=== PATIENT | male | born 1945 | race Caucasian/White ===

== ENCOUNTER 2017-09-17 15:26 | Emergency (ER) | payer MEDICARE ==
[2017-09-17 15:38] VITALS: RESP 18; TEMP 97.4
--- NOTE | 2017-09-17 16:01 | ED ---
Chest Pain HPI - General Chief Complaint: Chest Pain Stated Complaint: Chest Pain Time Seen by Provider: 09/17/17 15:40 Source: patient, family, RN notes reviewed Mode of arrival: wheelchair Limitations: no limitations - History of Present Illness Initial Comments: Is a 72-year-old male history of a pacemaker who states she started developing left-sided chest pain last night. He states he had intermittent fleeting sharp in nature mild to moderate in severity not associated with any shortness breath fevers chills nausea vomiting sweats or other symptoms the patient does have also complains of an episode of drooling on the left side of his mouth this morning. There is no facial asymmetry reported no weakness to his arms or legs no headache blurry vision or other symptoms. He has no prior history of stroke. MD Complaint: chest pain - Related Data Home Medications Medication Instructions Recorded Confirmed Simvastatin [Zocor] 20 mg PO HS 05/26/14 09/17/17 Naproxen Sodium [Aleve] 220 mg PO Q12HR PRN 05/03/15 09/17/17 Ginkgo Biloba [place] Extract [Ginkgo] 60 mg PO DAILY 03/09/16 09/17/17 Metoprolol Tartrate [Lopressor] 25 mg PO BID 03/09/16 09/17/17 metFORMIN HCL [Glucophage] 500 mg PO BID 03/09/16 09/17/17 Acetaminophen [Tylenol Extra 500 mg PO BID PRN 09/17/17 09/17/17 Strength] Aspirin 325 mg PO DAILY 09/17/17 09/17/17 Lisinopril-Hctz 20-25 mg 2 tab PO DAILY 09/17/17 09/17/17 [Zestoretic 20-25] Propafenone [Rythmol] 225 mg PO BID 09/17/17 09/17/17 Rivaroxaban [Xarelto] 20 mg PO BID 09/17/17 09/17/17 Topiramate 50 mg PO BID 09/17/17 09/17/17 amLODIPine BESYLATE [Norvasc] 5 mg PO BID 09/17/17 09/17/17 hydrALAZINE HCL [Apresoline] 100 mg PO TID 09/17/17 09/17/17 Allergies Allergy/AdvReac Type Severity Reaction Status Date / Time No Known Allergies Allergy Verified 09/17/17 16:09 Review of Systems ROS Statement: Those systems with pertinent positive or pertinent negative responses have been documented in the HPI. ROS Other: All systems not noted in ROS Statement are negative. EKG Findings - EKG Results: EKG: interpreted by WOLFGANG (Atrial paced rhythm rate of 65 MA of 242 QRS 106 QT since QTC of 396/411 left axis deviation, incomplete left bundle-branch block) Past Medical History Past Medical History: COPD, Diabetes Mellitus, GERD/Reflux, Hyperlipidemia, Hypertension, Skin Disorder, Sleep Apnea/CPAP/BIPAP Additional Past Medical History / Comment(s): PSORIASIS, uses CPAP, blood in stool History of Any Multi-Drug Resistant Organisms: None Reported Past Surgical History: Adenoidectomy, Heart Catheterization, Orthopedic Surgery , Pacemaker, Tonsillectomy Additional Past Surgical History / Comment(s): hand surg. pacemaker Past Anesthesia/Blood Transfusion Reactions: No Reported Reaction Type of Cardiac Device: Permanent Pacemaker Device Placement Date:: April 2015 Past Psychological History: No Psychological Hx Reported Smoking Status: Former smoker Past Alcohol Use History: None Reported Past Drug Use History: None Reported - Past Family History Mother Family Medical History: Myocardial Infarction ([place]) Father Family Medical History: Cancer General Exam - General Exam Comments Initial Comments: This a well-developed well-nourished awake alert oriented 3 male Limitations: no limitations General appearance: alert, in no apparent distress Head exam: Present: atraumatic, normocephalic, normal inspection Eye exam: Present: normal appearance, PERRL, EOMI. Absent: scleral icterus, conjunctival injection, periorbital swelling ENT exam: Present: normal exam, mucous membranes moist Neck exam: Present: normal inspection. Absent: tenderness, meningismus, lymphadenopathy Respiratory exam: Present: normal lung sounds bilaterally, chest wall tenderness (Reproducible tenderness palpation on the left lateral costal sternal margin. No step-off or crepitation). Absent: respiratory distress, wheezes, rales, rhonchi, stridor Cardiovascular Exam: Present: regular rate, normal rhythm, normal heart sounds. Absent: systolic murmur, diastolic murmur, rubs, gallop, clicks GI/Abdominal exam: Present: soft, normal bowel sounds. Absent: distended, tenderness, guarding, rebound, rigid Extremities exam: Present: normal inspection, full ROM, normal capillary refill. Absent: tenderness, pedal edema, joint swelling, calf tenderness Back exam: Present: normal inspection Neurological exam: Present: alert, oriented X3, CN II-XII intact Psychiatric exam: Present: normal affect, normal mood Skin exam: Present: warm, dry, intact, normal color. Absent: rash Course Vital Signs 09/17/17 09/17/17 09/17/17 15:34 15:43 16:12 Temperature 97.4 F L Pulse Rate 63 60 Respiratory 18 Rate Blood Pressure 185/88 177/81 136/73 O2 Sat by Pulse 98 99 Oximetry 09/17/17 17:41 Temperature Pulse Rate 60 Respiratory 18 Rate Blood Pressure 169/84 O2 Sat by Pulse 99 Oximetry Chest Pain MDM - MDM Review the imaging reveals no acute findings patient is asymptomatic except for reproducible chest pain along the lateral aspect of the costochondral margin. He also feels a nodule that area he does have a tendency toward calcium deposits he states. The presentation is consistent with costochondritis she will be discharged he'll follow-up with his doctor return when necessary Disposition Clinical Impression: Costalchondritis, Chest wall syndrome Disposition: HOME SELF-CARE Condition: Good Instructions: Costochondritis (ED) Additional Instructions: Tylenol for pain Referrals: Osiel Flanagan MD [Primary Care Provider] - 1-2 days
[2017-09-17 16:10] LABS: Basophils # (A) 0.1 k/uL (0-0.2); Basophils % (A) 1 %; Eosinophils # (A) 0.4 k/uL (0-0.7); Eosinophils % (A) 5 %; HCT 42.6 % (39.0-53.0); HGB 14.2 gm/dL (13.0-17.5); Lymphocytes # (A) 1.8 k/uL (1.0-4.8); Lymphocytes % (A) 25 %; MCH 29.8 pg (25.0-35.0); MCHC 33.3 g/dL (31.0-37.0); MCV 89.6 fL (80.0-100.0); Mean Platelet Volume 8.8; Monocytes # (A) 0.4 k/uL (0-1.0); Monocytes % (A) 6 %; Neutrophils # (A) 4.3 k/uL (1.3-7.7); Neutrophils % (A) 61 %; Platelet Count 181 k/uL (150-450); RBC 4.76 m/uL (4.30-5.90); RDW 13.1 % (11.5-15.5)
[2017-09-17 16:14] LABS: ALT 43 U/L (21-72); AST 31 U/L (17-59); Alkaline Phosphatase 97 U/L (38-126); Amylase <30 U/L (30-110); Anion Gap 12 mmol/L; Blood Urea Nitrogen 23 mg/dL (9-20); Calcium 9.9 mg/dL (8.4-10.2); Carbon Dioxide 27 mmol/L (22-30); Chloride 102 mmol/L (98-107); Glucose 183 mg/dL (74-99); Lipase 101 U/L (23-300); Magnesium 1.9 mg/dL (1.6-2.3); Potassium 3.6 mmol/L (3.5-5.1); Sodium 141 mmol/L (137-145); Total Bilirubin 0.4 mg/dL (0.2-1.3); Total Protein 6.9 g/dL (6.3-8.2)
[2017-09-17 16:18] LABS: D-Dimer 0.32 mg/L FEU (<0.60); Partial Thromboplastin Time 23.1 sec (22.0-30.0); Prothrombin Time 10.1 sec (9.0-12.0)
--- NOTE | 2017-09-17 16:27 | XR ---
EXAMINATION TYPE: XR chest 2V DATE OF EXAM: 09/17/2017 COMPARISON: 05/11/2015 HISTORY: Chest pain TECHNIQUE: Frontal and lateral views of the chest are obtained. FINDINGS: There is evidence of a small infiltrate in the right midlung that is probably in the super ior segment right lower lobe. The other lung pastor are clear. Heart is normal. There is no heart lucas lure. There are chest leads. There is left x-ray pacemaker with the lead tips in the right ventricle. The bony thorax is intact. IMPRESSION: There is a new small infiltrate in the right lower lobe compared to old exam. Normal hea rt.
[2017-09-17 16:45] LABS: Creatine Kinase MB 1.4 ng/mL (0.0-2.4); Troponin I 0.019 ng/mL (0.000-0.034)
--- NOTE | 2017-09-17 17:38 | CT ---
EXAMINATION TYPE: CT brain wo con DATE OF EXAM: 09/17/2017 COMPARISON: 01/27/2009 HISTORY: Chest pain and weakness. CT DLP: 1054.2 mGycm Automated exposure control for dose reduction was used. FINDINGS: Ventricles have normal size. There is no mass effect nor midline shift. There is no sign of intracran ial hemorrhage. The calvarium is intact. IMPRESSION: NEGATIVE CT SCAN OF THE BRAIN. NO ADVERSE CHANGE COMPARED TO OLD EXAM.
[2017-09-17 17:41] VITALS: PULSE 60
[2017-09-17 17:43] VITALS: BP 169/84
== END 2017-09-17 18:26 | disposition home or self-care (01) ==
LOC: EC 15:26
DX: M94.0 Chondrocostal junction syndrome [Tietze] (principal); R29.810 Facial weakness; E78.5 Hyperlipidemia, unspecified; I10 Essential (primary) hypertension; E11.9 Type 2 diabetes mellitus without complications; G47.30 Sleep apnea, unspecified; Z87.891 Personal history of nicotine dependence; Z79.01 Long term (current) use of anticoagulants; Z79.82 Long term (current) use of aspirin; Z79.84 Long term (current) use of oral hypoglycemic drugs; Z95.0 Presence of cardiac pacemaker; Z99.89 Dependence on other enabling machines and devices; Z82.49 Family history of ischemic heart disease and other diseases of the circulatory system
CPT/HCPCS: 36415; 70450; 71046; 80053; 82150; 82550; 82553; 83690; 83735; 83880; 84484; 85025; 85379; 85610; 85730; 93005; 99285

== ENCOUNTER 2018-01-09 14:10 | Inpatient (IN) | payer MEDICARE ==
[2018-01-09] MEDS ORDERED: SODIUM CHLORIDE 0.9% 1,000 ML IV ONE (14:53)
[2018-01-09] MEDS ORDERED: MORPHINE SULFATE 4 MG/0.8 ML SYRINGE (INJ) IVP STA (14:55)
[2018-01-09] MEDS ORDERED: PIPERACILLIN-TAZOBACTAM 3.375 GM in DEXTROSE/WATER 1 50ML.BAG IVPB STA (14:55)
[2018-01-09] MEDS ORDERED: VANCOMYCIN IV PER PHARMACY 1 EACH MISC MISCELLANE PRN (14:55)
[2018-01-09] MEDS ORDERED: ACETAMINOPHEN IV (For NPO) 1,000 MG in EMPTY BAG 1 BAG IVPB STA (14:55)
[2018-01-09] MEDS ORDERED: IPRATROPIUM-ALBUTEROL 3 ML NEB INHALATION STA (14:55)
--- NOTE | 2018-01-09 14:59 | ED ---
General Adult HPI - General Chief complaint: Skin/Abscess/Foreign Body Stated complaint: testicular mass Time Seen by Provider: 01/09/18 14:21 Source: EMS, RN notes reviewed, old records reviewed Mode of arrival: EMS Limitations: no limitations - History of Present Illness Initial comments: This is a 9-year-old male the ER for evaluation of scrotal pain severe scrotal pain. Multiple medical comorbidities. Including morbid obesity. Patient transfer patient accepted in transfer for urology consultation regarding scrotal pain and abscess. Patient still having significant pain at this time. No fevers. Denies any abdominal pain her blood tox pain - Related Data Home Medications Medication Instructions Recorded Confirmed Simvastatin [Zocor] 20 mg PO HS 05/26/14 01/09/18 Naproxen Sodium [Aleve] 440 mg PO Q12HR PRN 05/03/15 01/09/18 Metoprolol Tartrate [Lopressor] 25 mg PO BID 03/09/16 01/09/18 metFORMIN HCL [Glucophage] 500 mg PO BID 03/09/16 01/09/18 Aspirin 325 mg PO DAILY 09/17/17 01/09/18 Lisinopril-Hctz 20-25 mg 2 tab PO DAILY 09/17/17 01/09/18 [Zestoretic 20-25] Topiramate 50 mg PO BID 09/17/17 01/09/18 amLODIPine BESYLATE [Norvasc] 5 mg PO BID 09/17/17 01/09/18 hydrALAZINE HCL [Apresoline] 100 mg PO TID 09/17/17 01/09/18 predniSONE 40 mg PO DAILY 01/09/18 01/09/18 Allergies Allergy/AdvReac Type Severity Reaction Status Date / Time No Known Allergies Allergy Verified 01/09/18 15:34 Review of Systems ROS Statement: Those systems with pertinent positive or pertinent negative responses have been documented in the HPI. ROS Other: All systems not noted in ROS Statement are negative. Past Medical History Past Medical History: COPD, Diabetes Mellitus, GERD/Reflux, Hyperlipidemia, Hypertension, Skin Disorder, Sleep Apnea/CPAP/BIPAP Additional Past Medical History / Comment(s): PSORIASIS, uses CPAP, blood in stool History of Any Multi-Drug Resistant Organisms: None Reported Past Surgical History: Adenoidectomy, Heart Catheterization, Orthopedic Surgery , Pacemaker, Tonsillectomy Additional Past Surgical History / Comment(s): hand surg. pacemaker Past Anesthesia/Blood Transfusion Reactions: No Reported Reaction Type of Cardiac Device: Permanent Pacemaker Device Placement Date:: April 2015 Past Psychological History: No Psychological Hx Reported Smoking Status: Former smoker Past Alcohol Use History: Rare Past Drug Use History: None Reported - Past Family History Mother Family Medical History: Myocardial Infarction ([place]) Father Family Medical History: Cancer General Exam Limitations: no limitations General appearance: alert, in no apparent distress Head exam: Present: atraumatic, normocephalic, normal inspection Eye exam: Present: normal appearance, PERRL, EOMI. Absent: scleral icterus, conjunctival injection, periorbital swelling ENT exam: Present: normal exam, mucous membranes moist Neck exam: Present: normal inspection. Absent: tenderness, meningismus, lymphadenopathy Respiratory exam: Present: normal lung sounds bilaterally. Absent: respiratory distress, wheezes, rales, rhonchi, stridor Cardiovascular Exam: Present: regular rate, normal rhythm, normal heart sounds. Absent: systolic murmur, diastolic murmur, rubs, gallop, clicks GI/Abdominal exam: Present: soft, normal bowel sounds. Absent: distended, tenderness, guarding, rebound, rigid Rectal exam: Present: deferred exam: Present: testicular tenderness, scrotal swelling, other (Severe erythema and scrotal tenderness) External exam: Present: swelling Extremities exam: Present: normal inspection, full ROM, normal capillary refill. Absent: tenderness, pedal edema, joint swelling, calf tenderness Back exam: Present: normal inspection Neurological exam: Present: alert, oriented X3, CN II-XII intact Psychiatric exam: Present: normal affect, normal mood Skin exam: Present: warm, dry, intact, normal color. Absent: rash Course Vital Signs 01/09/18 01/09/18 01/09/18 14:19 15:31 15:39 Temperature 98.2 F Pulse Rate 60 76 80 Respiratory 16 Rate Blood Pressure 180/84 O2 Sat by Pulse 97 Oximetry 01/09/18 16:23 Temperature Pulse Rate 73 Respiratory 16 Rate Blood Pressure 110/58 O2 Sat by Pulse 95 Oximetry - Reevaluation(s) Reevaluation #1: 01/09/18 14:58 Patient does have pain control currently Medical Decision Making - Medical Decision Making 72 male the ER for evaluation of scrotal abscess, patient on transfer patient. Patient be admitted for IV antibiotics and urology consultation - Lab Data Result diagrams: 01/09/18 15:17 01/09/18 15:17 - Radiology Data Radiology results: report reviewed (Ultrasound scrotal abscess, x-ray pelvis negative for free air), image reviewed Disposition Clinical Impression: Cellulitis of scrotum Disposition: ADMITTED IP TO THIS HOSP Condition: Fair
[2018-01-09 15:29] LABS: Basophils % (A) 0 %; Eosinophils # (A) 0.1 k/uL (0-0.7); Eosinophils % (A) 1 %; HCT 47.7 % (39.0-53.0); HGB 15.6 gm/dL (13.0-17.5); Lymphocytes # (A) 0.9 k/uL (1.0-4.8); Lymphocytes % (A) 6 %; MCH 29.2 pg (25.0-35.0); MCHC 32.7 g/dL (31.0-37.0); MCV 89.1 fL (80.0-100.0); Mean Platelet Volume 10.7; Monocytes # (A) 0.3 k/uL (0-1.0); Monocytes % (A) 2 %; Neutrophils % (A) 91 %; Platelet Count 185 k/uL (150-450); RBC 5.36 m/uL (4.30-5.90); WBC 14.3 k/uL (3.8-10.6)
[2018-01-09 15:38] LABS: Calcium 9.7 mg/dL (8.4-10.2); Potassium 4.1 mmol/L (3.5-5.1); Total Bilirubin 1.3 mg/dL (0.2-1.3); Total Protein 6.9 g/dL (6.3-8.2)
[2018-01-09] MEDS ORDERED: INSULIN REGULAR 100 UNIT/ML VIAL IV ONE (15:47)
[2018-01-09] MEDS ORDERED: INSULIN REGULAR 100 UNIT/ML VIAL SQ ONE (15:47)
[2018-01-09] MEDS ORDERED: VANCOMYCIN 2,500 MG in SODIUM CHLORIDE 0.9% 500 ML IVPB ONE (16:00)
--- NOTE | 2018-01-09 16:26 | XR ---
EXAMINATION TYPE: XR pelvis AP view DATE OF EXAM: 01/09/2018 CLINICAL HISTORY: Testicular mass. Pelvic pain. TECHNIQUE: A single AP view of the pelvis is obtained. COMPARISON: None. FINDINGS: There is no acute fracture/dislocation evident in the pelvis. The hip and sacroiliac join ts appear symmetric and unremarkable. Phleboliths are noted within the pelvis. There is mild femoral acetabular arthropathy. The overlying soft tissue appears unremarkable. Mild degenerative changes of the lumbosacral junction are also noted. IMPRESSION: There is no acute fracture or dislocation in the pelvis.
--- NOTE | 2018-01-09 17:01 | P.GSCN ---
History of Present Illness Consult date: 01/09/18 Reason for Consult: Scrotal cellulitis left History of present illness: The patient is a 72-year-old gentleman who is transferred from [facility] because of a scrotal swelling and erythema. I was contacted by the emergency room physician stating the patient had a several day history of an enlarging left scrotum. He said it was grapefruit size. He implied to me that he had a scrotal abscess. I old the physician to refer the patient to our emergency room and that we would make arrangements to deal with the scrotal abscess. He was seen in the emergency room by Dr. Redd Chaudhary who felt that he had a scrotal cellulitis and not an abscess. The ultrasound from [place] was interpreted as fat and not an abscess. He had a normal testicle normal epididymis. There is no urine obtained in [place]. His white count is 14,000 and his sugar is 500+. That he was admitted to the medical service to control the hyperglycemia as well as treat him with antibiotics and consult with urology. The patient stated that for the last week he has had it slowly increased swelling in the perineum up into the left scrotum. It worsened in the last 24-48 hours. Seen by his local doctor and thought he had a hernia and was placed on steroids. Not had antibiotics. He does admit to increasing urinary frequency however his sugar is out of control. Review of Systems - Constitutional Reports as per HPI - Genitourinary Genitourinary Comment(s): Urinary frequency Reports as per HPI - Integumentary Reports as per HPI Past Medical History Past Medical History: COPD, Diabetes Mellitus, GERD/Reflux, Hyperlipidemia, Hypertension, Skin Disorder, Sleep Apnea/CPAP/BIPAP Additional Past Medical History / Comment(s): PSORIASIS, uses CPAP, blood in stool History of Any Multi-Drug Resistant Organisms: None Reported Past Surgical History: Adenoidectomy, Heart Catheterization, Orthopedic Surgery , Pacemaker, Tonsillectomy Additional Past Surgical History / Comment(s): hand surg. pacemaker Past Anesthesia/Blood Transfusion Reactions: No Reported Reaction Type of Cardiac Device: Permanent Pacemaker Device Placement Date:: April 2015 Past Psychological History: No Psychological Hx Reported Smoking Status: Former smoker Past Alcohol Use History: Rare Past Drug Use History: None Reported - Past Family History Mother Family Medical History: Myocardial Infarction ([place]) Father Family Medical History: Cancer Medications and Allergies Home Medications Medication Instructions Recorded Confirmed Type Simvastatin [Zocor] 20 mg PO HS 05/26/14 01/09/18 History Naproxen Sodium [Aleve] 440 mg PO Q12HR PRN 05/03/15 01/09/18 History Metoprolol Tartrate [Lopressor] 25 mg PO BID 03/09/16 01/09/18 History metFORMIN HCL [Glucophage] 500 mg PO BID 03/09/16 01/09/18 History Aspirin 325 mg PO DAILY 09/17/17 01/09/18 History Lisinopril-Hctz 20-25 mg 2 tab PO DAILY 09/17/17 01/09/18 History [Zestoretic 20-25] Topiramate 50 mg PO BID 09/17/17 01/09/18 History amLODIPine BESYLATE [Norvasc] 5 mg PO BID 09/17/17 01/09/18 History hydrALAZINE HCL [Apresoline] 100 mg PO TID 09/17/17 01/09/18 History predniSONE 40 mg PO DAILY 01/09/18 01/09/18 History Allergies Allergy/AdvReac Type Severity Reaction Status Date / Time No Known Allergies Allergy Verified 01/09/18 15:34 Surgical - Exam Vital Signs Temp Pulse Resp BP Pulse Ox 98.2 F 60 16 180/84 97 01/09/18 14:19 01/09/18 14:19 01/09/18 14:19 01/09/18 14:19 01/09/18 14:19 - General well developed, well nourished, no distress - Eyes PERRL - ENT no hearing loss - Neck trachea midline - Respiratory normal expansion, normal respiratory effort - Abdomen Abdomen: soft, non tender - Genitourinary Penis is uncircumcised was penile swelling. The scrotum is markedly swollen left-sided greater than right. There is erythema and edema on the left side. There is no crepitus. There is no palpable abscess. The right testicle is palpably normal I cannot palpate the left testicle. The erythema extends in the left perineum. His no obvious nidus of infection. - Neurologic normal coordination, normal sensation - Musculoskeletal normal posture - Psychiatric oriented to time, oriented to person, oriented to place, speech is normal, memory intact Results - Labs 01/09/18 15:17 01/09/18 15:17 Abnormal Lab Results - Last 24 Hours (Table) 01/09/18 01/09/18 Range/Units 15:17 15:17 WBC 14.3 H (3.8-10.6) k/uL Neutrophils # 13.0 H (1.3-7.7) k/uL Lymphocytes # 0.9 L (1.0-4.8) k/uL Chloride 95 L (98-107) mmol/L BUN 35 H (9-20) mg/dL Glucose 539 H* (74-99) mg/dL Diabetes panel 01/09/18 Range/Units 15:17 Sodium 139 (137-145) mmol/L Potassium 4.1 (3.5-5.1) mmol/L Chloride 95 L (98-107) mmol/L Carbon Dioxide 26 (22-30) mmol/L BUN 35 H (9-20) mg/dL Creatinine 1.12 (0.66-1.25) mg/dL Glucose 539 H* (74-99) mg/dL Calcium 9.7 (8.4-10.2) mg/dL AST 23 (17-59) U/L ALT 23 (21-72) U/L Alkaline Phosphatase 108 (38-126) U/L Total Protein 6.9 (6.3-8.2) g/dL Albumin 4.0 (3.5-5.0) g/dL Calcium panel 01/09/18 Range/Units 15:17 Calcium 9.7 (8.4-10.2) mg/dL Albumin 4.0 (3.5-5.0) g/dL Pituitary panel 01/09/18 Range/Units 15:17 Sodium 139 (137-145) mmol/L Potassium 4.1 (3.5-5.1) mmol/L Chloride 95 L (98-107) mmol/L Carbon Dioxide 26 (22-30) mmol/L BUN 35 H (9-20) mg/dL Creatinine 1.12 (0.66-1.25) mg/dL Glucose 539 H* (74-99) mg/dL Calcium 9.7 (8.4-10.2) mg/dL Adrenal panel 01/09/18 Range/Units 15:17 Sodium 139 (137-145) mmol/L Potassium 4.1 (3.5-5.1) mmol/L Chloride 95 L (98-107) mmol/L Carbon Dioxide 26 (22-30) mmol/L BUN 35 H (9-20) mg/dL Creatinine 1.12 (0.66-1.25) mg/dL Glucose 539 H* (74-99) mg/dL Calcium 9.7 (8.4-10.2) mg/dL Total Bilirubin 1.3 (0.2-1.3) mg/dL AST 23 (17-59) U/L ALT 23 (21-72) U/L Alkaline Phosphatase 108 (38-126) U/L Total Protein 6.9 (6.3-8.2) g/dL Albumin 4.0 (3.5-5.0) g/dL - Imaging US - pelvic: report reviewed, image reviewed Assessment and Plan Assessment: Impression: Scrotal cellulitis, hyperglycemia, morbid obesity Recommendations. Urinalysis and culture should be obtained. I agree with the antibiotic choice. Ice and elevation and anti-inflammatories for the scrotal swelling are appropriate. Appears to be more scrotal cellulitis than an epididymitis as the epididymis and testes appeared normal on the ultrasound. I will follow this patient with you.
[2018-01-09 17:30] LABS: Glucose,Whole Blood 433 mg/dL (75-99)
[2018-01-09] MEDS ORDERED: NAPROXEN SODIUM 440 MG PO PRN (17:32)
[2018-01-09 20:52] LABS: Glucose,Whole Blood 470 mg/dL (75-99)
[2018-01-09] MEDS ORDERED: amLODIPine 5 MG TAB PO SCH (21:00)
[2018-01-09] MEDS ORDERED: IPRATROPIUM-ALBUTEROL 3 ML NEB INHALATION PRN (22:42)
[2018-01-09] MEDS: INSULIN REGULAR 100 UNIT in SODIUM CHLORIDE 0.9% 100 ML IV SCH (22:55)
[2018-01-09 22:58] LABS: Glucose,Whole Blood 435 mg/dL (75-99)
[2018-01-09] MEDS: TOPIRAMATE 25 MG TAB PO SCH (23:09)
[2018-01-09] MEDS: metFORMIN 500 MG TAB PO SCH (23:09)
[2018-01-09] MEDS: ATORVASTATIN 10 MG TAB PO SCH (23:09)
[2018-01-09] MEDS: IBUPROFEN 600 MG TAB PO SCH (23:12)
[2018-01-09] MEDS ORDERED: NALOXONE 0.4 MG/ML 1 ML VIAL IV PRN (23:14)
[2018-01-09] MEDS ORDERED: ONDANSETRON 4 MG/2 ML VIAL IVP PRN (23:14)
[2018-01-09] MEDS ORDERED: ALPRAZolam 0.25 MG TAB PO PRN (23:14)
[2018-01-09] MEDS ORDERED: MELATONIN 3 MG TABLET PO PRN (23:14)
[2018-01-09] MEDS ORDERED: LACTATED RINGERS 1,000 ML IV SCH (23:15)
[2018-01-09] MEDS: METOPROLOL TARTRATE 25 MG TAB PO SCH (23:16)
[2018-01-09] MEDS: hydrALAZINE HCL 50 MG TAB PO SCH (23:16)
[2018-01-09 23:51] LABS: Glucose,Whole Blood 384 mg/dL (75-99)
[2018-01-10] MEDS: PIPERACILLIN-TAZOBACTAM 3.375 GM in DEXTROSE/WATER 1 50ML.BAG IVPB SCH ×3 (00:01→15:14)
[2018-01-10] MEDS: SODIUM CHLORIDE 0.9% 1,000 ML IV SCH ×4 (00:02→19:13)
--- NOTE | 2018-01-10 00:05 | HP ---
HISTORY AND PHYSICAL DATE OF SERVICE: 01/09/2018 PRESENT COMPLAINT: Painful red scrotum. HISTORY OF PRESENTING COMPLAINT: This is a 72-year-old patient of Dr. Flanagan. Chronic stable medical conditions include congestive heart failure, GERD, hypertension, hyperlipidemia, obstructive sleep apnea, uses a CPAP machine. The patient for a week noted a slight bruise on the scrotum which has slowly gotten worse. Patient's scrotum has gotten swollen, red, tender, painful and he decided to come in. The patient does have frequency of urination which he always had. Denies any obvious fevers. Appetite is maintained. The patient earlier was seen by a seen by urologist Dr. Juárez, who recommended to continue patient on antibiotics and ice packs and elevation. REVIEW OF SYSTEMS: CONSTITUTIONAL: Tired. HEENT: None. RESPIRATORY: None. CARDIOVASCULAR: None. GASTROINTESTINAL: Heartburn. GENITOURINARY: As above. MUSCULOSKELETAL: None. DERMATOLOGICAL: As above. LYMPHATICS: None. PSYCHIATRY: None. NEUROLOGICAL: None. PAST MEDICAL HISTORY: Congestive heart failure, diabetes type 2, GERD, hypertension, hyperlipidemia, sleep apnea, psoriasis, uses CPAP. PAST SURGICAL HISTORY: Cardiac catheterization, adenoidectomy, pacemaker, tonsillectomy, right carpal tunnel release, pacemaker, colonoscopy with polypectomy, nasal surgery, hemorrhoidectomy, permanent pacemaker. SOCIAL HISTORY: Smoked less than a pack a day for 20 years stopped in 1979. . Rarely uses alcohol. FAMILY HISTORY: Myocardial infarction. HOME MEDICATIONS: 1. Prednisone 40 mg p.o. daily. 2. Glucophage 500 mg p.o. b.i.d. 3. Hydralazine 100 mg p.o. t.i.d. 4. Norvasc 5 mg p.o. b.i.d. 5. Topamax 50 mg p.o. b.i.d. 6. Zocor 20 mg q.h.s. 7. Lopressor 25 mg p.o. b.i.d. 8. Zestoretic 20/25 two tablets daily. 9. Aleve 440 mg p.o. q.12h p.r.n. 10.Aspirin 325 p.o. daily. ALLERGIES: None. EXAMINATION: Temperature 97, pulse 78, respirations 20, blood pressure 104/68, pulse ox 95% on room air. GENERAL APPEARANCE: Well-built, BMI 39.9. Lying in bed, tired appearing. EYES: Pupils equal. Conjunctivae normal. HEENT: External appearance of nose and ears normal. Oral cavity normal. NECK: Short, thick. JVD unable to assess. Mass not palpable. RESPIRATORY: Effort increased. LUNGS: Decreased breath sounds. CARDIOVASCULAR: First and second sounds normal. No edema. ABDOMEN: Distended, soft. Liver and spleen not palpable. LYMPHATIC: No lymph node palpable in neck and axillae. PSYCHIATRY: Alert and oriented x3. Mood and affect normal. NEUROLOGICAL: Pupils equal. Cranial nerves grossly intact. Power and sensation grossly intact. GENITOURINARY: The patient has an enlarged scrotum; red, tender, more so in the dependent area. Do not notice any obvious fluctuation. INVESTIGATIONS: White count 14.3, hemoglobin 15.6, increased neutrophils. Potassium 4.1, BUN 35, creatinine 1.12, glucose was 539. ASSESSMENT: 1. Acute severe scrotal cellulitis. Normally these are from gram-positive organisms. 2. Diabetes mellitus type 2, chronically on insulin, uncontrolled from hyperglycemia, rule out diabetic ketoacidosis. 3. Obesity; BMI 39.9. 4. Chronic congestive heart failure. Ejection fraction not known. 5. Gastroesophageal reflux disease. 6. Hyperlipidemia. 7. Essential hypertension. 8. Obstructive sleep apnea. Uses CPAP machine. PLAN: Patient is currently on vancomycin, Zosyn. Home medications are resumed. The patient will be put on an insulin drip. We will send off serum acetone. The patient will be given ice packs and elevation of the scrotum. Care was discussed with the patient. MMODL / IJN: [id number] /
[2018-01-10 01:09] LABS: Glucose,Whole Blood 294 mg/dL (75-99)
[2018-01-10] MEDS ORDERED: NOREPINEPHRIN 4 MG-0.9% NS PMX 4 MG/250 ML ML IV ONE (02:04)
[2018-01-10 02:35] LABS: Glucose,Whole Blood 203 mg/dL (75-99)
[2018-01-10] MEDS ORDERED: SODIUM CHLORIDE 0.9% 1,000 ML IV ONE ×2 (02:42→23:35)
[2018-01-10 02:43] LABS: Appearance,Urine Cloudy (Clear); Bilirubin,Urine Negative (Negative); Blood,Urine Negative (Negative); Color,Urine Yellow; Glucose,Urine (UA) 4+ (Negative); Ketones,Urine Trace (Negative); Leukocyte Esterase,Urine Negative (Negative); Nitrite,Urine Negative (Negative); Protein,Urine Trace (Negative); RBC,Urine <1 /hpf (0-5); Specific Gravity,Urine 1.028 (1.001-1.035); Urobilinogen,Urine <2.0 mg/dL (<2.0); WBC,Urine 2 /hpf (0-5)
[2018-01-10 04:03] LABS: Basophils % (A) 0 %; Eosinophils # (A) 0.1 k/uL (0-0.7); Eosinophils % (A) 1 %; HCT 44.2 % (39.0-53.0); HGB 14.4 gm/dL (13.0-17.5); Lymphocytes # (A) 1.1 k/uL (1.0-4.8); Lymphocytes % (A) 5 %; MCHC 32.7 g/dL (31.0-37.0); MCV 88.8 fL (80.0-100.0); Mean Platelet Volume 10.5; Monocytes # (A) 0.7 k/uL (0-1.0); Monocytes % (A) 3 %; Neutrophils # (A) 20.1 k/uL (1.3-7.7); Neutrophils % (A) 91 %; Platelet Count 200 k/uL (150-450); RBC 4.97 m/uL (4.30-5.90); WBC 22.2 k/uL (3.8-10.6)
[2018-01-10 04:11] LABS: Calcium 8.7 mg/dL (8.4-10.2); Phosphorus 2.1 mg/dL (2.5-4.5); Potassium 3.1 mmol/L (3.5-5.1)
[2018-01-10 04:22] LABS: Glucose,Whole Blood 194 mg/dL (75-99)
[2018-01-10] MEDS ORDERED: VANCOMYCIN 2,000 MG in SODIUM CHLORIDE 0.9% 500 ML IVPB SCH (05:00)
[2018-01-10] MEDS: INSULIN REGULAR 100 UNIT in SODIUM CHLORIDE 0.9% 100 ML IV SCH (06:13)
[2018-01-10 06:33] LABS: Glucose,Whole Blood 225 mg/dL (75-99)
--- NOTE | 2018-01-10 06:43 | P.PN ---
Subjective Progress Note Date: 01/10/18 The patient was brought in the hospital with a scrotal cellulitis. He had an ultrasound in [place] that did not show any obvious abscess. The patient became septic overnight and ended up in the intensive care unit. Scrotal swelling is about the same. There is no crepitus. It has not extended up into the groin. Repeat ultrasound to make sure nothing to drain. Objective - Vital Signs Vital signs: Vital Signs Temp 99.6 F 01/09/18 23:50 Pulse 65 01/10/18 02:00 Resp 19 01/10/18 02:00 BP 79/62 01/10/18 02:00 Pulse Ox 96 01/10/18 02:00 Intake & Output 01/09/18 01/09/18 01/10/18 06:59 18:59 06:59 Intake Total 2701.0 Output Total 165 Balance 2536.0 Weight 133.356 kg Intake: IV 1500 Sodium Chloride 0.9% 1, 1500 000 ml @ 125 mls/hr IV . Q8H [facility] Rx#:[id number] Intake, IV Titration 1201.0 Amount Insulin Regular 100 unit 101.0 In Sodium Chloride 0.9% 100 ml @ Titrate IV .Q0M [facility] Rx#:[id number] Sodium Chloride 0.9% 1, 600 000 ml @ 75 mls/hr IV . [id number] ONE Rx#:[id number] Vancomycin 2,500 mg In 500 Sodium Chloride 0.9% 500 ml @ 167 mls/hr IVPB ONCE ONE Rx#:[id number] Output: Urine 165 Other: Voiding Method Toilet Diaper Indwelling Catheter - Labs CBC & Chem 7: 01/10/18 03:38 01/10/18 03:38 Labs: Abnormal Lab Results - Last 24 Hours (Table) 01/09/18 01/09/18 01/09/18 Range/Units 15:17 15:17 17:29 WBC 14.3 H (3.8-10.6) k/uL Neutrophils # 13.0 H (1.3-7.7) k/uL Lymphocytes # 0.9 L (1.0-4.8) k/uL Potassium (3.5-5.1) mmol/L Chloride 95 L (98-107) mmol/L BUN 35 H (9-20) mg/dL Creatinine (0.66-1.25) mg/dL Glucose 539 H* (74-99) mg/dL POC Glucose (mg/dL) 433 H (75-99) mg/dL Plasma Lactic Acid Shemar (0.7-2.0) mmol/L Phosphorus (2.5-4.5) mg/dL Urine Protein (Negative) Urine Glucose (UA) (Negative) Urine Ketones (Negative) 01/09/18 01/09/18 01/09/18 Range/Units 20:51 22:53 23:42 WBC (3.8-10.6) k/uL Neutrophils # (1.3-7.7) k/uL Lymphocytes # (1.0-4.8) k/uL Potassium (3.5-5.1) mmol/L Chloride (98-107) mmol/L BUN (9-20) mg/dL Creatinine (0.66-1.25) mg/dL Glucose (74-99) mg/dL POC Glucose (mg/dL) 470 H 435 H (75-99) mg/dL Plasma Lactic Acid Shemar 3.4 H* (0.7-2.0) mmol/L Phosphorus (2.5-4.5) mg/dL Urine Protein (Negative) Urine Glucose (UA) (Negative) Urine Ketones (Negative) 01/09/18 01/10/18 01/10/18 Range/Units 23:50 01:05 02:25 WBC (3.8-10.6) k/uL Neutrophils # (1.3-7.7) k/uL Lymphocytes # (1.0-4.8) k/uL Potassium (3.5-5.1) mmol/L Chloride (98-107) mmol/L BUN (9-20) mg/dL Creatinine (0.66-1.25) mg/dL Glucose (74-99) mg/dL POC Glucose (mg/dL) 384 H 294 H (75-99) mg/dL Plasma Lactic Acid Shemar (0.7-2.0) mmol/L Phosphorus (2.5-4.5) mg/dL Urine Protein Trace H (Negative) Urine Glucose (UA) 4+ H (Negative) Urine Ketones Trace H (Negative) 01/10/18 01/10/18 01/10/18 Range/Units 02:34 03:38 03:38 WBC 22.2 H (3.8-10.6) k/uL Neutrophils # 20.1 H (1.3-7.7) k/uL Lymphocytes # (1.0-4.8) k/uL Potassium 3.1 L (3.5-5.1) mmol/L Chloride (98-107) mmol/L BUN 41 H (9-20) mg/dL Creatinine 2.00 H (0.66-1.25) mg/dL Glucose 194 H (74-99) mg/dL POC Glucose (mg/dL) 203 H (75-99) mg/dL Plasma Lactic Acid Shemar (0.7-2.0) mmol/L Phosphorus 2.1 L (2.5-4.5) mg/dL Urine Protein (Negative) Urine Glucose (UA) (Negative) Urine Ketones (Negative) 01/10/18 01/10/18 01/10/18 Range/Units 03:38 04:20 06:13 WBC (3.8-10.6) k/uL Neutrophils # (1.3-7.7) k/uL Lymphocytes # (1.0-4.8) k/uL Potassium (3.5-5.1) mmol/L Chloride (98-107) mmol/L BUN (9-20) mg/dL Creatinine (0.66-1.25) mg/dL Glucose (74-99) mg/dL POC Glucose (mg/dL) 194 H 225 H (75-99) mg/dL Plasma Lactic Acid Shemar 3.0 H* (0.7-2.0) mmol/L Phosphorus (2.5-4.5) mg/dL Urine Protein (Negative) Urine Glucose (UA) (Negative) Urine Ketones (Negative)
[2018-01-10] MEDS: IPRATROPIUM-ALBUTEROL 3 ML NEB INHALATION SCH ×5 (07:09→20:05)
[2018-01-10] MEDS ORDERED: Potassium Replacement Protocol 1 EACH MISC MISCELLANE PRN ×4 (07:53→19:14)
[2018-01-10] MEDS: INSULIN ASPART 100 UNIT/ML 1 ML 10 ML VIAL SQ SCH ×3 (08:17→17:31)
[2018-01-10] MEDS: POTASSIUM CHLORIDE ER 20 MEQ TAB.ER PO SCH ×3 (08:18→15:26)
[2018-01-10 08:29] LABS: Glucose,Whole Blood 194 mg/dL (75-99)
[2018-01-10] MEDS: TOPIRAMATE 25 MG TAB PO SCH ×2 (08:57→22:04)
[2018-01-10] MEDS: ASPIRIN 81 MG PO SCH (08:57)
--- NOTE | 2018-01-10 08:58 | US ---
EXAMINATION TYPE: US scrotum with doppler. Grayscale and color Doppler Duplex imaging performed of t kiera scrotum. DATE OF EXAM: 01/10/2018 COMPARISON: Outside ultrasound in PACS CLINICAL HISTORY: scrotal swelling. Scrotal swelling x couple days, exam done portable in ICU. EXAM MEASUREMENTS: TESTICLES: Right Testicle: 3.8 x 1.9 x 2.7 cm Left Testicle: 4.3 x 2.3 x 2.6 cm EPIDIDYMIS HEAD: Right Epididymis: 1.0 x 0.8 x 1.0 cm. A right testicular appendage is noted without evidence of curr ent torsion. Left Epididymis: 0.9 x 1.0 x 1.3 cm Doppler performed to assess for testicular vascularity; good bilateral color flow and waveforms are s een. There is no evidence of testicular torsion. Presence of hydroceles: Small amount of fluid surrounding bilateral testicles Right testicle appears wnl, but there is a 4.5 x 1.0 x 2.9cm hypoechoic complex area posterior to rig ht testicle that does not appear to be hypervascular. This appears to be a fluid collection as it varun ngates along the tissue planes. Left testicle appears wnl, but there is thickening around the scrotal sac that does not appear to be hypervascular. This thickening was noted on previous ultrasound. IMPRESSION: 1. Right-sided extratesticular 4.5 x 1.0 x 2.9 cm elongated fluid collection and may represent conflu ent edema or hematoma. Abscess is unlikely as there is no vascularity. 2. Diffuse scrotal thickening for which cellulitis should be considered. 3. Scant hydroceles, likely reactive.
[2018-01-10] MEDS ORDERED: ENOXAPARIN 40 MG/0.4 ML SYRINGE SQ SCH (09:00)
[2018-01-10] MEDS ORDERED: predniSONE 20 MG TAB PO SCH (09:00)
[2018-01-10] MEDS ORDERED: ASPIRIN 325 MG TAB PO SCH (09:00)
[2018-01-10] MEDS ORDERED: LISINOPRIL-HCTZ 20-25 MG 1 EACH TAB PO SCH (09:00)
[2018-01-10 09:35] LABS: Glucose,Whole Blood 207 mg/dL (75-99)
[2018-01-10] MEDS: IBUPROFEN 600 MG TAB PO SCH ×3 (09:58→21:37)
[2018-01-10] MEDS: metFORMIN 500 MG TAB PO SCH ×2 (09:59→21:35)
[2018-01-10] MEDS: hydrALAZINE HCL 50 MG TAB PO SCH (09:59)
[2018-01-10] MEDS: METOPROLOL TARTRATE 25 MG TAB PO SCH ×2 (10:36→21:35)
--- NOTE | 2018-01-10 10:45 | XR ---
EXAMINATION TYPE: XR chest 1V portable DATE OF EXAM: 01/10/2018 COMPARISON: 10/06/2017 HISTORY: Shortness of breath TECHNIQUE: Single frontal view of the chest is obtained. FINDINGS: There is no focal air space opacity, pleural effusion, or pneumothorax seen. There is even tration of right hemidiaphragm noted. Dual lead left-sided cardiac device and mild cardiomegaly remai n. within normal limits. The osseous structures are intact. Moderate glenohumeral and acromioclavic ular arthropathy are noted. IMPRESSION: No acute cardiopulmonary process.
[2018-01-10 11:06] LABS: Glucose,Whole Blood 194 mg/dL (75-99)
--- NOTE | 2018-01-10 11:26 | P.PN ---
Progress Note - Text Progress Note Date: 01/10/18 The scrotal us identifies a probable abscess in the right posterior scrotum He ate this am He will be set up for an I&D of this later today
[2018-01-10] MEDS ORDERED: FUROSEMIDE 10 MG/ML 4 ML VIAL IV STA (11:45)
--- NOTE | 2018-01-10 11:56 | P.CNPUL ---
History of Present Illness Consult date: 01/10/18 Requesting physician: John Eddy Reason for consult: other (Hypotension, sepsis, and septic shock secondary to cellulitis) Chief complaint: Scrotal swelling and pain History of present illness: This is a 72-year-old white male, recently seen by his primary care physician for few days history of swelling of the scrotal area. Patient was placed on prednisone. However his condition continued to deteriorate, and he was seen at [facility] ER on 01/09/2018, the ER physician was concerned about the possibility of scrotal abscess. Hence arrangements were made to transfer the patient to our ER at [facility], and the patient was seen by urology on consultation. Based on the findings of the urologist, it was felt that this is basically a presentation of severe cellulitis. Recommended antibiotics, and the patient was placed on vancomycin and Zosyn. Patient was admitted to a regular medical floor, however early this morning patient developed severe hypotension, and some mental status change. I was notified about the patient by the rapid response team, I recommended fluid boluses, I also recommended norepinephrine if the patient does not improve with fluid boluses. I also recommended transferred to the ICU. Fluid boluses were given, however he remained relatively hypotensive, and levo fed was started for about 2 hours at 8 mcg/m. Blood pressure improved, and the levo fed was discontinued. I saw the patient this morning, he is hemodynamically stable, in no form of distress, continues to have severe pain and erythema and the scrotal area mostly on the left side of the scrotal sac. Repeat ultrasound done earlier today did suggest a fluid collection in the right extra testicular area. Hence the patient may require incision and drainage by urology this afternoon. CBC this morning showed evidence of leukocytosis with WBC count 22.2. Hemoglobin is 14.4. Renal functioning is reflecting acute kidney injury with BUN of 41 creatinine 2.00. There is also some evidence of anion gap metabolic acidosis noted. After my evaluation, I recommended more fluid boluses to be given, however his urine output was noted to be extremely marginal , I recommended Lasix 40 mg IV push after his last fluid boluses. In the meantime the patient remains hemodynamically stable but he did require 2 hours of norepinephrine. Last night. Patient denies any shortness of breath, no cough, no wheezing, no chest pain. No nausea no vomiting no abdominal pain no melena no hematemesis no dysuria and no frequency no urgency. His main complaint of along has been related to his pain and discomfort in the left scrotal area. Review of Systems 14 point review of systems were obtained, please refer to pertinent positives in HPI otherwise remaining systems are negative Past Medical History Past Medical History: Chest Pain / Angina, Heart Failure, Diabetes Mellitus, GERD/Reflux, Hyperlipidemia, Hypertension, Skin Disorder, Sleep Apnea/CPAP/BIPAP Additional Past Medical History / Comment(s): PSORIASIS, uses CPAP, past cellulitis in [place] when in [place]. broken nose age 20(sx) History of Any Multi-Drug Resistant Organisms: None Reported Past Surgical History: Adenoidectomy, Heart Catheterization, Orthopedic Surgery , Pacemaker, Tonsillectomy Additional Past Surgical History / Comment(s): rt carpal tunnel release, pacemaker, colonoscopy/polypectomy,nasal sx, hemorrhoidectomy Past Anesthesia/Blood Transfusion Reactions: No Reported Reaction Type of Cardiac Device: Permanent Pacemaker Device Placement Date:: April 2015 Smoking Status: Former smoker - Past Family History Mother Family Medical History: Myocardial Infarction ([place]) Father Family Medical History: Cancer Medications and Allergies Home Medications Medication Instructions Recorded Confirmed Type Simvastatin [Zocor] 20 mg PO HS 05/26/14 01/09/18 History Naproxen Sodium [Aleve] 440 mg PO Q12HR PRN 05/03/15 01/09/18 History Metoprolol Tartrate [Lopressor] 25 mg PO BID 03/09/16 01/09/18 History metFORMIN HCL [Glucophage] 500 mg PO BID 03/09/16 01/09/18 History Aspirin 325 mg PO DAILY 09/17/17 01/09/18 History Lisinopril-Hctz 20-25 mg 2 tab PO DAILY 09/17/17 01/09/18 History [Zestoretic 20-25] Topiramate 50 mg PO BID 09/17/17 01/09/18 History amLODIPine BESYLATE [Norvasc] 5 mg PO BID 09/17/17 01/09/18 History hydrALAZINE HCL [Apresoline] 100 mg PO TID 09/17/17 01/09/18 History predniSONE 40 mg PO DAILY 01/09/18 01/09/18 History Allergies Allergy/AdvReac Type Severity Reaction Status Date / Time No Known Allergies Allergy Verified 01/09/18 15:34 Physical Exam Vitals: Vital Signs Temp Pulse Pulse Resp BP BP Pulse Ox 01/10/18 11:19 72 16 01/10/18 11:09 71 16 97 01/10/18 11:04 77 17 01/10/18 11:00 73 17 112/78 95 01/10/18 10:45 70 23 112/78 97 01/10/18 10:30 64 20 112/78 96 01/10/18 10:15 67 23 138/81 96 01/10/18 10:00 63 14 138/81 97 01/10/18 09:45 63 22 138/81 95 01/10/18 09:30 64 24 138/81 97 01/10/18 09:15 65 20 133/66 97 01/10/18 09:00 66 21 133/66 97 01/10/18 08:45 69 18 133/66 97 01/10/18 08:30 61 17 133/66 97 01/10/18 08:15 64 17 106/68 97 01/10/18 08:00 97.1 F L 69 77 14 106/68 96 01/10/18 07:45 64 19 106/68 96 01/10/18 07:30 61 18 106/68 95 01/10/18 07:21 60 01/10/18 07:15 60 17 103/70 98 01/10/18 07:12 62 97 01/10/18 07:00 59 L 20 103/70 97 01/10/18 06:45 60 17 103/70 96 01/10/18 06:30 60 19 103/70 97 01/10/18 06:15 59 L 17 92/57 96 01/10/18 06:12 62 17 92/57 95 01/10/18 04:30 108/65 01/10/18 04:15 108/65 01/10/18 04:00 66 77 19 108/65 96 01/10/18 03:45 66 19 109/69 97 01/10/18 03:30 60 20 115/65 97 01/10/18 03:15 67 19 102/62 98 01/10/18 03:00 66 21 113/58 96 01/10/18 02:45 85 15 94/64 95 01/10/18 02:30 65 20 86/58 96 01/10/18 02:15 65 20 92/54 96 01/10/18 02:00 65 19 79/62 96 01/10/18 01:45 60 21 62/54 95 01/10/18 01:30 71 14 72/53 92 L 01/10/18 01:15 76 15 86/59 95 01/10/18 00:33 97/56 01/10/18 00:16 75/52 01/10/18 00:10 77 25 H 82/53 96 01/09/18 23:50 99.6 F 01/09/18 23:38 94 24 91/57 93 L 01/09/18 23:25 83/50 01/09/18 23:18 91/52 01/09/18 21:00 97 F L 78 20 114/60 95 01/09/18 17:48 66 16 01/09/18 16:40 98.2 F 66 20 105/63 95 01/09/18 16:23 73 16 110/58 95 01/09/18 15:39 80 01/09/18 15:31 76 01/09/18 14:19 98.2 F 60 16 180/84 97 Intake and Output 01/09/18 01/10/18 01/10/18 22:59 06:59 14:59 Intake Total 1100 2001.0 1154.5 Output Total 165 70 Balance 1100 1836.0 1084.5 Intake: IV 1900 625.0 Piperacillin-Tazobactam 3 50.0 .375 gm In Dextrose/Water 1 50ml.bag @ 12.5 mls/hr IVPB ONCE STA Rx#: [id number] Sodium Chloride 0.9% 1, 1900 450 000 ml @ 125 mls/hr IV . Q8H [facility] Rx#:[id number] Vancomycin 2,000 mg In 125 Sodium Chloride 0.9% 500 ml @ 167 mls/hr IVPB Q16H [facility] Rx#:[id number] Intake, IV Titration 1100 101.0 29.5 Amount Insulin Regular 100 unit 101.0 29.5 In Sodium Chloride 0.9% 100 ml @ Titrate IV .Q0M [facility]IE Rx#:[id number] Sodium Chloride 0.9% 1, 600 000 ml @ 75 mls/hr IV . [id number] [facility] Rx#:[id number] Vancomycin 2,500 mg In 500 Sodium Chloride 0.9% 500 ml @ 167 mls/hr IVPB ONCE ONE Rx#:[id number] Oral 500 Output: Urine 165 70 Other: Voiding Method Toilet Indwelling Catheter Indwelling Catheter Physical Exam: Revealed a 72-year-old white male in no distress Head: Atraumatic, normocephalic. Eyes: PERRLA, EOMI. HENT:[Neck is supple.] [No neck masses.] [No thyromegaly.] [No JVD.] Moist mucous membranes, no cervical lymphadenopathy. Throat is clear. Chest: [Clear throughout, no crackles, no rhonchi, no wheezes.] Cardiac Exam: [Normal S1 and S2, no S3 gallop, no murmur.] Abdomen: [Obese, Soft, nontender, no megaly, no rebound, no guarding, normal bowel sounds.] Extremities: [No clubbing, no edema, no cyanosis.] Neurological Exam: [No focal neurologic deficit. Lymphatics: No lymphadenopathy. Musculoskeletal: No deformities, normal range of motion, no weaknesses. Psychiatric: Normal mood affect and mental status examination. Genitalia: Uncircumcised penis noted, markedly swollen left sided greater than right side scrotal area with significant erythema, edema, and tenderness area no crepitations, no palpable mass or abscess or fluctuation noted. The whole scrotal sac seems to be very swollen and edematous, and tender. Results - Laboratory Findings CBC and BMP: 01/10/18 03:38 01/10/18 09:46 Abnormal lab findings: Abnormal Labs 01/09/18 01/09/18 01/09/18 15:17 15:17 17:29 WBC 14.3 H Neutrophils # 13.0 H Lymphocytes # 0.9 L Potassium Chloride 95 L BUN 35 H Creatinine Glucose 539 H* POC Glucose (mg/dL) 433 H Plasma Lactic Acid Shemar Phosphorus Urine Protein Urine Glucose (UA) Urine Ketones 01/09/18 01/09/18 01/09/18 20:51 22:53 23:42 WBC Neutrophils # Lymphocytes # Potassium Chloride BUN Creatinine Glucose POC Glucose (mg/dL) 470 H 435 H Plasma Lactic Acid Shemar 3.4 H* Phosphorus Urine Protein Urine Glucose (UA) Urine Ketones 01/09/18 01/10/18 01/10/18 23:50 01:05 02:25 WBC Neutrophils # Lymphocytes # Potassium Chloride BUN Creatinine Glucose POC Glucose (mg/dL) 384 H 294 H Plasma Lactic Acid Shemar Phosphorus Urine Protein Trace H Urine Glucose (UA) 4+ H Urine Ketones Trace H 01/10/18 01/10/18 01/10/18 02:34 03:38 03:38 WBC 22.2 H Neutrophils # 20.1 H Lymphocytes # Potassium 3.1 L Chloride BUN 41 H Creatinine 2.00 H Glucose 194 H POC Glucose (mg/dL) 203 H Plasma Lactic Acid Shemar Phosphorus 2.1 L Urine Protein Urine Glucose (UA) Urine Ketones 01/10/18 01/10/18 01/10/18 03:38 04:20 06:13 WBC Neutrophils # Lymphocytes # Potassium Chloride BUN Creatinine Glucose POC Glucose (mg/dL) 194 H 225 H Plasma Lactic Acid Shemar 3.0 H* Phosphorus Urine Protein Urine Glucose (UA) Urine Ketones 01/10/18 01/10/18 01/10/18 08:22 09:33 09:46 WBC Neutrophils # Lymphocytes # Potassium 3.4 L Chloride BUN Creatinine Glucose POC Glucose (mg/dL) 194 H 207 H Plasma Lactic Acid Shemar Phosphorus Urine Protein Urine Glucose (UA) Urine Ketones 01/10/18 11:04 WBC Neutrophils # Lymphocytes # Potassium Chloride BUN Creatinine Glucose POC Glucose (mg/dL) 194 H Plasma Lactic Acid Shemar Phosphorus Urine Protein Urine Glucose (UA) Urine Ketones - Diagnostic Findings Chest x-ray: image reviewed (Chest x-ray showed no evidence of active disease.) Additional studies: Ultrasound of the scrotum showed right-sided extratesticular 4.512.9 and elongated fluid collection representing confluent edema. Suggestive of abscess. Assessment and Plan Assessment: Impression: 1 acute severe sepsis and septic shock with lactic acidosis secondary to scrotal cellulitis and abscess. 2 acute kidney injury secondary to sepsis and acute tubular necrosis secondary to hypotension. Which is again secondary to septic shock 3 acute lactic acidosis secondary to sepsis 4 acute hyperglycemia secondary to sepsis and prednisone. And poorly controlled diabetes. 5 acute non-anion gap metabolic acidosis secondary to sepsis. 6 multiple comorbidities including underlying diabetes, obstructive sleep apnea syndrome, possible component of underlying COPD, patient had a [id number] smoking history quit in 1982. History of pacemaker implantation. History of GERD and reflux. History of hyperlipidemia. Recommendation: Continue present supportive care measures including antibiotics , fluids, pressors if needed again, monitor renal status closely, monitor urine output closely, patient will likely benefit significantly from surgical intervention considering the ultrasound is suggestive of a fluid collection/ abscess formation. We'll continue to follow. Critical care time is 40 minutes. Time with Patient: Greater than 30
[2018-01-10] MEDS ORDERED: POTASSIUM CHLORIDE ER 20 MEQ TAB.ER PO SCH (12:00)
[2018-01-10] MEDS: DILTIAZEM 50 MG in SODIUM CHLORIDE 0.9% 40 ML IV SCH ×3 (12:29→19:42)
[2018-01-10 12:39] LABS: Glucose,Whole Blood 238 mg/dL (75-99)
[2018-01-10] MEDS ORDERED: METOPROLOL TARTRATE 25 MG TAB PO STA ×2 (13:17→13:51)
[2018-01-10 13:53] LABS: Hemoglobin A1C 11.1 % (4.0-6.0)
--- NOTE | 2018-01-10 14:02 | P.PN ---
Progress Note - Text This is an addendum to the dictated cardiology consultation. The patient has a known history of sick sinus syndrome, post permanent pacemaker implantation, history of hypertension, diabetes who presented with symptoms of scrotal swelling and had findings consistent with an abscess. On presentation he was in sinus mechanism subsequently converted to atrial fibrillation with rapid ventricle response. He had episodes of hypotension requiring a short course of pressors. He continues to be in atrial fibrillation with a rapid ventricle response. In the past he had a normal systolic function and normal nuclear scan. His physical examination shows clear lungs, he is in atrial fibrillation with rapid ventricle response. He has no peripheral edema. He has significant swelling of the scrotum with discoloration. The patient presents with sepsis and is scheduled for I&D today. From the cardiac standpoint he has a history of paroxysmal atrial fibrillation but has declined anticoagulation. We will continue IV Cardizem, increase the dose of his beta lorraine and add amiodarone to his regimen. I discussed with him the issue of anticoagulation and he'll be further evaluated and that regard after his surgery. An echocardiogram with Doppler will be obtained. Depending on his progress further recommendations will be made. Thank you for this consult we will follow with you.
--- NOTE | 2018-01-10 14:03 | P.CRDCN ---
History of Present Illness Consult date: 01/10/18 Requesting physician: John Eddy Consult reason: atrial fibrillation Chief complaint: Scrotal swelling History of present illness: 6 is a 72-year-old gentleman who follows with Dr. Moctezuma in the office. He has a known history of hypertension, diabetes, prior pacemaker implantation, paroxysmal atrial fibrillation for which she had been on xarelto in the past, patient stopped taking Xarelto on his own because of cost according to him, he was given a choice by Dr. Moctezuma to start on Coumadin but he didn't want that either. He presents to the hospital on this occasion with scrotal swelling. Apparently patient was started on prednisone as an outpatient for swelling of the scrotum, his condition continued to worsen so he presented to [facility]. Patient was transferred here to [facility] and initiated on antibiotics, felt to have scrotal cellulitis. While on the medical floor patient became quite hypotensive and developed mental status changes for this reason was transferred to the intensive care unit. He was given IV fluids and started on levofed. Apparently today patient was having some symptoms of difficulty in breathing, it was noted that he went into atrial fibrillation with a rapid ventricular response, for this reason a cardiology consultation was requested. Performed which did show atrial fibrillation with a rapid ventricular response. Ultrasound of the scrotum was performed which showed right-sided extra testicular elongated fluid collection which may represent confluent edema or hematoma, abscess is unlikely as there is no vascularity. Diffuse scrotal thickening for which cellulitis should be considered. Chest x-ray shows no acute cardiopulmonary process. Blood pressure at this time 122/70 with a heart rate in the 130s, 96% on room air. White blood cell count 14.3 yesterday, 22 today, hemoglobin 14, platelet count 200. Sodium 140, potassium 3.4, chloride 102, CO2 23. BUN 41, creatinine 2.0 today, a yesterday's a BUN 35 and creatinine 1.1. Lactic acid on admission was 3.4. Magnesium 2.0. Patient is currently on a Cardizem drip at 10 mg per hour. On Lovenox 40 mg subcu daily Past Medical History Past Medical History: Chest Pain / Angina, Heart Failure, Diabetes Mellitus, GERD/Reflux, Hyperlipidemia, Hypertension, Skin Disorder, Sleep Apnea/CPAP/BIPAP Additional Past Medical History / Comment(s): PSORIASIS, uses CPAP, past cellulitis in [place] when in [place]. broken nose age 20(sx) History of Any Multi-Drug Resistant Organisms: None Reported Past Surgical History: Adenoidectomy, Heart Catheterization, Orthopedic Surgery , Pacemaker, Tonsillectomy Additional Past Surgical History / Comment(s): rt carpal tunnel release, pacemaker, colonoscopy/polypectomy,nasal sx, hemorrhoidectomy Past Anesthesia/Blood Transfusion Reactions: No Reported Reaction Type of Cardiac Device: Permanent Pacemaker Device Placement Date:: April 2015 Smoking Status: Former smoker - Past Family History Mother Family Medical History: Myocardial Infarction ([place]) Father Family Medical History: Cancer Medications and Allergies Home Medications Medication Instructions Recorded Confirmed Type Simvastatin [Zocor] 20 mg PO HS 05/26/14 01/09/18 History Naproxen Sodium [Aleve] 440 mg PO Q12HR PRN 05/03/15 01/09/18 History Metoprolol Tartrate [Lopressor] 25 mg PO BID 03/09/16 01/09/18 History metFORMIN HCL [Glucophage] 500 mg PO BID 03/09/16 01/09/18 History Aspirin 325 mg PO DAILY 09/17/17 01/09/18 History Lisinopril-Hctz 20-25 mg 2 tab PO DAILY 09/17/17 01/09/18 History [Zestoretic 20-25] Topiramate 50 mg PO BID 09/17/17 01/09/18 History amLODIPine BESYLATE [Norvasc] 5 mg PO BID 09/17/17 01/09/18 History hydrALAZINE HCL [Apresoline] 100 mg PO TID 09/17/17 01/09/18 History predniSONE 40 mg PO DAILY 01/09/18 01/09/18 History Allergies Allergy/AdvReac Type Severity Reaction Status Date / Time No Known Allergies Allergy Verified 01/09/18 15:34 Physical Exam Vitals: Vital Signs Temp Pulse Pulse Resp BP BP Pulse Ox 01/10/18 13:00 121 H 19 122/76 96 01/10/18 12:45 133 H 16 106/82 96 01/10/18 12:30 144 H 19 96 01/10/18 12:15 73 18 181/77 95 01/10/18 12:00 97.1 F L 77 22 181/77 96 04/26/18 11:45 74 22 181/77 95 01/10/18 11:30 73 22 181/77 95 01/10/18 11:19 72 16 01/10/18 11:15 70 21 112/78 98 01/10/18 11:09 71 16 97 01/10/18 11:04 77 17 01/10/18 11:00 73 17 112/78 95 01/10/18 10:45 70 23 112/78 97 01/10/18 10:30 64 20 112/78 96 01/10/18 10:15 67 23 138/81 96 01/10/18 10:00 63 14 138/81 97 01/10/18 09:45 63 22 138/81 95 01/10/18 09:30 64 24 138/81 97 01/10/18 09:15 65 20 133/66 97 01/10/18 09:00 66 21 133/66 97 01/10/18 08:45 69 18 133/66 97 01/10/18 08:30 61 17 133/66 97 01/10/18 08:15 64 17 106/68 97 01/10/18 08:00 97.1 F L 69 77 14 106/68 96 01/10/18 07:45 64 19 106/68 96 01/10/18 07:30 61 18 106/68 95 01/10/18 07:21 60 01/10/18 07:15 60 17 103/70 98 01/10/18 07:12 62 97 01/10/18 07:00 59 L 20 103/70 97 01/10/18 06:45 60 17 103/70 96 01/10/18 06:30 60 19 103/70 97 01/10/18 06:15 59 L 17 92/57 96 01/10/18 06:12 62 17 92/57 95 01/10/18 04:30 108/65 01/10/18 04:15 108/65 01/10/18 04:00 66 77 19 108/65 96 01/10/18 03:45 66 19 109/69 97 01/10/18 03:30 60 20 115/65 97 01/10/18 03:15 67 19 102/62 98 01/10/18 03:00 66 21 113/58 96 01/10/18 02:45 85 15 94/64 95 04/26/18 02:30 65 20 86/58 96 01/10/18 02:15 65 20 92/54 96 01/10/18 02:00 65 19 79/62 96 01/10/18 01:45 60 21 62/54 95 01/10/18 01:30 71 14 72/53 92 L 01/10/18 01:15 76 15 86/59 95 01/10/18 00:33 97/56 01/10/18 00:16 75/52 01/10/18 00:10 77 25 H 82/53 96 01/09/18 23:50 99.6 F 01/09/18 23:38 94 24 91/57 93 L 01/09/18 23:25 83/50 01/09/18 23:18 91/52 01/09/18 21:00 97 F L 78 20 114/60 95 01/09/18 17:48 66 16 01/09/18 16:40 98.2 F 66 20 105/63 95 01/09/18 16:23 73 16 110/58 95 01/09/18 15:39 80 01/09/18 15:31 76 01/09/18 14:19 98.2 F 60 16 180/84 97 Intake and Output 01/09/18 01/10/18 01/10/18 22:59 06:59 14:59 Intake Total 1100 2001.0 1375.233 Output Total 165 110 Balance 1100 1836.0 1265.233 Intake: IV 1900 835.0 Diltiazem 50 mg In Sodium 10 Chloride 0.9% 40 ml @ 10 MG/HR 10 mls/hr IV .Q5H BRITTANIE Rx#:[id number] Piperacillin-Tazobactam 3 50.0 .375 gm In Dextrose/Water 1 50ml.bag @ 12.5 mls/hr IVPB ONCE STA Rx#: [id number] Sodium Chloride 0.9% 1, 1900 650 000 ml @ 125 mls/hr IV . Q8H BRITTANIE Rx#:[id number] Vancomycin 2,000 mg In 125 Sodium Chloride 0.9% 500 ml @ 167 mls/hr IVPB Q16H BRITTANIE Rx#:[id number] Intake, IV Titration 1100 101.0 40.233 Amount Insulin Regular 100 unit 101.0 40.233 In Sodium Chloride 0.9% 100 ml @ Titrate IV .Q0M [facility] Rx#:[id number] Sodium Chloride 0.9% 1, 600 000 ml @ 75 mls/hr IV . [id number] ONE Rx#:[id number] Vancomycin 2,500 mg In 500 Sodium Chloride 0.9% 500 ml @ 167 mls/hr IVPB ONCE ONE Rx#:[id number] Oral 500 Output: Urine 165 110 Other: Voiding Method Toilet Indwelling Catheter Indwelling Catheter PHYSICAL EXAMINATION: HEENT: Head is atraumatic, normocephalic. Pupils equal, round. Neck is supple. There is no elevated jugular venous pressure. HEART EXAMINATION: Heart S1 and S2 irregularly irregular CHEST EXAMINATION: Lungs are clear to auscultation anteriorly. No chest wall tenderness is noted on palpation or with deep breathing.] ABDOMEN: [ Sof, Obese, nontender Bowel sounds are heard. No organomegaly noted]. EXTREMITIES: 2+ peripheral plses with no evidence of peripheral edema and no calf tenderness noted]. NEUROLOGIC [ptient is awake alert and oriented -3.] . Results 01/10/18 03:38 01/10/18 09:46 Cardiac Enzymes 01/09/18 Range/Units 15:17 AST 23 (17-59) U/L CBC 01/09/18 01/10/18 Range/Units 15:17 03:38 WBC 14.3 H 22.2 H (3.8-10.6) k/uL RBC 5.36 4.97 (4.30-5.90) m/uL Hgb 15.6 14.4 (13.0-17.5) gm/dL Hct 47.7 44.2 (39.0-53.0) % Plt Count 185 200 (150-450) k/uL Comprehensive Metabolic Panel 01/09/18 01/10/18 01/10/18 Range/Units 15:17 03:38 09:46 Sodium 139 140 (137-145) mmol/L Potassium 4.1 3.1 L 3.4 L (3.5-5.1) mmol/L Chloride 95 L 102 (98-107) mmol/L Carbon Dioxide 26 23 (22-30) mmol/L BUN 35 H 41 H (9-20) mg/dL Creatinine 1.12 2.00 H (0.66-1.25) mg/dL Glucose 539 H* 194 H (74-99) mg/dL Calcium 9.7 8.7 (8.4-10.2) mg/dL AST 23 (17-59) U/L ALT 23 (21-72) U/L Alkaline Phosphatase 108 (38-126) U/L Total Protein 6.9 (6.3-8.2) g/dL Albumin 4.0 (3.5-5.0) g/dL Current Medications Generic Name Dose Route Start Last Admin Trade Name Freq PRN Reason Stop Dose Admin Acetaminophen 650 mg 01/09/18 23:14 Tylenol Tab PO Q6HR PRN Mild Pain or Fever > 100.5 Albuterol/Ipratropium 3 ml 01/09/18 22:42 Duoneb 0.5 Mg-3 Mg/3 Ml Soln INHALATION RT-Q4H PRN Shortness Of Breath Or Wheezing Albuterol/Ipratropium 3 ml 01/10/18 08:00 01/10/18 11:09 Duoneb 0.5 Mg-3 Mg/3 Ml Soln INHALATION 3 ml RT-QID BRITTANIE Administration Alprazolam 0.25 mg 01/09/18 23:14 Xanax PO Q6HR PRN Anxiety Aspirin 81 mg 01/10/18 09:00 01/10/18 08:57 Aspirin PO 81 mg DAILY BRITTANIE Administration Atorvastatin Calcium 10 mg 01/09/18 21:00 01/09/18 23:09 Lipitor PO 10 mg HS BRITTANIE Administration Enoxaparin Sodium 40 mg 01/10/18 09:00 01/10/18 08:57 Lovenox SQ 40 mg DAILY BRITTANIE Administration Piperacillin/Tazobactam/ 50 mls @ 12.5 mls/hr 01/10/18 00:00 01/10/18 08:29 Dextrose 3.375 gm/ IV Solution IVPB 12.5 mls/hr Q8HR BRITTANIE Administration Insulin Human Regular 100 unit 101 mls @ 0 mls/hr 01/09/18 21:45 01/10/18 12: 40 / Sodium Chloride IV 8 ml/hr .Q0M BRITT[facility] 8 mls/hr Protocol Titration Titrate Sodium Chloride 1,000 mls @ 125 mls/hr 01/09/18 23:45 01/10/18 13:28 Saline 0.9% IV Not Given .Q8H [facility] Norepinephrine Bitartrate 4 mg in 250 mls @ 0 mls/hr 01/10/18 02:45 Levophed-0.9% Nacl 4 Mg/250ml Pmx IV .Q0M [facility] Protocol Titrate Vancomycin HCl 2,000 mg/ 500 mls @ 167 mls/hr 01/11/18 05:00 Sodium Chloride IVPB Q24H [facility] Diltiazem HCl 50 mg/ Sodium 50 mls @ 10 mls/hr 01/10/18 12:30 01/10/18 12:29 Chloride IV 10 mg/hr .Q5H [facility] 10 mls/hr Protocol Administration 10 MG/HR Ibuprofen 600 mg 01/09/18 22:00 01/10/18 09:58 Motrin PO 600 mg TID [facility] Administration Insulin Aspart 17 unit 01/10/18 07:30 01/10/18 11:19 Novolog 0.13 unit/kg (17 unit) Not Given SQ AC-TID [facility] Melatonin 3 mg 01/09/18 23:14 Melatonin PO HS PRN Insomnia Metformin HCl 500 mg 01/09/18 21:00 01/10/18 09:59 Glucophage PO 500 mg BID [facility] Administration Metoprolol Tartrate 25 mg 01/09/18 21:00 01/10/18 10:36 Lopressor PO Not Given BID [facility] Miscellaneous Information 1 each 01/10/18 07:53 Potassium Per Protocol MISCELLANE DAILY PRN Per Protocol Protocol Miscellaneous Information 1 each 01/10/18 10:58 Potassium Per Protocol MISCELLANE DAILY PRN Per Protocol Protocol Morphine Sulfate 4 mg 01/09/18 14:55 Morphine Sulfate (Inj) IVP Q4HR PRN Pain Naloxone HCl 0.2 mg 01/09/18 23:14 Narcan IV Q2M PRN Opioid Reversal Ondansetron HCl 4 mg 01/09/18 23:14 Zofran IVP Q8HR PRN Nausea And Vomiting Topiramate 50 mg 01/09/18 21:00 01/10/18 08:57 Topamax PO 50 mg BID [facility] Administration Intake and Output 01/09/18 01/10/18 01/10/18 22:59 06:59 14:59 Intake Total 1100 2001.0 1375.233 Output Total 165 110 Balance 1100 1836.0 1265.233 Intake: IV 1900 835.0 Diltiazem 50 mg In Sodium 10 Chloride 0.9% 40 ml @ 10 MG/HR 10 mls/hr IV .Q5H [facility] Rx#:[id number] Piperacillin-Tazobactam 3 50.0 .375 gm In Dextrose/Water 1 50ml.bag @ 12.5 mls/hr IVPB ONCE STA Rx#: [id number] Sodium Chloride 0.9% 1, 1900 650 000 ml @ 125 mls/hr IV . Q8H [facility] Rx#:[id number] Vancomycin 2,000 mg In 125 Sodium Chloride 0.9% 500 ml @ 167 mls/hr IVPB Q16H [facility] Rx#:[id number] Intake, IV Titration 1100 101.0 40.233 Amount Insulin Regular 100 unit 101.0 40.233 In Sodium Chloride 0.9% 100 ml @ Titrate IV .Q0M [facility] Rx#:[id number] Sodium Chloride 0.9% 1, 600 000 ml @ 75 mls/hr IV . [id number] ONE Rx#:[id number] Vancomycin 2,500 mg In 500 Sodium Chloride 0.9% 500 ml @ 167 mls/hr IVPB ONCE ONE Rx#:[id number] Oral 500 Output: Urine 165 110 Other: Voiding Method Toilet Indwelling Catheter Indwelling Catheter 01/10/18 03:38 01/10/18 09:46 EKG Interpretations (text) EKG shows atrial fibrillation with a rapid ventricular response Assessment and Plan Plan: Assessment and plan #1 scrotal swelling with cellulitis, scheduled for I&D this afternoon. #2 episode of hypotension, status post fluids and levo fed, blood pressure stable. #3 atrial fibrillation with rapid ventricular response, patient has history of paroxysmal A. fib, refused anticoagulation in the past. #4 hypertension #5 prior pacemaker implantation Plan We'll increase the Cardizem drip, give the patient his oral beta lorraine and initiate amiodarone. Echo cardiac gram with Doppler study will also be obtained as well as free T4 and TSH. Patient and his is also been educated regarding the importance of being on anticoagulation for stroke prevention. The plan is to initiate post procedure. Further recommendations to follow. DNP note has been reviewed, I agree with a documented findings and plan of care. Patient was seen and examined.
[2018-01-10 14:04] LABS: Magnesium 1.9 mg/dL (1.6-2.3); Potassium 3.4 mmol/L (3.5-5.1)
[2018-01-10 14:21] LABS: T4, Free (Free Thyroxine) 1.71 ng/dL (0.78-2.19)
[2018-01-10] MEDS ORDERED: Magnesium Replacement Protocol 1 EACH MISC MISCELLANE PRN (14:47)
[2018-01-10 15:11] LABS: Glucose,Whole Blood 241 mg/dL (75-99)
[2018-01-10 16:37] LABS: Glucose,Whole Blood 196 mg/dL (75-99)
[2018-01-10] MEDS ORDERED: PROPOFOL 10 MG/ML 20 ML VIAL IV ONE (16:50)
[2018-01-10] MEDS ORDERED: PHENYLEPHRINE-0.9% NACL SYG 1 MG/10 ML SYRINGE ONE (16:50)
[2018-01-10] MEDS ORDERED: fentaNYL (PF) 50 MCG/ML 2 ML AMP ONE (16:50)
[2018-01-10] MEDS ORDERED: LIDOCAINE 1% INJ 10MG/ML (20 ML MDV) ONE (16:50)
[2018-01-10] MEDS ORDERED: MIDAZOLAM 2 MG/2 ML VIAL ONE (16:50)
[2018-01-10] MEDS ORDERED: SUCCINYLCHOLINE CHLORIDE 100 MG/5 ML SYR IV ONE (16:50)
--- NOTE | 2018-01-10 17:39 | P.OP ---
Date of Procedure: 01/10/18 Preoperative Diagnosis: Scrotal abscess and cellulitis Postoperative Diagnosis: Same, Vanesa's gangrene Procedure(s) Performed: Scrotal exploration, evacuation of scrotal abscess, debridement of necrotic tissue. Placement of packing. Anesthesia: RADHA Surgeon: Don Juárez Estimated Blood Loss (ml): 25 Pathology: other (Culture of scrotal abscess) Condition: stable Disposition: ICU Indications for Procedure: The patient is a 72-year-old gentleman transferred from [facility] yesterday scrotal cellulitis. There is no obvious abscess on the ultrasound done there. The infection was present but the patient did not appear to be septic at that point in time. Overnight he became septic. I ordered a repeat ultrasound and there is fluid in the right posterior scrotum. He comes for incision and drainage of this scrotal abscess. Description of Procedure: The patient is brought to the operating suite he is given a general anesthesia. He's placed lithotomy position. Some necrotic tissue on the posterior scrotum was noted. A make an incision over this. The tissue underneath this is somewhat necrotic. I am up into the right posterior scrotum and drain a thin foul-smelling fluid. Cultures obtained. I do the same in the right hemiscrotum and again draining a thin foul-smelling fluid. I then irrigate thoroughly with a Betadine irrigation. I debrided the necrotic skin and necrotic tissue back to more healthy-looking tissue. I packed the wound with iodoform and gauze. I then place 4 x 4 gauze over this and mesh underwear. Blood loss is minimal. 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 We will continue to monitor this patient closely. He'll be returned to the intensive care unit.
[2018-01-10] MEDS ORDERED: PROPOFOL 100 ML IV ONE (17:51)
[2018-01-10 18:04] LABS: Glucose,Whole Blood 215 mg/dL (75-99)
[2018-01-10 18:22] LABS: ABG Base Excess -5.2 mmol/L; ABG HCO3 21 mmol/L (21-25); ABG PCO2 38 mmHg (35-45); ABG PH 7.34 (7.35-7.45); ABG PO2 >400 mmHg (83-108); ABG TCO2 22 mmol/L (19-24)
--- NOTE | 2018-01-10 18:37 | XR ---
EXAMINATION TYPE: XR chest 1V portable DATE OF EXAM: 01/10/2018 COMPARISON: Today HISTORY: Tube placement TECHNIQUE: Single frontal view of the chest is obtained. FINDINGS: Endotracheal tube is approximately 3 cm from the mundo. Nasogastric tube appears in good position. There is left axillary pacemaker with the lead tips in the right ventricle. There are chest leads. There is no heart failure. Lungs are clear of consolidation. Heart size is normal. IMPRESSION: No active cardiopulmonary disease. Endotracheal tube is slightly low and could be pulled back 1 cm. Heart and lungs are unchanged compared to exam earlier today at 10:00 AM.
[2018-01-10 18:54] LABS: Glucose,Whole Blood 151 mg/dL (75-99)
[2018-01-10 19:11] LABS: Potassium 3.3 mmol/L (3.5-5.1)
[2018-01-10] MEDS: NOREPINEPHRIN 4 MG-0.9% NS PMX 4 MG/250 ML ML IV SCH (19:44)
[2018-01-10] MEDS: PROPOFOL 1,000 MG in EMPTY BAG 1 BAG IV SCH (21:21)
[2018-01-10] MEDS: POTASSIUM BICARBONATE/CIT AC 20 MEQ TABLET.EFF NG-TUBE SCH ×2 (21:34→22:05)
[2018-01-10] MEDS: AMIODARONE 200 MG TAB PO SCH (21:34)
[2018-01-10] MEDS: CHLORHEXIDINE GLUCONATE 15 ML CUP MUCOUS MEM SCH (21:35)
[2018-01-10 22:02] LABS: Glucose,Whole Blood 177 mg/dL (75-99)
[2018-01-10] MEDS: ATORVASTATIN 10 MG TAB PO SCH (22:04)
--- NOTE | 2018-01-10 22:42 | PN ---
PROGRESS NOTE DATE OF SERVICE: 01/10/2018 PRESENTING COMPLAINT: Sepsis. INTERVAL HISTORY: This patient was admitted with scrotal cellulitis and abscess. Yesterday evening the patient became more septic and went into respiratory distress. I transferred the patient to the ICU. Earlier today patient was taken to the OR and pus was drained from the scrotum. The patient came back intubated. Pressure was running low. Patient was on Levophed 5 mcg and did temporarily go into atrial fibrillation, was put on a Cardizem drip, then reverted back to sinus rhythm. Patient is on the ventilator with FiO2 of 40 and a PEEP of 5. REVIEW OF SYSTEMS: Patient is intubated. CURRENT MEDICATIONS: Reviewed. They include: 1. IV propofol. 2. Levophed. 3. IV Zosyn. 4. Vancomycin. PHYSICAL EXAMINATION: Afebrile. Pulse 62, respiration 19, blood pressure 108/47, pulse ox 97%. GENERAL APPEARANCE: Lying in bed, intubated. EYES: Pupils equal. Conjunctivae normal. HEENT: External appearance of nose and ears normal. Oral cavity with endotracheal tube in place. NECK: Short, thick. JVD unable to assess. Mass not palpable. RESPIRATORY: Effort normal. LUNGS: Decreased breath sounds. CARDIOVASCULAR: First and second sounds normal. No edema. ABDOMEN: Distended, soft. Liver and spleen not palpable. Dressing over the scrotum. NEUROLOGICAL: Pupils equal. Does respond to pain. INVESTIGATIONS: White count 22.2, hemoglobin 14.4, potassium 3.1, BUN 41, creatinine 2.0. ASSESSMENT: 1. Acute severe scrotal cellulitis and abscess, status post pus drainage today. 2. Acute severe sepsis with lactic acidosis from above. 3. Septic shock from above, requiring pressure support. 4. Diabetes mellitus, type 2, chronically on insulin, uncontrolled from hy glycemia. Patient on insulin drip. 5. Obesity; body mass index 39.9. 6. Chronic congestive heart failure, ejection fraction not known. 7. Gastroesophageal reflux disease. 8. Hyperlipidemia. 9. Essential hypertension. 10.Obstructive sleep apnea; uses CPAP machine. 11.Acute hypoxic respiratory failure secondary to sepsis, requiring ventilator support. 12.Acute renal failure from acute tubular necrosis from sepsis. 13.Hypokalemia. 14.Hypophosphatemia. PLAN: Continue with current antibiotics, pressure support, insulin drip, IV fluids. Await culture results. MMODL / IJN: [id number] /
[2018-01-11 00:08] LABS: Glucose,Whole Blood 180 mg/dL (75-99)
[2018-01-11] MEDS: PROPOFOL 1,000 MG in EMPTY BAG 1 BAG IV SCH ×6 (00:34→23:07)
[2018-01-11] MEDS: PIPERACILLIN-TAZOBACTAM 3.375 GM in DEXTROSE/WATER 1 50ML.BAG IVPB SCH ×2 (00:36→11:39)
[2018-01-11] MEDS ORDERED: FUROSEMIDE 10 MG/ML 4 ML VIAL IV STA (00:57)
[2018-01-11 02:07] LABS: Glucose,Whole Blood 177 mg/dL (75-99)
[2018-01-11] MEDS: MORPHINE SULFATE 4 MG/0.8 ML SYRINGE (INJ) IVP PRN (03:16)
[2018-01-11] MEDS: DILTIAZEM 50 MG in SODIUM CHLORIDE 0.9% 40 ML IV SCH ×4 (03:43→16:56)
[2018-01-11] MEDS: SODIUM CHLORIDE 0.9% 1,000 ML IV SCH ×2 (03:44→15:27)
[2018-01-11] MEDS: NOREPINEPHRIN 4 MG-0.9% NS PMX 4 MG/250 ML ML IV SCH ×2 (03:44→12:46)
[2018-01-11 04:17] LABS: Glucose,Whole Blood 182 mg/dL (75-99)
[2018-01-11] MEDS: INSULIN REGULAR 100 UNIT in SODIUM CHLORIDE 0.9% 100 ML IV SCH (04:17)
[2018-01-11 04:28] LABS: Basophils % (A) 0 %; Eosinophils % (A) 0 %; HCT 39.3 % (39.0-53.0); HGB 12.7 gm/dL (13.0-17.5); Lymphocytes % (A) 5 %; MCH 28.9 pg (25.0-35.0); MCHC 32.4 g/dL (31.0-37.0); MCV 89.4 fL (80.0-100.0); Mean Platelet Volume 11.8; Monocytes # (A) 0.7 k/uL (0-1.0); Monocytes % (A) 4 %; Neutrophils # (A) 17.8 k/uL (1.3-7.7); Neutrophils % (A) 90 %; Platelet Count 145 k/uL (150-450); RDW 13.3 % (11.5-15.5); WBC 19.7 k/uL (3.8-10.6)
[2018-01-11 04:46] LABS: INR 1.1 (<1.2); Partial Thromboplastin Time 24.6 sec (22.0-30.0); Prothrombin Time 10.4 sec (9.0-12.0)
[2018-01-11 04:50] LABS: Calcium 7.7 mg/dL (8.4-10.2); Magnesium 1.9 mg/dL (1.6-2.3); Potassium 3.8 mmol/L (3.5-5.1)
[2018-01-11 04:52] LABS: Large Platelets Present
[2018-01-11] MEDS ORDERED: VANCOMYCIN 2,000 MG in SODIUM CHLORIDE 0.9% 500 ML IVPB SCH (05:00)
[2018-01-11 06:07] LABS: Glucose,Whole Blood 197 mg/dL (75-99)
[2018-01-11 06:13] LABS: ABG Base Excess -6.4 mmol/L; ABG HCO3 19 mmol/L (21-25); ABG Oxygen Saturation 99.3 % (94-97); ABG PCO2 34 mmHg (35-45); ABG PH 7.36 (7.35-7.45); ABG PO2 152 mmHg (83-108); ABG TCO2 20 mmol/L (19-24)
--- NOTE | 2018-01-11 07:35 | P.PN ---
Subjective Progress Note Date: 01/11/18 The patient is 12 hours status post incision and drainage of scrotal abscess, Vanesa's gangrene. He is in the intensive care unit. He is septic and on vasopressors. He is intubated and hopefully will be extubated today. His no extension of the erythema of the scrotum. There is no crepitus. White count is down to 19,000 from 22,000. His creatinine is up to 3.9. Continue supportive care. I've discussed the severity the situation with the patient's daughters. Objective - Vital Signs Vital signs: Vital Signs Temp 99.2 F 01/11/18 04:30 Pulse 66 01/11/18 07:15 Resp 20 01/11/18 07:15 BP 170/103 01/10/18 18:15 Pulse Ox 98 01/11/18 07:15 Intake & Output 01/10/18 01/11/18 01/11/18 18:59 06:59 18:59 Intake Total 2015.933 2434.118 220 Output Total 260 340 10 Balance 6247.117 2657.118 210 Weight 134.6 kg Intake: IV 1365.0 1833.0 220 Abigail 33 3 Diltiazem 50 mg In Sodium 40 Chloride 0.9% 40 ml @ 10 MG/HR 10 mls/hr IV .Q5H [facility] Rx#:[id number] Piperacillin-Tazobactam 3 100.0 .375 gm In Dextrose/Water 1 50ml.bag @ 12.5 mls/hr IVPB ONCE [facility] Rx#: [id number] Piperacillin-Tazobactam 3 50.0 .375 gm In Dextrose/Water 1 50ml.bag @ 12.5 mls/hr IVPB Q8HR [facility] Rx#: [id number] Sodium Chloride 0.9% 1, 1100 1750 50 000 ml @ 75 mls/hr IV . [id number] [facility] Rx#:[id number] Vancomycin 2,000 mg In 125 167 Sodium Chloride 0.9% 500 ml @ 167 mls/hr IVPB Q16H [facility] Rx#:[id number] Intake, IV Titration 150.933 556.118 Amount Diltiazem 50 mg In Sodium 50 0 Chloride 0.9% 40 ml @ 10 MG/HR 10 mls/hr IV .Q5H [facility] Rx#:[id number] Insulin Regular 100 unit 100.933 10.242 In Sodium Chloride 0.9% 100 ml @ Titrate IV .Q0M [facility] Rx#:[id number] Norepinephrin 4 mg-0.9% 245.876 Ns Pmx 4 mg In 250 ml @ Titrate IV .Q0M [facility] Rx#: [id number] Propofol 1,000 mg In 300 Empty Bag 1 bag @ Titrate IV .Q0M [facility] Rx#: [id number] Oral 500 Other 45 Output: Gastric Drainage 300 Urine 250 40 10 Estimated Blood Loss 10 Other: Voiding Method Indwelling Catheter Indwelling Catheter ABP, PAP, CO, CI - Last Documented Arterial Blood Pressure 118/53 - Labs CBC & Chem 7: 01/11/18 04:20 01/11/18 04:20 Labs: Abnormal Lab Results - Last 24 Hours (Table) 01/10/18 01/10/18 01/10/18 Range/Units 03:46 08:22 09:33 WBC (3.8-10.6) k/uL Hgb (13.0-17.5) gm/dL Plt Count (150-450) k/uL Neutrophils # (1.3-7.7) k/uL ABG pH (7.35-7.45) ABG pCO2 (35-45) mmHg ABG pO2 (83-108) mmHg ABG HCO3 (21-25) mmol/L ABG O2 Saturation (94-97) % Potassium (3.5-5.1) mmol/L Carbon Dioxide (22-30) mmol/L BUN (9-20) mg/dL Creatinine (0.66-1.25) mg/dL Glucose (74-99) mg/dL POC Glucose (mg/dL) 194 H 207 H (75-99) mg/dL Hemoglobin A1c 11.1 H (4.0-6.0) % Calcium (8.4-10.2) mg/dL Phosphorus (2.5-4.5) mg/dL 01/10/18 01/10/18 01/10/18 Range/Units 09:46 11:04 12:37 WBC (3.8-10.6) k/uL Hgb (13.0-17.5) gm/dL Plt Count (150-450) k/uL Neutrophils # (1.3-7.7) k/uL ABG pH (7.35-7.45) ABG pCO2 (35-45) mmHg ABG pO2 (83-108) mmHg ABG HCO3 (21-25) mmol/L ABG O2 Saturation (94-97) % Potassium 3.4 L (3.5-5.1) mmol/L Carbon Dioxide (22-30) mmol/L BUN (9-20) mg/dL Creatinine (0.66-1.25) mg/dL Glucose (74-99) mg/dL POC Glucose (mg/dL) 194 H 238 H (75-99) mg/dL Hemoglobin A1c (4.0-6.0) % Calcium (8.4-10.2) mg/dL Phosphorus (2.5-4.5) mg/dL 01/10/18 01/10/18 01/10/18 Range/Units 13:37 15:09 16:36 WBC (3.8-10.6) k/uL Hgb (13.0-17.5) gm/dL Plt Count (150-450) k/uL Neutrophils # (1.3-7.7) k/uL ABG pH (7.35-7.45) ABG pCO2 (35-45) mmHg ABG pO2 (83-108) mmHg ABG HCO3 (21-25) mmol/L ABG O2 Saturation (94-97) % Potassium 3.4 L (3.5-5.1) mmol/L Carbon Dioxide (22-30) mmol/L BUN (9-20) mg/dL Creatinine (0.66-1.25) mg/dL Glucose (74-99) mg/dL POC Glucose (mg/dL) 241 H 196 H (75-99) mg/dL Hemoglobin A1c (4.0-6.0) % Calcium (8.4-10.2) mg/dL Phosphorus (2.5-4.5) mg/dL 01/10/18 01/10/18 01/10/18 Range/Units 18:02 18:18 18:48 WBC (3.8-10.6) k/uL Hgb (13.0-17.5) gm/dL Plt Count (150-450) k/uL Neutrophils # (1.3-7.7) k/uL ABG pH 7.34 L (7.35-7.45) ABG pCO2 (35-45) mmHg ABG pO2 >400 H (83-108) mmHg ABG HCO3 (21-25) mmol/L ABG O2 Saturation 100.0 H (94-97) % Potassium 3.3 L (3.5-5.1) mmol/L Carbon Dioxide (22-30) mmol/L BUN (9-20) mg/dL Creatinine (0.66-1.25) mg/dL Glucose (74-99) mg/dL POC Glucose (mg/dL) 215 H (75-99) mg/dL Hemoglobin A1c (4.0-6.0) % Calcium (8.4-10.2) mg/dL Phosphorus (2.5-4.5) mg/dL 01/10/18 01/10/18 01/11/18 Range/Units 18:51 21:59 00:06 WBC (3.8-10.6) k/uL Hgb (13.0-17.5) gm/dL Plt Count (150-450) k/uL Neutrophils # (1.3-7.7) k/uL ABG pH (7.35-7.45) ABG pCO2 (35-45) mmHg ABG pO2 (83-108) mmHg ABG HCO3 (21-25) mmol/L ABG O2 Saturation (94-97) % Potassium (3.5-5.1) mmol/L Carbon Dioxide (22-30) mmol/L BUN (9-20) mg/dL Creatinine (0.66-1.25) mg/dL Glucose (74-99) mg/dL POC Glucose (mg/dL) 151 H 177 H 180 H (75-99) mg/dL Hemoglobin A1c (4.0-6.0) % Calcium (8.4-10.2) mg/dL Phosphorus (2.5-4.5) mg/dL 01/11/18 01/11/18 01/11/18 Range/Units 02:05 04:15 04:20 WBC (3.8-10.6) k/uL Hgb (13.0-17.5) gm/dL Plt Count (150-450) k/uL Neutrophils # (1.3-7.7) k/uL ABG pH (7.35-7.45) ABG pCO2 (35-45) mmHg ABG pO2 (83-108) mmHg ABG HCO3 (21-25) mmol/L ABG O2 Saturation (94-97) % Potassium (3.5-5.1) mmol/L Carbon Dioxide 19 L (22-30) mmol/L BUN 51 H (9-20) mg/dL Creatinine 3.90 H (0.66-1.25) mg/dL Glucose 190 H (74-99) mg/dL POC Glucose (mg/dL) 177 H 182 H (75-99) mg/dL Hemoglobin A1c (4.0-6.0) % Calcium 7.7 L (8.4-10.2) mg/dL Phosphorus 2.0 L (2.5-4.5) mg/dL 01/11/18 01/11/18 01/11/18 Range/Units 04:20 06:05 06:08 WBC 19.7 H (3.8-10.6) k/uL Hgb 12.7 L (13.0-17.5) gm/dL Plt Count 145 L (150-450) k/uL Neutrophils # 17.8 H (1.3-7.7) k/uL ABG pH (7.35-7.45) ABG pCO2 34 L (35-45) mmHg ABG pO2 152 H (83-108) mmHg ABG HCO3 19 L (21-25) mmol/L ABG O2 Saturation 99.3 H (94-97) % Potassium (3.5-5.1) mmol/L Carbon Dioxide (22-30) mmol/L BUN (9-20) mg/dL Creatinine (0.66-1.25) mg/dL Glucose (74-99) mg/dL POC Glucose (mg/dL) 197 H (75-99) mg/dL Hemoglobin A1c (4.0-6.0) % Calcium (8.4-10.2) mg/dL Phosphorus (2.5-4.5) mg/dL Microbiology - Last 24 Hours (Table) 01/10/18 17:31 Gram Stain - Preliminary Groin Wound Culture - Preliminary 01/10/18 17:31 Gram Stain - Preliminary Groin Wound Culture - Preliminary 01/10/18 17:31 Anaerobic Culture - Preliminary Groin 01/10/18 17:31 Anaerobic Culture - Preliminary Groin 01/09/18 15:17 Blood Culture - Preliminary Blood No Growth after 24 hours 01/10/18 02:25 Urine Culture - Preliminary Urine,Catheterized
--- NOTE | 2018-01-11 07:53 | XR ---
EXAMINATION TYPE: XR chest 1V portable DATE OF EXAM: 01/11/2018 CLINICAL HISTORY: Difficulty breathing progress study. TECHNIQUE: Single AP portable semiupright view of the chest is obtained. COMPARISON: Chest x-ray from one day earlier and older studies. FINDINGS: An endotracheal tube is redemonstrated, position at inferior clavicular margin, roughly 1 cm superiorly retracted from prior. There is orogastric tube with tip extending outside the field-of- view on current study, current study does not include central diaphragm making evaluation suboptimal. There is persistent cardiomegaly with dual lead pacemaker. Multiple overlying EKG wires are seen. The re is patchy left greater than right bibasilar atelectatic change. There is no large pleural effusion or pneumothorax seen. Osseous structures are intact. IMPRESSION: Suboptimal study, cardiomegaly with patchy left greater than right bibasilar atelectatic change remains present.
[2018-01-11] MEDS: IPRATROPIUM-ALBUTEROL 3 ML NEB INHALATION SCH ×4 (07:54→19:42)
[2018-01-11] MEDS ORDERED: VANCOMYCIN IV PER PHARMACY 1 EACH MISC MISCELLANE PRN (07:55)
--- NOTE | 2018-01-11 08:21 | ECHOF ---
Referral Reason:new onset atrial fibrillation MEASUREMENTS -------- HEIGHT: 177.8 cm WEIGHT: 133.4 kg BP: RVIDd: 3.3 cm (< 3.3) IVSd: 1.5 cm (0.6 - 1.1) LVIDd: 3.9 cm (3.9 - 5.3) LVPWd: 1.7 cm (0.6 - 1.1) IVSs: 1.7 cm LVIDs: 3.5 cm LVPWs: 1.8 cm Ao Diam: 4.0 cm (2.0 - 3.7) LA Diam: 3.1 cm (2.7 - 3.8) MV EXCURSION: 18.221 mm (> 18.000) MV EF SLOPE: 145 mm/s (70 - 150) EPSS: 0.3 cm MV E Huang: 0.68 m/s MV DecT: 132 ms MV A Huang: 0.47 m/s MV E/A Ratio: 1.43 RAP: 5.00 mmHg RVSP: 15.39 mmHg FINDINGS -------- Atrial fibrillation. Paced rhythm. This was a technically adequate study. Morbid Obesity There is moderate concentric left ventricular hypertrophy. Overall left ventricular systolic functi on is normal with, an EF between 60 - 65 %. The right ventricle is mildly enlarged. The left atrial size is normal. The right atrial size is normal. The aortic valve was not well visualized. Mild mitral annular calcification present. No mitral regurgitation. Mild tricuspid regurgitation present. There is no evidence of pulmonary hypertension. The right v entricular systolic pressure, as measured by Doppler, is 15.39mmHg. The pulmonic valve was not well visualized. The aortic root size is normal. Echo free space represents a pericardial fat pad. CONCLUSIONS -------- 1. Morbid Obesity 2. There is moderate concentric left ventricular hypertrophy. 3. Overall left ventricular systolic function is normal with, an EF between 60 - 65 %. 4. The right ventricle is mildly enlarged. 5. The aortic valve was not well visualized. 6. Mild mitral annular calcification present. 7. No mitral regurgitation. 8. Mild tricuspid regurgitation present. 9. There is no evidence of pulmonary hypertension. 10. The right ventricular systolic pressure, as measured by Doppler, is 15.39mmHg. 11. The pulmonic valve was not well visualized. 12. The aortic root size is normal. 13. Echo free space represents a pericardial fat pad. ACCORDION MAKER: Jessika Allan RDCS
--- NOTE | 2018-01-11 08:27 | P.NPCON ---
History of Present Illness - Reason for Consult acute renal failure - History of Present Illness Reason for consultation: Acute kidney injury History of present illness: Patient is a 72-year-old male seen in renal consultation for acute kidney injury. Patient presented to the hospital on January 09 with scrotal swelling. He was noted to have a scrotal abscess and subsequently underwent scrotal exploration with evacuation of scrotal abscess and debridement of necrotic tissue by urology on January 10. Patient became quite hypotensive with systolic blood pressure in the 70s and has been requiring vasopressors since January 09. He is currently on 8 mics of levofed. He is oliguric at this time. His baseline creatinine is 1 and is up at 3.9 today. Additionally he is receiving metformin as part of his diabetes regimen along with ibuprofen for pain control. In terms of antibiotics he is maintained on IV vancomycin and Zosyn. His urinalysis is quite benign. He is currently intubated and sedated. Patient also wanted atrial fibrillation with RVR and was on a Cardizem drip which has now been discontinued. He is now in sinus rhythm. Patient has received 3-1/2 L bolus of normal saline and is currently maintained on normal saline at 75 mL an hour. Vital signs are stable. Hypotensive requiring vasopressors. General: The patient appeared well nourished and normally developed. Intubated. HEENT: Head exam is unremarkable. Neck is without jugular venous distension. LUNGS: Lungs are clear to auscultation and percussion. Breath sounds decreased. HEART: Rate and Rhythm are regular. First and second heart sounds normal. No murmurs, rubs or gallops. ABDOMEN: Abdominal exam reveals normal bowel sounds. Non-tender and non- distended. No evidence of peritonitis. EXTREMITITES: No clubbing, cyanosis, or edema. Past Medical History Past Medical History: Chest Pain / Angina, Heart Failure, Diabetes Mellitus, GERD/Reflux, Hyperlipidemia, Hypertension, Skin Disorder, Sleep Apnea/CPAP/BIPAP Additional Past Medical History / Comment(s): PSORIASIS, uses CPAP, past cellulitis in [place] when in [place]. broken nose age 20(sx) History of Any Multi-Drug Resistant Organisms: None Reported Past Surgical History: Adenoidectomy, Heart Catheterization, Orthopedic Surgery , Pacemaker, Tonsillectomy Additional Past Surgical History / Comment(s): rt carpal tunnel release, pacemaker, colonoscopy/polypectomy,nasal sx, hemorrhoidectomy Past Anesthesia/Blood Transfusion Reactions: No Reported Reaction Type of Cardiac Device: Permanent Pacemaker Device Placement Date:: April 2015 Smoking Status: Former smoker - Past Family History Mother Family Medical History: Myocardial Infarction (ME) Father Family Medical History: Cancer Medications and Allergies Home Medications Medication Instructions Recorded Confirmed Type Simvastatin [Zocor] 20 mg PO HS 05/26/14 01/09/18 History Naproxen Sodium [Aleve] 440 mg PO Q12HR PRN 05/03/15 01/09/18 History Metoprolol Tartrate [Lopressor] 25 mg PO BID 03/09/16 01/09/18 History metFORMIN HCL [Glucophage] 500 mg PO BID 03/09/16 01/09/18 History Aspirin 325 mg PO DAILY 09/17/17 01/09/18 History Lisinopril-Hctz 20-25 mg 2 tab PO DAILY 09/17/17 01/09/18 History [Zestoretic 20-25] Topiramate 50 mg PO BID 09/17/17 01/09/18 History amLODIPine BESYLATE [Norvasc] 5 mg PO BID 09/17/17 01/09/18 History hydrALAZINE HCL [Apresoline] 100 mg PO TID 09/17/17 01/09/18 History predniSONE 40 mg PO DAILY 01/09/18 01/09/18 History Allergies Allergy/AdvReac Type Severity Reaction Status Date / Time No Known Allergies Allergy Verified 01/09/18 15:34 Physical Exam Vitals: Vital Signs Temp Pulse Pulse Pulse Resp BP BP 01/11/18 08:11 61 01/11/18 07:55 62 01/11/18 07:15 66 20 01/11/18 07:00 63 23 01/11/18 06:45 62 22 01/11/18 06:30 70 20 01/11/18 06:15 64 21 01/11/18 06:00 64 21 01/11/18 05:45 65 20 01/11/18 05:30 67 20 01/11/18 05:15 68 20 01/11/18 05:00 70 20 01/11/18 04:45 68 21 01/11/18 04:30 99.2 F 70 20 01/11/18 04:15 64 21 01/11/18 04:00 63 20 01/11/18 03:45 60 20 01/11/18 03:30 61 22 01/11/18 03:15 63 20 01/11/18 03:00 66 21 01/11/18 02:45 60 20 01/11/18 02:30 62 20 01/11/18 02:15 60 24 01/11/18 02:00 64 20 01/11/18 01:45 68 20 01/11/18 01:30 60 20 01/11/18 01:15 60 21 01/11/18 01:00 60 20 01/11/18 00:45 60 21 01/11/18 00:30 60 20 01/11/18 00:15 98.2 F 61 20 01/11/18 00:00 120 H 21 01/10/18 23:45 62 20 01/10/18 23:30 60 22 01/10/18 23:15 64 21 01/10/18 23:00 64 21 01/10/18 22:45 63 20 01/10/18 22:30 63 21 01/10/18 22:15 63 20 01/10/18 22:00 63 20 01/10/18 21:45 60 21 01/10/18 21:30 62 20 01/10/18 21:15 62 20 01/10/18 21:00 60 20 01/10/18 20:45 63 20 01/10/18 20:30 98.4 F 62 20 01/10/18 20:15 61 20 01/10/18 20:13 62 01/10/18 20:05 60 01/10/18 20:00 60 22 01/10/18 19:45 62 22 01/10/18 19:30 110 H 20 01/10/18 19:15 112 H 19 01/10/18 19:00 107 H 21 01/10/18 18:45 107 H 23 01/10/18 18:30 110 H 22 01/10/18 18:15 118 H 21 170/103 01/10/18 18:00 108 H 24 170/103 01/10/18 17:52 94 16 140/90 01/10/18 16:30 124 H 17 95/58 01/10/18 16:15 106 H 20 93/58 01/10/18 16:00 97.1 F L 92 21 121/66 01/10/18 15:58 98 01/10/18 15:49 112 H 01/10/18 15:45 122 H 28 H 83/64 01/10/18 15:30 117 H 41 H 99/68 01/10/18 15:20 77 19 01/10/18 15:15 115 H 14 98/57 01/10/18 15:00 100 19 92/62 01/10/18 14:45 128 H 18 98/58 01/10/18 14:30 101 H 18 97/68 01/10/18 14:15 130 H 72 H 109/78 01/10/18 14:00 133 H 18 111/80 01/10/18 13:45 135 H 20 114/67 01/10/18 13:30 137 H 20 114/67 01/10/18 13:15 133 H 22 122/76 01/10/18 13:00 121 H 19 122/76 01/10/18 12:45 133 H 16 106/82 01/10/18 12:30 144 H 19 01/10/18 12:15 73 18 181/77 01/10/18 12:00 97.1 F L 77 22 181/77 01/10/18 11:45 74 22 181/77 01/10/18 11:30 73 22 181/77 01/10/18 11:25 97.1 F L 109 H 14 95/58 01/10/18 11:19 72 16 01/10/18 11:15 70 21 112/78 01/10/18 11:09 71 16 01/10/18 11:04 77 17 01/10/18 11:00 73 17 112/78 01/10/18 10:45 70 23 112/78 01/10/18 10:30 64 20 112/78 01/10/18 10:15 67 23 138/81 01/10/18 10:00 63 14 138/81 01/10/18 09:45 63 22 138/81 01/10/18 09:30 64 24 138/81 01/10/18 09:15 65 20 133/66 01/10/18 09:00 66 21 133/66 01/10/18 08:45 69 18 133/66 01/10/18 08:30 61 17 133/66 Pulse Ox 01/11/18 08:11 01/11/18 07:55 04/27/18 07:15 98 01/11/18 07:00 98 01/11/18 06:45 96 01/11/18 06:30 98 01/11/18 06:15 98 01/11/18 06:00 98 01/11/18 05:45 97 01/11/18 05:30 97 01/11/18 05:15 98 01/11/18 05:00 98 01/11/18 04:45 97 01/11/18 04:30 98 01/11/18 04:15 98 01/11/18 04:00 97 01/11/18 03:45 98 01/11/18 03:30 98 01/11/18 03:15 97 01/11/18 03:00 98 01/11/18 02:45 98 01/11/18 02:30 98 01/11/18 02:15 98 01/11/18 02:00 98 01/11/18 01:45 97 01/11/18 01:30 97 01/11/18 01:15 98 01/11/18 01:00 98 01/11/18 00:45 98 01/11/18 00:30 98 01/11/18 00:15 98 01/11/18 00:00 98 01/10/18 23:45 98 01/10/18 23:30 98 01/10/18 23:15 99 01/10/18 23:00 99 01/10/18 22:45 98 01/10/18 22:30 99 01/10/18 22:15 99 01/10/18 22:00 99 01/10/18 21:45 99 01/10/18 21:30 99 01/10/18 21:15 98 01/10/18 21:00 99 01/10/18 20:45 99 01/10/18 20:30 98 01/10/18 20:15 99 01/10/18 20:13 01/10/18 20:05 01/10/18 20:00 99 01/10/18 19:45 98 01/10/18 19:30 98 01/10/18 19:15 97 01/10/18 19:00 96 01/10/18 18:45 97 01/10/18 18:30 96 01/10/18 18:15 99 01/10/18 18:00 99 01/10/18 17:52 99 01/10/18 16:30 97 01/10/18 16:15 96 01/10/18 16:00 96 01/10/18 15:58 01/10/18 15:49 01/10/18 15:45 95 01/10/18 15:30 95 01/10/18 15:20 01/10/18 15:15 97 01/10/18 15:00 95 01/10/18 14:45 95 01/10/18 14:30 95 01/10/18 14:15 95 01/10/18 14:00 96 01/10/18 13:45 96 01/10/18 13:30 96 01/10/18 13:15 96 01/10/18 13:00 96 01/10/18 12:45 96 01/10/18 12:30 96 01/10/18 12:15 95 01/10/18 12:00 96 01/10/18 11:45 95 01/10/18 11:30 95 01/10/18 11:25 01/10/18 11:19 01/10/18 11:15 98 01/10/18 11:09 97 01/10/18 11:04 01/10/18 11:00 95 01/10/18 10:45 97 01/10/18 10:30 96 01/10/18 10:15 96 01/10/18 10:00 97 01/10/18 09:45 95 01/10/18 09:30 97 01/10/18 09:15 97 01/10/18 09:00 97 01/10/18 08:45 97 01/10/18 08:30 97 Intake and Output 01/10/18 01/11/18 01/11/18 22:59 06:59 14:59 Intake Total 223.775 9610.051 220 Output Total 155 325 10 Balance 860.163 4073.051 210 Intake: IV 679.0 1599.0 220 Abigail 9 24 3 Diltiazem 50 mg In Sodium 20 Chloride 0.9% 40 ml @ 10 MG/HR 10 mls/hr IV .Q5H [facility] Rx#:[id number] Piperacillin-Tazobactam 3 50.0 .375 gm In Dextrose/Water 1 50ml.bag @ 12.5 mls/hr IVPB ONCE [facility] Rx#: [id number] Piperacillin-Tazobactam 3 50.0 .375 gm In Dextrose/Water 1 50ml.bag @ 12.5 mls/hr IVPB Q8HR [facility] Rx#: [id number] Sodium Chloride 0.9% 1, 600 1525 50 000 ml @ 75 mls/hr IV . [id number] [facility] Rx#:[id number] Vancomycin 2,000 mg In 167 Sodium Chloride 0.9% 500 ml @ 167 mls/hr IVPB Q16H [facility] Rx#:[id number] Intake, IV Titration 110.767 556.051 Amount Diltiazem 50 mg In Sodium 50 Chloride 0.9% 40 ml @ 10 MG/HR 10 mls/hr IV .Q5H [facility] Rx#:[id number] Insulin Regular 100 unit 60.767 10.175 In Sodium Chloride 0.9% 100 ml @ Titrate IV .Q0M [facility] Rx#:[id number] Norepinephrin 4 mg-0.9% 245.876 Ns Pmx 4 mg In 250 ml @ Titrate IV .Q0M [facility] Rx#: [id number] Propofol 1,000 mg In 300 Empty Bag 1 bag @ Titrate IV .Q0M [facility] Rx#: [id number] Other 45 Output: Gastric Drainage 300 Urine 145 25 10 Estimated Blood Loss 10 Other: Voiding Method Indwelling Catheter Indwelling Catheter Weight 134.6 kg ABP, PAP, CO, CI - Last 8 Hours Arterial Blood Pressure 118/53 Arterial Blood Pressure 98/50 Arterial Blood Pressure 129/59 Arterial Blood Pressure 117/53 Arterial Blood Pressure 113/51 Arterial Blood Pressure 102/50 Arterial Blood Pressure 113/54 Arterial Blood Pressure 109/56 Arterial Blood Pressure 114/54 Arterial Blood Pressure 118/55 Arterial Blood Pressure 114/64 Arterial Blood Pressure 108/50 Arterial Blood Pressure 114/54 Arterial Blood Pressure 120/55 Arterial Blood Pressure 128/62 Arterial Blood Pressure 137/58 Arterial Blood Pressure 124/55 Arterial Blood Pressure 128/60 Arterial Blood Pressure 122/59 Arterial Blood Pressure 109/60 Arterial Blood Pressure 108/54 Arterial Blood Pressure 98/49 Arterial Blood Pressure 115/56 Arterial Blood Pressure 104/48 Arterial Blood Pressure 98/46 Arterial Blood Pressure 107/49 Arterial Blood Pressure 102/48 Results - Lab Results Most recent lab results ABG pH 7.36 (7.35-7.45) 01/11/18 06:08 ABG pCO2 34 mmHg (35-45) L 01/11/18 06:08 ABG pO2 152 mmHg (83-108) H 01/11/18 06:08 ABG HCO3 19 mmol/L (21-25) L 01/11/18 06:08 ABG O2 Saturation 99.3 % (94-97) H 01/11/18 06:08 Calcium 7.7 mg/dL (8.4-10.2) L 01/11/18 04:20 Phosphorus 2.0 mg/dL (2.5-4.5) L 01/11/18 04:20 Magnesium 1.9 mg/dL (1.6-2.3) 01/11/18 04:20 01/11/18 04:20 01/11/18 04:20 Assessment and Plan Plan: Assessment: #1. Oliguric acute kidney injury secondary to ischemic ATN secondary to septic shock and hemodynamic instability. Baseline creatinine is 1 and elevated at 3.9 today. Urinalysis is quite benign. #2. Septic shock secondary to scrotal abscess maintained on levofed. #3. Atrial fibrillation with RVR status post Cardizem drip. Now rate controlled. #4. Scrotal abscess status post debridement of necrotic tissue on January 10. #5. Metabolic acidosis secondary to acute kidney injury. #6. Hypophosphatemia secondary to poor nutritional status. #7. Hypokalemia secondary to poor oral intake. Magnesium replete. Improved posterior placement. #8. Diabetes mellitus. Plan: Maintain normal saline at 75 mL an hour. I will challenge him with Lasix 80 mg IV once today. Discontinue ibuprofen. Discontinue metformin. Check vancomycin level now - dose to be adjusted per pharmacy. Avoid if possible. No need to replace potassium at this time since he is oliguric. Repeat BMP at 5 PM today. I did discuss with the family the potential need for renal replacement therapy in the next 24-48 hours if no improvement in his renal function and urine output. They are in agreement to proceed if indicated. Thank you for the consultation. I will continue to follow the patient did during his hospital stay.
[2018-01-11] MEDS ORDERED: FUROSEMIDE 10 MG/ML 10 ML VIAL IV STA (08:32)
[2018-01-11] MEDS: INSULIN ASPART 100 UNIT/ML 1 ML 10 ML VIAL SQ SCH ×2 (08:37→12:05)
[2018-01-11 08:47] LABS: Glucose,Whole Blood 161 mg/dL (75-99)
[2018-01-11] MEDS: AMIODARONE 200 MG TAB PO SCH ×2 (08:49→20:16)
[2018-01-11] MEDS: CHLORHEXIDINE GLUCONATE 15 ML CUP MUCOUS MEM SCH ×2 (08:49→20:16)
[2018-01-11] MEDS: TOPIRAMATE 25 MG TAB PO SCH ×2 (08:50→20:16)
[2018-01-11] MEDS ORDERED: ENOXAPARIN 30 MG/0.3 ML SYRINGE SQ SCH (09:00)
[2018-01-11] MEDS: POTAS-SOD-PHOS 278-164-250 MG 1 EACH PACKET PO SCH ×2 (09:14→20:16)
[2018-01-11] MEDS: ASPIRIN 81 MG PO SCH (09:33)
--- NOTE | 2018-01-11 10:23 | PN ---
PROGRESS NOTE Mr. Dykes is a 72-year-old male with history of paroxysmal atrial fibrillation. History of permanent pacemaker implantation, who presented yesterday with a sepsis and scrotal abscess. He underwent I and D and drainage. He is intubated and sedated. He is in sinus mechanism at this time. He has evidence of ATN. His blood pressure is stabilizing. He is on norepinephrine. His urine output has been low, but is trying to improve. He had no further episodes of atrial fibrillation at this time. He continues to be at this time on the norepinephrine. He is on amiodarone 400 mg twice a day, aspirin 81 mg daily, metoprolol tartrate 25 mg twice a day. PHYSICAL EXAMINATION: Blood pressure 120/50 with a heart rate in the 60s. LUNGS: Clear anteriorly. HEART: Regular rate and rhythm, S1, S2. No S3 with systolic murmur at the base. No diastolic murmur. ABDOMEN: Soft, obese, no organomegaly. EXTREMITIES: No significant edema. Dressing noted on the scrotum. LAB DATA: Revealed a hemoglobin of 12.7, white blood cell of 19.7. BUN 51, creatinine of 3.9, potassium 3.8. IMPRESSION: 1. 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 2. Acute tubular necrosis. 3. Paroxysmal atrial fibrillation with permanent pacemaker implantation. RECOMMENDATION: From the cardiac standpoint, his left ventricular systolic function is preserved. Will continue on the present therapy. Will follow his blood pressure and depending on that, adjustment of his beta lorraine will be made. Will continue the same dose of amiodarone for 1 week, then I will cut it down. The patient will need to be anticoagulated but await the decision by Dr. Juárez. MMCONNORL / DANIEL: [id number] /
[2018-01-11 10:38] LABS: Glucose,Whole Blood 131 mg/dL (75-99)
[2018-01-11] MEDS ORDERED: HEPARIN SODIUM,PORCINE 5,000 UNIT/ML 1 ML VIAL IV PRN (11:30)
[2018-01-11] MEDS ORDERED: HEPARIN SODIUM,PORCINE 5,000 UNIT/ML 1 ML VIAL IV ONE (11:30)
[2018-01-11] MEDS: METOPROLOL TARTRATE 25 MG TAB PO SCH ×3 (11:43→23:07)
[2018-01-11] MEDS: HEPARIN SOD,PORK IN 0.45% NACL 25,000 UNIT in 0.45% NACL 1 500ML.BAG IV SCH (11:57)
[2018-01-11 12:10] LABS: Glucose,Whole Blood 165 mg/dL (75-99)
--- NOTE | 2018-01-11 13:45 | P.PN ---
Subjective Progress Note Date: 01/11/18 Principal diagnosis: Acute scrotal abscess, sepsis, and septic shock This is a 72-year-old white male, recently seen by his primary care physician for few days history of swelling of the scrotal area. Patient was placed on prednisone. However his condition continued to deteriorate, and he was seen at [facility] ER on 01/09/2018, the ER physician was concerned about the possibility of scrotal abscess. Hence arrangements were made to transfer the patient to our ER at [facility], and the patient was seen by urology on consultation. Based on the findings of the urologist, it was felt that this is basically a presentation of severe cellulitis. Recommended antibiotics, and the patient was placed on vancomycin and Zosyn. Patient was admitted to a regular medical floor, however early this morning patient developed severe hypotension, and some mental status change. I was notified about the patient by the rapid response team, I recommended fluid boluses, I also recommended norepinephrine if the patient does not improve with fluid boluses. I also recommended transferred to the ICU. Fluid boluses were given, however he remained relatively hypotensive, and levo fed was started for about 2 hours at 8 mcg/m. Blood pressure improved, and the levo fed was discontinued. I saw the patient this morning, he is hemodynamically stable, in no form of distress, continues to have severe pain and erythema and the scrotal area mostly on the left side of the scrotal sac. Repeat ultrasound done earlier today did suggest a fluid collection in the right extra testicular area. Hence the patient may require incision and drainage by urology this afternoon. CBC this morning showed evidence of leukocytosis with WBC count 22.2. Hemoglobin is 14.4. Renal functioning is reflecting acute kidney injury with BUN of 41 creatinine 2.00. There is also some evidence of anion gap metabolic acidosis noted. After my evaluation, I recommended more fluid boluses to be given, however his urine output was noted to be extremely marginal , I recommended Lasix 40 mg IV push after his last fluid boluses. In the meantime the patient remains hemodynamically stable but he did require 2 hours of norepinephrine. Last night. Patient denies any shortness of breath, no cough, no wheezing, no chest pain. No nausea no vomiting no abdominal pain no melena no hematemesis no dysuria and no frequency no urgency. His main complaint of along has been related to his pain and discomfort in the left scrotal area. Patient was reevaluated today on 01/11/2018, he underwent scrotal exploration yesterday, and evacuation of scrotal abscess, debridement of necrotic tissue and placement of packing. Patient came back intubated on mechanical ventilation , and postoperatively he required fluids he also required back on norepinephrine presently at 8 g. Remains on antibiotics including vancomycin and Zosyn, however his kidney functioning also deteriorated in the last 24 hours. Urine output was marginal in spite of fluids and Lasix challenges. Hence nephrology was consulted, and it was felt that the patient had acute oliguric kidney injury secondary to ischemic ATN and septic shock. His baseline creatinine was 1 and today it is up to 3.90. Patient is also noted to be acidotic with an anion gap of 14 which is minimal. ABG this morning showed a pO2 of 152 pCO2 of 34 pH of 7.36 and this is a 40% FiO2 hence will cut down the FiO2 to 35%. Chest x-ray showed cardiomegaly and some bibasilar atelectasis. No clear-cut evidence of pneumonia or congestive heart failure. Objective - Vital Signs Vital signs: Vital Signs Temp 98.1 F 01/11/18 12:00 Pulse 59 L 01/11/18 13:00 Resp 22 01/11/18 13:00 BP 170/103 01/10/18 18:15 Pulse Ox 98 01/11/18 13:00 Intake & Output 01/10/18 01/11/18 01/11/18 18:59 06:59 18:59 Intake Total 2015.933 2434.118 1916.289 Output Total 260 340 475 Balance 0700.594 4484.118 1441.289 Weight 134.6 kg 134.6 kg Intake: IV 1365.0 1833.0 1107.0 Abigail 33 15 Diltiazem 50 mg In Sodium 40 Chloride 0.9% 40 ml @ 10 MG/HR 10 mls/hr IV .Q5H [facility] Rx#:[id number] Piperacillin-Tazobactam 3 100.0 .375 gm In Dextrose/Water 1 50ml.bag @ 12.5 mls/hr IVPB ONCE [facility] Rx#: [id number] Piperacillin-Tazobactam 3 50.0 25.0 .375 gm In Dextrose/Water 1 50ml.bag @ 12.5 mls/hr IVPB Q8HR [facility] Rx#: [id number] Sodium Chloride 0.9% 1, 1100 1750 400 000 ml @ 75 mls/hr IV . [id number] [facility] Rx#:[id number] Vancomycin 2,000 mg In 125 167 Sodium Chloride 0.9% 500 ml @ 167 mls/hr IVPB Q16H [facility] Rx#:[id number] Vancomycin 2,000 mg In 500 Sodium Chloride 0.9% 500 ml @ 167 mls/hr IVPB Q24H [facility] Rx#:[id number] Intake, IV Titration 150.933 556.118 309.289 Amount Diltiazem 50 mg In Sodium 50 0 Chloride 0.9% 40 ml @ 10 MG/HR 10 mls/hr IV .Q5H [facility] Rx#:[id number] Insulin Regular 100 unit 100.933 10.242 23.167 In Sodium Chloride 0.9% 100 ml @ Titrate IV .Q0M [facility] Rx#:[id number] Norepinephrin 4 mg-0.9% 245.876 209.562 Ns Pmx 4 mg In 250 ml @ Titrate IV .Q0M [facility] Rx#: [id number] Propofol 1,000 mg In 300 76.56 Empty Bag 1 bag @ Titrate IV .Q0M [facility] Rx#: [id number] Oral 500 500 Other 45 Output: Gastric Drainage 300 300 Urine 250 40 175 Estimated Blood Loss 10 Other: Voiding Method Indwelling Catheter Indwelling Catheter Indwelling Catheter ABP, PAP, CO, CI - Last Documented Arterial Blood Pressure 119/52 - Exam Physical Exam: Revealed a 72-year-old white male in no distress, presently on mechanical ventilation, sedated, on propofol drip. Head: Atraumatic, normocephalic. Eyes: PERRLA, EOMI. no icterus HENT:[Neck is supple.] [No neck masses.] [No thyromegaly.] [No JVD.] Moist mucous membranes, no cervical lymphadenopathy. Nasogastric tube and endotracheal tube are intact. Chest: [Clear throughout, no crackles, no rhonchi, no wheezes.] Cardiac Exam: [Normal S1 and S2, no S3 gallop, no murmur.] Abdomen: [Obese, Soft, nontender, no megaly, no rebound, no guarding, normal bowel sounds.] Extremities: [No clubbing, no edema, no cyanosis.] Neurological Exam: Cannot be assessed, patient is sedated, on propofol drip.. Lymphatics: No lymphadenopathy. Musculoskeletal: Cannot be assessed. Psychiatric: Cannot be assessed. Genitalia: Testicular packing was noted, no further examination was done. - Labs CBC & Chem 7: 01/11/18 04:20 01/11/18 04:20 Labs: Abnormal Lab Results - Last 24 Hours (Table) 01/10/18 01/10/18 01/10/18 Range/Units 03:46 13:37 15:09 WBC (3.8-10.6) k/uL Hgb (13.0-17.5) gm/dL Plt Count (150-450) k/uL Neutrophils # (1.3-7.7) k/uL ABG pH (7.35-7.45) ABG pCO2 (35-45) mmHg ABG pO2 (83-108) mmHg ABG HCO3 (21-25) mmol/L ABG O2 Saturation (94-97) % Potassium 3.4 L (3.5-5.1) mmol/L Carbon Dioxide (22-30) mmol/L BUN (9-20) mg/dL Creatinine (0.66-1.25) mg/dL Glucose (74-99) mg/dL POC Glucose (mg/dL) 241 H (75-99) mg/dL Hemoglobin A1c 11.1 H (4.0-6.0) % Calcium (8.4-10.2) mg/dL Phosphorus (2.5-4.5) mg/dL 01/10/18 01/10/18 01/10/18 Range/Units 16:36 18:02 18:18 WBC (3.8-10.6) k/uL Hgb (13.0-17.5) gm/dL Plt Count (150-450) k/uL Neutrophils # (1.3-7.7) k/uL ABG pH 7.34 L (7.35-7.45) ABG pCO2 (35-45) mmHg ABG pO2 >400 H (83-108) mmHg ABG HCO3 (21-25) mmol/L ABG O2 Saturation 100.0 H (94-97) % Potassium (3.5-5.1) mmol/L Carbon Dioxide (22-30) mmol/L BUN (9-20) mg/dL Creatinine (0.66-1.25) mg/dL Glucose (74-99) mg/dL POC Glucose (mg/dL) 196 H 215 H (75-99) mg/dL Hemoglobin A1c (4.0-6.0) % Calcium (8.4-10.2) mg/dL Phosphorus (2.5-4.5) mg/dL 01/10/18 01/10/18 01/10/18 Range/Units 18:48 18:51 21:59 WBC (3.8-10.6) k/uL Hgb (13.0-17.5) gm/dL Plt Count (150-450) k/uL Neutrophils # (1.3-7.7) k/uL ABG pH (7.35-7.45) ABG pCO2 (35-45) mmHg ABG pO2 (83-108) mmHg ABG HCO3 (21-25) mmol/L ABG O2 Saturation (94-97) % Potassium 3.3 L (3.5-5.1) mmol/L Carbon Dioxide (22-30) mmol/L BUN (9-20) mg/dL Creatinine (0.66-1.25) mg/dL Glucose (74-99) mg/dL POC Glucose (mg/dL) 151 H 177 H (75-99) mg/dL Hemoglobin A1c (4.0-6.0) % Calcium (8.4-10.2) mg/dL Phosphorus (2.5-4.5) mg/dL 01/11/18 01/11/18 01/11/18 Range/Units 00:06 02:05 04:15 WBC (3.8-10.6) k/uL Hgb (13.0-17.5) gm/dL Plt Count (150-450) k/uL Neutrophils # (1.3-7.7) k/uL ABG pH (7.35-7.45) ABG pCO2 (35-45) mmHg ABG pO2 (83-108) mmHg ABG HCO3 (21-25) mmol/L ABG O2 Saturation (94-97) % Potassium (3.5-5.1) mmol/L Carbon Dioxide (22-30) mmol/L BUN (9-20) mg/dL Creatinine (0.66-1.25) mg/dL Glucose (74-99) mg/dL POC Glucose (mg/dL) 180 H 177 H 182 H (75-99) mg/dL Hemoglobin A1c (4.0-6.0) % Calcium (8.4-10.2) mg/dL Phosphorus (2.5-4.5) mg/dL 01/11/18 01/11/18 01/11/18 Range/Units 04:20 04:20 06:05 WBC 19.7 H (3.8-10.6) k/uL Hgb 12.7 L (13.0-17.5) gm/dL Plt Count 145 L (150-450) k/uL Neutrophils # 17.8 H (1.3-7.7) k/uL ABG pH (7.35-7.45) ABG pCO2 (35-45) mmHg ABG pO2 (83-108) mmHg ABG HCO3 (21-25) mmol/L ABG O2 Saturation (94-97) % Potassium (3.5-5.1) mmol/L Carbon Dioxide 19 L (22-30) mmol/L BUN 51 H (9-20) mg/dL Creatinine 3.90 H (0.66-1.25) mg/dL Glucose 190 H (74-99) mg/dL POC Glucose (mg/dL) 197 H (75-99) mg/dL Hemoglobin A1c (4.0-6.0) % Calcium 7.7 L (8.4-10.2) mg/dL Phosphorus 2.0 L (2.5-4.5) mg/dL 01/11/18 01/11/18 01/11/18 Range/Units 06:08 08:46 10:35 WBC (3.8-10.6) k/uL Hgb (13.0-17.5) gm/dL Plt Count (150-450) k/uL Neutrophils # (1.3-7.7) k/uL ABG pH (7.35-7.45) ABG pCO2 34 L (35-45) mmHg ABG pO2 152 H (83-108) mmHg ABG HCO3 19 L (21-25) mmol/L ABG O2 Saturation 99.3 H (94-97) % Potassium (3.5-5.1) mmol/L Carbon Dioxide (22-30) mmol/L BUN (9-20) mg/dL Creatinine (0.66-1.25) mg/dL Glucose (74-99) mg/dL POC Glucose (mg/dL) 161 H 131 H (75-99) mg/dL Hemoglobin A1c (4.0-6.0) % Calcium (8.4-10.2) mg/dL Phosphorus (2.5-4.5) mg/dL 01/11/18 Range/Units 12:09 WBC (3.8-10.6) k/uL Hgb (13.0-17.5) gm/dL Plt Count (150-450) k/uL Neutrophils # (1.3-7.7) k/uL ABG pH (7.35-7.45) ABG pCO2 (35-45) mmHg ABG pO2 (83-108) mmHg ABG HCO3 (21-25) mmol/L ABG O2 Saturation (94-97) % Potassium (3.5-5.1) mmol/L Carbon Dioxide (22-30) mmol/L BUN (9-20) mg/dL Creatinine (0.66-1.25) mg/dL Glucose (74-99) mg/dL POC Glucose (mg/dL) 165 H (75-99) mg/dL Hemoglobin A1c (4.0-6.0) % Calcium (8.4-10.2) mg/dL Phosphorus (2.5-4.5) mg/dL Microbiology - Last 24 Hours (Table) 01/10/18 02:25 Urine Culture - Final Urine,Catheterized 01/10/18 17:31 Gram Stain - Preliminary Groin Wound Culture - Preliminary 01/10/18 17:31 Gram Stain - Preliminary Groin Wound Culture - Preliminary 01/10/18 17:31 Anaerobic Culture - Preliminary Groin 01/10/18 17:31 Anaerobic Culture - Preliminary Groin 01/09/18 15:17 Blood Culture - Preliminary Blood No Growth after 24 hours Assessment and Plan Assessment: Impression: 1 acute severe sepsis and septic shock with lactic acidosis secondary to scrotal cellulitis and abscess. Status post incision and drainage, postoperative day #1 2 acute kidney injury secondary to sepsis and acute tubular necrosis secondary to hypotension. Which is again secondary to septic shock 3 acute lactic acidosis secondary to sepsis 4 acute hyperglycemia secondary to sepsis and prednisone. And poorly controlled diabetes. 5 acute non-anion gap metabolic acidosis secondary to sepsis. 6 acute hypoxic respiratory failure secondary to sepsis and septic shock. 6 multiple comorbidities including underlying diabetes, obstructive sleep apnea syndrome, possible component of underlying COPD, patient had a [id number] smoking history quit in 1982. History of pacemaker implantation. History of GERD and reflux. History of hyperlipidemia. Recommendation: Continue present supportive care measures including antibiotics , fluids, pressors nutritional support/enteral feeding GI and DVT prophylaxis, close observation of his renal status, patient is being followed by nephrology. Avoid nephrotoxic drugs. Discussed his condition with family at bedside. Patient is clearly not ready for any weaning trials at this point. Hoping to hemodynamically optimized the patient, and hopefully notice significant renal improvement over the next 24 hours then we can start at least daily weaning trials. We'll continue to follow. Critical care time is 45 minutes. Time with Patient: Greater than 30
[2018-01-11 14:18] LABS: Glucose,Whole Blood 152 mg/dL (75-99)
[2018-01-11 16:05] LABS: Glucose,Whole Blood 157 mg/dL (75-99)
[2018-01-11 17:24] LABS: Basophils % (A) 0 %; Eosinophils # (A) 0.1 k/uL (0-0.7); Eosinophils % (A) 1 %; HCT 35.8 % (39.0-53.0); Lymphocytes # (A) 1.1 k/uL (1.0-4.8); Lymphocytes % (A) 10 %; MCH 30.1 pg (25.0-35.0); MCHC 33.4 g/dL (31.0-37.0); MCV 90.2 fL (80.0-100.0); Mean Platelet Volume 11.2; Monocytes # (A) 0.4 k/uL (0-1.0); Monocytes % (A) 4 %; Neutrophils # (A) 9.5 k/uL (1.3-7.7); Neutrophils % (A) 84 %; Platelet Count 121 k/uL (150-450); RBC 3.97 m/uL (4.30-5.90); RDW 13.2 % (11.5-15.5); WBC 11.3 k/uL (3.8-10.6)
[2018-01-11 17:52] LABS: Calcium 7.5 mg/dL (8.4-10.2); Magnesium 2.1 mg/dL (1.6-2.3); Potassium 3.8 mmol/L (3.5-5.1)
--- NOTE | 2018-01-11 19:17 | PN ---
PROGRESS NOTE DATE OF SERVICE: January 11, 2018. PRESENT COMPLAINT: Sepsis. INTERVAL HISTORY: The patient was admitted with scrotal abscess with cellulitis, status post being going into respiratory distress and had to be intubated status post I and D of the scrotal abscess drainage. The patient was temporary in atrial fibrillation. Remains on the ventilator with FiO2 40 and a PEEP of 5. The patient's son and daughter at the bedside. REVIEW OF SYSTEMS: Patient intubated. CURRENT MEDICATIONS: Include IV propofol, IV Zosyn. PHYSICAL EXAMINATION: Afebrile. Pulse 60, respiration 19, blood pressure 110/54, pulse ox 98%. GENERAL APPEARANCE: Lying in bed, intubated. Eyes pupils equal, conjunctivae normal. HEENT: External appearance of nose and ears normal. Oral cavity: Endotracheal tube in place. Neck short thick, JVD unable to assess. Mass not palpable. Respiratory effort lungs decreased breath sounds. Cardiovascular 1st and 2nd sounds normal. No edema. Abdomen distended, soft, liver and spleen not palpable. Dressing over the scrotum. Neurological: Pupils are equal. Does respond to pain. INVESTIGATIONS: White count 19.7, hemoglobin 12.7, potassium 3.8, BUN 51, creatinine 3.90. ASSESSMENT: 1. Acute severe scrotal cellulitis and abscess status post I and D. 2. Acute severe sepsis with lactic acidosis from above. 3. Septic shock from above, requiring pressor support with Levophed. 4. Diabetes mellitus type 2, chronically on insulin, uncontrolled with hyperglycemia on insulin drip. 5. Obesity; BMI 39.9. 6. Chronic congestive heart failure ejection fraction not known. 7. Gastroesophageal reflux disease. 8. Hyperlipidemia. 9. Essential hypertension history. 10.Obstructive sleep apnea uses CPAP machine. 11.Acute hypoxic respiratory failure secondary to sepsis requiring ventilator support. 12.Acute renal failure from acute tubular necrosis from sepsis, worsening. 13.Hypophosphatemia. PLAN: Continue current medication and treatment plan including IV fluids, pressor support, antibiotics in form of IV Zosyn. The patient wound cultures are pending. The patient is being followed by Urology, Dr. Juárez; Dr. Dukes from Critical Care, Dr. Kevin for the paroxysmal atrial fibrillation and Nephrology. The patient also getting tube feeding at 20 mL an hour, slow to respond. MMODL / IJN: [id number] /
[2018-01-11 20:14] LABS: Glucose,Whole Blood 152 mg/dL (75-99)
[2018-01-11] MEDS: ATORVASTATIN 10 MG TAB PO SCH (20:16)
[2018-01-11 22:04] LABS: Glucose,Whole Blood 150 mg/dL (75-99)
[2018-01-12 00:11] LABS: Glucose,Whole Blood 154 mg/dL (75-99)
[2018-01-12] MEDS: DILTIAZEM 50 MG in SODIUM CHLORIDE 0.9% 40 ML IV SCH ×3 (00:43→15:57)
[2018-01-12 01:59] LABS: Glucose,Whole Blood 162 mg/dL (75-99)
[2018-01-12] MEDS: PROPOFOL 1,000 MG in EMPTY BAG 1 BAG IV SCH ×4 (02:09→09:50)
[2018-01-12] MEDS: PIPERACILLIN-TAZOBACTAM 3.375 GM in DEXTROSE/WATER 1 50ML.BAG IVPB SCH ×2 (02:09→13:43)
[2018-01-12] MEDS: INSULIN REGULAR 100 UNIT in SODIUM CHLORIDE 0.9% 100 ML IV SCH (04:00)
[2018-01-12 04:11] LABS: Glucose,Whole Blood 179 mg/dL (75-99)
[2018-01-12 04:51] LABS: Basophils % (A) 0 %; Eosinophils # (A) 0.1 k/uL (0-0.7); Eosinophils % (A) 1 %; HCT 33.8 % (39.0-53.0); HGB 11.1 gm/dL (13.0-17.5); Lymphocytes % (A) 12 %; MCH 29.9 pg (25.0-35.0); MCV 90.6 fL (80.0-100.0); Mean Platelet Volume 11.1; Monocytes # (A) 0.4 k/uL (0-1.0); Monocytes % (A) 5 %; Neutrophils # (A) 6.5 k/uL (1.3-7.7); Neutrophils % (A) 80 %; Platelet Count 104 k/uL (150-450); RBC 3.73 m/uL (4.30-5.90); RDW 13.2 % (11.5-15.5); WBC 8.1 k/uL (3.8-10.6)
[2018-01-12 05:18] LABS: Calcium 7.4 mg/dL (8.4-10.2); Phosphorus 2.9 mg/dL (2.5-4.5); Potassium 3.5 mmol/L (3.5-5.1)
[2018-01-12 05:47] LABS: Vancomycin,Random 32.2 ug/mL
[2018-01-12] MEDS ORDERED: POTASSIUM CHLORIDE ER 20 MEQ TAB.ER PO SCH (06:00)
[2018-01-12] MEDS ORDERED: POTASSIUM BICARBONATE/CIT AC 20 MEQ TABLET.EFF PO ONE (06:00)
[2018-01-12 06:04] LABS: Glucose,Whole Blood 162 mg/dL (75-99)
[2018-01-12] MEDS: SODIUM CHLORIDE 0.9% 1,000 ML IV SCH ×2 (06:26→18:44)
[2018-01-12 06:45] LABS: Partial Thromboplastin Time 33.6 sec (22.0-30.0); Prothrombin Time 9.7 sec (9.0-12.0)
--- NOTE | 2018-01-12 06:57 | XR ---
EXAMINATION TYPE: XR chest 1V portable DATE OF EXAM: 01/12/2018 HISTORY: Tube placement. REFERENCE: Previous study dated 01/11/2018. FINDINGS: There is a bipolar pacing device on the left. The patient is ET tube and NG tube remain in place, unchanged in appearance. There is improved aeration at the left lung base. The right lung appears clear. There is minimal blun ting of both CP angles. IMPRESSION: 1. IMPROVED AERATION, LEFT LUNG BASE. 2. I CANNOT EXCLUDE SMALL, BILATERAL EFFUSIONS.
[2018-01-12] MEDS: HEPARIN SOD,PORK IN 0.45% NACL 25,000 UNIT in 0.45% NACL 1 500ML.BAG IV SCH ×2 (07:04→18:45)
[2018-01-12] MEDS: IPRATROPIUM-ALBUTEROL 3 ML NEB INHALATION SCH ×4 (07:06→20:00)
--- NOTE | 2018-01-12 08:07 | P.CONS ---
History of Present Illness - Reason for Consult Consult date: 01/11/18 - Chief Complaint Scrotal pain - History of Present Illness 72-year-old male who has obesity and diabetes that is controlled with oral medication presents to the hospital with acute illness with fever pain and swelling to the scrotum. Upon admission the patient had interventions that included ultrasound and blood work patient evidence of sepsis and was brought in the hospital. He did have increasing illness and was seen by urology. 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 Fortunately it had not spread significantly beyond the scrotal tissue at the time of the surgical debridement. The patient this time remains in intensive care unit intubated sedated and mechanically ventilated requiring vasopressor therapy for his sepsis with shock. However there seems to be some improvement. The patient 's condition is discussed with his and sister. The patient's relates that he had been evaluated in the last few months for his diabetes it was on oral medications and thought he was doing relatively well. We discussed hemoglobin A1c is greater than 11 which would indicate that he likely has had uncontrolled blood sugar for quite some time. This is the etiology of his current infection and will need better glucose control to allow improvement of his infection. Review of Systems ROS unobtainable: due to endotracheal tube Past Medical History Past Medical History: Chest Pain / Angina, Heart Failure, Diabetes Mellitus, GERD/Reflux, Hyperlipidemia, Hypertension, Skin Disorder, Sleep Apnea/CPAP/BIPAP Additional Past Medical History / Comment(s): PSORIASIS, uses CPAP, past cellulitis in [place] when in [place]. broken nose age 20(sx) History of Any Multi-Drug Resistant Organisms: None Reported Past Surgical History: Adenoidectomy, Heart Catheterization, Orthopedic Surgery , Pacemaker, Tonsillectomy Additional Past Surgical History / Comment(s): rt carpal tunnel release, pacemaker, colonoscopy/polypectomy,nasal sx, hemorrhoidectomy Past Anesthesia/Blood Transfusion Reactions: No Reported Reaction Type of Cardiac Device: Permanent Pacemaker Device Placement Date:: April 2015 Additional Psychological History / Comment(s): Patient relates that he is retired, no , no travel, no animals Smoking Status: Former smoker - Past Family History Mother Family Medical History: Myocardial Infarction (SD) Father Family Medical History: Cancer Medications and Allergies Home Medications and Allergies Comment(s): Current Medications Acetaminophen (Tylenol Tab) 650 mg PO Q6HR PRN PRN Reason: Mild Pain or Fever > 100.5 Albuterol/Ipratropium (Duoneb 0.5 Mg-3 Mg/3 Ml Soln) 3 ml INHALATION RT-Q4H PRN PRN Reason: Shortness Of Breath Or Wheezing Albuterol/Ipratropium (Duoneb 0.5 Mg-3 Mg/3 Ml Soln) 3 ml INHALATION RT-QID [facility] Last Admin: 01/12/18 07:06 Dose: 3 ml Alprazolam (Xanax) 0.25 mg PO Q6HR PRN PRN Reason: Anxiety Amiodarone HCl (Cordarone) 400 mg PO BID [facility] Last Admin: 01/11/18 20:16 Dose: 400 mg Aspirin (Aspirin) 81 mg PO DAILY [facility] Last Admin: 01/11/18 09:33 Dose: 81 mg Atorvastatin Calcium (Lipitor) 10 mg PO HS [facility] Last Admin: 01/11/18 20:16 Dose: 10 mg Chlorhexidine Gluconate (Peridex) 15 ml MUCOUS MEM BID [facility] Last Admin: 01/11/18 20:16 Dose: 15 ml Heparin Sodium (Porcine) (Heparin) 0 unit IV PER PROTOCOL PRN; Protocol PRN Reason: Low PTT Insulin Human Regular 100 unit (/ Sodium Chloride) 101 mls @ 0 mls/hr IV .Q0M [facility]; Titrate PRN Reason: Protocol Last Admin: 01/12/18 04:00 Dose: 3.5 ml/hr, 3.5 mls/hr Sodium Chloride (Saline 0.9%) 1,000 mls @ 75 mls/hr IV .[id number] [facility] Last Admin: 01/12/18 06:26 Dose: Not Given Norepinephrine Bitartrate (Levophed-0.9% Nacl 4 Mg/250ml Pmx) 4 mg in 250 mls @ 0 mls/hr IV .Q0M [facility]; Titrate PRN Reason: Protocol Last Titration: 01/12/18 00:30 Dose: 0 mcg/min, 0 mls/hr Diltiazem HCl 50 mg/ Sodium (Chloride) 50 mls @ 10 mls/hr IV .Q5H [facility]; 10 MG/HR PRN Reason: Protocol Last Admin: 01/12/18 04:41 Dose: Not Given Propofol 1,000 mg/ IV Solution 100 mls @ 0 mls/hr IV .Q0M [facility]; Titrate PRN Reason: Protocol Last Admin: 01/12/18 07:04 Dose: 49.4 mcg/kg/min, 39.9 mls/hr Piperacillin/Tazobactam/ (Dextrose 3.375 gm/ IV Solution) 50 mls @ 12.5 mls/hr IVPB Q12H [facility] Last Admin: 01/12/18 02:09 Dose: 12.5 mls/hr Heparin Sodium/Sodium Chloride (25,000 unit/ Sodium Chloride) 500 mls @ 19.92 mls/hr IV .Q24H [facility]; 7.4 UNITS/KG/HR PRN Reason: Protocol Last Admin: 01/12/18 07:04 Dose: 16.4 units/kg/hr, 44.14 mls/hr Melatonin (Melatonin) 3 mg PO HS PRN PRN Reason: Insomnia Metoprolol Tartrate (Lopressor) 25 mg PO BID [facility] Last Admin: 01/11/18 23:07 Dose: Not Given Miscellaneous Information (Magnesium Per Protocol) 1 each MISCELLANE DAILY PRN ; Protocol PRN Reason: Per Protocol Miscellaneous Information (Potassium Per Protocol) 1 each MISCELLANE DAILY PRN ; Protocol PRN Reason: Per Protocol Miscellaneous Information (Pharmacy To Dose Iv Vancomycin) 1 each MISCELLANE DIRECTED PRN PRN Reason: Per Protocol Morphine Sulfate (Morphine Sulfate (Inj)) 4 mg IVP Q4HR PRN PRN Reason: Pain Last Admin: 01/11/18 03:16 Dose: 4 mg Naloxone HCl (Narcan) 0.2 mg IV Q2M PRN PRN Reason: Opioid Reversal Ondansetron HCl (Zofran) 4 mg IVP Q8HR PRN PRN Reason: Nausea And Vomiting Potassium Phos/Sodium Phos (Neutra-Phos Packet) 1 each PO BID [facility] Stop: 01/12/18 23:59 Last Admin: 01/11/18 20:16 Dose: 1 each Topiramate (Topamax) 50 mg PO BID [facility] Last Admin: 01/11/18 20:16 Dose: 50 mg Home Medications Medication Instructions Recorded Confirmed Type Simvastatin [Zocor] 20 mg PO HS 05/26/14 01/09/18 History Naproxen Sodium [Aleve] 440 mg PO Q12HR PRN 05/03/15 01/09/18 History Metoprolol Tartrate [Lopressor] 25 mg PO BID 03/09/16 01/09/18 History metFORMIN HCL [Glucophage] 500 mg PO BID 03/09/16 01/09/18 History Aspirin 325 mg PO DAILY 09/17/17 01/09/18 History Lisinopril-Hctz 20-25 mg 2 tab PO DAILY 09/17/17 01/09/18 History [Zestoretic 20-25] Topiramate 50 mg PO BID 09/17/17 01/09/18 History amLODIPine BESYLATE [Norvasc] 5 mg PO BID 09/17/17 01/09/18 History hydrALAZINE HCL [Apresoline] 100 mg PO TID 09/17/17 01/09/18 History predniSONE 40 mg PO DAILY 01/09/18 01/09/18 History Allergies Allergy/AdvReac Type Severity Reaction Status Date / Time No Known Allergies Allergy Verified 01/09/18 15:34 Physical Exam Vitals: Vital Signs Temp Pulse Resp Pulse Ox 01/12/18 07:09 67 01/12/18 06:00 59 L 22 98 01/12/18 05:30 60 20 98 01/12/18 05:00 61 20 98 01/12/18 04:30 61 20 99 01/12/18 04:00 99.1 F 60 20 98 01/12/18 03:30 59 L 20 98 01/12/18 03:00 60 20 98 01/12/18 02:30 60 20 98 01/12/18 02:00 60 20 98 01/12/18 01:30 59 L 22 99 01/12/18 01:00 68 20 98 01/12/18 00:30 60 20 98 01/12/18 00:00 64 20 94 L 01/11/18 23:30 62 20 98 01/11/18 23:00 59 L 20 98 01/11/18 22:30 59 L 20 98 01/11/18 22:00 61 22 98 01/11/18 21:30 60 23 98 01/11/18 21:00 60 20 98 01/11/18 20:30 61 20 98 01/11/18 20:00 98.3 F 60 20 97 01/11/18 19:53 64 01/11/18 19:43 63 01/11/18 19:30 59 L 20 98 01/11/18 19:00 60 19 98 01/11/18 18:45 61 19 98 01/11/18 18:30 61 19 98 01/11/18 18:15 61 23 98 01/11/18 18:00 60 20 98 01/11/18 17:45 61 20 98 01/11/18 17:30 60 20 98 01/11/18 17:15 60 17 98 01/11/18 17:00 60 20 98 01/11/18 16:45 60 18 98 01/11/18 16:30 60 18 98 01/11/18 16:15 61 19 98 01/11/18 16:00 97.9 F 60 19 98 01/11/18 15:59 61 01/11/18 15:50 60 01/11/18 15:45 60 20 98 01/11/18 15:30 60 20 98 01/11/18 15:15 60 20 98 01/11/18 15:00 60 20 98 01/11/18 14:45 60 20 98 01/11/18 14:30 62 20 98 01/11/18 14:15 59 L 20 98 01/11/18 14:00 60 20 97 01/11/18 13:45 70 18 98 01/11/18 13:30 59 L 24 98 01/11/18 13:15 60 19 98 01/11/18 13:00 59 L 22 98 01/11/18 12:45 59 L 22 98 01/11/18 12:30 60 22 98 01/11/18 12:15 60 20 98 01/11/18 12:13 62 01/11/18 12:00 98.1 F 60 20 98 01/11/18 11:59 63 01/11/18 11:45 60 23 98 01/11/18 11:36 20 01/11/18 11:30 60 22 98 01/11/18 11:15 59 L 20 98 01/11/18 11:00 60 20 98 01/11/18 10:45 60 19 98 01/11/18 10:30 63 13 97 01/11/18 10:15 62 19 98 01/11/18 10:00 60 19 98 01/11/18 09:45 63 40 H 97 01/11/18 09:30 59 L 20 98 01/11/18 09:15 62 19 97 01/11/18 09:00 62 20 97 01/11/18 08:45 63 19 98 01/11/18 08:30 60 20 98 01/11/18 08:15 74 21 98 01/11/18 08:11 61 01/11/18 08:00 97.1 F L 63 13 98 01/11/18 07:55 62 Intake and Output 01/11/18 01/12/18 01/12/18 22:59 06:59 14:59 Intake Total 5105.864 1290.594 187.924 Output Total 185 125 Balance 985.217 4977.594 187.924 Intake: IV 624.5 624 [place] 12 24 Piperacillin-Tazobactam 3 12.5 .375 gm In Dextrose/Water 1 50ml.bag @ 12.5 mls/hr IVPB Q8HR [facility] Rx#: [id number] Sodium Chloride 0.9% 1, 600 600 000 ml @ 75 mls/hr IV . [id number] [facility] Rx#:[id number] Intake, IV Titration 124.380 703.594 187.924 Amount Heparin Sod,Pork in 0.45% 112.88 199.196 187.924 NaCl 25,000 unit In 0.45 % NaCl 1 500ml.bag @ 7.4 UNITS/KG/HR 19.92 mls/hr IV .Q24H [facility] Rx#: [id number] Insulin Regular 100 unit 36.208 In Sodium Chloride 0.9% 100 ml @ Titrate IV .Q0M [facility] Rx#:[id number] Norepinephrin 4 mg-0.9% 11.500 94.375 Ns Pmx 4 mg In 250 ml @ Titrate IV .Q0M [facility] Rx#: [id number] Propofol 1,000 mg In 373.815 Empty Bag 1 bag @ Titrate IV .Q0M [facility] Rx#: [id number] Oral 120 Tube Feeding 134 340 Other 30 60 Output: Urine 185 125 Other: Voiding Method Indwelling Catheter Indwelling Catheter Weight 138.3 kg ABP, PAP, CO, CI - Last 8 Hours Arterial Blood Pressure 110/50 Arterial Blood Pressure 112/49 Arterial Blood Pressure 114/50 Arterial Blood Pressure 123/53 Arterial Blood Pressure 123/53 Arterial Blood Pressure 121/53 Arterial Blood Pressure 118/52 Arterial Blood Pressure 119/51 Arterial Blood Pressure 128/53 Arterial Blood Pressure 137/57 Arterial Blood Pressure 121/51 Arterial Blood Pressure 117/51 Arterial Blood Pressure 130/58 72-year-old male who has obesity is supine, intubated sedated and mechanically ventilated on vasopressor therapy, he appears well-perfused skin is warm HEENT: Anicteric conjunctiva are pink and moist nasal mucosa grossly intact without significant lesions around the endotracheal tube, there is no thrush. Neck: The neck is without significant lymphadenopathy or thyromegaly. Lungs: Symmetrical air entry is noted a few expiratory wheezes are scattered no yanni bronchial sounds Heart: Irregular with audible S1 and S2 soft S4 no murmur click or rub Abdomen: Obese, Positive bowel sounds soft and nontender without palpable masses or organomegaly. There was no guarding or rebound. Extremities: The upper extremities have excellent pulses they are symmetric, no significant petechiae or telangiectasia. No splinter hemorrhages were noted. Lower extremities evidence of some chronic edema no open ulcerations Genitalia: With nurse present the scrotum was evaluated shows evidence the recent surgical intervention. The surgeon is asked to the patient not to be removed moved till tomorrow. There is still significant swelling erythema and warmth to the scrotum. There is no expressible purulence. Neuro: Patient is sedated and intubated Results CBC & Chem 7: 01/12/18 04:30 01/12/18 04:30 Labs: Abnormal Lab Results - Last 24 Hours (Table) 01/11/18 01/11/18 01/11/18 Range/Units 08:46 10:35 12:09 WBC (3.8-10.6) k/uL RBC (4.30-5.90) m/uL Hgb (13.0-17.5) gm/dL Hct (39.0-53.0) % Plt Count (150-450) k/uL Neutrophils # (1.3-7.7) k/uL APTT (22.0-30.0) sec Chloride (98-107) mmol/L Carbon Dioxide (22-30) mmol/L BUN (9-20) mg/dL Creatinine (0.66-1.25) mg/dL Glucose (74-99) mg/dL POC Glucose (mg/dL) 161 H 131 H 165 H (75-99) mg/dL Calcium (8.4-10.2) mg/dL 01/11/18 01/11/18 01/11/18 Range/Units 14:17 16:03 17:15 WBC (3.8-10.6) k/uL RBC (4.30-5.90) m/uL Hgb (13.0-17.5) gm/dL Hct (39.0-53.0) % Plt Count (150-450) k/uL Neutrophils # (1.3-7.7) k/uL APTT (22.0-30.0) sec Chloride 108 H (98-107) mmol/L Carbon Dioxide 17 L (22-30) mmol/L BUN 57 H (9-20) mg/dL Creatinine 4.90 H (0.66-1.25) mg/dL Glucose 160 H (74-99) mg/dL POC Glucose (mg/dL) 152 H 157 H (75-99) mg/dL Calcium 7.5 L (8.4-10.2) mg/dL 01/11/18 01/11/18 01/11/18 Range/Units 17:15 20:11 22:02 WBC 11.3 H (3.8-10.6) k/uL RBC 3.97 L (4.30-5.90) m/uL Hgb 12.0 L (13.0-17.5) gm/dL Hct 35.8 L (39.0-53.0) % Plt Count 121 L (150-450) k/uL Neutrophils # 9.5 H (1.3-7.7) k/uL APTT (22.0-30.0) sec Chloride (98-107) mmol/L Carbon Dioxide (22-30) mmol/L BUN (9-20) mg/dL Creatinine (0.66-1.25) mg/dL Glucose (74-99) mg/dL POC Glucose (mg/dL) 152 H 150 H (75-99) mg/dL Calcium (8.4-10.2) mg/dL 01/12/18 01/12/18 01/12/18 Range/Units 00:09 01:58 04:09 WBC (3.8-10.6) k/uL RBC (4.30-5.90) m/uL Hgb (13.0-17.5) gm/dL Hct (39.0-53.0) % Plt Count (150-450) k/uL Neutrophils # (1.3-7.7) k/uL APTT (22.0-30.0) sec Chloride (98-107) mmol/L Carbon Dioxide (22-30) mmol/L BUN (9-20) mg/dL Creatinine (0.66-1.25) mg/dL Glucose (74-99) mg/dL POC Glucose (mg/dL) 154 H 162 H 179 H (75-99) mg/dL Calcium (8.4-10.2) mg/dL 01/12/18 01/12/18 01/12/18 Range/Units 04:30 04:30 06:02 WBC (3.8-10.6) k/uL RBC 3.73 L (4.30-5.90) m/uL Hgb 11.1 L (13.0-17.5) gm/dL Hct 33.8 L (39.0-53.0) % Plt Count 104 L (150-450) k/uL Neutrophils # (1.3-7.7) k/uL APTT (22.0-30.0) sec Chloride 108 H (98-107) mmol/L Carbon Dioxide 18 L (22-30) mmol/L BUN 61 H (9-20) mg/dL Creatinine 5.50 H* (0.66-1.25) mg/dL Glucose 159 H (74-99) mg/dL POC Glucose (mg/dL) 162 H (75-99) mg/dL Calcium 7.4 L (8.4-10.2) mg/dL 01/12/18 Range/Units 06:25 WBC (3.8-10.6) k/uL RBC (4.30-5.90) m/uL Hgb (13.0-17.5) gm/dL Hct (39.0-53.0) % Plt Count (150-450) k/uL Neutrophils # (1.3-7.7) k/uL APTT 33.6 H (22.0-30.0) sec Chloride (98-107) mmol/L Carbon Dioxide (22-30) mmol/L BUN (9-20) mg/dL Creatinine (0.66-1.25) mg/dL Glucose (74-99) mg/dL POC Glucose (mg/dL) (75-99) mg/dL Calcium (8.4-10.2) mg/dL Microbiology - Last 24 Hours (Table) 01/10/18 17:31 Gram Stain - Preliminary Groin Wound Culture - Preliminary Gram Neg Bacilli 01/09/18 15:17 Blood Culture - Preliminary Blood No Growth after 48 hours 01/10/18 02:25 Urine Culture - Final Urine,Catheterized Laboratory Results WBC 8.1 k/uL (3.8-10.6) 01/12/18 04:30 RBC 3.73 m/uL (4.30-5.90) L 01/12/18 04:30 Hgb 11.1 gm/dL (13.0-17.5) L 01/12/18 04:30 Hct 33.8 % (39.0-53.0) L 01/12/18 04:30 MCV 90.6 fL (80.0-100.0) 01/12/18 04:30 MCH 29.9 pg (25.0-35.0) 01/12/18 04:30 MCHC 33.0 g/dL (31.0-37.0) 01/12/18 04:30 RDW 13.2 % (11.5-15.5) 01/12/18 04:30 Plt Count 104 k/uL (150-450) L 01/12/18 04:30 Neutrophils % 80 % 01/12/18 04:30 Lymphocytes % 12 % 01/12/18 04:30 Monocytes % 5 % 01/12/18 04:30 Eosinophils % 1 % 01/12/18 04:30 Basophils % 0 % 01/12/18 04:30 Neutrophils # 6.5 k/uL (1.3-7.7) 01/12/18 04:30 Lymphocytes # 1.0 k/uL (1.0-4.8) 01/12/18 04:30 Monocytes # 0.4 k/uL (0-1.0) 01/12/18 04:30 Eosinophils # 0.1 k/uL (0-0.7) 01/12/18 04:30 Basophils # 0.0 k/uL (0-0.2) 01/12/18 04:30 Manual Slide Review Performed 01/11/18 04:20 Large Platelets Present 01/11/18 04:20 PT 9.7 sec (9.0-12.0) 01/12/18 06:25 INR 1.0 (<1.2) 01/12/18 06:25 APTT 33.6 sec (22.0-30.0) H 01/12/18 06:25 Sample Site hortencia 01/11/18 06:08 ABG pH 7.36 (7.35-7.45) 01/11/18 06:08 ABG pCO2 34 mmHg (35-45) L 01/11/18 06:08 ABG pO2 152 mmHg (83-108) H 01/11/18 06:08 ABG HCO3 19 mmol/L (21-25) L 01/11/18 06:08 ABG Total CO2 20 mmol/L (19-24) 01/11/18 06:08 ABG O2 Saturation 99.3 % (94-97) H 01/11/18 06:08 ABG Base Excess -6.4 mmol/L 01/11/18 06:08 Kike Test Yes 01/11/18 06:08 FiO2 40 % 01/11/18 06:08 Sodium 139 mmol/L (137-145) 01/12/18 04:30 Potassium 3.5 mmol/L (3.5-5.1) 01/12/18 04:30 Chloride 108 mmol/L (98-107) H 01/12/18 04:30 Carbon Dioxide 18 mmol/L (22-30) L 01/12/18 04:30 Anion Gap 13 mmol/L 01/12/18 04:30 BUN 61 mg/dL (9-20) H 01/12/18 04:30 Creatinine 5.50 mg/dL (0.66-1.25) H* 01/12/18 04:30 Est GFR (CKD-EPI)AfAm 11 (>60 ml/min/1.73 sqM) 01/12/18 04:30 Est GFR (CKD-EPI)NonAf 10 (>60 ml/min/1.73 sqM) 01/12/18 04:30 Glucose 159 mg/dL (74-99) H 01/12/18 04:30 POC Glucose (mg/dL) 162 mg/dL (75-99) H 01/12/18 06:02 POC Glu Chief Mate ID Jeannine Robison 01/12/18 06:[address] Glu mg/dL 272 01/10/18 03:46 Hemoglobin A1c 11.1 % (4.0-6.0) H 01/10/18 03:46 Lactic Ac Sepsis Rflx Y 01/10/18 00:16 Plasma Lactic Acid Shemar 1.7 mmol/L (0.7-2.0) 01/10/18 09:46 Calcium 7.4 mg/dL (8.4-10.2) L 01/12/18 04:30 Phosphorus 2.9 mg/dL (2.5-4.5) 01/12/18 04:30 Magnesium 2.0 mg/dL (1.6-2.3) 01/12/18 04:30 Total Bilirubin 1.3 mg/dL (0.2-1.3) 01/09/18 15:17 AST 23 U/L (17-59) 01/09/18 15:17 ALT 23 U/L (21-72) 01/09/18 15:17 Alkaline Phosphatase 108 U/L (38-126) 01/09/18 15:17 Total Protein 6.9 g/dL (6.3-8.2) 01/09/18 15:17 Albumin 4.0 g/dL (3.5-5.0) 01/09/18 15:17 TSH 1.240 mIU/L (0.465-4.680) 01/10/18 13:37 Free T4 1.71 ng/dL (0.78-2.19) 01/10/18 13:37 Urine Color Yellow 01/10/18 02:25 Urine Appearance Cloudy (Clear) 01/10/18 02:25 Urine pH 5.0 (5.0-8.0) 01/10/18 02:25 Ur Specific Archie 1.028 (1.001-1.035) 01/10/18 02:25 Urine Protein Trace (Negative) H 01/10/18 02:25 Urine Glucose (UA) 4+ (Negative) H 01/10/18 02:25 Urine Ketones Trace (Negative) H 01/10/18 02:25 Urine Blood Negative (Negative) 01/10/18 02:25 Urine Nitrite Negative (Negative) 01/10/18 02:25 Urine Bilirubin Negative (Negative) 01/10/18 02:25 Urine Urobilinogen <2.0 mg/dL (<2.0) 01/10/18 02:25 Ur Leukocyte Esterase Negative (Negative) 01/10/18 02:25 Urine RBC <1 /hpf (0-5) 01/10/18 02:25 Urine WBC 2 /hpf (0-5) 01/10/18 02:25 Random Vancomycin 32.2 ug/mL 01/12/18 04:30 Acetone, Qual Negative (Negative) 01/09/18 23:42 Microbiology 01/10/18 17:31 Groin Gram Stain - Preliminary 01/10/18 17:31 Groin Wound Culture - Preliminary Gram Neg Bacilli 01/09/18 15:17 Blood Blood Culture - Preliminary No Growth after 48 hours 01/10/18 02:25 Urine,Catheterized Urine Culture - Final Assessment and Plan (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 He was taken to the operating room and Vanesa's gangrene was noted that he had debridement of his scrotum. The necrotic material was debrided away and fortunately it is somewhat limited in its extent. There is some however residual erythema and induration of the scrotum and depending on how he responds determine if further intervention is needed, however at this time appears to be stable to improved. The patient is on broad-spectrum antibiotic therapy. Current data is being monitored and likely will discontinue vancomycin therapy especially since he is having increased creatinine. Will utilize silver dressings once the packing is removed by the surgeon. Elevation of the scrotum will be helpful for its edema. As patient progresses and is discharged have instructed his that his glucose control be very important for wound healing and for preventing further events like this in the future. His blood sugar was over 500 admission and his A1c was very elevated. The patient's relates that he was given recently some corticosteroid therapy, which may have contributed to this entire process. Patient remains critically ill but is showing some improvement. Current Visit: Yes Status: Acute Code(s): N49.3 - VANESA GANGRENE SNOMED Code(s): 726725034 (2) Sepsis due to Gram-negative organism with septic shock Current Visit: Yes Status: Acute Code(s): A41.50 - GRAM-NEGATIVE SEPSIS, UNSPECIFIED; R65.21 - SEVERE SEPSIS WITH SEPTIC SHOCK SNOMED Code(s): 268168438 (3) Diabetes mellitus type 2, uncontrolled, with complications Current Visit: Yes Status: Acute Code(s): E11.8 - TYPE 2 DIABETES MELLITUS WITH UNSPECIFIED COMPLICATIONS; E11.65 - TYPE 2 DIABETES MELLITUS WITH HYPERGLYCEMIA SNOMED Code(s): 043040857 (4) Leukocytosis Current Visit: Yes Status: Acute Code(s): D72.829 - ELEVATED WHITE BLOOD CELL COUNT, UNSPECIFIED SNOMED Code(s): 941788944 (5) Acute renal failure Current Visit: Yes Status: Acute Code(s): N17.9 - ACUTE KIDNEY FAILURE, UNSPECIFIED SNOMED Code(s): 96668546
[2018-01-12 08:11] LABS: ABG Base Excess -8.5 mmol/L; ABG HCO3 17 mmol/L (21-25); ABG Oxygen Saturation 98.8 % (94-97); ABG PCO2 32 mmHg (35-45); ABG PH 7.34 (7.35-7.45); ABG PO2 158 mmHg (83-108); ABG TCO2 18 mmol/L (19-24)
[2018-01-12 08:14] LABS: Glucose,Whole Blood 163 mg/dL (75-99)
[2018-01-12] MEDS: MORPHINE SULFATE 4 MG/0.8 ML SYRINGE (INJ) IVP PRN ×4 (08:55→21:00)
--- NOTE | 2018-01-12 09:02 | P.PN ---
Subjective Progress Note Date: 01/12/18 Principal diagnosis: This is a 72-year-old male followed up because of ATN from shock(scrotal abscess status post drainage. He remains on the vent. He is arousable and opens eyes. His and output is oliguric. Urine output for the last 24 hours each and 15 mL with an intake of 4935. His vital signs are stable, arterial blood pressures are in the 110s to 120 range he is on 40% FiO2. His monitor shows paced rhythm He is on vancomycin and Zosyn and the Vanco level is high at 32. She is known with diabetes hypertension sleep apnea psoriasis has had heart catheterization in the past and a pacemaker. Objective - Vital Signs Vital signs: Vital Signs Temp 99.1 F 01/12/18 04:00 Pulse 67 01/12/18 07:09 Resp 22 01/12/18 06:00 BP 170/103 01/10/18 18:15 Pulse Ox 98 01/12/18 06:00 Intake & Output 01/11/18 01/12/18 01/12/18 18:59 06:59 18:59 Intake Total 2714.448 2220.594 235.139 Output Total 610 205 Balance 2104.448 2015.594 235.139 Weight 134.6 kg 138.3 kg Intake: IV 1510.0 933 [place] 18 33 Piperacillin-Tazobactam 3 50.0 .375 gm In Dextrose/Water 1 50ml.bag @ 12.5 mls/hr IVPB Q8HR [facility] Rx#: [id number] Sodium Chloride 0.9% 1, 775 900 000 ml @ 75 mls/hr IV . [id number] [facility] Rx#:[id number] Vancomycin 2,000 mg In 167 Sodium Chloride 0.9% 500 ml @ 167 mls/hr IVPB Q16H [facility] Rx#:[id number] Vancomycin 2,000 mg In 500 Sodium Chloride 0.9% 500 ml @ 167 mls/hr IVPB Q24H [facility] Rx#:[id number] Intake, IV Titration 564.448 703.594 235.139 Amount Heparin Sod,Pork in 0.45% 112.88 199.196 187.924 NaCl 25,000 unit In 0.45 % NaCl 1 500ml.bag @ 7.4 UNITS/KG/HR 19.92 mls/hr IV .Q24H [facility] Rx#: [id number] Insulin Regular 100 unit 30.634 36.208 In Sodium Chloride 0.9% 100 ml @ Titrate IV .Q0M [facility] Rx#:[id number] Norepinephrin 4 mg-0.9% 244.374 94.375 Ns Pmx 4 mg In 250 ml @ Titrate IV .Q0M [facility] Rx#: [id number] Propofol 1,000 mg In 176.56 373.815 47.215 Empty Bag 1 bag @ Titrate IV .Q0M [facility] Rx#: [id number] Oral 600 60 Tube Feeding 40 434 Other 90 Output: Gastric Drainage 300 Urine 310 205 Other: Voiding Method Indwelling Catheter Indwelling Catheter ABP, PAP, CO, CI - Last Documented Arterial Blood Pressure 110/50 On examination he is on the vent at 40% FiO2. His not on any inotropes. HEENT exam no JVP neck is supple no facial asymmetry Lungs are clear to auscultation fair air entry bilaterally Heart sounds are unremarkable no murmur rub gallop on the monitor is showing paced rhythm Abdomen is somewhat obese protuberant and nontender. Extremity exam reveals trace edema Scrotal area has a bandage and some swelling of the scrotum. Neurologically he is obtunded but opens eyes and seems to be trying to respond. - Labs CBC & Chem 7: 01/12/18 04:30 01/12/18 04:30 Labs: Abnormal Lab Results - Last 24 Hours (Table) 01/11/18 01/11/18 01/11/18 Range/Units 10:35 12:09 14:17 WBC (3.8-10.6) k/uL RBC (4.30-5.90) m/uL Hgb (13.0-17.5) gm/dL Hct (39.0-53.0) % Plt Count (150-450) k/uL Neutrophils # (1.3-7.7) k/uL APTT (22.0-30.0) sec ABG pH (7.35-7.45) ABG pCO2 (35-45) mmHg ABG pO2 (83-108) mmHg ABG HCO3 (21-25) mmol/L ABG Total CO2 (19-24) mmol/L ABG O2 Saturation (94-97) % Chloride (98-107) mmol/L Carbon Dioxide (22-30) mmol/L BUN (9-20) mg/dL Creatinine (0.66-1.25) mg/dL Glucose (74-99) mg/dL POC Glucose (mg/dL) 131 H 165 H 152 H (75-99) mg/dL Calcium (8.4-10.2) mg/dL 01/11/18 01/11/18 01/11/18 Range/Units 16:03 17:15 17:15 WBC 11.3 H (3.8-10.6) k/uL RBC 3.97 L (4.30-5.90) m/uL Hgb 12.0 L (13.0-17.5) gm/dL Hct 35.8 L (39.0-53.0) % Plt Count 121 L (150-450) k/uL Neutrophils # 9.5 H (1.3-7.7) k/uL APTT (22.0-30.0) sec ABG pH (7.35-7.45) ABG pCO2 (35-45) mmHg ABG pO2 (83-108) mmHg ABG HCO3 (21-25) mmol/L ABG Total CO2 (19-24) mmol/L ABG O2 Saturation (94-97) % Chloride 108 H (98-107) mmol/L Carbon Dioxide 17 L (22-30) mmol/L BUN 57 H (9-20) mg/dL Creatinine 4.90 H (0.66-1.25) mg/dL Glucose 160 H (74-99) mg/dL POC Glucose (mg/dL) 157 H (75-99) mg/dL Calcium 7.5 L (8.4-10.2) mg/dL 01/11/18 01/11/18 01/12/18 Range/Units 20:11 22:02 00:09 WBC (3.8-10.6) k/uL RBC (4.30-5.90) m/uL Hgb (13.0-17.5) gm/dL Hct (39.0-53.0) % Plt Count (150-450) k/uL Neutrophils # (1.3-7.7) k/uL APTT (22.0-30.0) sec ABG pH (7.35-7.45) ABG pCO2 (35-45) mmHg ABG pO2 (83-108) mmHg ABG HCO3 (21-25) mmol/L ABG Total CO2 (19-24) mmol/L ABG O2 Saturation (94-97) % Chloride (98-107) mmol/L Carbon Dioxide (22-30) mmol/L BUN (9-20) mg/dL Creatinine (0.66-1.25) mg/dL Glucose (74-99) mg/dL POC Glucose (mg/dL) 152 H 150 H 154 H (75-99) mg/dL Calcium (8.4-10.2) mg/dL 01/12/18 01/12/18 01/12/18 Range/Units 01:58 04:09 04:30 WBC (3.8-10.6) k/uL RBC (4.30-5.90) m/uL Hgb (13.0-17.5) gm/dL Hct (39.0-53.0) % Plt Count (150-450) k/uL Neutrophils # (1.3-7.7) k/uL APTT (22.0-30.0) sec ABG pH (7.35-7.45) ABG pCO2 (35-45) mmHg ABG pO2 (83-108) mmHg ABG HCO3 (21-25) mmol/L ABG Total CO2 (19-24) mmol/L ABG O2 Saturation (94-97) % Chloride 108 H (98-107) mmol/L Carbon Dioxide 18 L (22-30) mmol/L BUN 61 H (9-20) mg/dL Creatinine 5.50 H* (0.66-1.25) mg/dL Glucose 159 H (74-99) mg/dL POC Glucose (mg/dL) 162 H 179 H (75-99) mg/dL Calcium 7.4 L (8.4-10.2) mg/dL 01/12/18 01/12/18 01/12/18 Range/Units 04:30 06:02 06:25 WBC (3.8-10.6) k/uL RBC 3.73 L (4.30-5.90) m/uL Hgb 11.1 L (13.0-17.5) gm/dL Hct 33.8 L (39.0-53.0) % Plt Count 104 L (150-450) k/uL Neutrophils # (1.3-7.7) k/uL APTT 33.6 H (22.0-30.0) sec ABG pH (7.35-7.45) ABG pCO2 (35-45) mmHg ABG pO2 (83-108) mmHg ABG HCO3 (21-25) mmol/L ABG Total CO2 (19-24) mmol/L ABG O2 Saturation (94-97) % Chloride (98-107) mmol/L Carbon Dioxide (22-30) mmol/L BUN (9-20) mg/dL Creatinine (0.66-1.25) mg/dL Glucose (74-99) mg/dL POC Glucose (mg/dL) 162 H (75-99) mg/dL Calcium (8.4-10.2) mg/dL 01/12/18 01/12/18 Range/Units 08:08 08:09 WBC (3.8-10.6) k/uL RBC (4.30-5.90) m/uL Hgb (13.0-17.5) gm/dL Hct (39.0-53.0) % Plt Count (150-450) k/uL Neutrophils # (1.3-7.7) k/uL APTT (22.0-30.0) sec ABG pH 7.34 L (7.35-7.45) ABG pCO2 32 L (35-45) mmHg ABG pO2 158 H (83-108) mmHg ABG HCO3 17 L (21-25) mmol/L ABG Total CO2 18 L (19-24) mmol/L ABG O2 Saturation 98.8 H (94-97) % Chloride (98-107) mmol/L Carbon Dioxide (22-30) mmol/L BUN (9-20) mg/dL Creatinine (0.66-1.25) mg/dL Glucose (74-99) mg/dL POC Glucose (mg/dL) 163 H (75-99) mg/dL Calcium (8.4-10.2) mg/dL Microbiology - Last 24 Hours (Table) 01/10/18 17:31 Gram Stain - Preliminary Groin Wound Culture - Preliminary Gram Neg Bacilli 01/09/18 15:17 Blood Culture - Preliminary Blood No Growth after 48 hours 04/26/18 02:25 Urine Culture - Final Urine,Catheterized Assessment and Plan Assessment: Impression 1. Severe ATN from hypotensive shock and sepsis. Creatinine is worsening he is oliguric. May need dialysis. 2. Scrotal cellulitis status post debridement. Gram negatives bacilli growing in the own culture 3. Mild degree of non-gap acidosis with bicarb of 18 and anion gap of 13 secondary to acute kidney injury. 4. High vancomycin level of 32.. 5. History of cardiac catheterization, pacemaker paced rhythm. 6. Ventilator dependent respiratory failure at 40% FiO2 Recommendation. 1. Proceed with dialysis. 2. We will consult surgeons for a Esa catheter in his groin as I expect him to improve and hopefully the dialysis will be required only fora few days. 3. Maintain current medication but consider discontinuing vancomycin. He has gram-negative bacilli growing in his own culture. Zosyn should adequately cover it.. 4. Maintain IV normal saline at 75 an hour for right now given his blood pressure is somewhat on the lower normal in the 110 range
--- NOTE | 2018-01-12 09:44 | P.PCN ---
Date of Procedure: 01/12/18 Preoperative Diagnosis: Vanesa's gangrene scrotal abscess Postoperative Diagnosis: Same Procedure(s) Performed: Dressing change Description of Procedure: At the bedside the patient has been giving pain medicine. The previous packing , iodoform dressing has been removed tip. Looks good without necrosis. I introduced a cell up into both hemiscrotum right and left.
--- NOTE | 2018-01-12 09:45 | P.PN ---
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 I changed his packing today. He is still on the respirator, he has renal insufficiency and is going to be dialyzed. His unsupportive antibiotics of. Does not appear to be any progression of his Vanesa's at this point in time. I'll continue to observe the patient from a urologic standpoint. Objective - Vital Signs Vital signs: Vital Signs Temp 99.1 F 01/12/18 04:00 Pulse 67 01/12/18 07:09 Resp 22 01/12/18 06:00 BP 170/103 01/10/18 18:15 Pulse Ox 98 01/12/18 06:00 Intake & Output 01/11/18 01/12/18 01/12/18 18:59 06:59 18:59 Intake Total 2714.448 2220.594 235.139 Output Total 610 205 Balance 2104.448 2015.594 235.139 Weight 134.6 kg 138.3 kg Intake: IV 1510.0 933 [place] 18 33 Piperacillin-Tazobactam 3 50.0 .375 gm In Dextrose/Water 1 50ml.bag @ 12.5 mls/hr IVPB Q8HR [facility] Rx#: [id number] Sodium Chloride 0.9% 1, 775 900 000 ml @ 75 mls/hr IV . [id number] [facility] Rx#:[id number] Vancomycin 2,000 mg In 167 Sodium Chloride 0.9% 500 ml @ 167 mls/hr IVPB Q16H [facility] Rx#:[id number] Vancomycin 2,000 mg In 500 Sodium Chloride 0.9% 500 ml @ 167 mls/hr IVPB Q24H [facility] Rx#:[id number] Intake, IV Titration 564.448 703.594 235.139 Amount Heparin Sod,Pork in 0.45% 112.88 199.196 187.924 NaCl 25,000 unit In 0.45 % NaCl 1 500ml.bag @ 7.4 UNITS/KG/HR 19.92 mls/hr IV .Q24H [facility] Rx#: [id number] Insulin Regular 100 unit 30.634 36.208 In Sodium Chloride 0.9% 100 ml @ Titrate IV .Q0M [facility] Rx#:[id number] Norepinephrin 4 mg-0.9% 244.374 94.375 Ns Pmx 4 mg In 250 ml @ Titrate IV .Q0M [facility] Rx#: [id number] Propofol 1,000 mg In 176.56 373.815 47.215 Empty Bag 1 bag @ Titrate IV .Q0M [facility] Rx#: [id number] Oral 600 60 Tube Feeding 40 434 Other 90 Output: Gastric Drainage 300 Urine 310 205 Other: Voiding Method Indwelling Catheter Indwelling Catheter ABP, PAP, CO, CI - Last Documented Arterial Blood Pressure 110/50 - Labs CBC & Chem 7: 01/12/18 04:30 01/12/18 04:30 Labs: Abnormal Lab Results - Last 24 Hours (Table) 01/11/18 01/11/18 01/11/18 Range/Units 10:35 12:09 14:17 WBC (3.8-10.6) k/uL RBC (4.30-5.90) m/uL Hgb (13.0-17.5) gm/dL Hct (39.0-53.0) % Plt Count (150-450) k/uL Neutrophils # (1.3-7.7) k/uL APTT (22.0-30.0) sec ABG pH (7.35-7.45) ABG pCO2 (35-45) mmHg ABG pO2 (83-108) mmHg ABG HCO3 (21-25) mmol/L ABG Total CO2 (19-24) mmol/L ABG O2 Saturation (94-97) % Chloride (98-107) mmol/L Carbon Dioxide (22-30) mmol/L BUN (9-20) mg/dL Creatinine (0.66-1.25) mg/dL Glucose (74-99) mg/dL POC Glucose (mg/dL) 131 H 165 H 152 H (75-99) mg/dL Calcium (8.4-10.2) mg/dL 01/11/18 01/11/18 01/11/18 Range/Units 16:03 17:15 17:15 WBC 11.3 H (3.8-10.6) k/uL RBC 3.97 L (4.30-5.90) m/uL Hgb 12.0 L (13.0-17.5) gm/dL Hct 35.8 L (39.0-53.0) % Plt Count 121 L (150-450) k/uL Neutrophils # 9.5 H (1.3-7.7) k/uL APTT (22.0-30.0) sec ABG pH (7.35-7.45) ABG pCO2 (35-45) mmHg ABG pO2 (83-108) mmHg ABG HCO3 (21-25) mmol/L ABG Total CO2 (19-24) mmol/L ABG O2 Saturation (94-97) % Chloride 108 H (98-107) mmol/L Carbon Dioxide 17 L (22-30) mmol/L BUN 57 H (9-20) mg/dL Creatinine 4.90 H (0.66-1.25) mg/dL Glucose 160 H (74-99) mg/dL POC Glucose (mg/dL) 157 H (75-99) mg/dL Calcium 7.5 L (8.4-10.2) mg/dL 01/11/18 01/11/18 01/12/18 Range/Units 20:11 22:02 00:09 WBC (3.8-10.6) k/uL RBC (4.30-5.90) m/uL Hgb (13.0-17.5) gm/dL Hct (39.0-53.0) % Plt Count (150-450) k/uL Neutrophils # (1.3-7.7) k/uL APTT (22.0-30.0) sec ABG pH (7.35-7.45) ABG pCO2 (35-45) mmHg ABG pO2 (83-108) mmHg ABG HCO3 (21-25) mmol/L ABG Total CO2 (19-24) mmol/L ABG O2 Saturation (94-97) % Chloride (98-107) mmol/L Carbon Dioxide (22-30) mmol/L BUN (9-20) mg/dL Creatinine (0.66-1.25) mg/dL Glucose (74-99) mg/dL POC Glucose (mg/dL) 152 H 150 H 154 H (75-99) mg/dL Calcium (8.4-10.2) mg/dL 01/12/18 01/12/18 01/12/18 Range/Units 01:58 04:09 04:30 WBC (3.8-10.6) k/uL RBC (4.30-5.90) m/uL Hgb (13.0-17.5) gm/dL Hct (39.0-53.0) % Plt Count (150-450) k/uL Neutrophils # (1.3-7.7) k/uL APTT (22.0-30.0) sec ABG pH (7.35-7.45) ABG pCO2 (35-45) mmHg ABG pO2 (83-108) mmHg ABG HCO3 (21-25) mmol/L ABG Total CO2 (19-24) mmol/L ABG O2 Saturation (94-97) % Chloride 108 H (98-107) mmol/L Carbon Dioxide 18 L (22-30) mmol/L BUN 61 H (9-20) mg/dL Creatinine 5.50 H* (0.66-1.25) mg/dL Glucose 159 H (74-99) mg/dL POC Glucose (mg/dL) 162 H 179 H (75-99) mg/dL Calcium 7.4 L (8.4-10.2) mg/dL 01/12/18 01/12/18 01/12/18 Range/Units 04:30 06:02 06:25 WBC (3.8-10.6) k/uL RBC 3.73 L (4.30-5.90) m/uL Hgb 11.1 L (13.0-17.5) gm/dL Hct 33.8 L (39.0-53.0) % Plt Count 104 L (150-450) k/uL Neutrophils # (1.3-7.7) k/uL APTT 33.6 H (22.0-30.0) sec ABG pH (7.35-7.45) ABG pCO2 (35-45) mmHg ABG pO2 (83-108) mmHg ABG HCO3 (21-25) mmol/L ABG Total CO2 (19-24) mmol/L ABG O2 Saturation (94-97) % Chloride (98-107) mmol/L Carbon Dioxide (22-30) mmol/L BUN (9-20) mg/dL Creatinine (0.66-1.25) mg/dL Glucose (74-99) mg/dL POC Glucose (mg/dL) 162 H (75-99) mg/dL Calcium (8.4-10.2) mg/dL 01/12/18 01/12/18 Range/Units 08:08 08:09 WBC (3.8-10.6) k/uL RBC (4.30-5.90) m/uL Hgb (13.0-17.5) gm/dL Hct (39.0-53.0) % Plt Count (150-450) k/uL Neutrophils # (1.3-7.7) k/uL APTT (22.0-30.0) sec ABG pH 7.34 L (7.35-7.45) ABG pCO2 32 L (35-45) mmHg ABG pO2 158 H (83-108) mmHg ABG HCO3 17 L (21-25) mmol/L ABG Total CO2 18 L (19-24) mmol/L ABG O2 Saturation 98.8 H (94-97) % Chloride (98-107) mmol/L Carbon Dioxide (22-30) mmol/L BUN (9-20) mg/dL Creatinine (0.66-1.25) mg/dL Glucose (74-99) mg/dL POC Glucose (mg/dL) 163 H (75-99) mg/dL Calcium (8.4-10.2) mg/dL Microbiology - Last 24 Hours (Table) 01/10/18 17:31 Gram Stain - Preliminary Groin Wound Culture - Preliminary Gram Neg Bacilli 01/09/18 15:17 Blood Culture - Preliminary Blood No Growth after 48 hours 01/10/18 02:25 Urine Culture - Final Urine,Catheterized
[2018-01-12] MEDS: POTAS-SOD-PHOS 278-164-250 MG 1 EACH PACKET PO SCH ×2 (10:06→20:55)
[2018-01-12] MEDS: AMIODARONE 200 MG TAB PO SCH ×2 (10:06→20:54)
[2018-01-12] MEDS: ASPIRIN 81 MG PO SCH (10:06)
[2018-01-12] MEDS: TOPIRAMATE 25 MG TAB PO SCH ×2 (10:06→20:55)
[2018-01-12] MEDS: CHLORHEXIDINE GLUCONATE 15 ML CUP MUCOUS MEM SCH (10:06)
[2018-01-12 10:40] LABS: Glucose,Whole Blood 156 mg/dL (75-99)
--- NOTE | 2018-01-12 11:16 | P.PN ---
Subjective Progress Note Date: 01/12/18 Principal diagnosis: Scrotal Cellulitis, respiratory failure Progress note dated 01/12/2018 72-year-old gentleman admitted with a diagnosis of acute severe sepsis and septic shock with lactic acidosis secondary to scrotal cellulitis and abscess. He is postop day #2 status post incision and drainage. He also developed acute kidney injury secondary to sepsis and acute necrosis acute lactic acidosis hyperglycemia non-anion gap metabolic metabolic acidosis acute hypoxemic respiratory failure with intubation and mechanical ventilation and multiple comorbidities including diabetes sleep apnea syndrome COPD pacemaker implantation gastroesophageal reflux disease and hyperlipidemia. The patient will have a dialysis catheter placed by vascular surgery today. After that's done, we may attempt to wean the patient. The patient's currently on ventilator on the volume assist control mode with a rate of 20 tidal volume is 500 FiO2 is 40% to be dropped to 25% and there is 5 of PEEP. Arterial blood gases show a PaO2 of 158 a PaCO2 of 32 and a pH 7.34. This is consistent with hyperoxemia and a mild metabolic acidosis. The patient's propofol is currently off but it was running at 50 mics per kilogram per minute he has a saline IV at 75 mL an hour insulin at 2 units an hour and heparin via weightbase protocol. The patient was intubated on January 10. Chest x-ray looks okay. Objective - Vital Signs Vital signs: Vital Signs Temp 99.1 F 01/12/18 04:00 Pulse 67 01/12/18 07:09 Resp 22 01/12/18 06:00 BP 170/103 01/10/18 18:15 Pulse Ox 98 01/12/18 06:00 Intake & Output 01/11/18 01/12/18 01/12/18 18:59 06:59 18:59 Intake Total 2714.448 2220.594 324.989 Output Total 610 205 Balance 2104.448 2015.594 324.989 Weight 134.6 kg 138.3 kg Intake: IV 1510.0 933 [place] 18 33 Piperacillin-Tazobactam 3 50.0 .375 gm In Dextrose/Water 1 50ml.bag @ 12.5 mls/hr IVPB Q8HR [facility] Rx#: [id number] Sodium Chloride 0.9% 1, 775 900 000 ml @ 75 mls/hr IV . [id number] [facility] Rx#:[id number] Vancomycin 2,000 mg In 167 Sodium Chloride 0.9% 500 ml @ 167 mls/hr IVPB Q16H [facility] Rx#:[id number] Vancomycin 2,000 mg In 500 Sodium Chloride 0.9% 500 ml @ 167 mls/hr IVPB Q24H [facility] Rx#:[id number] Intake, IV Titration 564.448 703.594 324.989 Amount Heparin Sod,Pork in 0.45% 112.88 199.196 187.924 NaCl 25,000 unit In 0.45 % NaCl 1 500ml.bag @ 7.4 UNITS/KG/HR 19.92 mls/hr IV .Q24H [facility] Rx#: [id number] Insulin Regular 100 unit 30.634 36.208 23.392 In Sodium Chloride 0.9% 100 ml @ Titrate IV .Q0M [facility] Rx#:[id number] Norepinephrin 4 mg-0.9% 244.374 94.375 Ns Pmx 4 mg In 250 ml @ Titrate IV .Q0M [facility] Rx#: [id number] Propofol 1,000 mg In 176.56 373.815 113.673 Empty Bag 1 bag @ Titrate IV .Q0M [facility] Rx#: [id number] Oral 600 60 Tube Feeding 40 434 Other 90 Output: Gastric Drainage 300 Urine 310 205 Other: Voiding Method Indwelling Catheter Indwelling Catheter ABP, PAP, CO, CI - Last Documented Arterial Blood Pressure 110/50 - Exam No acute distress, endotracheal tube and NG tube in place, patient's sedated. HEENT examination is grossly unremarkable. Orally placed endotracheal tube and NG tube noted. Neck supple. Full range of motion. No adenopathy thyromegaly or neck vein distention. Cardiovascular examination reveals regular rhythm rate. S1-S2 normal. No S3 or S4. No discernible murmur noted. Lungs reveal clear breath sounds. No wheezes rhonchi or crackles. Breath sounds are equal bilaterally. Abdomen soft bowel sounds are heard. No masses or tenderness. Extremities are intact. No cyanosis clubbing or edema. Skin is without rash or lesion. Scrotal edema and cellulitis is noted. Neurologic examination cannot be adequately performed. - Labs CBC & Chem 7: 01/12/18 04:30 01/12/18 04:30 Labs: Abnormal Lab Results - Last 24 Hours (Table) 0401/11/18 01/11/18 Range/Units 12:09 14:17 16:03 WBC (3.8-10.6) k/uL RBC (4.30-5.90) m/uL Hgb (13.0-17.5) gm/dL Hct (39.0-53.0) % Plt Count (150-450) k/uL Neutrophils # (1.3-7.7) k/uL APTT (22.0-30.0) sec ABG pH (7.35-7.45) ABG pCO2 (35-45) mmHg ABG pO2 (83-108) mmHg ABG HCO3 (21-25) mmol/L ABG Total CO2 (19-24) mmol/L ABG O2 Saturation (94-97) % Chloride (98-107) mmol/L Carbon Dioxide (22-30) mmol/L BUN (9-20) mg/dL Creatinine (0.66-1.25) mg/dL Glucose (74-99) mg/dL POC Glucose (mg/dL) 165 H 152 H 157 H (75-99) mg/dL Calcium (8.4-10.2) mg/dL 01/11/18 01/11/18 01/11/18 Range/Units 17:15 17:15 20:11 WBC 11.3 H (3.8-10.6) k/uL RBC 3.97 L (4.30-5.90) m/uL Hgb 12.0 L (13.0-17.5) gm/dL Hct 35.8 L (39.0-53.0) % Plt Count 121 L (150-450) k/uL Neutrophils # 9.5 H (1.3-7.7) k/uL APTT (22.0-30.0) sec ABG pH (7.35-7.45) ABG pCO2 (35-45) mmHg ABG pO2 (83-108) mmHg ABG HCO3 (21-25) mmol/L ABG Total CO2 (19-24) mmol/L ABG O2 Saturation (94-97) % Chloride 108 H (98-107) mmol/L Carbon Dioxide 17 L (22-30) mmol/L BUN 57 H (9-20) mg/dL Creatinine 4.90 H (0.66-1.25) mg/dL Glucose 160 H (74-99) mg/dL POC Glucose (mg/dL) 152 H (75-99) mg/dL Calcium 7.5 L (8.4-10.2) mg/dL 01/11/18 01/12/18 01/12/18 Range/Units 22:02 00:09 01:58 WBC (3.8-10.6) k/uL RBC (4.30-5.90) m/uL Hgb (13.0-17.5) gm/dL Hct (39.0-53.0) % Plt Count (150-450) k/uL Neutrophils # (1.3-7.7) k/uL APTT (22.0-30.0) sec ABG pH (7.35-7.45) ABG pCO2 (35-45) mmHg ABG pO2 (83-108) mmHg ABG HCO3 (21-25) mmol/L ABG Total CO2 (19-24) mmol/L ABG O2 Saturation (94-97) % Chloride (98-107) mmol/L Carbon Dioxide (22-30) mmol/L BUN (9-20) mg/dL Creatinine (0.66-1.25) mg/dL Glucose (74-99) mg/dL POC Glucose (mg/dL) 150 H 154 H 162 H (75-99) mg/dL Calcium (8.4-10.2) mg/dL 01/12/18 01/12/18 01/12/18 Range/Units 04:09 04:30 04:30 WBC (3.8-10.6) k/uL RBC 3.73 L (4.30-5.90) m/uL Hgb 11.1 L (13.0-17.5) gm/dL Hct 33.8 L (39.0-53.0) % Plt Count 104 L (150-450) k/uL Neutrophils # (1.3-7.7) k/uL APTT (22.0-30.0) sec ABG pH (7.35-7.45) ABG pCO2 (35-45) mmHg ABG pO2 (83-108) mmHg ABG HCO3 (21-25) mmol/L ABG Total CO2 (19-24) mmol/L ABG O2 Saturation (94-97) % Chloride 108 H (98-107) mmol/L Carbon Dioxide 18 L (22-30) mmol/L BUN 61 H (9-20) mg/dL Creatinine 5.50 H* (0.66-1.25) mg/dL Glucose 159 H (74-99) mg/dL POC Glucose (mg/dL) 179 H (75-99) mg/dL Calcium 7.4 L (8.4-10.2) mg/dL 01/12/18 01/12/18 01/12/18 Range/Units 06:02 06:25 08:08 WBC (3.8-10.6) k/uL RBC (4.30-5.90) m/uL Hgb (13.0-17.5) gm/dL Hct (39.0-53.0) % Plt Count (150-450) k/uL Neutrophils # (1.3-7.7) k/uL APTT 33.6 H (22.0-30.0) sec ABG pH 7.34 L (7.35-7.45) ABG pCO2 32 L (35-45) mmHg ABG pO2 158 H (83-108) mmHg ABG HCO3 17 L (21-25) mmol/L ABG Total CO2 18 L (19-24) mmol/L ABG O2 Saturation 98.8 H (94-97) % Chloride (98-107) mmol/L Carbon Dioxide (22-30) mmol/L BUN (9-20) mg/dL Creatinine (0.66-1.25) mg/dL Glucose (74-99) mg/dL POC Glucose (mg/dL) 162 H (75-99) mg/dL Calcium (8.4-10.2) mg/dL 01/12/18 01/12/18 Range/Units 08:09 10:37 WBC (3.8-10.6) k/uL RBC (4.30-5.90) m/uL Hgb (13.0-17.5) gm/dL Hct (39.0-53.0) % Plt Count (150-450) k/uL Neutrophils # (1.3-7.7) k/uL APTT (22.0-30.0) sec ABG pH (7.35-7.45) ABG pCO2 (35-45) mmHg ABG pO2 (83-108) mmHg ABG HCO3 (21-25) mmol/L ABG Total CO2 (19-24) mmol/L ABG O2 Saturation (94-97) % Chloride (98-107) mmol/L Carbon Dioxide (22-30) mmol/L BUN (9-20) mg/dL Creatinine (0.66-1.25) mg/dL Glucose (74-99) mg/dL POC Glucose (mg/dL) 163 H 156 H (75-99) mg/dL Calcium (8.4-10.2) mg/dL Microbiology - Last 24 Hours (Table) 01/10/18 17:31 Gram Stain - Preliminary Groin Wound Culture - Preliminary Gram Neg Bacilli 01/09/18 15:17 Blood Culture - Preliminary Blood No Growth after 48 hours 01/10/18 02:25 Urine Culture - Final Urine,Catheterized Assessment and Plan Assessment: Assessment Acute severe sepsis and septic shock with lactic acidosis, secondary to scrotal cellulitis and abscess, status post incision and drainage, postop day #2 Acute kidney injury with acute tubular necrosis Acute lactic acidosis Non-anion gap metabolic acidosis Acute hyperglycemia Acute hypoxemic respiratory failure Diabetes mellitus Sleep apnea syndrome Possible COPD Status post pacemaker implantation History of GERD Hyperlipidemia Plan: Plan dated 01/12/2018 The patient will continue with supportive care including antibiotics fluids pressors nutritional support, etc. A hemodialysis catheter was placed by vascular surgery today. Labs x-rays a medications are all reviewed. We will make sure the patient's on updrafts every 4 [id number]. FiO2 was dropped from 40-25%. Propofol is off. We'll give the patient a possible spontaneous breathing trial. Additional recommendations and suggestions are forthcoming. Prognosis is guarded. Critical care time 37 minutes Time with Patient: Greater than 30
--- NOTE | 2018-01-12 12:39 | CONS ---
DATE OF CONSULTATION: 01/12/2018 This is a 72 -year-old gentleman seen in the intensive Care Unit for placement of urgent dialysis catheter. This patient has been intubated. The patient had developed acute chronic failure. The patient has a high BUN and creatinine. I was consulted for placement of the dialysis catheter. The patient has been admitted with history of septic shock secondary to scrotal abscess and the patient also has a history of atrial fibrillation on Cardizem drip and heparin. The patient also has a history of diabetes mellitus. EXAMINATION: Patient was seen in the intensive care unit. The patient has been intubated. Vascular examination: Brachial radial and femoral pulses are present. The patient has marked swelling of the scrotum. The abdomen is protuberant. No peritoneal signs noted. Chest has crackles bilateral. PLAN: Placement of the dialysis catheter. Thank you for this consultation. HALIMA / DANIEL: [id number] / [id number]
[2018-01-12 12:43] LABS: Glucose,Whole Blood 134 mg/dL (75-99)
--- NOTE | 2018-01-12 12:44 | P.PN ---
Subjective 72-year-old admitted secondary to septic shock shock improved patient is presently on Zosyn for gram-negative scrotal abscess and 40 is gangrene patient is status post incision and drainage and patient is intubated mechanically ventilated due to hypoxic respiratory failure from sepsis. We did is being managed by salesforce specialist. Patient is on IV heparin because of his history of atrial fibrillation and patient is being bridged with IV heparin because of his high risk for cerebrovascular accident from A. fib. Patient was evaluated by infectious disease, salesforce specialist, urology. Objective - Vital Signs Vital signs: Vital Signs Temp 99.1 F 01/12/18 04:00 Pulse 66 01/12/18 12:14 Resp 22 01/12/18 06:00 BP 170/103 01/10/18 18:15 Pulse Ox 98 01/12/18 06:00 Intake & Output 01/11/18 01/12/18 01/12/18 18:59 06:59 18:59 Intake Total 2714.448 2220.594 343.609 Output Total 610 205 Balance 2104.448 2015.594 343.609 Weight 134.6 kg 138.3 kg Intake: IV 1510.0 933 [place] 18 33 Piperacillin-Tazobactam 3 50.0 .375 gm In Dextrose/Water 1 50ml.bag @ 12.5 mls/hr IVPB Q8HR [facility] Rx#: [id number] Sodium Chloride 0.9% 1, 775 900 000 ml @ 75 mls/hr IV . [id number] [facility] Rx#:[id number] Vancomycin 2,000 mg In 167 Sodium Chloride 0.9% 500 ml @ 167 mls/hr IVPB Q16H [facility] Rx#:[id number] Vancomycin 2,000 mg In 500 Sodium Chloride 0.9% 500 ml @ 167 mls/hr IVPB Q24H [facility] Rx#:[id number] Intake, IV Titration 564.448 703.594 343.609 Amount Heparin Sod,Pork in 0.45% 112.88 199.196 187.924 NaCl 25,000 unit In 0.45 % NaCl 1 500ml.bag @ 7.4 UNITS/KG/HR 19.92 mls/hr IV .Q24H [facility]IE Rx#: [id number] Insulin Regular 100 unit 30.634 36.208 23.392 In Sodium Chloride 0.9% 100 ml @ Titrate IV .Q0M [facility] Rx#:[id number] Norepinephrin 4 mg-0.9% 244.374 94.375 Ns Pmx 4 mg In 250 ml @ Titrate IV .Q0M [facility] Rx#: [id number] Propofol 1,000 mg In 176.56 373.815 132.293 Empty Bag 1 bag @ Titrate IV .Q0M [facility] Rx#: [id number] Oral 600 60 Tube Feeding 40 434 Other 90 Output: Gastric Drainage 300 Urine 310 205 Other: Voiding Method Indwelling Catheter Indwelling Catheter ABP, PAP, CO, CI - Last Documented Arterial Blood Pressure 110/50 - Exam PHYSICAL EXAMINATION: GENERAL: Intubated and sedated morbidly obese NG tube in place HEENT: Pupils are round and equally reacting to light. EOMI. No scleral icterus. No conjunctival pallor. Normocephalic, atraumatic. No pharyngeal erythema. No thyromegaly. CARDIOVASCULAR: S1 and S2 present. No murmurs, rubs, or gallops. PULMONARY: Chest is clear to auscultation, no wheezing or crackles. ABDOMEN: Soft, nontender, nondistended, normoactive bowel sounds. No palpable organomegaly. MUSCULOSKELETAL: No joint swelling or deformity. EXTREMITIES: No cyanosis, clubbing, or pedal edema. Scrotal edema with cellulitis and the postsurgically packed NEUROLOGICAL: Intubated and sedated SKIN: No rashes. - Labs CBC & Chem 7: 01/12/18 04:30 01/12/18 04:30 Labs: Abnormal Lab Results - Last 24 Hours (Table) 01/11/18 01/11/18 01/11/18 Range/Units 14:17 16:03 17:15 WBC (3.8-10.6) k/uL RBC (4.30-5.90) m/uL Hgb (13.0-17.5) gm/dL Hct (39.0-53.0) % Plt Count (150-450) k/uL Neutrophils # (1.3-7.7) k/uL APTT (22.0-30.0) sec ABG pH (7.35-7.45) ABG pCO2 (35-45) mmHg ABG pO2 (83-108) mmHg ABG HCO3 (21-25) mmol/L ABG Total CO2 (19-24) mmol/L ABG O2 Saturation (94-97) % Chloride 108 H (98-107) mmol/L Carbon Dioxide 17 L (22-30) mmol/L BUN 57 H (9-20) mg/dL Creatinine 4.90 H (0.66-1.25) mg/dL Glucose 160 H (74-99) mg/dL POC Glucose (mg/dL) 152 H 157 H (75-99) mg/dL Calcium 7.5 L (8.4-10.2) mg/dL 01/11/18 01/11/18 01/11/18 Range/Units 17:15 20:11 22:02 WBC 11.3 H (3.8-10.6) k/uL RBC 3.97 L (4.30-5.90) m/uL Hgb 12.0 L (13.0-17.5) gm/dL Hct 35.8 L (39.0-53.0) % Plt Count 121 L (150-450) k/uL Neutrophils # 9.5 H (1.3-7.7) k/uL APTT (22.0-30.0) sec ABG pH (7.35-7.45) ABG pCO2 (35-45) mmHg ABG pO2 (83-108) mmHg ABG HCO3 (21-25) mmol/L ABG Total CO2 (19-24) mmol/L ABG O2 Saturation (94-97) % Chloride (98-107) mmol/L Carbon Dioxide (22-30) mmol/L BUN (9-20) mg/dL Creatinine (0.66-1.25) mg/dL Glucose (74-99) mg/dL POC Glucose (mg/dL) 152 H 150 H (75-99) mg/dL Calcium (8.4-10.2) mg/dL 01/12/18 01/12/18 01/12/18 Range/Units 00:09 01:58 04:09 WBC (3.8-10.6) k/uL RBC (4.30-5.90) m/uL Hgb (13.0-17.5) gm/dL Hct (39.0-53.0) % Plt Count (150-450) k/uL Neutrophils # (1.3-7.7) k/uL APTT (22.0-30.0) sec ABG pH (7.35-7.45) ABG pCO2 (35-45) mmHg ABG pO2 (83-108) mmHg ABG HCO3 (21-25) mmol/L ABG Total CO2 (19-24) mmol/L ABG O2 Saturation (94-97) % Chloride (98-107) mmol/L Carbon Dioxide (22-30) mmol/L BUN (9-20) mg/dL Creatinine (0.66-1.25) mg/dL Glucose (74-99) mg/dL POC Glucose (mg/dL) 154 H 162 H 179 H (75-99) mg/dL Calcium (8.4-10.2) mg/dL 01/12/18 01/12/18 01/12/18 Range/Units 04:30 04:30 06:02 WBC (3.8-10.6) k/uL RBC 3.73 L (4.30-5.90) m/uL Hgb 11.1 L (13.0-17.5) gm/dL Hct 33.8 L (39.0-53.0) % Plt Count 104 L (150-450) k/uL Neutrophils # (1.3-7.7) k/uL APTT (22.0-30.0) sec ABG pH (7.35-7.45) ABG pCO2 (35-45) mmHg ABG pO2 (83-108) mmHg ABG HCO3 (21-25) mmol/L ABG Total CO2 (19-24) mmol/L ABG O2 Saturation (94-97) % Chloride 108 H (98-107) mmol/L Carbon Dioxide 18 L (22-30) mmol/L BUN 61 H (9-20) mg/dL Creatinine 5.50 H* (0.66-1.25) mg/dL Glucose 159 H (74-99) mg/dL POC Glucose (mg/dL) 162 H (75-99) mg/dL Calcium 7.4 L (8.4-10.2) mg/dL 01/12/18 01/12/18 01/12/18 Range/Units 06:25 08:08 08:09 WBC (3.8-10.6) k/uL RBC (4.30-5.90) m/uL Hgb (13.0-17.5) gm/dL Hct (39.0-53.0) % Plt Count (150-450) k/uL Neutrophils # (1.3-7.7) k/uL APTT 33.6 H (22.0-30.0) sec ABG pH 7.34 L (7.35-7.45) ABG pCO2 32 L (35-45) mmHg ABG pO2 158 H (83-108) mmHg ABG HCO3 17 L (21-25) mmol/L ABG Total CO2 18 L (19-24) mmol/L ABG O2 Saturation 98.8 H (94-97) % Chloride (98-107) mmol/L Carbon Dioxide (22-30) mmol/L BUN (9-20) mg/dL Creatinine (0.66-1.25) mg/dL Glucose (74-99) mg/dL POC Glucose (mg/dL) 163 H (75-99) mg/dL Calcium (8.4-10.2) mg/dL 01/12/18 Range/Units 10:37 WBC (3.8-10.6) k/uL RBC (4.30-5.90) m/uL Hgb (13.0-17.5) gm/dL Hct (39.0-53.0) % Plt Count (150-450) k/uL Neutrophils # (1.3-7.7) k/uL APTT (22.0-30.0) sec ABG pH (7.35-7.45) ABG pCO2 (35-45) mmHg ABG pO2 (83-108) mmHg ABG HCO3 (21-25) mmol/L ABG Total CO2 (19-24) mmol/L ABG O2 Saturation (94-97) % Chloride (98-107) mmol/L Carbon Dioxide (22-30) mmol/L BUN (9-20) mg/dL Creatinine (0.66-1.25) mg/dL Glucose (74-99) mg/dL POC Glucose (mg/dL) 156 H (75-99) mg/dL Calcium (8.4-10.2) mg/dL Microbiology - Last 24 Hours (Table) 01/10/18 17:31 Gram Stain - Preliminary Groin Wound Culture - Preliminary Gram Neg Bacilli 01/09/18 15:17 Blood Culture - Preliminary Blood No Growth after 48 hours 01/10/18 02:25 Urine Culture - Final Urine,Catheterized Assessment and Plan Plan: severe sepsis and septic shock with lactic acidosis, secondary to scrotal cellulitis and abscess, status post incision and drainage, patient shock improved not on any pressor support, on maintenance IV fluids at 50 mL per hour and Zosyn. Acute kidney injury with acute tubular necrosis, nephrology evaluated the patient they're considering temporary hemodialysis Non-anion gap metabolic acidosis due to lactic acidosis which improved atrial fibrillation history: Patient is on IV diltiazem and heparin IV Acute hypoxemic respiratory failure secondary to sepsis, patient is presently intubated and went is being managed by salesforce specialist Diabetes mellitus: Continue with present regimen of IV insulin hyperglycemic. Secondary to sepsis Sleep apnea Possible COPD Status post pacemaker implantation History of GERD Hyperlipidemia
--- NOTE | 2018-01-12 12:45 | PCN ---
PROCEDURE NOTE PREOP DIAGNOSIS: Acute on chronic renal failure with sepsis. PROCEDURE PROCEDURE: Ultrasound-guided dialysis triple-lumen dialysis catheter placed right femoral approach. DESCRIPTION OF PROCEDURE: Patient is seen in the intensive care unit. Right groin was prepped and draped applied in the usual sterile manner. 1% lidocaine was infiltrated and micropuncture introduced right common femoral vein and micropuncture guide was passed. Then 4 [place]ic dilator advanced on the top of the guidewire. After that, we passed the regular guidewire and dilator was advanced and triple-lumen dialysis catheter advanced on top of the guidewire, flushed with heparin saline and hep-locked and secured with 3-0 nylon. Patient tolerated the procedure well. MMODL / IJN: [id number] /
[2018-01-12] MEDS: METOPROLOL TARTRATE 25 MG TAB PO SCH ×2 (13:42→20:55)
[2018-01-12 13:52] LABS: Glucose,Whole Blood 142 mg/dL (75-99)
[2018-01-12 15:56] LABS: Glucose,Whole Blood 142 mg/dL (75-99)
[2018-01-12] MEDS ORDERED: POTASSIUM BICARBONATE/CIT AC 20 MEQ TABLET.EFF NG-TUBE ONE (16:00)
[2018-01-12 16:05] LABS: ABG Base Excess -8.9 mmol/L; ABG HCO3 17 mmol/L (21-25); ABG Oxygen Saturation 97.6 % (94-97); ABG PCO2 34 mmHg (35-45); ABG PH 7.31 (7.35-7.45); ABG PO2 96 mmHg (83-108); ABG TCO2 18 mmol/L (19-24)
[2018-01-12 18:07] LABS: Glucose,Whole Blood 117 mg/dL (75-99)
[2018-01-12 20:11] LABS: Glucose,Whole Blood 117 mg/dL (75-99)
[2018-01-12 22:05] LABS: Glucose,Whole Blood 138 mg/dL (75-99)
[2018-01-12 23:46] LABS: Glucose,Whole Blood 120 mg/dL (75-99)
[2018-01-13] MEDS: PIPERACILLIN-TAZOBACTAM 3.375 GM in DEXTROSE/WATER 1 50ML.BAG IVPB SCH ×3 (00:31→23:51)
[2018-01-13] MEDS: MORPHINE SULFATE 4 MG/0.8 ML SYRINGE (INJ) IVP PRN ×4 (01:43→21:45)
[2018-01-13 02:08] LABS: Glucose,Whole Blood 130 mg/dL (75-99)
[2018-01-13 04:09] LABS: Glucose,Whole Blood 128 mg/dL (75-99)
[2018-01-13 04:48] LABS: Prothrombin Time 10.2 sec (9.0-12.0)
[2018-01-13 05:06] LABS: Basophils % (A) 0 %; Eosinophils # (A) 0.1 k/uL (0-0.7); Eosinophils % (A) 1 %; HCT 33.3 % (39.0-53.0); Lymphocytes # (A) 0.8 k/uL (1.0-4.8); Lymphocytes % (A) 14 %; MCH 29.7 pg (25.0-35.0); MCHC 32.9 g/dL (31.0-37.0); MCV 90.2 fL (80.0-100.0); Monocytes # (A) 0.4 k/uL (0-1.0); Monocytes % (A) 6 %; Neutrophils # (A) 4.6 k/uL (1.3-7.7); Neutrophils % (A) 76 %; Platelet Count 104 k/uL (150-450); RDW 13.1 % (11.5-15.5); WBC 6.1 k/uL (3.8-10.6)
[2018-01-13] MEDS: HEPARIN SOD,PORK IN 0.45% NACL 25,000 UNIT in 0.45% NACL 1 500ML.BAG IV SCH (05:09)
[2018-01-13 05:16] LABS: Calcium 7.3 mg/dL (8.4-10.2); Phosphorus 4.6 mg/dL (2.5-4.5)
[2018-01-13 06:13] LABS: Glucose,Whole Blood 130 mg/dL (75-99)
--- NOTE | 2018-01-13 06:50 | XR ---
EXAMINATION TYPE: XR chest 1V portable DATE OF EXAM: 01/13/2018 HISTORY: Tube placement. REFERENCE: Previous study dated 01/12/2018. FINDINGS: There is a bipolar pacemaker in place on the left. The patient's ET tube and NG tube been r emoved. The lungs appear clear. Pleural space are clear. Heart size is within normal limits. IMPRESSION: NO ACTIVE INTRATHORACIC DISEASE.
[2018-01-13] MEDS: IPRATROPIUM-ALBUTEROL 3 ML NEB INHALATION SCH ×3 (07:15→19:25)
[2018-01-13 07:40] LABS: Glucose,Whole Blood 139 mg/dL (75-99)
[2018-01-13] MEDS: INSULIN ASPART 100 UNIT/ML 1 ML 10 ML VIAL SQ SCH ×4 (08:33→20:29)
[2018-01-13] MEDS: ASPIRIN 81 MG PO SCH (08:34)
[2018-01-13] MEDS: METOPROLOL TARTRATE 25 MG TAB PO SCH ×2 (08:34→20:20)
[2018-01-13] MEDS: TOPIRAMATE 25 MG TAB PO SCH ×2 (08:35→20:20)
[2018-01-13] MEDS: SODIUM CHLORIDE 0.9% 1,000 ML IV SCH (08:35)
[2018-01-13] MEDS: AMIODARONE 200 MG TAB PO SCH ×2 (08:35→20:20)
--- NOTE | 2018-01-13 08:58 | P.PN ---
Subjective Progress Note Date: 01/13/18 Principal diagnosis: This is a 72-year-old male followed up because of ATN from shock(scrotal abscess status post drainage. He has been extubated and is on nasal cannula this morning 01/13/2018. Hemodynamically stable. Urine output remains oliguric. He was dialyzed for the first time yesterday. Tolerated very well. He is on pain medications for his scrotal pain. Other than this he is denying any significant complaints. His vital signs are stable, . His monitor shows paced rhythm He is on vancomycin and Zosyn and the Vanco level is high at 32. She is known with diabetes hypertension sleep apnea psoriasis has had heart catheterization in the past and a pacemaker. Objective - Vital Signs Vital signs: Vital Signs Temp 97.7 F 01/13/18 08:00 Pulse 60 01/13/18 08:00 Resp 18 01/13/18 08:00 BP 170/103 01/10/18 18:15 Pulse Ox 96 01/13/18 08:00 Intake & Output 01/12/18 01/13/18 01/13/18 18:59 06:59 18:59 Intake Total 2144.351 1542.050 318 Output Total 380 285 25 Balance 4828.106 3474.050 293 Weight 142.1 kg Intake: IV 786 1014 78 [place] 36 39 3 Sodium Chloride 0.9% 1, 750 975 75 000 ml @ 75 mls/hr IV . [id number] [facility] Rx#:[id number] Intake, IV Titration 906.351 506.050 Amount Heparin Sod,Pork in 0.45% 687.924 500.000 NaCl 25,000 unit In 0.45 % NaCl 1 500ml.bag @ 7.4 UNITS/KG/HR 19.92 mls/hr IV .Q24H [facility] Rx#: [id number] Insulin Regular 100 unit 36.134 6.050 In Sodium Chloride 0.9% 100 ml @ Titrate IV .Q0M [facility] Rx#:[id number] Piperacillin-Tazobactam 3 50 .375 gm In Dextrose/Water 1 50ml.bag @ 12.5 mls/hr IVPB Q12H [facility] Rx#: [id number] Propofol 1,000 mg In 132.293 Empty Bag 1 bag @ Titrate IV .Q0M [facility] Rx#: [id number] Oral 240 Tube Feeding 272 22 Other 180 Output: Urine 380 285 25 Other: Voiding Method Indwelling Catheter Indwelling Catheter ABP, PAP, CO, CI - Last Documented Arterial Blood Pressure 153/62 On examination is awake alert oriented on nasal cannula oxygen A chin exam no JVP neck is supple no facial asymmetry pupils are equal. Lungs are clear to auscultation good air entry bilaterally Heart sounds are unremarkable no murmur rub galloprhythm Abdomen is soft slightly obese protuberant and nontender Extremity exam was trace edema The scrotal area is still red and edema this. He has a femoral Esa on the right groin. Neurologically awake alert oriented follows commands and answers questions. - Labs CBC & Chem 7: 01/13/18 04:30 01/13/18 04:30 Labs: Abnormal Lab Results - Last 24 Hours (Table) 01/12/18 01/12/18 01/12/18 Range/Units 10:37 12:42 13:03 RBC (4.30-5.90) m/uL Hgb (13.0-17.5) gm/dL Hct (39.0-53.0) % Plt Count (150-450) k/uL Lymphocytes # (1.0-4.8) k/uL APTT 37.2 H (22.0-30.0) sec ABG pH (7.35-7.45) ABG pCO2 (35-45) mmHg ABG HCO3 (21-25) mmol/L ABG Total CO2 (19-24) mmol/L ABG O2 Saturation (94-97) % Carbon Dioxide (22-30) mmol/L BUN (9-20) mg/dL Creatinine (0.66-1.25) mg/dL Glucose (74-99) mg/dL POC Glucose (mg/dL) 156 H 134 H (75-99) mg/dL Calcium (8.4-10.2) mg/dL Phosphorus (2.5-4.5) mg/dL 01/12/18 01/12/18 01/12/18 Range/Units 13:50 15:54 16:02 RBC (4.30-5.90) m/uL Hgb (13.0-17.5) gm/dL Hct (39.0-53.0) % Plt Count (150-450) k/uL Lymphocytes # (1.0-4.8) k/uL APTT (22.0-30.0) sec ABG pH 7.31 L (7.35-7.45) ABG pCO2 34 L (35-45) mmHg ABG HCO3 17 L (21-25) mmol/L ABG Total CO2 18 L (19-24) mmol/L ABG O2 Saturation 97.6 H (94-97) % Carbon Dioxide (22-30) mmol/L BUN (9-20) mg/dL Creatinine (0.66-1.25) mg/dL Glucose (74-99) mg/dL POC Glucose (mg/dL) 142 H 142 H (75-99) mg/dL Calcium (8.4-10.2) mg/dL Phosphorus (2.5-4.5) mg/dL 01/12/18 01/12/18 01/12/18 Range/Units 18:05 20:10 21:20 RBC (4.30-5.90) m/uL Hgb (13.0-17.5) gm/dL Hct (39.0-53.0) % Plt Count (150-450) k/uL Lymphocytes # (1.0-4.8) k/uL APTT 87.6 H (22.0-30.0) sec ABG pH (7.35-7.45) ABG pCO2 (35-45) mmHg ABG HCO3 (21-25) mmol/L ABG Total CO2 (19-24) mmol/L ABG O2 Saturation (94-97) % Carbon Dioxide (22-30) mmol/L BUN (9-20) mg/dL Creatinine (0.66-1.25) mg/dL Glucose (74-99) mg/dL POC Glucose (mg/dL) 117 H 117 H (75-99) mg/dL Calcium (8.4-10.2) mg/dL Phosphorus (2.5-4.5) mg/dL 01/12/18 01/12/18 01/13/18 Range/Units 22:02 23:45 02:06 RBC (4.30-5.90) m/uL Hgb (13.0-17.5) gm/dL Hct (39.0-53.0) % Plt Count (150-450) k/uL Lymphocytes # (1.0-4.8) k/uL APTT (22.0-30.0) sec ABG pH (7.35-7.45) ABG pCO2 (35-45) mmHg ABG HCO3 (21-25) mmol/L ABG Total CO2 (19-24) mmol/L ABG O2 Saturation (94-97) % Carbon Dioxide (22-30) mmol/L BUN (9-20) mg/dL Creatinine (0.66-1.25) mg/dL Glucose (74-99) mg/dL POC Glucose (mg/dL) 138 H 120 H 130 H (75-99) mg/dL Calcium (8.4-10.2) mg/dL Phosphorus (2.5-4.5) mg/dL 01/13/18 01/13/18 01/13/18 Range/Units 04:07 04:30 04:30 RBC 3.70 L (4.30-5.90) m/uL Hgb 11.0 L (13.0-17.5) gm/dL Hct 33.3 L (39.0-53.0) % Plt Count 104 L (150-450) k/uL Lymphocytes # 0.8 L (1.0-4.8) k/uL APTT (22.0-30.0) sec ABG pH (7.35-7.45) ABG pCO2 (35-45) mmHg ABG HCO3 (21-25) mmol/L ABG Total CO2 (19-24) mmol/L ABG O2 Saturation (94-97) % Carbon Dioxide 19 L (22-30) mmol/L BUN 51 H (9-20) mg/dL Creatinine 5.40 H* (0.66-1.25) mg/dL Glucose 135 H (74-99) mg/dL POC Glucose (mg/dL) 128 H (75-99) mg/dL Calcium 7.3 L (8.4-10.2) mg/dL Phosphorus 4.6 H (2.5-4.5) mg/dL 01/13/18 01/13/18 01/13/18 Range/Units 04:30 06:11 07:39 RBC (4.30-5.90) m/uL Hgb (13.0-17.5) gm/dL Hct (39.0-53.0) % Plt Count (150-450) k/uL Lymphocytes # (1.0-4.8) k/uL APTT 54.0 H (22.0-30.0) sec ABG pH (7.35-7.45) ABG pCO2 (35-45) mmHg ABG HCO3 (21-25) mmol/L ABG Total CO2 (19-24) mmol/L ABG O2 Saturation (94-97) % Carbon Dioxide (22-30) mmol/L BUN (9-20) mg/dL Creatinine (0.66-1.25) mg/dL Glucose (74-99) mg/dL POC Glucose (mg/dL) 130 H 139 H (75-99) mg/dL Calcium (8.4-10.2) mg/dL Phosphorus (2.5-4.5) mg/dL Microbiology - Last 24 Hours (Table) 01/10/18 17:31 Anaerobic Culture - Preliminary Groin 01/10/18 17:31 Gram Stain - Final Groin Wound Culture - Final Escherichia coli Beta Hemolytic Streptococcus F 01/10/18 17:31 Gram Stain - Final Groin Wound Culture - Final Beta Hemolytic Streptococcus F 01/09/18 15:17 Blood Culture - Preliminary Blood No Growth after 72 hours Assessment and Plan Assessment: Impression 1. Severe ATN from hypotensive shock and sepsis. Creatinine is worsening he is oliguric. Started on dialysis yesterday for 2017. Remains oliguric. His electrolytes are unremarkable. 2. Scrotal cellulitis status post debridement. Beta hemolytic strep and E. coli growing in the wound culture. On Zosyn 3. Mild degree of non-gap acidosis with bicarb of 19 and a gap of 14 4. High vancomycin level of 32.. 5. History of cardiac catheterization, pacemaker paced rhythm. Recommendation. 1. Next dialysis will be tomorrow Proceed with dialysis. 2. Needs protein supplements 3. Monitor labs 4. Maintain IV normal saline at 75 an hour for right until his intake is adequate. 5. Start sodium bicarb 650 twice a day
--- NOTE | 2018-01-13 09:03 | P.PN ---
Subjective Progress Note Date: 01/13/18 The patient is in the hospital for sepsis secondary to scrotal cellulitis, Vanesa's gangrene of the scrotum. It has been drained. It was packed yesterday and repacked today. There is no significant necrosis noted. His culture is growing beta hemolytic strep and E. coli. His white count is down to 5000. He is off the ventilator. He was dialyzed yesterday. Continue with dressing changes. Objective - Vital Signs Vital signs: Vital Signs Temp 97.7 F 01/13/18 08:00 Pulse 60 01/13/18 08:00 Resp 18 01/13/18 08:00 BP 170/103 01/10/18 18:15 Pulse Ox 96 01/13/18 08:00 Intake & Output 01/12/18 01/13/18 01/13/18 18:59 06:59 18:59 Intake Total 2144.351 1542.050 318 Output Total 380 285 25 Balance 5560.451 7231.050 293 Weight 142.1 kg Intake: IV 786 1014 78 Abigail 36 39 3 Sodium Chloride 0.9% 1, 750 975 75 000 ml @ 75 mls/hr IV . [id number] [facility] Rx#:[id number] Intake, IV Titration 906.351 506.050 Amount Heparin Sod,Pork in 0.45% 687.924 500.000 NaCl 25,000 unit In 0.45 % NaCl 1 500ml.bag @ 7.4 UNITS/KG/HR 19.92 mls/hr IV .Q24H [facility] Rx#: [id number] Insulin Regular 100 unit 36.134 6.050 In Sodium Chloride 0.9% 100 ml @ Titrate IV .Q0M [facility] Rx#:[id number] Piperacillin-Tazobactam 3 50 .375 gm In Dextrose/Water 1 50ml.bag @ 12.5 mls/hr IVPB Q12H [facility] Rx#: [id number] Propofol 1,000 mg In 132.293 Empty Bag 1 bag @ Titrate IV .Q0M [facility] Rx#: [id number] Oral 240 Tube Feeding 272 22 Other 180 Output: Urine 380 285 25 Other: Voiding Method Indwelling Catheter Indwelling Catheter ABP, PAP, CO, CI - Last Documented Arterial Blood Pressure 153/62 - Labs CBC & Chem 7: 01/13/18 04:30 01/13/18 04:30 Labs: Abnormal Lab Results - Last 24 Hours (Table) 01/12/18 01/12/18 01/12/18 Range/Units 10:37 12:42 13:03 RBC (4.30-5.90) m/uL Hgb (13.0-17.5) gm/dL Hct (39.0-53.0) % Plt Count (150-450) k/uL Lymphocytes # (1.0-4.8) k/uL APTT 37.2 H (22.0-30.0) sec ABG pH (7.35-7.45) ABG pCO2 (35-45) mmHg ABG HCO3 (21-25) mmol/L ABG Total CO2 (19-24) mmol/L ABG O2 Saturation (94-97) % Carbon Dioxide (22-30) mmol/L BUN (9-20) mg/dL Creatinine (0.66-1.25) mg/dL Glucose (74-99) mg/dL POC Glucose (mg/dL) 156 H 134 H (75-99) mg/dL Calcium (8.4-10.2) mg/dL Phosphorus (2.5-4.5) mg/dL 01/12/18 01/12/18 01/12/18 Range/Units 13:50 15:54 16:02 RBC (4.30-5.90) m/uL Hgb (13.0-17.5) gm/dL Hct (39.0-53.0) % Plt Count (150-450) k/uL Lymphocytes # (1.0-4.8) k/uL APTT (22.0-30.0) sec ABG pH 7.31 L (7.35-7.45) ABG pCO2 34 L (35-45) mmHg ABG HCO3 17 L (21-25) mmol/L ABG Total CO2 18 L (19-24) mmol/L ABG O2 Saturation 97.6 H (94-97) % Carbon Dioxide (22-30) mmol/L BUN (9-20) mg/dL Creatinine (0.66-1.25) mg/dL Glucose (74-99) mg/dL POC Glucose (mg/dL) 142 H 142 H (75-99) mg/dL Calcium (8.4-10.2) mg/dL Phosphorus (2.5-4.5) mg/dL 01/12/18 01/12/18 01/12/18 Range/Units 18:05 20:10 21:20 RBC (4.30-5.90) m/uL Hgb (13.0-17.5) gm/dL Hct (39.0-53.0) % Plt Count (150-450) k/uL Lymphocytes # (1.0-4.8) k/uL APTT 87.6 H (22.0-30.0) sec ABG pH (7.35-7.45) ABG pCO2 (35-45) mmHg ABG HCO3 (21-25) mmol/L ABG Total CO2 (19-24) mmol/L ABG O2 Saturation (94-97) % Carbon Dioxide (22-30) mmol/L BUN (9-20) mg/dL Creatinine (0.66-1.25) mg/dL Glucose (74-99) mg/dL POC Glucose (mg/dL) 117 H 117 H (75-99) mg/dL Calcium (8.4-10.2) mg/dL Phosphorus (2.5-4.5) mg/dL 01/12/18 01/12/18 01/13/18 Range/Units 22:02 23:45 02:06 RBC (4.30-5.90) m/uL Hgb (13.0-17.5) gm/dL Hct (39.0-53.0) % Plt Count (150-450) k/uL Lymphocytes # (1.0-4.8) k/uL APTT (22.0-30.0) sec ABG pH (7.35-7.45) ABG pCO2 (35-45) mmHg ABG HCO3 (21-25) mmol/L ABG Total CO2 (19-24) mmol/L ABG O2 Saturation (94-97) % Carbon Dioxide (22-30) mmol/L BUN (9-20) mg/dL Creatinine (0.66-1.25) mg/dL Glucose (74-99) mg/dL POC Glucose (mg/dL) 138 H 120 H 130 H (75-99) mg/dL Calcium (8.4-10.2) mg/dL Phosphorus (2.5-4.5) mg/dL 01/13/18 01/13/18 01/13/18 Range/Units 04:07 04:30 04:30 RBC 3.70 L (4.30-5.90) m/uL Hgb 11.0 L (13.0-17.5) gm/dL Hct 33.3 L (39.0-53.0) % Plt Count 104 L (150-450) k/uL Lymphocytes # 0.8 L (1.0-4.8) k/uL APTT (22.0-30.0) sec ABG pH (7.35-7.45) ABG pCO2 (35-45) mmHg ABG HCO3 (21-25) mmol/L ABG Total CO2 (19-24) mmol/L ABG O2 Saturation (94-97) % Carbon Dioxide 19 L (22-30) mmol/L BUN 51 H (9-20) mg/dL Creatinine 5.40 H* (0.66-1.25) mg/dL Glucose 135 H (74-99) mg/dL POC Glucose (mg/dL) 128 H (75-99) mg/dL Calcium 7.3 L (8.4-10.2) mg/dL Phosphorus 4.6 H (2.5-4.5) mg/dL 01/13/18 01/13/18 01/13/18 Range/Units 04:30 06:11 07:39 RBC (4.30-5.90) m/uL Hgb (13.0-17.5) gm/dL Hct (39.0-53.0) % Plt Count (150-450) k/uL Lymphocytes # (1.0-4.8) k/uL APTT 54.0 H (22.0-30.0) sec ABG pH (7.35-7.45) ABG pCO2 (35-45) mmHg ABG HCO3 (21-25) mmol/L ABG Total CO2 (19-24) mmol/L ABG O2 Saturation (94-97) % Carbon Dioxide (22-30) mmol/L BUN (9-20) mg/dL Creatinine (0.66-1.25) mg/dL Glucose (74-99) mg/dL POC Glucose (mg/dL) 130 H 139 H (75-99) mg/dL Calcium (8.4-10.2) mg/dL Phosphorus (2.5-4.5) mg/dL Microbiology - Last 24 Hours (Table) 01/10/18 17:31 Anaerobic Culture - Preliminary Groin 01/10/18 17:31 Gram Stain - Final Groin Wound Culture - Final Escherichia coli Beta Hemolytic Streptococcus F 01/10/18 17:31 Gram Stain - Final Groin Wound Culture - Final Beta Hemolytic Streptococcus F 01/09/18 15:17 Blood Culture - Preliminary Blood No Growth after 72 hours
--- NOTE | 2018-01-13 09:38 | P.PN ---
Subjective Progress Note Date: 01/13/18 Principal diagnosis: Scrotal Cellulitis, respiratory failure Progress note dated 01/12/2018 72-year-old gentleman admitted with a diagnosis of acute severe sepsis and septic shock with lactic acidosis secondary to scrotal cellulitis and abscess. He is postop day #2 status post incision and drainage. He also developed acute kidney injury secondary to sepsis and acute necrosis acute lactic acidosis hyperglycemia non-anion gap metabolic metabolic acidosis acute hypoxemic respiratory failure with intubation and mechanical ventilation and multiple comorbidities including diabetes sleep apnea syndrome COPD pacemaker implantation gastroesophageal reflux disease and hyperlipidemia. The patient will have a dialysis catheter placed by vascular surgery today. After that's done, we may attempt to wean the patient. The patient's currently on ventilator on the volume assist control mode with a rate of 20 tidal volume is 500 FiO2 is 40% to be dropped to 25% and there is 5 of PEEP. Arterial blood gases show a PaO2 of 158 a PaCO2 of 32 and a pH 7.34. This is consistent with hyperoxemia and a mild metabolic acidosis. The patient's propofol is currently off but it was running at 50 mics per kilogram per minute he has a saline IV at 75 mL an hour insulin at 2 units an hour and heparin via weightbase protocol. The patient was intubated on January 10. Chest x-ray looks okay. Progress note dated 01/13/2018 72-year-old male admitted with a diagnosis of acute severe sepsis and septic shock with lactic acidosis secondary to scrotal cellulitis and abscess. The patient is postop day #3, status post incision and drainage. He was extubated from mechanical ventilation yesterday on January 12. He's developed acute kidney injury secondary to sepsis with acute tubular necrosis, lactic acidosis, hyperglycemia, 99 get metabolic acidosis, hypoxemic respiratory failure, resolved, and multiple comorbidities including diabetes sleep apnea COPD pacemaker implantation GERD and hyperlipidemia. The patient is doing much better as mentioned above. Feels much better. Currently the patient is receiving O2 at 3 L by nasal cannula, heparin via weightbase protocol, I saline IV at 75 mL an hour. A dialysis catheter was placed yesterday and he did have hemodialysis yesterday and a half liter was removed. Objective - Vital Signs Vital signs: Vital Signs Temp 97.7 F 01/13/18 08:00 Pulse 60 01/13/18 08:00 Resp 18 04/29/18 08:00 BP 170/103 01/10/18 18:15 Pulse Ox 96 01/13/18 08:00 Intake & Output 01/12/18 01/13/18 01/13/18 18:59 06:59 18:59 Intake Total 2144.351 1542.050 318 Output Total 380 285 25 Balance 5890.924 1339.050 293 Weight 142.1 kg Intake: IV 786 1014 78 [place] 36 39 3 Sodium Chloride 0.9% 1, 750 975 75 000 ml @ 75 mls/hr IV . [id number] [facility] Rx#:[id number] Intake, IV Titration 906.351 506.050 Amount Heparin Sod,Pork in 0.45% 687.924 500.000 NaCl 25,000 unit In 0.45 % NaCl 1 500ml.bag @ 7.4 UNITS/KG/HR 19.92 mls/hr IV .Q24H [facility] Rx#: [id number] Insulin Regular 100 unit 36.134 6.050 In Sodium Chloride 0.9% 100 ml @ Titrate IV .Q0M [facility] Rx#:[id number] Piperacillin-Tazobactam 3 50 .375 gm In Dextrose/Water 1 50ml.bag @ 12.5 mls/hr IVPB Q12H [facility] Rx#: [id number] Propofol 1,000 mg In 132.293 Empty Bag 1 bag @ Titrate IV .Q0M [facility] Rx#: [id number] Oral 240 Tube Feeding 272 22 Other 180 Output: Urine 380 285 25 Other: Voiding Method Indwelling Catheter Indwelling Catheter ABP, PAP, CO, CI - Last Documented Arterial Blood Pressure 153/62 - Exam No acute distress, nasal O2 in place.. HEENT examination is grossly unremarkable. Neck supple. Full range of motion. No adenopathy thyromegaly or neck vein distention. Cardiovascular examination reveals regular rhythm rate. S1-S2 normal. No S3 or S4. No discernible murmur noted. Lungs reveal clear breath sounds. No wheezes rhonchi or crackles. Breath sounds are equal bilaterally. Abdomen soft bowel sounds are heard. No masses or tenderness. Extremities are intact. No cyanosis clubbing or edema. Skin is without rash or lesion. Scrotal edema and cellulitis is noted. Neurologic examination is normal - Labs CBC & Chem 7: 01/13/18 04:30 01/13/18 04:30 Labs: Abnormal Lab Results - Last 24 Hours (Table) 01/12/18 01/12/18 01/12/18 Range/Units 10:37 12:42 13:03 RBC (4.30-5.90) m/uL Hgb (13.0-17.5) gm/dL Hct (39.0-53.0) % Plt Count (150-450) k/uL Lymphocytes # (1.0-4.8) k/uL APTT 37.2 H (22.0-30.0) sec ABG pH (7.35-7.45) ABG pCO2 (35-45) mmHg ABG HCO3 (21-25) mmol/L ABG Total CO2 (19-24) mmol/L ABG O2 Saturation (94-97) % Carbon Dioxide (22-30) mmol/L BUN (9-20) mg/dL Creatinine (0.66-1.25) mg/dL Glucose (74-99) mg/dL POC Glucose (mg/dL) 156 H 134 H (75-99) mg/dL Calcium (8.4-10.2) mg/dL Phosphorus (2.5-4.5) mg/dL 01/12/18 01/12/18 01/12/18 Range/Units 13:50 15:54 16:02 RBC (4.30-5.90) m/uL Hgb (13.0-17.5) gm/dL Hct (39.0-53.0) % Plt Count (150-450) k/uL Lymphocytes # (1.0-4.8) k/uL APTT (22.0-30.0) sec ABG pH 7.31 L (7.35-7.45) ABG pCO2 34 L (35-45) mmHg ABG HCO3 17 L (21-25) mmol/L ABG Total CO2 18 L (19-24) mmol/L ABG O2 Saturation 97.6 H (94-97) % Carbon Dioxide (22-30) mmol/L BUN (9-20) mg/dL Creatinine (0.66-1.25) mg/dL Glucose (74-99) mg/dL POC Glucose (mg/dL) 142 H 142 H (75-99) mg/dL Calcium (8.4-10.2) mg/dL Phosphorus (2.5-4.5) mg/dL 01/12/18 01/12/18 01/12/18 Range/Units 18:05 20:10 21:20 RBC (4.30-5.90) m/uL Hgb (13.0-17.5) gm/dL Hct (39.0-53.0) % Plt Count (150-450) k/uL Lymphocytes # (1.0-4.8) k/uL APTT 87.6 H (22.0-30.0) sec ABG pH (7.35-7.45) ABG pCO2 (35-45) mmHg ABG HCO3 (21-25) mmol/L ABG Total CO2 (19-24) mmol/L ABG O2 Saturation (94-97) % Carbon Dioxide (22-30) mmol/L BUN (9-20) mg/dL Creatinine (0.66-1.25) mg/dL Glucose (74-99) mg/dL POC Glucose (mg/dL) 117 H 117 H (75-99) mg/dL Calcium (8.4-10.2) mg/dL Phosphorus (2.5-4.5) mg/dL 01/12/18 01/12/18 01/13/18 Range/Units 22:02 23:45 02:06 RBC (4.30-5.90) m/uL Hgb (13.0-17.5) gm/dL Hct (39.0-53.0) % Plt Count (150-450) k/uL Lymphocytes # (1.0-4.8) k/uL APTT (22.0-30.0) sec ABG pH (7.35-7.45) ABG pCO2 (35-45) mmHg ABG HCO3 (21-25) mmol/L ABG Total CO2 (19-24) mmol/L ABG O2 Saturation (94-97) % Carbon Dioxide (22-30) mmol/L BUN (9-20) mg/dL Creatinine (0.66-1.25) mg/dL Glucose (74-99) mg/dL POC Glucose (mg/dL) 138 H 120 H 130 H (75-99) mg/dL Calcium (8.4-10.2) mg/dL Phosphorus (2.5-4.5) mg/dL 01/13/18 01/13/18 01/13/18 Range/Units 04:07 04:30 04:30 RBC 3.70 L (4.30-5.90) m/uL Hgb 11.0 L (13.0-17.5) gm/dL Hct 33.3 L (39.0-53.0) % Plt Count 104 L (150-450) k/uL Lymphocytes # 0.8 L (1.0-4.8) k/uL APTT (22.0-30.0) sec ABG pH (7.35-7.45) ABG pCO2 (35-45) mmHg ABG HCO3 (21-25) mmol/L ABG Total CO2 (19-24) mmol/L ABG O2 Saturation (94-97) % Carbon Dioxide 19 L (22-30) mmol/L BUN 51 H (9-20) mg/dL Creatinine 5.40 H* (0.66-1.25) mg/dL Glucose 135 H (74-99) mg/dL POC Glucose (mg/dL) 128 H (75-99) mg/dL Calcium 7.3 L (8.4-10.2) mg/dL Phosphorus 4.6 H (2.5-4.5) mg/dL 01/13/18 01/13/18 01/13/18 Range/Units 04:30 06:11 07:39 RBC (4.30-5.90) m/uL Hgb (13.0-17.5) gm/dL Hct (39.0-53.0) % Plt Count (150-450) k/uL Lymphocytes # (1.0-4.8) k/uL APTT 54.0 H (22.0-30.0) sec ABG pH (7.35-7.45) ABG pCO2 (35-45) mmHg ABG HCO3 (21-25) mmol/L ABG Total CO2 (19-24) mmol/L ABG O2 Saturation (94-97) % Carbon Dioxide (22-30) mmol/L BUN (9-20) mg/dL Creatinine (0.66-1.25) mg/dL Glucose (74-99) mg/dL POC Glucose (mg/dL) 130 H 139 H (75-99) mg/dL Calcium (8.4-10.2) mg/dL Phosphorus (2.5-4.5) mg/dL Microbiology - Last 24 Hours (Table) 01/10/18 17:31 Anaerobic Culture - Preliminary Groin 01/10/18 17:31 Gram Stain - Final Groin Wound Culture - Final Escherichia coli Beta Hemolytic Streptococcus F 01/10/18 17:31 Gram Stain - Final Groin Wound Culture - Final Beta Hemolytic Streptococcus F 01/09/18 15:17 Blood Culture - Preliminary Blood No Growth after 72 hours Assessment and Plan Assessment: Assessment Acute severe sepsis and septic shock with lactic acidosis, secondary to scrotal cellulitis and abscess, status post incision and drainage, postop day #3 Status post intubation and mechanical ventilation, with extubation on 01/12/2018 Acute kidney injury with acute tubular necrosis Acute lactic acidosis Non-anion gap metabolic acidosis Acute hyperglycemia Acute hypoxemic respiratory failure Diabetes mellitus Sleep apnea syndrome Possible COPD Status post pacemaker implantation History of GERD Hyperlipidemia Plan: Plan dated 01/12/2018 The patient will continue with supportive care including antibiotics fluids pressors nutritional support, etc. A hemodialysis catheter was placed by vascular surgery today. Labs x-rays a medications are all reviewed. We will make sure the patient's on updrafts every 4 [id number]. FiO2 was dropped from 40-25%. Propofol is off. We'll give the patient a possible spontaneous breathing trial. Additional recommendations and suggestions are forthcoming. Prognosis is guarded. Critical care time 37 minutes Plan dated 01/13/2018 The patient is doing well. The patient was extubated yesterday. Remains on nasal O2. Also on IV heparin and some IV fluids. The patient's labs x-rays a medications are all reviewed. We'll continue to follow. Seen by urology today. Critical care time is 31 minutes Time with Patient: Greater than 30
[2018-01-13] MEDS: SODIUM BICARBONATE TAB 650 MG TAB PO SCH ×2 (10:00→20:20)
[2018-01-13] MEDS ORDERED: HYDROcodone/APAP 7.5-325MG 1 EACH TAB PO PRN (10:38)
[2018-01-13] MEDS: HYDROcodone/APAP 7.5-325MG 1 EACH TAB PO PRN ×2 (10:45→17:12)
--- NOTE | 2018-01-13 11:38 | P.PN ---
Subjective 72-year-old admitted secondary to septic shock shock improved patient is presently on Zosyn for gram-negative scrotal abscess and 40 is gangrene patient is status post incision and drainage and patient is intubated mechanically ventilated due to hypoxic respiratory failure from sepsis. We did is being managed by sample coordinator. Patient is on IV heparin because of his history of atrial fibrillation and patient is being bridged with IV heparin because of his high risk for cerebrovascular accident from A. fib. Patient was evaluated by infectious disease, sample coordinator, urology. 01/13/2018 Patient was extubated yesterday clinically doing well, patient remains on IV heparin will switch will be switched to oral anticoagulation for his chronic atrial fibrillation. Patient is comparing of some discomfort in the scrotal area. Next Insert review of systems a progress note Objective - Vital Signs Vital signs: Vital Signs Temp 97.7 F 01/13/18 08:00 Pulse 60 01/13/18 11:00 Resp 17 01/13/18 11:00 BP 170/103 01/10/18 18:15 Pulse Ox 98 01/13/18 11:00 Intake & Output 01/12/18 01/13/18 01/13/18 18:59 06:59 18:59 Intake Total 2144.351 1542.050 552 Output Total 380 285 90 Balance 9211.255 6917.050 462 Weight 142.1 kg Intake: IV 786 1014 312 [place] 36 39 12 Sodium Chloride 0.9% 1, 750 975 300 000 ml @ 75 mls/hr IV . [id number] [facility] Rx#:[id number] Intake, IV Titration 906.351 506.050 Amount Heparin Sod,Pork in 0.45% 687.924 500.000 NaCl 25,000 unit In 0.45 % NaCl 1 500ml.bag @ 7.4 UNITS/KG/HR 19.92 mls/hr IV .Q24H [facility] Rx#: [id number] Insulin Regular 100 unit 36.134 6.050 In Sodium Chloride 0.9% 100 ml @ Titrate IV .Q0M [facility] Rx#:[id number] Piperacillin-Tazobactam 3 50 .375 gm In Dextrose/Water 1 50ml.bag @ 12.5 mls/hr IVPB Q12H [facility] Rx#: [id number] Propofol 1,000 mg In 132.293 Empty Bag 1 bag @ Titrate IV .Q0M [facility] Rx#: [id number] Oral 240 Tube Feeding 272 22 Other 180 Output: Urine 380 285 90 Other: Voiding Method Indwelling Catheter Indwelling Catheter Indwelling Catheter ABP, PAP, CO, CI - Last Documented Arterial Blood Pressure 146/58 - Exam PHYSICAL EXAMINATION: GENERAL: Drowsy oriented 3 morbidly obese HEENT: Pupils are round and equally reacting to light. EOMI. No scleral icterus. No conjunctival pallor. Normocephalic, atraumatic. No pharyngeal erythema. No thyromegaly. CARDIOVASCULAR: S1 and S2 present. No murmurs, rubs, or gallops. PULMONARY: Chest is clear to auscultation, no wheezing or crackles. ABDOMEN: Soft, nontender, nondistended, normoactive bowel sounds. No palpable organomegaly. MUSCULOSKELETAL: No joint swelling or deformity. EXTREMITIES: No cyanosis, clubbing, or pedal edema. Scrotal edema with cellulitis and the postsurgically packed NEUROLOGICAL: No new focal deficits were appreciated SKIN: No rashes. - Labs CBC & Chem 7: 01/13/18 04:30 01/13/18 04:30 Labs: Abnormal Lab Results - Last 24 Hours (Table) 01/12/18 01/12/18 01/12/18 Range/Units 12:42 13:03 13:50 RBC (4.30-5.90) m/uL Hgb (13.0-17.5) gm/dL Hct (39.0-53.0) % Plt Count (150-450) k/uL Lymphocytes # (1.0-4.8) k/uL APTT 37.2 H (22.0-30.0) sec ABG pH (7.35-7.45) ABG pCO2 (35-45) mmHg ABG HCO3 (21-25) mmol/L ABG Total CO2 (19-24) mmol/L ABG O2 Saturation (94-97) % Carbon Dioxide (22-30) mmol/L BUN (9-20) mg/dL Creatinine (0.66-1.25) mg/dL Glucose (74-99) mg/dL POC Glucose (mg/dL) 134 H 142 H (75-99) mg/dL Calcium (8.4-10.2) mg/dL Phosphorus (2.5-4.5) mg/dL 04/28/18 04/28/18 04/28/18 Range/Units 15:54 16:02 18:05 RBC (4.30-5.90) m/uL Hgb (13.0-17.5) gm/dL Hct (39.0-53.0) % Plt Count (150-450) k/uL Lymphocytes # (1.0-4.8) k/uL APTT (22.0-30.0) sec ABG pH 7.31 L (7.35-7.45) ABG pCO2 34 L (35-45) mmHg ABG HCO3 17 L (21-25) mmol/L ABG Total CO2 18 L (19-24) mmol/L ABG O2 Saturation 97.6 H (94-97) % Carbon Dioxide (22-30) mmol/L BUN (9-20) mg/dL Creatinine (0.66-1.25) mg/dL Glucose (74-99) mg/dL POC Glucose (mg/dL) 142 H 117 H (75-99) mg/dL Calcium (8.4-10.2) mg/dL Phosphorus (2.5-4.5) mg/dL 01/12/18 01/12/18 01/12/18 Range/Units 20:10 21:20 22:02 RBC (4.30-5.90) m/uL Hgb (13.0-17.5) gm/dL Hct (39.0-53.0) % Plt Count (150-450) k/uL Lymphocytes # (1.0-4.8) k/uL APTT 87.6 H (22.0-30.0) sec ABG pH (7.35-7.45) ABG pCO2 (35-45) mmHg ABG HCO3 (21-25) mmol/L ABG Total CO2 (19-24) mmol/L ABG O2 Saturation (94-97) % Carbon Dioxide (22-30) mmol/L BUN (9-20) mg/dL Creatinine (0.66-1.25) mg/dL Glucose (74-99) mg/dL POC Glucose (mg/dL) 117 H 138 H (75-99) mg/dL Calcium (8.4-10.2) mg/dL Phosphorus (2.5-4.5) mg/dL 04/28/18 04/29/18 04/29/18 Range/Units 23:45 02:06 04:07 RBC (4.30-5.90) m/uL Hgb (13.0-17.5) gm/dL Hct (39.0-53.0) % Plt Count (150-450) k/uL Lymphocytes # (1.0-4.8) k/uL APTT (22.0-30.0) sec ABG pH (7.35-7.45) ABG pCO2 (35-45) mmHg ABG HCO3 (21-25) mmol/L ABG Total CO2 (19-24) mmol/L ABG O2 Saturation (94-97) % Carbon Dioxide (22-30) mmol/L BUN (9-20) mg/dL Creatinine (0.66-1.25) mg/dL Glucose (74-99) mg/dL POC Glucose (mg/dL) 120 H 130 H 128 H (75-99) mg/dL Calcium (8.4-10.2) mg/dL Phosphorus (2.5-4.5) mg/dL 01/13/18 01/13/18 01/13/18 Range/Units 04:30 04:30 04:30 RBC 3.70 L (4.30-5.90) m/uL Hgb 11.0 L (13.0-17.5) gm/dL Hct 33.3 L (39.0-53.0) % Plt Count 104 L (150-450) k/uL Lymphocytes # 0.8 L (1.0-4.8) k/uL APTT 54.0 H (22.0-30.0) sec ABG pH (7.35-7.45) ABG pCO2 (35-45) mmHg ABG HCO3 (21-25) mmol/L ABG Total CO2 (19-24) mmol/L ABG O2 Saturation (94-97) % Carbon Dioxide 19 L (22-30) mmol/L BUN 51 H (9-20) mg/dL Creatinine 5.40 H* (0.66-1.25) mg/dL Glucose 135 H (74-99) mg/dL POC Glucose (mg/dL) (75-99) mg/dL Calcium 7.3 L (8.4-10.2) mg/dL Phosphorus 4.6 H (2.5-4.5) mg/dL 01/13/18 01/13/18 Range/Units 06:11 07:39 RBC (4.30-5.90) m/uL Hgb (13.0-17.5) gm/dL Hct (39.0-53.0) % Plt Count (150-450) k/uL Lymphocytes # (1.0-4.8) k/uL APTT (22.0-30.0) sec ABG pH (7.35-7.45) ABG pCO2 (35-45) mmHg ABG HCO3 (21-25) mmol/L ABG Total CO2 (19-24) mmol/L ABG O2 Saturation (94-97) % Carbon Dioxide (22-30) mmol/L BUN (9-20) mg/dL Creatinine (0.66-1.25) mg/dL Glucose (74-99) mg/dL POC Glucose (mg/dL) 130 H 139 H (75-99) mg/dL Calcium (8.4-10.2) mg/dL Phosphorus (2.5-4.5) mg/dL Microbiology - Last 24 Hours (Table) 01/10/18 17:31 Anaerobic Culture - Preliminary Groin 01/10/18 17:31 Gram Stain - Final Groin Wound Culture - Final Escherichia coli Beta Hemolytic Streptococcus F 01/10/18 17:31 Gram Stain - Final Groin Wound Culture - Final Beta Hemolytic Streptococcus F 01/09/18 15:17 Blood Culture - Preliminary Blood No Growth after 72 hours Assessment and Plan Plan: severe sepsis and septic shock with lactic acidosis, secondary to scrotal cellulitis and abscess, status post incision and drainage, patient shock improved not on any pressor support, on maintenance IV fluids at 50 mL per hour and Zosyn. Patient was extubated yesterday Acute kidney injury with acute tubular necrosis, nephrology evaluated the patient they're considering temporary hemodialysis Non-anion gap metabolic acidosis due to lactic acidosis which improved atrial fibrillation history: Patient is on IV diltiazem and heparin IV, if agreeable by urology patient will be switched to oral anticoagulation Acute hypoxemic respiratory failure secondary to sepsis, which resolved Diabetes mellitus: Continue with present regimen. Sleep apnea Possible COPD Status post pacemaker implantation History of GERD Hyperlipidemia
[2018-01-13 11:48] LABS: Glucose,Whole Blood 183 mg/dL (75-99)
[2018-01-13] MEDS ORDERED: HEPARIN SODIUM,PORCINE/D5W PMX 25,000 UNIT in DEXTROSE/WATER 1 500ML.BAG IV SCH (14:15)
[2018-01-13] MEDS ORDERED: HEPARIN SODIUM,PORCINE 5,000 UNIT/ML 1 ML VIAL IV PRN (16:45)
[2018-01-13 16:54] LABS: Glucose,Whole Blood 163 mg/dL (75-99)
[2018-01-13] MEDS: WARFARIN 5 MG TAB PO SCH (17:12)
[2018-01-13] MEDS: HEPARIN SODIUM,PORCINE/D5W PMX 25,000 UNIT in DEXTROSE/WATER 1 500ML.BAG IV SCH (17:31)
[2018-01-13 20:28] LABS: Glucose,Whole Blood 210 mg/dL (75-99)
--- NOTE | 2018-01-14 00:19 | PN ---
PROGRESS NOTE This patient is treated for sepsis and scrotal abscess. Patient remains cardiac-al stable. He is afebrile. The patient currently is in sinus rhythm. Patient does have a evidence of intermittent atrial fibrillation. Blood pressure is 170/75 mmHg. First and second heart sounds are normal. Lung exam revealed a few scattered wheezes. Patient is currently being dialyzed. In view of the severely impaired renal function, the patient is not a candidate for any oral anticoagulation therapy and we will recommend to start the patient on Coumadin. MMODL / IJN: [id number] /
[2018-01-14] MEDS: SODIUM CHLORIDE 0.9% 1,000 ML IV SCH ×2 (01:33→07:51)
[2018-01-14] MEDS: HYDROcodone/APAP 7.5-325MG 1 EACH TAB PO PRN ×3 (01:33→16:18)
[2018-01-14 01:41] LABS: Glucose,Whole Blood 170 mg/dL (75-99)
[2018-01-14] MEDS: INSULIN ASPART 100 UNIT/ML 1 ML 10 ML VIAL SQ SCH ×5 (02:54→22:16)
[2018-01-14] MEDS: HEPARIN SODIUM,PORCINE/D5W PMX 25,000 UNIT in DEXTROSE/WATER 1 500ML.BAG IV SCH ×3 (03:22→18:59)
[2018-01-14 04:40] LABS: Basophils % (A) 1 %; Eosinophils # (A) 0.1 k/uL (0-0.7); Eosinophils % (A) 2 %; HCT 31.5 % (39.0-53.0); HGB 10.2 gm/dL (13.0-17.5); Lymphocytes # (A) 0.8 k/uL (1.0-4.8); Lymphocytes % (A) 14 %; MCH 29.4 pg (25.0-35.0); MCHC 32.3 g/dL (31.0-37.0); MCV 90.9 fL (80.0-100.0); Mean Platelet Volume 10.3; Monocytes # (A) 0.3 k/uL (0-1.0); Monocytes % (A) 6 %; Neutrophils # (A) 4.1 k/uL (1.3-7.7); Neutrophils % (A) 75 %; Platelet Count 111 k/uL (150-450); RBC 3.46 m/uL (4.30-5.90); WBC 5.5 k/uL (3.8-10.6)
[2018-01-14 04:52] LABS: Partial Thromboplastin Time 45.9 sec (22.0-30.0); Prothrombin Time 10.2 sec (9.0-12.0)
[2018-01-14 05:04] LABS: Magnesium 2.1 mg/dL (1.6-2.3); Phosphorus 6.8 mg/dL (2.5-4.5)
[2018-01-14 07:07] LABS: Glucose,Whole Blood 198 mg/dL (75-99)
--- NOTE | 2018-01-14 07:14 | XR ---
EXAMINATION TYPE: XR chest 1V portable DATE OF EXAM: 01/14/2018 COMPARISON: 01/13/2018 HISTORY: Shortness of breath TECHNIQUE: Single frontal view of the chest is obtained. FINDINGS: Dual lead left-sided cardiac device is unchanged in position. There is cardiomegaly and pr ominence of the superior mediastinum likely due to rotation and engorged vasculature. The lungs are a gain clear. No sizable pleural effusions or pneumothoraces. Moderate right glenohumeral arthropathy a nd multilevel degenerative changes of the thoracic spine are noted. IMPRESSION: No acute cardiopulmonary process process.
--- NOTE | 2018-01-14 07:23 | P.PN ---
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 He continues to improve. He is extubated and off blood pressure assist. The scrotum does not show any necrosis. It is swollen as expected. It is being packed twice daily with the silver nitrate packing. We will continue supportive care Objective - Vital Signs Vital signs: Vital Signs Temp 98.9 F 01/14/18 04:00 Pulse 70 01/14/18 07:00 Resp 15 01/14/18 07:00 BP 171/75 01/13/18 22:00 Pulse Ox 97 01/14/18 07:00 Intake & Output 01/13/18 01/14/18 01/14/18 18:59 06:59 18:59 Intake Total 1388 1578.851 78 Output Total 260 345 25 Balance 1128 1233.851 53 Weight 143 kg Intake: IV 858 936 78 [place] 33 36 3 Sodium Chloride 0.9% 1, 825 900 75 000 ml @ 75 mls/hr IV . [id number] [facility] Rx#:[id number] Intake, IV Titration 50 642.851 Amount Heparin Sodium,Porcine/ 642.851 D5w Pmx 25,000 unit In Dextrose/Water 1 500ml. bag @ 17.4 UNITS/KG/HR 49 .45 mls/hr IV .[id number] [facility] Rx#:[id number] Piperacillin-Tazobactam 3 50 .375 gm In Dextrose/Water 1 50ml.bag @ 12.5 mls/hr IVPB Q12H [facility] Rx#: [id number] Oral 480 Output: Urine 260 345 25 Other: Voiding Method Indwelling Catheter Indwelling Catheter ABP, PAP, CO, CI - Last Documented Arterial Blood Pressure 160/67 - Labs CBC & Chem 7: 01/14/18 04:30 01/13/18 04:30 Labs: Abnormal Lab Results - Last 24 Hours (Table) 01/13/18 01/13/18 01/13/18 Range/Units 07:39 11:46 16:53 RBC (4.30-5.90) m/uL Hgb (13.0-17.5) gm/dL Hct (39.0-53.0) % Plt Count (150-450) k/uL Lymphocytes # (1.0-4.8) k/uL APTT (22.0-30.0) sec POC Glucose (mg/dL) 139 H 183 H 163 H (75-99) mg/dL Phosphorus (2.5-4.5) mg/dL 01/13/18 01/14/18 01/14/18 Range/Units 20:26 01:39 04:30 RBC (4.30-5.90) m/uL Hgb (13.0-17.5) gm/dL Hct (39.0-53.0) % Plt Count (150-450) k/uL Lymphocytes # (1.0-4.8) k/uL APTT (22.0-30.0) sec POC Glucose (mg/dL) 210 H 170 H (75-99) mg/dL Phosphorus 6.8 H (2.5-4.5) mg/dL 01/14/18 01/14/18 01/14/18 Range/Units 04:30 04:30 07:06 RBC 3.46 L (4.30-5.90) m/uL Hgb 10.2 L (13.0-17.5) gm/dL Hct 31.5 L (39.0-53.0) % Plt Count 111 L (150-450) k/uL Lymphocytes # 0.8 L (1.0-4.8) k/uL APTT 45.9 H (22.0-30.0) sec POC Glucose (mg/dL) 198 H (75-99) mg/dL Phosphorus (2.5-4.5) mg/dL Microbiology - Last 24 Hours (Table) 01/10/18 17:31 Anaerobic Culture - Final Groin Anaerobic Gm Negative Bacilli 01/09/18 15:17 Blood Culture - Preliminary Blood No Growth after 96 hours
[2018-01-14 07:27] LABS: Calcium 7.3 mg/dL (8.4-10.2)
[2018-01-14] MEDS: IPRATROPIUM-ALBUTEROL 3 ML NEB INHALATION SCH ×3 (08:08→20:08)
[2018-01-14] MEDS: AMIODARONE 200 MG TAB PO SCH ×2 (09:06→22:16)
[2018-01-14] MEDS: ASPIRIN 81 MG PO SCH (09:06)
[2018-01-14] MEDS: SODIUM BICARBONATE TAB 650 MG TAB PO SCH ×2 (09:06→22:17)
[2018-01-14] MEDS: METOPROLOL TARTRATE 25 MG TAB PO SCH ×2 (09:06→22:16)
[2018-01-14] MEDS: TOPIRAMATE 25 MG TAB PO SCH ×2 (09:06→22:17)
--- NOTE | 2018-01-14 09:23 | P.PN ---
Subjective Progress Note Date: 01/14/18 Principal diagnosis: Scrotal cellulitis, respiratory failure Progress note dated 01/12/2018 72-year-old gentleman admitted with a diagnosis of acute severe sepsis and septic shock with lactic acidosis secondary to scrotal cellulitis and abscess. He is postop day #2 status post incision and drainage. He also developed acute kidney injury secondary to sepsis and acute necrosis acute lactic acidosis hyperglycemia non-anion gap metabolic metabolic acidosis acute hypoxemic respiratory failure with intubation and mechanical ventilation and multiple comorbidities including diabetes sleep apnea syndrome COPD pacemaker implantation gastroesophageal reflux disease and hyperlipidemia. The patient will have a dialysis catheter placed by vascular surgery today. After that's done, we may attempt to wean the patient. The patient's currently on ventilator on the volume assist control mode with a rate of 20 tidal volume is 500 FiO2 is 40% to be dropped to 25% and there is 5 of PEEP. Arterial blood gases show a PaO2 of 158 a PaCO2 of 32 and a pH 7.34. This is consistent with hyperoxemia and a mild metabolic acidosis. The patient's propofol is currently off but it was running at 50 mics per kilogram per minute he has a saline IV at 75 mL an hour insulin at 2 units an hour and heparin via weightbase protocol. The patient was intubated on January 10. Chest x-ray looks okay. Progress note dated 01/13/2018 72-year-old male admitted with a diagnosis of acute severe sepsis and septic shock with lactic acidosis secondary to scrotal cellulitis and abscess. The patient is postop day #3, status post incision and drainage. He was extubated from mechanical ventilation yesterday on January 12. He's developed acute kidney injury secondary to sepsis with acute tubular necrosis, lactic acidosis, hyperglycemia, 99 get metabolic acidosis, hypoxemic respiratory failure, resolved, and multiple comorbidities including diabetes sleep apnea COPD pacemaker implantation GERD and hyperlipidemia. The patient is doing much better as mentioned above. Feels much better. Currently the patient is receiving O2 at 3 L by nasal cannula, heparin via weightbase protocol, I saline IV at 75 mL an hour. A dialysis catheter was placed yesterday and he did have hemodialysis yesterday and a half liter was removed. On 01/14/2018 patient seen in follow-up in intensive care unit. He is awake, alert, denies any acute distress, other than scrotal tenderness when being repositioned. Vital signs are stable, patient is afebrile, hemodynamically stable, currently on 2 L per nasal cannula with O2 sat at 97%. His incentive spirometry effort today is up to 3000 ML. Lung sounds are clear to auscultation , patient denies any dyspnea, no chest pain. His IV is 0.9 at 75, and heparin drip infusing at 19 units per kilo per hour. Today's labs were reviewed, WBC is 5.5, hemoglobin is 10.2, carbon dioxide is 18, BUN is 62, and creatinine is 6.82, and the patient is planned to have hemodialysis today. Microbiology results were reviewed, and the scrotal wound cultures are positive for E. coli, beta hemolytic strep, and anaerobic gram-negative bacilli. E. coli is susceptible to Zosyn which the patient is currently on. Objective - Vital Signs Vital signs: Vital Signs Temp 98.9 F 01/14/18 04:00 Pulse 60 01/14/18 08:21 Resp 15 01/14/18 07:00 BP 171/75 01/13/18 22:00 Pulse Ox 97 01/14/18 07:00 Intake & Output 01/13/18 01/14/18 01/14/18 18:59 06:59 18:59 Intake Total 1388 1578.851 396 Output Total 260 345 95 Balance 1128 1233.851 301 Weight 143 kg Intake: IV 858 936 156 [place] 33 36 6 Sodium Chloride 0.9% 1, 825 900 150 000 ml @ 75 mls/hr IV . [id number] [facility] Rx#:[id number] Intake, IV Titration 50 642.851 Amount Heparin Sodium,Porcine/ 642.851 D5w Pmx 25,000 unit In Dextrose/Water 1 500ml. bag @ 17.4 UNITS/KG/HR 49 .45 mls/hr IV .Q10H7M [facility] Rx#:[id number] Piperacillin-Tazobactam 3 50 .375 gm In Dextrose/Water 1 50ml.bag @ 12.5 mls/hr IVPB Q12H [facility] Rx#: [id number] Oral 480 240 Output: Urine 260 345 95 Other: Voiding Method Indwelling Catheter Indwelling Catheter ABP, PAP, CO, CI - Last Documented Arterial Blood Pressure 160/67 - Exam No acute distress, nasal O2 in place.. HEENT examination is grossly unremarkable. Neck supple. Full range of motion. No adenopathy thyromegaly or neck vein distention. Cardiovascular examination reveals regular rhythm rate. S1-S2 normal. No S3 or S4. No discernible murmur noted. Lungs reveal clear breath sounds. No wheezes rhonchi or crackles. Breath sounds are equal bilaterally. Abdomen soft bowel sounds are heard. No masses or tenderness. Extremities are intact. No cyanosis clubbing or edema. Skin is without rash or lesion. Scrotal edema and cellulitis is noted. Neurologic examination is normal - Labs CBC & Chem 7: 01/14/18 04:30 01/14/18 04:30 Labs: Abnormal Lab Results - Last 24 Hours (Table) 01/13/18 01/13/18 01/13/18 Range/Units 11:46 16:53 20:26 RBC (4.30-5.90) m/uL Hgb (13.0-17.5) gm/dL Hct (39.0-53.0) % Plt Count (150-450) k/uL Lymphocytes # (1.0-4.8) k/uL APTT (22.0-30.0) sec Carbon Dioxide (22-30) mmol/L BUN (9-20) mg/dL Creatinine (0.66-1.25) mg/dL Glucose (74-99) mg/dL POC Glucose (mg/dL) 183 H 163 H 210 H (75-99) mg/dL Calcium (8.4-10.2) mg/dL Phosphorus (2.5-4.5) mg/dL 01/14/18 01/14/18 01/14/18 Range/Units 01:39 04:30 04:30 RBC 3.46 L (4.30-5.90) m/uL Hgb 10.2 L (13.0-17.5) gm/dL Hct 31.5 L (39.0-53.0) % Plt Count 111 L (150-450) k/uL Lymphocytes # 0.8 L (1.0-4.8) k/uL APTT (22.0-30.0) sec Carbon Dioxide (22-30) mmol/L BUN (9-20) mg/dL Creatinine (0.66-1.25) mg/dL Glucose (74-99) mg/dL POC Glucose (mg/dL) 170 H (75-99) mg/dL Calcium (8.4-10.2) mg/dL Phosphorus 6.8 H (2.5-4.5) mg/dL 01/14/18 01/14/18 01/14/18 Range/Units 04:30 04:30 07:06 RBC (4.30-5.90) m/uL Hgb (13.0-17.5) gm/dL Hct (39.0-53.0) % Plt Count (150-450) k/uL Lymphocytes # (1.0-4.8) k/uL APTT 45.9 H (22.0-30.0) sec Carbon Dioxide 18 L (22-30) mmol/L BUN 62 H (9-20) mg/dL Creatinine 6.85 H* (0.66-1.25) mg/dL Glucose 186 H (74-99) mg/dL POC Glucose (mg/dL) 198 H (75-99) mg/dL Calcium 7.3 L (8.4-10.2) mg/dL Phosphorus (2.5-4.5) mg/dL Microbiology - Last 24 Hours (Table) 01/10/18 17:31 Anaerobic Culture - Final Groin Anaerobic Gm Negative Bacilli 01/09/18 15:17 Blood Culture - Preliminary Blood No Growth after 96 hours Assessment and Plan Plan: Assessment: Acute severe sepsis and septic shock with lactic acidosis, secondary to scrotal cellulitis and abscess, status post incision and drainage, postop day #4 Status post intubation and mechanical ventilation, with extubation on 01/12/2018 Acute kidney injury with acute tubular necrosis Acute lactic acidosis Non-anion gap metabolic acidosis Acute hyperglycemia Acute hypoxemic respiratory failure Diabetes mellitus Sleep apnea syndrome Possible COPD Status post pacemaker implantation History of GERD Hyperlipidemia Plan: Continue encouraging deep breathing and coughing, PT was consulted for assistance with mobilizing the patient. This will present a challenge as patient is having significant tenderness when being repositioned in the scrotal area. Otherwise patient is improving, no acute distress, vital signs are stable , afebrile. Continue current antibiotic coverage. Patient is stable to transfer out of intensive care unit today. Anticipate patient having hemodialysis today. Continue to follow I performed a history & physical examination of the patient and discussed their management with my nurse practitioner, Kari Ron. I reviewed the nurse practitioner's note and agree with the documented findings and plan of care. Lung sounds are clear . The findings and the impression was discussed with the patient. I attest to the documentation by the nurse practitioner. Time with Patient: Greater than 30
--- NOTE | 2018-01-14 10:27 | P.PN ---
Subjective Patient is seen in follow-up for acute kidney injury. Patient presented with scrotal cellulitis and underwent debridement of gangrene by urology on January 10. Patient developed worsening renal failure and was started on hemodialysis on January 12. He tolerated the treatment well. Creatinine today is up to 6.85. His urine output is improving. He is currently maintained on normal saline at 75 mL an hour. Patient was extubated over the weekend. He is off all vasopressors. He is currently resting in bed. Family present at bedside. Vital signs are stable. General: The patient appeared well nourished and normally developed. HEENT: Head exam is unremarkable. Neck is without jugular venous distension. LUNGS: Lungs are clear to auscultation and percussion. Breath sounds decreased. HEART: Rate and Rhythm are regular. First and second heart sounds normal. No murmurs, rubs or gallops. ABDOMEN: Abdominal exam reveals normal bowel sounds. Non-tender and non- distended. No evidence of peritonitis. EXTREMITITES: No clubbing, cyanosis, or edema. Objective - Vital Signs Vital signs: Vital Signs Temp 98.2 F 01/14/18 09:00 Pulse 63 01/14/18 10:00 Resp 17 01/14/18 10:00 BP 171/75 01/13/18 22:00 Pulse Ox 95 01/14/18 10:00 Intake & Output 01/13/18 01/14/18 01/14/18 18:59 06:59 18:59 Intake Total 1388 1578.851 552 Output Total 260 345 205 Balance 1128 1233.851 347 Weight 143 kg 143 kg Intake: IV 858 936 312 [place] 33 36 12 Sodium Chloride 0.9% 1, 825 900 300 000 ml @ 75 mls/hr IV . [id number] [facility] Rx#:[id number] Intake, IV Titration 50 642.851 Amount Heparin Sodium,Porcine/ 642.851 D5w Pmx 25,000 unit In Dextrose/Water 1 500ml. bag @ 17.4 UNITS/KG/HR 49 .45 mls/hr IV .Q10H7M [facility] Rx#:[id number] Piperacillin-Tazobactam 3 50 .375 gm In Dextrose/Water 1 50ml.bag @ 12.5 mls/hr IVPB Q12H [facility] Rx#: [id number] Oral 480 240 Output: Urine 260 345 205 Other: Voiding Method Indwelling Catheter Indwelling Catheter Indwelling Catheter ABP, PAP, CO, CI - Last Documented Arterial Blood Pressure 153/64 - Labs CBC & Chem 7: 01/14/18 04:30 01/14/18 04:30 Labs: Abnormal Lab Results - Last 24 Hours (Table) 01/13/18 01/13/18 01/13/18 Range/Units 11:46 16:53 20:26 RBC (4.30-5.90) m/uL Hgb (13.0-17.5) gm/dL Hct (39.0-53.0) % Plt Count (150-450) k/uL Lymphocytes # (1.0-4.8) k/uL APTT (22.0-30.0) sec Carbon Dioxide (22-30) mmol/L BUN (9-20) mg/dL Creatinine (0.66-1.25) mg/dL Glucose (74-99) mg/dL POC Glucose (mg/dL) 183 H 163 H 210 H (75-99) mg/dL Calcium (8.4-10.2) mg/dL Phosphorus (2.5-4.5) mg/dL 01/14/18 01/14/18 01/14/18 Range/Units 01:39 04:30 04:30 RBC 3.46 L (4.30-5.90) m/uL Hgb 10.2 L (13.0-17.5) gm/dL Hct 31.5 L (39.0-53.0) % Plt Count 111 L (150-450) k/uL Lymphocytes # 0.8 L (1.0-4.8) k/uL APTT (22.0-30.0) sec Carbon Dioxide (22-30) mmol/L BUN (9-20) mg/dL Creatinine (0.66-1.25) mg/dL Glucose (74-99) mg/dL POC Glucose (mg/dL) 170 H (75-99) mg/dL Calcium (8.4-10.2) mg/dL Phosphorus 6.8 H (2.5-4.5) mg/dL 01/14/18 01/14/18 01/14/18 Range/Units 04:30 04:30 07:06 RBC (4.30-5.90) m/uL Hgb (13.0-17.5) gm/dL Hct (39.0-53.0) % Plt Count (150-450) k/uL Lymphocytes # (1.0-4.8) k/uL APTT 45.9 H (22.0-30.0) sec Carbon Dioxide 18 L (22-30) mmol/L BUN 62 H (9-20) mg/dL Creatinine 6.85 H* (0.66-1.25) mg/dL Glucose 186 H (74-99) mg/dL POC Glucose (mg/dL) 198 H (75-99) mg/dL Calcium 7.3 L (8.4-10.2) mg/dL Phosphorus (2.5-4.5) mg/dL Microbiology - Last 24 Hours (Table) 01/10/18 17:31 Anaerobic Culture - Final Groin Anaerobic Gm Negative Bacilli 01/09/18 15:17 Blood Culture - Preliminary Blood No Growth after 96 hours Assessment and Plan Plan: Assessment: #1. Oliguric - now nonoliguric - acute kidney injury secondary to ischemic ATN secondary to septic shock and hemodynamic instability. Baseline creatinine is 1 and elevated at 6.85 today. Urinalysis is quite benign. Patient underwent first treatment of hemodialysis on January 12. #2. Septic shock secondary to scrotal abscess, off vasopressors at this time. #3. Atrial fibrillation with RVR status post Cardizem drip. Now rate controlled. #4. Scrotal abscess status post debridement of necrotic tissue on January 10. #5. Metabolic acidosis secondary to acute kidney injury and IV fluids. #6. Hypophosphatemia secondary to poor nutritional status. Improved post replacement. Now hyperphosphatemia. #7. Hypokalemia secondary to poor oral intake. Magnesium replete. Improved posterior placement. #8. Diabetes mellitus. Plan: Second treatment of hemodialysis today. Maintain normal saline at 75 mL an hour. Discontinued ibuprofen. Discontinued metformin. Continue to monitor renal function and urine output. Expect renal recovery over the next few days.
[2018-01-14] MEDS ORDERED: HEPARIN SODIUM,PORCINE 5,000 UNIT/ML 1 ML VIAL ONE (10:40)
--- NOTE | 2018-01-14 11:02 | PN ---
PROGRESS NOTE This patient's medical chart, lab tests were reviewed. We are seeing the patient for history of paroxysmal atrial fibrillation. The patient is currently being atrial paced. Patient vital signs are stable. He is taking oral medications. Blood pressure is 153/64 mmHg. First and second heart sounds are normal. Lungs are clinically clear to auscultation and percussion. We will recommend to continue the patient on Coumadin according to PT and INR. We will now follow the patient p.r.n. MMBAM / CRISTOFERN: [id number] /
[2018-01-14 11:58] LABS: Glucose,Whole Blood 186 mg/dL (75-99)
[2018-01-14] MEDS: PIPERACILLIN-TAZOBACTAM 3.375 GM in DEXTROSE/WATER 1 50ML.BAG IVPB SCH (12:15)
--- NOTE | 2018-01-14 14:07 | P.PN ---
Subjective 72-year-old admitted secondary to septic shock shock improved patient is presently on Zosyn for gram-negative scrotal abscess and 40 is gangrene patient is status post incision and drainage and patient is intubated mechanically ventilated due to hypoxic respiratory failure from sepsis. We did is being managed by credit collections rep. Patient is on IV heparin because of his history of atrial fibrillation and patient is being bridged with IV heparin because of his high risk for cerebrovascular accident from A. fib. Patient was evaluated by infectious disease, credit collections rep, urology. 01/13/2018 Patient was extubated yesterday clinically doing well, patient remains on IV heparin will switch will be switched to oral anticoagulation for his chronic atrial fibrillation. Patient is comparing of some discomfort in the scrotal area. 01/14/2018 Patient is clinically doing well is complaining of massive condition fullness was ordered and patient will be transferred out of ICU. Patient's own cultures are now showing E. coli as well as and aerobic gram-negative bacilli along with beta hemolytic streptococci patient is on appropriate antibiotic Zosyn to cover all this bacteria area patient was started back on anticoagulations with Coumadin Constitutional: Denied any fatigue denied any fever. Cardio vascular: denied any chest pain, palpitations Gastrointestinal denied any nausea vomiting Pulmonary: Denied any shortness of breath cough Neurologic denied any new focal deficits Objective - Vital Signs Vital signs: Vital Signs Temp 98.1 F 01/14/18 12:00 Pulse 63 01/14/18 13:55 Resp 12 01/14/18 12:00 BP 171/75 01/13/18 22:00 Pulse Ox 94 L 01/14/18 12:00 Intake & Output 01/13/18 01/14/18 01/14/18 18:59 06:59 18:59 Intake Total 1388 1578.851 758 Output Total 260 345 275 Balance 1128 1233.851 483 Weight 143 kg 143 kg Intake: IV 858 936 468 [place] 33 36 18 Sodium Chloride 0.9% 1, 825 900 450 000 ml @ 75 mls/hr IV . [id number] [facility] Rx#:[id number] Intake, IV Titration 50 642.851 50 Amount Heparin Sodium,Porcine/ 642.851 D5w Pmx 25,000 unit In Dextrose/Water 1 500ml. bag @ 17.4 UNITS/KG/HR 49 .45 mls/hr IV .Q10H7M [facility] Rx#:[id number] Piperacillin-Tazobactam 3 50 50 .375 gm In Dextrose/Water 1 50ml.bag @ 12.5 mls/hr IVPB Q12H [facility] Rx#: [id number] Oral 480 240 Output: Urine 260 345 275 Other: Voiding Method Indwelling Catheter Indwelling Catheter Indwelling Catheter ABP, PAP, CO, CI - Last Documented Arterial Blood Pressure 168/64 - Exam PHYSICAL EXAMINATION: GENERAL: Drowsy oriented 3 morbidly obese HEENT: Pupils are round and equally reacting to light. EOMI. No scleral icterus. No conjunctival pallor. Normocephalic, atraumatic. No pharyngeal erythema. No thyromegaly. CARDIOVASCULAR: S1 and S2 present. No murmurs, rubs, or gallops. PULMONARY: Chest is clear to auscultation, no wheezing or crackles. ABDOMEN: Soft, nontender, nondistended, normoactive bowel sounds. No palpable organomegaly. MUSCULOSKELETAL: No joint swelling or deformity. EXTREMITIES: No cyanosis, clubbing, or pedal edema. Scrotal edema with cellulitis and the postsurgically packed NEUROLOGICAL: No new focal deficits were appreciated SKIN: No rashes. - Labs CBC & Chem 7: 01/14/18 04:30 01/14/18 04:30 Labs: Abnormal Lab Results - Last 24 Hours (Table) 01/13/18 01/13/18 01/14/18 Range/Units 16:53 20:26 01:39 RBC (4.30-5.90) m/uL Hgb (13.0-17.5) gm/dL Hct (39.0-53.0) % Plt Count (150-450) k/uL Lymphocytes # (1.0-4.8) k/uL APTT (22.0-30.0) sec Carbon Dioxide (22-30) mmol/L BUN (9-20) mg/dL Creatinine (0.66-1.25) mg/dL Glucose (74-99) mg/dL POC Glucose (mg/dL) 163 H 210 H 170 H (75-99) mg/dL Calcium (8.4-10.2) mg/dL Phosphorus (2.5-4.5) mg/dL 01/14/18 01/14/18 01/14/18 Range/Units 04:30 04: 04:30 RBC 3.46 L (4.30-5.90) m/uL Hgb 10.2 L (13.0-17.5) gm/dL Hct 31.5 L (39.0-53.0) % Plt Count 111 L (150-450) k/uL Lymphocytes # 0.8 L (1.0-4.8) k/uL APTT 45.9 H (22.0-30.0) sec Carbon Dioxide (22-30) mmol/L BUN (9-20) mg/dL Creatinine (0.66-1.25) mg/dL Glucose (74-99) mg/dL POC Glucose (mg/dL) (75-99) mg/dL Calcium (8.4-10.2) mg/dL Phosphorus 6.8 H (2.5-4.5) mg/dL 01/14/18 01/14/18 01/14/18 Range/Units 04:30 07:06 11:57 RBC (4.30-5.90) m/uL Hgb (13.0-17.5) gm/dL Hct (39.0-53.0) % Plt Count (150-450) k/uL Lymphocytes # (1.0-4.8) k/uL APTT (22.0-30.0) sec Carbon Dioxide 18 L (22-30) mmol/L BUN 62 H (9-20) mg/dL Creatinine 6.85 H* (0.66-1.25) mg/dL Glucose 186 H (74-99) mg/dL POC Glucose (mg/dL) 198 H 186 H (75-99) mg/dL Calcium 7.3 L (8.4-10.2) mg/dL Phosphorus (2.5-4.5) mg/dL 01/14/18 Range/Units 12:45 RBC (4.30-5.90) m/uL Hgb (13.0-17.5) gm/dL Hct (39.0-53.0) % Plt Count (150-450) k/uL Lymphocytes # (1.0-4.8) k/uL APTT 48.3 H (22.0-30.0) sec Carbon Dioxide (22-30) mmol/L BUN (9-20) mg/dL Creatinine (0.66-1.25) mg/dL Glucose (74-99) mg/dL POC Glucose (mg/dL) (75-99) mg/dL Calcium (8.4-10.2) mg/dL Phosphorus (2.5-4.5) mg/dL Microbiology - Last 24 Hours (Table) 01/10/18 17:31 Anaerobic Culture - Final Groin Anaerobic Gm Negative Bacilli 01/09/18 15:17 Blood Culture - Preliminary Blood No Growth after 96 hours Assessment and Plan Plan: severe sepsis and septic shock with lactic acidosis, secondary to scrotal cellulitis and abscess and jitendra's gangrene, status post incision and drainage, patient shock improved n patient is on Zosyn for streptococci, E. coli and anaerobic gram-negative bacilli Acute kidney injury with acute tubular necrosis, patient's creatinine is 6.5 today and patient will undergo hemodialysis hopefully temporary Non-anion gap metabolic acidosis due to lactic acidosis which improved atrial fibrillation history: Presently rate controlled was resumed on oral anticoagulation along with IV heparin will be transferred out of ICU Acute hypoxemic respiratory failure secondary to sepsis, which resolved Diabetes mellitus: Continue with present regimen. Sleep apnea Possible COPD Status post pacemaker implantation History of GERD Hyperlipidemia
[2018-01-14] MEDS ORDERED: MORPHINE SULFATE 4 MG/ML SYRINGE IVP PRN (15:24)
[2018-01-14 17:02] LABS: Glucose,Whole Blood 173 mg/dL (75-99)
[2018-01-14] MEDS: FLUTICASONE 50MCG/SPRAY NASAL 16GM EA NOSTRIL PRN (17:23)
[2018-01-14] MEDS: WARFARIN 5 MG TAB PO SCH (19:00)
[2018-01-14 21:22] LABS: Glucose,Whole Blood 190 mg/dL (75-99)
--- NOTE | 2018-01-14 22:36 | P.PN ---
Subjective Progress Note Date: 01/14/18 Principal diagnosis: 72-year-old male who has obesity and diabetes that is controlled with oral medication presents to the hospital with acute illness with fever pain and swelling to the scrotum. Upon admission the patient had interventions that included ultrasound and blood work patient evidence of sepsis and was brought in the hospital. He did have increasing illness and was seen by urology. 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 Fortunately it had not spread significantly beyond the scrotal tissue at the time of the surgical debridement. The patient this time remains in intensive care unit intubated sedated and mechanically ventilated requiring vasopressor therapy for his sepsis with shock. However there seems to be some improvement. The patient 's condition is discussed with his and sister. The patient's relates that he had been evaluated in the last few months for his diabetes it was on oral medications and thought he was doing relatively well. We discussed hemoglobin A1c is greater than 11 which would indicate that he likely has had uncontrolled blood sugar for quite some time. This is the etiology of his current infection and will need better glucose control to allow improvement of his infection. 01/14/2018 patient is improved but remains on hemodialysis for the acute renal failure with hope of renal recovery. the scrotal infection is improving Objective - Vital Signs Vital signs: Vital Signs Temp 98.5 F 01/14/18 20:43 Pulse 62 01/14/18 20:43 Resp 16 01/14/18 20:43 BP 158/73 01/14/18 20:43 Pulse Ox 95 01/14/18 20:43 Intake & Output 01/14/18 01/14/18 01/15/18 06:59 18:59 06:59 Intake Total 6613.088 2882.424 232.028 Output Total 888 184 1082 Balance 2290.938 0792.424 -792.972 Weight 143 kg 143 kg Intake: IV 936 933 75 Abigail 36 33 Sodium Chloride 0.9% 1, 900 900 75 000 ml @ 75 mls/hr IV . [id number] [facility] Rx#:[id number] Intake, IV Titration 642.851 652.424 157.028 Amount Heparin Sodium,Porcine/ 642.851 602.424 157.028 D5w Pmx 25,000 unit In Dextrose/Water 1 500ml. bag @ 17.4 UNITS/KG/HR 49 .45 mls/hr IV .Q10H7M [facility] Rx#:[id number] Piperacillin-Tazobactam 3 50 .375 gm In Dextrose/Water 1 50ml.bag @ 12.5 mls/hr IVPB Q12H [facility] Rx#: [id number] Oral 480 Output: Urine 345 605 25 Other 1000 Other: Voiding Method Indwelling Catheter Indwelling Catheter ABP, PAP, CO, CI - Last Documented Arterial Blood Pressure 145/46 - Exam 72-year-old male who has obesity is supine, improving extubated but receiving dialysis HEENT: Anicteric conjunctiva are pink and moist nasal mucosa grossly intact without significant lesions around the endotracheal tube, there is no thrush. Neck: The neck is without significant lymphadenopathy or thyromegaly. Lungs: Symmetrical air entry is noted a few expiratory wheezes are scattered no yanni bronchial sounds Heart: Irregular with audible S1 and S2 soft S4 no murmur click or rub Abdomen: Obese, Positive bowel sounds soft and nontender without palpable masses or organomegaly. There was no guarding or rebound. Extremities: The upper extremities have excellent pulses they are symmetric, no significant petechiae or telangiectasia. No splinter hemorrhages were noted. Lower extremities evidence of some chronic edema no open ulcerations Genitalia: With nurse present the scrotum was evaluated shows evidence the recent surgical intervention. The surgeon is asked to the patient not to be removed moved till tomorrow. There is still significant swelling erythema and warmth to the scrotum. There is no expressible purulence. Neuro:awake alert and interactive - Labs CBC & Chem 7: 01/14/18 04:30 01/14/18 04:30 Labs: Abnormal Lab Results - Last 24 Hours (Table) 01/14/18 01/14/18 01/14/18 Range/Units 01:39 04:30 04:30 RBC 3.46 L (4.30-5.90) m/uL Hgb 10.2 L (13.0-17.5) gm/dL Hct 31.5 L (39.0-53.0) % Plt Count 111 L (150-450) k/uL Lymphocytes # 0.8 L (1.0-4.8) k/uL APTT (22.0-30.0) sec Carbon Dioxide (22-30) mmol/L BUN (9-20) mg/dL Creatinine (0.66-1.25) mg/dL Glucose (74-99) mg/dL POC Glucose (mg/dL) 170 H (75-99) mg/dL Calcium (8.4-10.2) mg/dL Phosphorus 6.8 H (2.5-4.5) mg/dL 01/14/18 01/14/18 01/14/18 Range/Units 04:30 04:30 07:06 RBC (4.30-5.90) m/uL Hgb (13.0-17.5) gm/dL Hct (39.0-53.0) % Plt Count (150-450) k/uL Lymphocytes # (1.0-4.8) k/uL APTT 45.9 H (22.0-30.0) sec Carbon Dioxide 18 L (22-30) mmol/L BUN 62 H (9-20) mg/dL Creatinine 6.85 H* (0.66-1.25) mg/dL Glucose 186 H (74-99) mg/dL POC Glucose (mg/dL) 198 H (75-99) mg/dL Calcium 7.3 L (8.4-10.2) mg/dL Phosphorus (2.5-4.5) mg/dL 01/14/18 01/14/18 01/14/18 Range/Units 11:57 12:45 17:00 RBC (4.30-5.90) m/uL Hgb (13.0-17.5) gm/dL Hct (39.0-53.0) % Plt Count (150-450) k/uL Lymphocytes # (1.0-4.8) k/uL APTT 48.3 H (22.0-30.0) sec Carbon Dioxide (22-30) mmol/L BUN (9-20) mg/dL Creatinine (0.66-1.25) mg/dL Glucose (74-99) mg/dL POC Glucose (mg/dL) 186 H 173 H (75-99) mg/dL Calcium (8.4-10.2) mg/dL Phosphorus (2.5-4.5) mg/dL 01/14/18 01/14/18 Range/Units 20:09 21:10 RBC (4.30-5.90) m/uL Hgb (13.0-17.5) gm/dL Hct (39.0-53.0) % Plt Count (150-450) k/uL Lymphocytes # (1.0-4.8) k/uL APTT 101.5 H* (22.0-30.0) sec Carbon Dioxide (22-30) mmol/L BUN (9-20) mg/dL Creatinine (0.66-1.25) mg/dL Glucose (74-99) mg/dL POC Glucose (mg/dL) 190 H (75-99) mg/dL Calcium (8.4-10.2) mg/dL Phosphorus (2.5-4.5) mg/dL Microbiology - Last 24 Hours (Table) 01/10/18 17:31 Anaerobic Culture - Final Groin Anaerobic Gm Negative Bacilli 01/09/18 15:17 Blood Culture - Preliminary Blood No Growth after 120 hours 01/10/18 17:31 Anaerobic Culture - Final Groin Anaerobic Gm Negative Bacilli Laboratory Results WBC 5.5 k/uL (3.8-10.6) 01/14/18 04:30 RBC 3.46 m/uL (4.30-5.90) L 01/14/18 04:30 Hgb 10.2 gm/dL (13.0-17.5) L 01/14/18 04:30 Hct 31.5 % (39.0-53.0) L 01/14/18 04:30 MCV 90.9 fL (80.0-100.0) 01/14/18 04:30 MCH 29.4 pg (25.0-35.0) 01/14/18 04:30 MCHC 32.3 g/dL (31.0-37.0) 01/14/18 04:30 RDW 13.0 % (11.5-15.5) 01/14/18 04:30 Plt Count 111 k/uL (150-450) L 01/14/18 04:30 Neutrophils % 75 % 01/14/18 04:30 Lymphocytes % 14 % 01/14/18 04:30 Monocytes % 6 % 01/14/18 04:30 Eosinophils % 2 % 01/14/18 04:30 Basophils % 1 % 01/14/18 04:30 Neutrophils # 4.1 k/uL (1.3-7.7) 01/14/18 04:30 Lymphocytes # 0.8 k/uL (1.0-4.8) L 01/14/18 04:30 Monocytes # 0.3 k/uL (0-1.0) 01/14/18 04:30 Eosinophils # 0.1 k/uL (0-0.7) 01/14/18 04:30 Basophils # 0.0 k/uL (0-0.2) 01/14/18 04:30 Manual Slide Review Performed 01/11/18 04:20 Large Platelets Present 01/11/18 04:20 PT 10.2 sec (9.0-12.0) 01/14/18 04:30 INR 1.0 (<1.2) 01/14/18 04:30 APTT 101.5 sec (22.0-30.0) H* 01/14/18 20:09 Sample Site [facility]O 01/12/18 16:02 ABG pH 7.31 (7.35-7.45) L 01/12/18 16:02 ABG pCO2 34 mmHg (35-45) L 01/12/18 16:02 ABG pO2 96 mmHg (83-108) 01/12/18 16:02 ABG HCO3 17 mmol/L (21-25) L 01/12/18 16:02 ABG Total CO2 18 mmol/L (19-24) L 01/12/18 16:02 ABG O2 Saturation 97.6 % (94-97) H 01/12/18 16:02 ABG Base Excess -8.9 mmol/L 01/12/18 16:02 Kike Test Yes 01/12/18 16:02 FiO2 25 % 01/12/18 16:02 Sodium 137 mmol/L (137-145) 01/14/18 04:30 Potassium 4.0 mmol/L (3.5-5.1) 01/14/18 04:30 Chloride 105 mmol/L (98-107) 01/14/18 04:30 Carbon Dioxide 18 mmol/L (22-30) L 01/14/18 04:30 Anion Gap 14 mmol/L 01/14/18 04:30 BUN 62 mg/dL (9-20) H 01/14/18 04:30 Creatinine 6.85 mg/dL (0.66-1.25) H* 01/14/18 04:30 Est GFR (CKD-EPI)AfAm 9 (>60 ml/min/1.73 sqM) 01/14/18 04:30 Est GFR (CKD-EPI)NonAf 7 (>60 ml/min/1.73 sqM) 01/14/18 04:30 Glucose 186 mg/dL (74-99) H 01/14/18 04:30 POC Glucose (mg/dL) 190 mg/dL (75-99) H 01/14/18 21:10 POC Glu Head Grower ID Idalmis Akbar 01/14/18 21:[address] Glu mg/dL 272 01/10/18 03:46 Hemoglobin A1c 11.1 % (4.0-6.0) H 01/10/18 03:46 Lactic Ac Sepsis Rflx Y 01/10/18 00:16 Plasma Lactic Acid Shemar 1.7 mmol/L (0.7-2.0) 01/10/18 09:46 Calcium 7.3 mg/dL (8.4-10.2) L 01/14/18 04:30 Phosphorus 6.8 mg/dL (2.5-4.5) H 01/14/18 04:30 Magnesium 2.1 mg/dL (1.6-2.3) 01/14/18 04:30 Total Bilirubin 1.3 mg/dL (0.2-1.3) 01/09/18 15:17 AST 23 U/L (17-59) 01/09/18 15:17 ALT 23 U/L (21-72) 01/09/18 15:17 Alkaline Phosphatase 108 U/L (38-126) 01/09/18 15:17 Total Protein 6.9 g/dL (6.3-8.2) 01/09/18 15:17 Albumin 4.0 g/dL (3.5-5.0) 01/09/18 15:17 TSH 1.240 mIU/L (0.465-4.680) 01/10/18 13:37 Free T4 1.71 ng/dL (0.78-2.19) 01/10/18 13:37 Urine Color Yellow 01/10/18 02:25 Urine Appearance Cloudy (Clear) 01/10/18 02:25 Urine pH 5.0 (5.0-8.0) 01/10/18 02:25 Ur Specific [place] 1.028 (1.001-1.035) 01/10/18 02:25 Urine Protein Trace (Negative) H 01/10/18 02:25 Urine Glucose (UA) 4+ (Negative) H 01/10/18 02:25 Urine Ketones Trace (Negative) H 01/10/18 02:25 Urine Blood Negative (Negative) 01/10/18 02:25 Urine Nitrite Negative (Negative) 01/10/18 02:25 Urine Bilirubin Negative (Negative) 01/10/18 02:25 Urine Urobilinogen <2.0 mg/dL (<2.0) 01/10/18 02:25 Ur Leukocyte Esterase Negative (Negative) 01/10/18 02:25 Urine RBC <1 /hpf (0-5) 01/10/18 02:25 Urine WBC 2 /hpf (0-5) 01/10/18 02:25 Random Vancomycin 32.2 ug/mL 01/12/18 04:30 Acetone, Qual Negative (Negative) 01/09/18 23:42 Microbiology 01/10/18 17:31 Groin Anaerobic Culture - Final Anaerobic Gm Negative Bacilli 01/09/18 15:17 Blood Blood Culture - Preliminary No Growth after 120 hours 01/10/18 17:31 Groin Anaerobic Culture - Final Anaerobic Gm Negative Bacilli 01/10/18 17:31 Groin Gram Stain - Final 01/10/18 17:31 Groin Wound Culture - Final Escherichia coli Beta Hemolytic Streptococcus F 01/10/18 17:31 Groin Gram Stain - Final 01/10/18 17:31 Groin Wound Culture - Final Beta Hemolytic Streptococcus F 01/10/18 02:25 Urine,Catheterized Urine Culture - Final Assessment and Plan (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 He was taken to the operating room and Vanesa's gangrene was noted that he had debridement of his scrotum. The necrotic material was debrided away and fortunately it is somewhat limited in its extent. There is some however residual erythema and induration of the scrotum and depending on how he responds determine if further intervention is needed, however at this time appears to be stable to improved. The patient is on broad-spectrum antibiotic therapy. Current data is being monitored and likely will discontinue vancomycin therapy especially since he is having increased creatinine. Will utilize silver dressings once the packing is removed by the surgeon. Elevation of the scrotum will be helpful for its edema. As patient progresses and is discharged have instructed his that his glucose control be very important for wound healing and for preventing further events like this in the future. His blood sugar was over 500 admission and his A1c was very elevated. The patient's relates that he was given recently some corticosteroid therapy, which may have contributed to this entire process. Patient remains critically ill but is showing some improvement. 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 Current Visit: Yes Status: Acute Code(s): N49.3 - VANESA GANGRENE SNOMED Code(s): 343251448 (2) Sepsis due to Gram-negative organism with septic shock Current Visit: Yes Status: Acute Code(s): A41.50 - GRAM-NEGATIVE SEPSIS, UNSPECIFIED; R65.21 - SEVERE SEPSIS WITH SEPTIC SHOCK SNOMED Code(s): 386967525 (3) Diabetes mellitus type 2, uncontrolled, with complications Current Visit: Yes Status: Acute Code(s): E11.8 - TYPE 2 DIABETES MELLITUS WITH UNSPECIFIED COMPLICATIONS; E11.65 - TYPE 2 DIABETES MELLITUS WITH HYPERGLYCEMIA SNOMED Code(s): 254243748 (4) Leukocytosis Current Visit: Yes Status: Acute Code(s): D72.829 - ELEVATED WHITE BLOOD CELL COUNT, UNSPECIFIED SNOMED Code(s): 318108341 (5) Acute renal failure Current Visit: Yes Status: Acute Code(s): N17.9 - ACUTE KIDNEY FAILURE, UNSPECIFIED SNOMED Code(s): 25137337
[2018-01-15 02:11] LABS: Glucose,Whole Blood 197 mg/dL (75-99)
[2018-01-15] MEDS: SODIUM CHLORIDE 0.9% 1,000 ML IV SCH ×2 (02:41→15:14)
[2018-01-15] MEDS: INSULIN ASPART 100 UNIT/ML 1 ML 10 ML VIAL SQ SCH ×5 (02:55→21:19)
[2018-01-15] MEDS: PIPERACILLIN-TAZOBACTAM 3.375 GM in DEXTROSE/WATER 1 50ML.BAG IVPB SCH ×2 (02:55→12:05)
[2018-01-15 03:48] LABS: Basophils % (A) 0 %; Eosinophils # (A) 0.1 k/uL (0-0.7); Eosinophils % (A) 2 %; HCT 30.5 % (39.0-53.0); Lymphocytes # (A) 0.7 k/uL (1.0-4.8); Lymphocytes % (A) 15 %; MCH 28.8 pg (25.0-35.0); MCHC 32.8 g/dL (31.0-37.0); MCV 87.9 fL (80.0-100.0); Mean Platelet Volume 10.4; Monocytes # (A) 0.4 k/uL (0-1.0); Monocytes % (A) 8 %; Neutrophils # (A) 3.2 k/uL (1.3-7.7); Neutrophils % (A) 72 %; Platelet Count 102 k/uL (150-450); RBC 3.47 m/uL (4.30-5.90); RDW 12.9 % (11.5-15.5); WBC 4.5 k/uL (3.8-10.6)
[2018-01-15 03:55] LABS: INR 1.2 (<1.2); Partial Thromboplastin Time 64.6 sec (22.0-30.0); Prothrombin Time 11.8 sec (9.0-12.0)
[2018-01-15 04:30] LABS: Calcium 7.5 mg/dL (8.4-10.2); Phosphorus 7.2 mg/dL (2.5-4.5)
[2018-01-15 07:16] LABS: Glucose,Whole Blood 200 mg/dL (75-99)
[2018-01-15] MEDS: ASPIRIN 81 MG PO SCH (07:46)
[2018-01-15] MEDS: TOPIRAMATE 25 MG TAB PO SCH ×2 (07:47→21:20)
[2018-01-15] MEDS: AMIODARONE 200 MG TAB PO SCH ×2 (07:47→21:19)
[2018-01-15] MEDS: SODIUM BICARBONATE TAB 650 MG TAB PO SCH ×2 (07:47→21:20)
[2018-01-15] MEDS: METOPROLOL TARTRATE 25 MG TAB PO SCH ×2 (07:47→21:20)
[2018-01-15] MEDS: IPRATROPIUM-ALBUTEROL 3 ML NEB INHALATION SCH ×3 (08:51→20:29)
--- NOTE | 2018-01-15 09:16 | P.PN ---
Subjective Progress Note Date: 01/15/18 Principal diagnosis: Scrotal cellulitis, respiratory failure Progress note dated 01/12/2018 72-year-old gentleman admitted with a diagnosis of acute severe sepsis and septic shock with lactic acidosis secondary to scrotal cellulitis and abscess. He is postop day #2 status post incision and drainage. He also developed acute kidney injury secondary to sepsis and acute necrosis acute lactic acidosis hyperglycemia non-anion gap metabolic metabolic acidosis acute hypoxemic respiratory failure with intubation and mechanical ventilation and multiple comorbidities including diabetes sleep apnea syndrome COPD pacemaker implantation gastroesophageal reflux disease and hyperlipidemia. The patient will have a dialysis catheter placed by vascular surgery today. After that's done, we may attempt to wean the patient. The patient's currently on ventilator on the volume assist control mode with a rate of 20 tidal volume is 500 FiO2 is 40% to be dropped to 25% and there is 5 of PEEP. Arterial blood gases show a PaO2 of 158 a PaCO2 of 32 and a pH 7.34. This is consistent with hyperoxemia and a mild metabolic acidosis. The patient's propofol is currently off but it was running at 50 mics per kilogram per minute he has a saline IV at 75 mL an hour insulin at 2 units an hour and heparin via weightbase protocol. The patient was intubated on January 10. Chest x-ray looks okay. Progress note dated 01/13/2018 72-year-old male admitted with a diagnosis of acute severe sepsis and septic shock with lactic acidosis secondary to scrotal cellulitis and abscess. The patient is postop day #3, status post incision and drainage. He was extubated from mechanical ventilation yesterday on January 12. He's developed acute kidney injury secondary to sepsis with acute tubular necrosis, lactic acidosis, hyperglycemia, 99 get metabolic acidosis, hypoxemic respiratory failure, resolved, and multiple comorbidities including diabetes sleep apnea COPD pacemaker implantation GERD and hyperlipidemia. The patient is doing much better as mentioned above. Feels much better. Currently the patient is receiving O2 at 3 L by nasal cannula, heparin via weightbase protocol, I saline IV at 75 mL an hour. A dialysis catheter was placed yesterday and he did have hemodialysis yesterday and a half liter was removed. On 01/14/2018 patient seen in follow-up in intensive care unit. He is awake, alert, denies any acute distress, other than scrotal tenderness when being repositioned. Vital signs are stable, patient is afebrile, hemodynamically stable, currently on 2 L per nasal cannula with O2 sat at 97%. His incentive spirometry effort today is up to 3000 ML. Lung sounds are clear to auscultation , patient denies any dyspnea, no chest pain. His IV is 0.9 at 75, and heparin drip infusing at 19 units per kilo per hour. Today's labs were reviewed, WBC is 5.5, hemoglobin is 10.2, carbon dioxide is 18, BUN is 62, and creatinine is 6.82, and the patient is planned to have hemodialysis today. Microbiology results were reviewed, and the scrotal wound cultures are positive for E. coli, beta hemolytic strep, and anaerobic gram-negative bacilli. E. coli is susceptible to Zosyn which the patient is currently on. On 01/15/2018 patient seen in follow-up on medical surgical floor. He is resting in bed, in no acute distress, yesterday he had his hemodialysis, tolerated it well. Today he denies any respiratory distress, denies any worsening dyspnea, chest pain. He did wear his CPAP unit from home at night, currently on room air. Tolerating oral diet, patient is afebrile. Lung sounds are clear to auscultation. No new positive cultures, other than the previously noted scrotal wound cultures positive for E. coli, beta hemolytic streptococcus , and anaerobic gram-negative bacilli. Patient continues on Zosyn. Remains stable from pulmonary standpoint Objective - Vital Signs Vital signs: Vital Signs Temp 98.7 F 01/15/18 06:00 Pulse 64 01/15/18 09:03 Resp 16 01/15/18 06:00 BP 171/79 01/15/18 06:00 Pulse Ox 95 01/15/18 06:00 Intake & Output 01/14/18 01/15/18 01/15/18 18:59 06:59 18:59 Intake Total 2065.424 694.261 Output Total 605 2050 Balance 1460.424 -1355.739 Weight 143 kg 149 kg Intake: IV 933 75 Abigail 33 Sodium Chloride 0.9% 1, 900 75 000 ml @ 75 mls/hr IV . [id number] [facility] Rx#:[id number] Intake, IV Titration 652.424 469.261 Amount Heparin Sodium,Porcine/ 602.424 469.261 D5w Pmx 25,000 unit In Dextrose/Water 1 500ml. bag @ 17.4 UNITS/KG/HR 49 .45 mls/hr IV .Q10H7M [facility] Rx#:[id number] Piperacillin-Tazobactam 3 50 .375 gm In Dextrose/Water 1 50ml.bag @ 12.5 mls/hr IVPB Q12H [facility] Rx#: [id number] Oral 480 150 Output: Urine 605 1050 Other 1000 Other: Voiding Method Indwelling Catheter Indwelling Catheter # Voids 1 ABP, PAP, CO, CI - Last Documented Arterial Blood Pressure 145/46 - Exam No acute distress, nasal O2 in place.. HEENT examination is grossly unremarkable. Neck supple. Full range of motion. No adenopathy thyromegaly or neck vein distention. Cardiovascular examination reveals regular rhythm rate. S1-S2 normal. No S3 or S4. No discernible murmur noted. Lungs reveal clear breath sounds. No wheezes rhonchi or crackles. Breath sounds are equal bilaterally. Abdomen soft bowel sounds are heard. No masses or tenderness. Extremities are intact. No cyanosis clubbing or edema. Skin is without rash or lesion. Scrotal edema and cellulitis is noted. Neurologic examination is normal - Labs CBC & Chem 7: 01/15/18 03:33 01/15/18 03:33 Labs: Abnormal Lab Results - Last 24 Hours (Table) 01/14/18 01/14/18 01/14/18 Range/Units 11:57 12:45 17:00 RBC (4.30-5.90) m/uL Hgb (13.0-17.5) gm/dL Hct (39.0-53.0) % Plt Count (150-450) k/uL Lymphocytes # (1.0-4.8) k/uL INR (<1.2) APTT 48.3 H (22.0-30.0) sec Carbon Dioxide (22-30) mmol/L BUN (9-20) mg/dL Creatinine (0.66-1.25) mg/dL Glucose (74-99) mg/dL POC Glucose (mg/dL) 186 H 173 H (75-99) mg/dL Calcium (8.4-10.2) mg/dL Phosphorus (2.5-4.5) mg/dL 01/14/18 01/14/18 01/15/18 Range/Units 20:09 21:10 02:06 RBC (4.30-5.90) m/uL Hgb (13.0-17.5) gm/dL Hct (39.0-53.0) % Plt Count (150-450) k/uL Lymphocytes # (1.0-4.8) k/uL INR (<1.2) APTT 101.5 H* (22.0-30.0) sec Carbon Dioxide (22-30) mmol/L BUN (9-20) mg/dL Creatinine (0.66-1.25) mg/dL Glucose (74-99) mg/dL POC Glucose (mg/dL) 190 H 197 H (75-99) mg/dL Calcium (8.4-10.2) mg/dL Phosphorus (2.5-4.5) mg/dL 01/15/18 01/15/18 01/15/18 Range/Units 03:33 03:33 03:33 RBC 3.47 L (4.30-5.90) m/uL Hgb 10.0 L (13.0-17.5) gm/dL Hct 30.5 L (39.0-53.0) % Plt Count 102 L (150-450) k/uL Lymphocytes # 0.7 L (1.0-4.8) k/uL INR 1.2 H (<1.2) APTT 64.6 H (22.0-30.0) sec Carbon Dioxide 19 L (22-30) mmol/L BUN 52 H (9-20) mg/dL Creatinine 6.20 H* (0.66-1.25) mg/dL Glucose 195 H (74-99) mg/dL POC Glucose (mg/dL) (75-99) mg/dL Calcium 7.5 L (8.4-10.2) mg/dL Phosphorus 7.2 H (2.5-4.5) mg/dL 01/15/18 Range/Units 07:11 RBC (4.30-5.90) m/uL Hgb (13.0-17.5) gm/dL Hct (39.0-53.0) % Plt Count (150-450) k/uL Lymphocytes # (1.0-4.8) k/uL INR (<1.2) APTT (22.0-30.0) sec Carbon Dioxide (22-30) mmol/L BUN (9-20) mg/dL Creatinine (0.66-1.25) mg/dL Glucose (74-99) mg/dL POC Glucose (mg/dL) 200 H (75-99) mg/dL Calcium (8.4-10.2) mg/dL Phosphorus (2.5-4.5) mg/dL Microbiology - Last 24 Hours (Table) 01/10/18 17:31 Anaerobic Culture - Final Groin Anaerobic Gm Negative Bacilli 01/09/18 15:17 Blood Culture - Preliminary Blood No Growth after 120 hours Assessment and Plan Plan: Assessment: Acute severe sepsis and septic shock with lactic acidosis, secondary to scrotal cellulitis and abscess, status post incision and drainage, postop day #5 Status post intubation and mechanical ventilation, with extubation on 01/12/2018 Acute kidney injury with acute tubular necrosis Acute lactic acidosis Non-anion gap metabolic acidosis Acute hyperglycemia Acute hypoxemic respiratory failure Diabetes mellitus Sleep apnea syndrome Possible COPD Status post pacemaker implantation History of GERD Hyperlipidemia Plan: Patient was seen on medical surgical floor, stable from pulmonary standpoint, continue encouraging deep breathing and coughing, incentive spirometry use. No acute issues at this time, patient has his CPAP machine at bedside and wears at the bedtime. Afebrile, lung sounds are clear. We will see the patient on as- needed basis. Thank you for this consultation. I performed a history & physical examination of the patient and discussed their management with my nurse practitioner, Kari Ron. I reviewed the nurse practitioner's note and agree with the documented findings and plan of care. Lung sounds are clear . The findings and the impression was discussed with the patient. I attest to the documentation by the nurse practitioner. Time with Patient: Less than 30
[2018-01-15] MEDS: HEPARIN SODIUM,PORCINE/D5W PMX 25,000 UNIT in DEXTROSE/WATER 1 500ML.BAG IV SCH (09:39)
[2018-01-15] MEDS ORDERED: MORPHINE ORAL SOLN 10 MG/5 ML CUP PO PRN (10:19)
--- NOTE | 2018-01-15 11:19 | CDI ---
Last Revision, August 2017 Documentation Clarification Form Date: 01/15/18 From: Arina Dean RN Admit Date: 01/09/2018 2:53:00 PM Patient Name: Marciano Dykes Visit Number: [id number] ATTENTION: The Clinical Documentation Specialists (CDI) and [facility] Coding Staff appreciate your assistance in clarifying documentation. Please respond to the clarification below the line at the bottom and electronically sign. The CDI & [facility] Coding staff will review the response and follow-up if needed. Please note: Queries are made part of the Legal Health Record. If you have any questions, please contact the author of this message via ITS. Dr. Phil Kevin, Heart Failure is documented in the chart 01/09 and 01/10. History/Risk Factors:. chf, gerd, htn, hyperlipidemia, sleep apnea, cpap machine, dm2, psoriasis, pacemaker, hemmorhoids Presented with: scrotal mass Clinical Indicators: Echocardiogram Results: EF 60-65% Treatment: IV Lasix 80mg x1, 40mg x2 In your professional opinion, can you please clarify the acuity and type of CHF if known? Systolic Heart Failure: Acute Chronic Acute on Chronic Diastolic Heart Failure: Acute Chronic Acute on Chronic Systolic & Diastolic Heart Failure: Acute Chronic Acute on Chronic Heart Failure Unable to Determine Other, please specify Please continue to document in your progress notes, under the line below and discharge summary in order to capture severity of illness and risk of mortality. Include clinical findings that support your diagnosis. MTDD
[2018-01-15] MEDS: HYDROcodone/APAP 7.5-325MG 1 EACH TAB PO PRN ×2 (11:26→18:15)
[2018-01-15 12:07] LABS: Glucose,Whole Blood 232 mg/dL (75-99)
[2018-01-15] MEDS: ERTAPENEM 1 GM in SODIUM CHLORIDE 0.9% 50 ML IVPB SCH (15:09)
--- NOTE | 2018-01-15 15:54 | P.PN ---
Subjective 72-year-old admitted secondary to septic shock shock improved patient is presently on Zosyn for gram-negative scrotal abscess and 40 is gangrene patient is status post incision and drainage and patient is intubated mechanically ventilated due to hypoxic respiratory failure from sepsis. We did is being managed by rda. Patient is on IV heparin because of his history of atrial fibrillation and patient is being bridged with IV heparin because of his high risk for cerebrovascular accident from A. fib. Patient was evaluated by infectious disease, rda, urology. 01/13/2018 Patient was extubated yesterday clinically doing well, patient remains on IV heparin will switch will be switched to oral anticoagulation for his chronic atrial fibrillation. Patient is comparing of some discomfort in the scrotal area. 01/14/2018 Patient is clinically doing well is complaining of massive condition fullness was ordered and patient will be transferred out of ICU. Patient's own cultures are now showing E. coli as well as and aerobic gram-negative bacilli along with beta hemolytic streptococci patient is on appropriate antibiotic Zosyn to cover all this bacteria area patient was started back on anticoagulations with Coumadin 12/16/2017 Patient's scrotum is more swollen than yesterday. Patient is having bleeding from that area, IV heparin will be discontinued, patient is being continued on Coumadin. Patient had hemodialysis yesterday Constitutional: Denied any fatigue denied any fever. Cardio vascular: denied any chest pain, palpitations Gastrointestinal denied any nausea vomiting Pulmonary: Denied any shortness of breath cough Neurologic denied any new focal deficits Objective - Vital Signs Vital signs: Vital Signs Temp 98.7 F 01/15/18 06:00 Pulse 64 01/15/18 12:50 Resp 16 01/15/18 08:00 BP 171/79 01/15/18 06:00 Pulse Ox 95 01/15/18 06:00 Intake & Output 01/14/18 01/15/18 01/15/18 18:59 06:59 18:59 Intake Total 2065.424 694.261 240 Output Total 605 2050 550 Balance 1460.424 -1355.739 -310 Weight 143 kg 149 kg Intake: IV 933 75 Abigail 33 Sodium Chloride 0.9% 1, 900 75 000 ml @ 75 mls/hr IV . [id number] [facility] Rx#:[id number] Intake, IV Titration 652.424 469.261 Amount Heparin Sodium,Porcine/ 602.424 469.261 D5w Pmx 25,000 unit In Dextrose/Water 1 500ml. bag @ 17.4 UNITS/KG/HR 49 .45 mls/hr IV .Q10H7M [facility] Rx#:[id number] Piperacillin-Tazobactam 3 50 .375 gm In Dextrose/Water 1 50ml.bag @ 12.5 mls/hr IVPB Q12H [facility] Rx#: [id number] Oral 480 150 240 Output: Urine 605 1050 550 Other 1000 Other: Voiding Method Indwelling Catheter Indwelling Catheter Indwelling Catheter # Voids 1 # Bowel Movements 0 ABP, PAP, CO, CI - Last Documented Arterial Blood Pressure 145/46 - Exam PHYSICAL EXAMINATION: GENERAL: Drowsy oriented 3 morbidly obese HEENT: Pupils are round and equally reacting to light. EOMI. No scleral icterus. No conjunctival pallor. Normocephalic, atraumatic. No pharyngeal erythema. No thyromegaly. CARDIOVASCULAR: S1 and S2 present. No murmurs, rubs, or gallops. PULMONARY: Chest is clear to auscultation, no wheezing or crackles. ABDOMEN: Soft, nontender, nondistended, normoactive bowel sounds. No palpable organomegaly. MUSCULOSKELETAL: No joint swelling or deformity. EXTREMITIES: No cyanosis, clubbing, or pedal edema. Scrotal edema with cellulitis and the postsurgically packed NEUROLOGICAL: No new focal deficits were appreciated SKIN: No rashes. - Labs CBC & Chem 7: 01/15/18 03:33 01/15/18 03:33 Labs: Abnormal Lab Results - Last 24 Hours (Table) 01/14/18 01/14/18 01/14/18 Range/Units 17:00 20:09 21:10 RBC (4.30-5.90) m/uL Hgb (13.0-17.5) gm/dL Hct (39.0-53.0) % Plt Count (150-450) k/uL Lymphocytes # (1.0-4.8) k/uL INR (<1.2) APTT 101.5 H* (22.0-30.0) sec Carbon Dioxide (22-30) mmol/L BUN (9-20) mg/dL Creatinine (0.66-1.25) mg/dL Glucose (74-99) mg/dL POC Glucose (mg/dL) 173 H 190 H (75-99) mg/dL Calcium (8.4-10.2) mg/dL Phosphorus (2.5-4.5) mg/dL 01/15/18 01/15/18 01/15/18 Range/Units 02:06 03:33 03:33 RBC 3.47 L (4.30-5.90) m/uL Hgb 10.0 L (13.0-17.5) gm/dL Hct 30.5 L (39.0-53.0) % Plt Count 102 L (150-450) k/uL Lymphocytes # 0.7 L (1.0-4.8) k/uL INR (<1.2) APTT (22.0-30.0) sec Carbon Dioxide 19 L (22-30) mmol/L BUN 52 H (9-20) mg/dL Creatinine 6.20 H* (0.66-1.25) mg/dL Glucose 195 H (74-99) mg/dL POC Glucose (mg/dL) 197 H (75-99) mg/dL Calcium 7.5 L (8.4-10.2) mg/dL Phosphorus 7.2 H (2.5-4.5) mg/dL 01/15/18 01/15/18 01/15/18 Range/Units 03:33 07:11 12:01 RBC (4.30-5.90) m/uL Hgb (13.0-17.5) gm/dL Hct (39.0-53.0) % Plt Count (150-450) k/uL Lymphocytes # (1.0-4.8) k/uL INR 1.2 H (<1.2) APTT 64.6 H (22.0-30.0) sec Carbon Dioxide (22-30) mmol/L BUN (9-20) mg/dL Creatinine (0.66-1.25) mg/dL Glucose (74-99) mg/dL POC Glucose (mg/dL) 200 H 232 H (75-99) mg/dL Calcium (8.4-10.2) mg/dL Phosphorus (2.5-4.5) mg/dL Microbiology - Last 24 Hours (Table) 01/10/18 17:31 Anaerobic Culture - Final Groin Anaerobic Gm Negative Bacilli 01/09/18 15:17 Blood Culture - Preliminary Blood No Growth after 120 hours Assessment and Plan Plan: severe sepsis and septic shock with lactic acidosis, secondary to scrotal cellulitis and abscess and jitendra's gangrene, status post incision and drainage, patient shock improved n patient is on Zosyn for streptococci, E. coli and anaerobic gram-negative bacilli Acute kidney injury with acute tubular necrosis, patient's creatinine is 6.5 today and patient son hemodialysis hopefully temporary Non-anion gap metabolic acidosis due to lactic acidosis which improved atrial fibrillation history: Presently rate controlled was resumed on oral anticoagulation, IV heparin was discussed new because of bleeding from the surgical site area Acute hypoxemic respiratory failure secondary to sepsis, which resolved Diabetes mellitus: Continue with present regimen. Sleep apnea Possible COPD Status post pacemaker implantation History of GERD Hyperlipidemia
[2018-01-15 16:58] LABS: INR 1.6 (<1.2); Prothrombin Time 14.5 sec (9.0-12.0)
[2018-01-15 17:28] LABS: Glucose,Whole Blood 168 mg/dL (75-99)
[2018-01-15] MEDS: WARFARIN 5 MG TAB PO SCH (17:37)
--- NOTE | 2018-01-15 19:56 | PN ---
PROGRESS NOTE Patient is seen for followup for acute kidney injury secondary to ATN. He has had 2 treatments of hemodialysis. Patient's serum creatinine remains elevated. It is at 6.2 mg/dL today. The patient also continues to have good urine output. I will schedule him for hemodialysis again tomorrow unless his serum creatinine is significantly improved. EXAMINATION: Blood pressure is 153/56, heart rate of 64 per minute. Patient is afebrile. HEART: S1, S2. LUNGS: Bilateral breath sounds are heard. Abdomen is soft, nontender, obese. Lower extremities show trace edema bilaterally. PEGA DEVELOPER is grossly intact. LABS: Show sodium 137, potassium 4.0, chloride 103, BUN 52, serum creatinine 6.2. Hemoglobin 10.0 g/dL, phosphorus is 7.2, calcium 7.5. ASSESSMENT: 1. Acute kidney injury, acute tubular necrosis, currently nonoliguric with possible recovery of kidney function. However, serum creatinine remains elevated. Patient has had 2 treatments of hemodialysis. I will schedule him for hemodialysis again tomorrow morning unless his serum creatinine is significantly lower. 2. Mild volume overload. Decrease IV fluids to 50 mL an hour. 3. Scrotal abscess, status post debridement of necrotic tissue. 4. Atrial fibrillation with a rapid ventricular response, status post Cardizem drip. 5. Status post septic shock, off of vasopressors. 6. Hypokalemia, improved post replacement. 7. Hyperphosphatemia. Will add phosphate binders. PLAN: Start phosphate binders and repeat hemodialysis in a.m. Decrease IV fluids. Continue antibiotics. MMODL / IJN: [id number] /
[2018-01-15 20:48] LABS: Glucose,Whole Blood 162 mg/dL (75-99)
--- NOTE | 2018-01-15 23:18 | P.PN ---
Subjective Progress Note Date: 01/15/18 Principal diagnosis: 72-year-old male who has obesity and diabetes that is controlled with oral medication presents to the hospital with acute illness with fever pain and swelling to the scrotum. Upon admission the patient had interventions that included ultrasound and blood work patient evidence of sepsis and was brought in the hospital. He did have increasing illness and was seen by urology. 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 Fortunately it had not spread significantly beyond the scrotal tissue at the time of the surgical debridement. The patient this time remains in intensive care unit intubated sedated and mechanically ventilated requiring vasopressor therapy for his sepsis with shock. However there seems to be some improvement. The patient 's condition is discussed with his and sister. The patient's relates that he had been evaluated in the last few months for his diabetes it was on oral medications and thought he was doing relatively well. We discussed hemoglobin A1c is greater than 11 which would indicate that he likely has had uncontrolled blood sugar for quite some time. This is the etiology of his current infection and will need better glucose control to allow improvement of his infection. 01/14/2018 patient is improved but remains on hemodialysis for the acute renal failure with hope of renal recovery. the scrotal infection is improving, 01/15/2018 further improvement occuring,feels better,but have noted falling platelet count. Objective - Vital Signs Vital signs: Vital Signs Temp 97.7 F 01/15/18 22:56 Pulse 61 01/15/18 22:56 Resp 16 01/15/18 22:56 BP 128/77 01/15/18 22:56 Pulse Ox 97 01/15/18 22:56 Intake & Output 01/15/18 01/15/18 01/16/18 06:59 18:59 06:59 Intake Total 694.261 240 Output Total 4922 550 425 Balance -9255.739 -310 -425 Weight 149 kg Intake: IV 75 Sodium Chloride 0.9% 1, 75 000 ml @ 40 mls/hr IV . Q24H [facility] Rx#:[id number] Intake, IV Titration 469.261 Amount Heparin Sodium,Porcine/ 469.261 D5w Pmx 25,000 unit In Dextrose/Water 1 500ml. bag @ 17.4 UNITS/KG/HR 49 .45 mls/hr IV .Q10H7M [facility] Rx#:[id number] Oral 150 240 Output: Urine 1050 550 425 Other 1000 Other: Voiding Method Indwelling Catheter Indwelling Catheter # Voids 1 1 # Bowel Movements 0 ABP, PAP, CO, CI - Last Documented Arterial Blood Pressure 145/46 - Exam 72-year-old male who has obesity is supine, improving extubated but receiving dialysis HEENT: Anicteric conjunctiva are pink and moist nasal mucosa grossly intact without significant lesions around the endotracheal tube, there is no thrush. Neck: The neck is without significant lymphadenopathy or thyromegaly. Lungs: Symmetrical air entry is noted a few expiratory wheezes are scattered no yanni bronchial sounds Heart: Irregular with audible S1 and S2 soft S4 no murmur click or rub Abdomen: Obese, Positive bowel sounds soft and nontender without palpable masses or organomegaly. There was no guarding or rebound. Extremities: The upper extremities have excellent pulses they are symmetric, no significant petechiae or telangiectasia. No splinter hemorrhages were noted. Lower extremities evidence of some chronic edema no open ulcerations Genitalia: With nurse present the scrotum was evaluated shows evidence the recent surgical intervention. The surgeon is asked to the patient not to be removed moved till tomorrow. There is still significant swelling erythema and warmth to the scrotum. There is no expressible purulence. Neuro:awake alert and interactive - Labs CBC & Chem 7: 01/15/18 03:33 01/15/18 03:33 Labs: Abnormal Lab Results - Last 24 Hours (Table) 01/15/18 01/15/18 01/15/18 Range/Units 02:06 03:33 03:33 RBC 3.47 L (4.30-5.90) m/uL Hgb 10.0 L (13.0-17.5) gm/dL Hct 30.5 L (39.0-53.0) % Plt Count 102 L (150-450) k/uL Lymphocytes # 0.7 L (1.0-4.8) k/uL PT (9.0-12.0) sec INR (<1.2) APTT (22.0-30.0) sec Carbon Dioxide 19 L (22-30) mmol/L BUN 52 H (9-20) mg/dL Creatinine 6.20 H* (0.66-1.25) mg/dL Glucose 195 H (74-99) mg/dL POC Glucose (mg/dL) 197 H (75-99) mg/dL Calcium 7.5 L (8.4-10.2) mg/dL Phosphorus 7.2 H (2.5-4.5) mg/dL 01/15/18 01/15/18 01/15/18 Range/Units 03:33 07:11 12:01 RBC (4.30-5.90) m/uL Hgb (13.0-17.5) gm/dL Hct (39.0-53.0) % Plt Count (150-450) k/uL Lymphocytes # (1.0-4.8) k/uL PT (9.0-12.0) sec INR 1.2 H (<1.2) APTT 64.6 H (22.0-30.0) sec Carbon Dioxide (22-30) mmol/L BUN (9-20) mg/dL Creatinine (0.66-1.25) mg/dL Glucose (74-99) mg/dL POC Glucose (mg/dL) 200 H 232 H (75-99) mg/dL Calcium (8.4-10.2) mg/dL Phosphorus (2.5-4.5) mg/dL 01/15/18 01/15/18 01/15/18 Range/Units 15:56 17:24 20:46 RBC (4.30-5.90) m/uL Hgb (13.0-17.5) gm/dL Hct (39.0-53.0) % Plt Count (150-450) k/uL Lymphocytes # (1.0-4.8) k/uL PT 14.5 H (9.0-12.0) sec INR 1.6 H (<1.2) APTT (22.0-30.0) sec Carbon Dioxide (22-30) mmol/L BUN (9-20) mg/dL Creatinine (0.66-1.25) mg/dL Glucose (74-99) mg/dL POC Glucose (mg/dL) 168 H 162 H (75-99) mg/dL Calcium (8.4-10.2) mg/dL Phosphorus (2.5-4.5) mg/dL Microbiology - Last 24 Hours (Table) 01/09/18 15:17 Blood Culture - Final Blood No Growth after 144 hours 01/10/18 17:31 Anaerobic Culture - Final Groin Anaerobic Gm Negative Bacilli Laboratory Results WBC 4.5 k/uL (3.8-10.6) 01/15/18 03:33 RBC 3.47 m/uL (4.30-5.90) L 01/15/18 03:33 Hgb 10.0 gm/dL (13.0-17.5) L 01/15/18 03:33 Hct 30.5 % (39.0-53.0) L 01/15/18 03:33 MCV 87.9 fL (80.0-100.0) 01/15/18 03:33 MCH 28.8 pg (25.0-35.0) 01/15/18 03:33 MCHC 32.8 g/dL (31.0-37.0) 01/15/18 03:33 RDW 12.9 % (11.5-15.5) 01/15/18 03:33 Plt Count 102 k/uL (150-450) L 01/15/18 03:33 Neutrophils % 72 % 01/15/18 03:33 Lymphocytes % 15 % 01/15/18 03:33 Monocytes % 8 % 01/15/18 03:33 Eosinophils % 2 % 01/15/18 03:33 Basophils % 0 % 01/15/18 03:33 Neutrophils # 3.2 k/uL (1.3-7.7) 01/15/18 03:33 Lymphocytes # 0.7 k/uL (1.0-4.8) L 01/15/18 03:33 Monocytes # 0.4 k/uL (0-1.0) 01/15/18 03:33 Eosinophils # 0.1 k/uL (0-0.7) 01/15/18 03:33 Basophils # 0.0 k/uL (0-0.2) 01/15/18 03:33 Manual Slide Review Performed 01/11/18 04:20 Large Platelets Present 01/11/18 04:20 PT 14.5 sec (9.0-12.0) H 01/15/18 15:56 INR 1.6 (<1.2) H 01/15/18 15:56 APTT 64.6 sec (22.0-30.0) H 01/15/18 03:33 Sample Site [place] 01/12/18 16:02 ABG pH 7.31 (7.35-7.45) L 01/12/18 16:02 ABG pCO2 34 mmHg (35-45) L 01/12/18 16:02 ABG pO2 96 mmHg (83-108) 01/12/18 16:02 ABG HCO3 17 mmol/L (21-25) L 01/12/18 16:02 ABG Total CO2 18 mmol/L (19-24) L 01/12/18 16:02 ABG O2 Saturation 97.6 % (94-97) H 01/12/18 16:02 ABG Base Excess -8.9 mmol/L 01/12/18 16:02 Kike Test Yes 01/12/18 16:02 FiO2 25 % 01/12/18 16:02 Sodium 137 mmol/L (137-145) 01/15/18 03:33 Potassium 4.0 mmol/L (3.5-5.1) 01/15/18 03:33 Chloride 103 mmol/L (98-107) 01/15/18 03:33 Carbon Dioxide 19 mmol/L (22-30) L 01/15/18 03:33 Anion Gap 15 mmol/L 01/15/18 03:33 BUN 52 mg/dL (9-20) H 01/15/18 03:33 Creatinine 6.20 mg/dL (0.66-1.25) H* 01/15/18 03:33 Est GFR (CKD-EPI)AfAm 10 (>60 ml/min/1.73 sqM) 01/15/18 03:33 Est GFR (CKD-EPI)NonAf 8 (>60 ml/min/1.73 sqM) 01/15/18 03:33 Glucose 195 mg/dL (74-99) H 01/15/18 03:33 POC Glucose (mg/dL) 162 mg/dL (75-99) H 01/15/18 20:46 POC Glu Adjunct English Instructor Idalmis Canchola 01/15/18 20:[address] Glu mg/dL 272 01/10/18 03:46 Hemoglobin A1c 11.1 % (4.0-6.0) H 01/10/18 03:46 Lactic Ac Sepsis Rflx Y 01/10/18 00:16 Plasma Lactic Acid Shemar 1.7 mmol/L (0.7-2.0) 01/10/18 09:46 Calcium 7.5 mg/dL (8.4-10.2) L 01/15/18 03:33 Phosphorus 7.2 mg/dL (2.5-4.5) H 01/15/18 03:33 Magnesium 2.0 mg/dL (1.6-2.3) 01/15/18 03:33 Total Bilirubin 1.3 mg/dL (0.2-1.3) 01/09/18 15:17 AST 23 U/L (17-59) 01/09/18 15:17 ALT 23 U/L (21-72) 01/09/18 15:17 Alkaline Phosphatase 108 U/L (38-126) 01/09/18 15:17 Total Protein 6.9 g/dL (6.3-8.2) 01/09/18 15:17 Albumin 4.0 g/dL (3.5-5.0) 01/09/18 15:17 TSH 1.240 mIU/L (0.465-4.680) 01/10/18 13:37 Free T4 1.71 ng/dL (0.78-2.19) 01/10/18 13:37 Urine Color Yellow 01/10/18 02:25 Urine Appearance Cloudy (Clear) 01/10/18 02:25 Urine pH 5.0 (5.0-8.0) 01/10/18 02:25 Ur Specific [place] 1.028 (1.001-1.035) 01/10/18 02:25 Urine Protein Trace (Negative) H 01/10/18 02:25 Urine Glucose (UA) 4+ (Negative) H 01/10/18 02:25 Urine Ketones Trace (Negative) H 01/10/18 02:25 Urine Blood Negative (Negative) 01/10/18 02:25 Urine Nitrite Negative (Negative) 01/10/18 02:25 Urine Bilirubin Negative (Negative) 01/10/18 02:25 Urine Urobilinogen <2.0 mg/dL (<2.0) 04/26/18 02:25 Ur Leukocyte Esterase Negative (Negative) 01/10/18 02:25 Urine RBC <1 /hpf (0-5) 01/10/18 02:25 Urine WBC 2 /hpf (0-5) 01/10/18 02:25 Random Vancomycin 32.2 ug/mL 01/12/18 04:30 Acetone, Qual Negative (Negative) 01/09/18 23:42 Microbiology 01/09/18 15:17 Blood Blood Culture - Final No Growth after 144 hours 01/10/18 17:31 Groin Anaerobic Culture - Final Anaerobic Gm Negative Bacilli 01/10/18 17:31 Groin Anaerobic Culture - Final Anaerobic Gm Negative Bacilli 01/10/18 17:31 Groin Gram Stain - Final 01/10/18 17:31 Groin Wound Culture - Final Escherichia coli Beta Hemolytic Streptococcus F 01/10/18 17:31 Groin Gram Stain - Final 01/10/18 17:31 Groin Wound Culture - Final Beta Hemolytic Streptococcus F 01/10/18 02:25 Urine,Catheterized Urine Culture - Final Assessment and Plan (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 He was taken to the operating room and Vanesa's gangrene was noted that he had debridement of his scrotum. The necrotic material was debrided away and fortunately it is somewhat limited in its extent. There is some however residual erythema and induration of the scrotum and depending on how he responds determine if further intervention is needed, however at this time appears to be stable to improved. The patient is on broad-spectrum antibiotic therapy. Current data is being monitored and likely will discontinue vancomycin therapy especially since he is having increased creatinine. Will utilize silver dressings once the packing is removed by the surgeon. Elevation of the scrotum will be helpful for its edema. As patient progresses and is discharged have instructed his that his glucose control be very important for wound healing and for preventing further events like this in the future. His blood sugar was over 500 admission and his A1c was very elevated. The patient's relates that he was given recently some corticosteroid therapy, which may have contributed to this entire process. Patient remains critically ill but is showing some improvement. 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 Current Visit: Yes Status: Acute Code(s): N49.3 - VANESA GANGRENE SNOMED Code(s): 697303827 (2) Sepsis due to Gram-negative organism with septic shock Current Visit: Yes Status: Acute Code(s): A41.50 - GRAM-NEGATIVE SEPSIS, UNSPECIFIED; R65.21 - SEVERE SEPSIS WITH SEPTIC SHOCK SNOMED Code(s): 478920088 (3) Diabetes mellitus type 2, uncontrolled, with complications Current Visit: Yes Status: Acute Code(s): E11.8 - TYPE 2 DIABETES MELLITUS WITH UNSPECIFIED COMPLICATIONS; E11.65 - TYPE 2 DIABETES MELLITUS WITH HYPERGLYCEMIA SNOMED Code(s): 857305337 (4) Leukocytosis Current Visit: Yes Status: Acute Code(s): D72.829 - ELEVATED WHITE BLOOD CELL COUNT, UNSPECIFIED SNOMED Code(s): 276720145 (5) Acute renal failure Current Visit: Yes Status: Acute Code(s): N17.9 - ACUTE KIDNEY FAILURE, UNSPECIFIED SNOMED Code(s): 48175453
[2018-01-16] MEDS: SODIUM CHLORIDE 0.9% 1,000 ML IV SCH ×4 (01:54→23:55)
[2018-01-16 02:02] LABS: Glucose,Whole Blood 162 mg/dL (75-99)
[2018-01-16] MEDS: INSULIN ASPART 100 UNIT/ML 1 ML 10 ML VIAL SQ SCH ×5 (03:10→21:19)
[2018-01-16] MEDS: HYDROcodone/APAP 7.5-325MG 1 EACH TAB PO PRN ×2 (06:54→17:50)
[2018-01-16 06:59] LABS: Glucose,Whole Blood 161 mg/dL (75-99)
--- NOTE | 2018-01-16 07:14 | CDI ---
Last Revision, August 2017 Documentation Clarification Form Date: 01/16/18 From: Arina Dean Admit Date: 01/09/2018 2:53:00 PM Patient Name: Marciano Dykes Visit Number: [id number] ATTENTION: The Clinical Documentation Specialists (CDI) and [facility] Coding Staff appreciate your assistance in clarifying documentation. Please respond to the clarification below the line at the bottom and electronically sign. The CDI & [facility] Coding staff will review the response and follow-up if needed. Please note: Queries are made part of the Legal Health Record. If you have any questions, please contact the author of this message via ITS. Dr. Phil Kevin, Heart Failure is documented in the chart 01/09 and 01/10. History/Risk Factors:. chf, gerd, htn, hyperlipidemia, sleep apnea, cpap machine, dm2, psoriasis, pacemaker, hemmorhoids Presented with: scrotal mass Clinical Indicators: Echocardiogram Results: EF 60-65% Treatment: IV Lasix In your professional opinion, can you please clarify the acuity and type of CHF if known? Systolic Heart Failure: Acute Chronic Acute on Chronic Diastolic Heart Failure: Acute Chronic Acute on Chronic Systolic & Diastolic Heart Failure: Acute Chronic Acute on Chronic Heart Failure Unable to Determine Other, please specify Please continue to document in your progress notes, under the line below and discharge summary in order to capture severity of illness and risk of mortality. Include clinical findings that support your diagnosis. MTDD
[2018-01-16] MEDS: IPRATROPIUM-ALBUTEROL 3 ML NEB INHALATION SCH ×3 (07:45→20:13)
[2018-01-16] MEDS: CALCIUM ACETATE 667 MG CAP PO SCH ×3 (08:46→17:50)
[2018-01-16] MEDS: AMIODARONE 200 MG TAB PO SCH ×2 (08:46→21:14)
[2018-01-16] MEDS: TOPIRAMATE 25 MG TAB PO SCH ×2 (08:46→21:14)
[2018-01-16] MEDS: ASPIRIN 81 MG PO SCH (08:46)
[2018-01-16] MEDS: METOPROLOL TARTRATE 25 MG TAB PO SCH ×2 (08:46→21:14)
[2018-01-16] MEDS: SODIUM BICARBONATE TAB 650 MG TAB PO SCH ×2 (08:46→21:14)
[2018-01-16 09:33] LABS: Basophils % (A) 0 %; Eosinophils # (A) 0.1 k/uL (0-0.7); Eosinophils % (A) 2 %; HCT 30.7 % (39.0-53.0); HGB 10.3 gm/dL (13.0-17.5); Lymphocytes # (A) 0.8 k/uL (1.0-4.8); Lymphocytes % (A) 13 %; MCH 29.6 pg (25.0-35.0); MCHC 33.5 g/dL (31.0-37.0); MCV 88.4 fL (80.0-100.0); Mean Platelet Volume 9.5; Monocytes # (A) 0.4 k/uL (0-1.0); Monocytes % (A) 7 %; Neutrophils # (A) 5.1 k/uL (1.3-7.7); Neutrophils % (A) 76 %; Platelet Count 132 k/uL (150-450); RBC 3.47 m/uL (4.30-5.90); RDW 13.2 % (11.5-15.5); WBC 6.6 k/uL (3.8-10.6)
[2018-01-16 09:36] LABS: INR 2.3 (<1.2); Prothrombin Time 20.8 sec (9.0-12.0)
[2018-01-16 09:46] LABS: Potassium 4.2 mmol/L (3.5-5.1)
--- NOTE | 2018-01-16 10:04 | P.PN ---
Subjective Progress Note Date: 01/16/18 The patient is now on the floor after his ICU stay for his sepsis. His white count is normalized. He states he's feeling better. Visual inspection of the scrotum show swelling that is slightly increased. Remove the packing and do a digital exploration of the scrotum and do not find any other pockets of abscess. We will continue with the drainage and dressing care Objective - Vital Signs Vital signs: Vital Signs Temp 97.2 F L 01/16/18 06:05 Pulse 64 01/16/18 08:01 Resp 16 01/16/18 06:05 BP 141/77 01/16/18 06:05 Pulse Ox 95 01/16/18 07:48 Intake & Output 01/15/18 01/16/18 01/16/18 18:59 06:59 18:59 Intake Total 240 Output Total 550 925 Balance -310 -925 Weight 149.5 kg Intake: Oral 240 Output: Urine 550 925 Other: Voiding Method Indwelling Catheter Indwelling Catheter # Voids 1 # Bowel Movements 0 ABP, PAP, CO, CI - Last Documented Arterial Blood Pressure 145/46 - Labs CBC & Chem 7: 01/16/18 08:35 01/15/18 03:33 Labs: Abnormal Lab Results - Last 24 Hours (Table) 01/15/18 01/15/18 01/15/18 Range/Units 12:01 15:56 17:24 RBC (4.30-5.90) m/uL Hgb (13.0-17.5) gm/dL Hct (39.0-53.0) % Plt Count (150-450) k/uL Lymphocytes # (1.0-4.8) k/uL PT 14.5 H (9.0-12.0) sec INR 1.6 H (<1.2) POC Glucose (mg/dL) 232 H 168 H (75-99) mg/dL 01/15/18 01/16/18 01/16/18 Range/Units 20:46 02:00 06:57 RBC (4.30-5.90) m/uL Hgb (13.0-17.5) gm/dL Hct (39.0-53.0) % Plt Count (150-450) k/uL Lymphocytes # (1.0-4.8) k/uL PT (9.0-12.0) sec INR (<1.2) POC Glucose (mg/dL) 162 H 162 H 161 H (75-99) mg/dL 01/16/18 01/16/18 Range/Units 08:35 08:35 RBC 3.47 L (4.30-5.90) m/uL Hgb 10.3 L (13.0-17.5) gm/dL Hct 30.7 L (39.0-53.0) % Plt Count 132 L (150-450) k/uL Lymphocytes # 0.8 L (1.0-4.8) k/uL PT 20.8 H (9.0-12.0) sec INR 2.3 H (<1.2) POC Glucose (mg/dL) (75-99) mg/dL Microbiology - Last 24 Hours (Table) 01/09/18 15:17 Blood Culture - Final Blood No Growth after 144 hours
[2018-01-16 11:39] LABS: Glucose,Whole Blood 152 mg/dL (75-99)
--- NOTE | 2018-01-16 13:40 | P.PN ---
Subjective 72-year-old admitted secondary to septic shock shock improved patient is presently on Zosyn for gram-negative scrotal abscess and 40 is gangrene patient is status post incision and drainage and patient is intubated mechanically ventilated due to hypoxic respiratory failure from sepsis. We did is being managed by instructional support assistant. Patient is on IV heparin because of his history of atrial fibrillation and patient is being bridged with IV heparin because of his high risk for cerebrovascular accident from A. fib. Patient was evaluated by infectious disease, instructional support assistant, urology. 01/13/2018 Patient was extubated yesterday clinically doing well, patient remains on IV heparin will switch will be switched to oral anticoagulation for his chronic atrial fibrillation. Patient is comparing of some discomfort in the scrotal area. 01/14/2018 Patient is clinically doing well is complaining of massive condition fullness was ordered and patient will be transferred out of ICU. Patient's own cultures are now showing E. coli as well as and aerobic gram-negative bacilli along with beta hemolytic streptococci patient is on appropriate antibiotic Zosyn to cover all this bacteria area patient was started back on anticoagulations with Coumadin 01/15/2018 Patient's scrotum is more swollen than yesterday. Patient is having bleeding from that area, IV heparin will be discontinued, patient is being continued on Coumadin. Patient had hemodialysis yesterday 01/16/2018 Patient's INR is therapeutic clinically doing well. Receiving hemodialysis today Constitutional: Denied any fatigue denied any fever. Cardio vascular: denied any chest pain, palpitations Gastrointestinal denied any nausea vomiting Pulmonary: Denied any shortness of breath cough Neurologic denied any new focal deficits Objective - Vital Signs Vital signs: Vital Signs Temp 97.2 F L 01/16/18 06:05 Pulse 64 01/16/18 08:01 Resp 16 01/16/18 06:05 BP 141/77 01/16/18 06:05 Pulse Ox 95 01/16/18 07:48 Intake & Output 01/15/18 01/16/18 01/16/18 18:59 06:59 18:59 Intake Total 240 Output Total 550 925 Balance -310 -925 Weight 149.5 kg Intake: Oral 240 Output: Urine 550 925 Other: Voiding Method Indwelling Catheter Indwelling Catheter Indwelling Catheter # Voids 1 # Bowel Movements 0 ABP, PAP, CO, CI - Last Documented Arterial Blood Pressure 145/46 - Exam PHYSICAL EXAMINATION: GENERAL: Drowsy oriented 3 morbidly obese HEENT: Pupils are round and equally reacting to light. EOMI. No scleral icterus. No conjunctival pallor. Normocephalic, atraumatic. No pharyngeal erythema. No thyromegaly. CARDIOVASCULAR: S1 and S2 present. No murmurs, rubs, or gallops. PULMONARY: Chest is clear to auscultation, no wheezing or crackles. ABDOMEN: Soft, nontender, nondistended, normoactive bowel sounds. No palpable organomegaly. MUSCULOSKELETAL: No joint swelling or deformity. EXTREMITIES: No cyanosis, clubbing, or pedal edema. Scrotal edema with cellulitis and the postsurgically packed NEUROLOGICAL: No new focal deficits were appreciated SKIN: No rashes. - Labs CBC & Chem 7: 01/16/18 08:35 01/16/18 08:35 Labs: Abnormal Lab Results - Last 24 Hours (Table) 01/15/18 01/15/18 01/15/18 Range/Units 15:56 17:24 20:46 RBC (4.30-5.90) m/uL Hgb (13.0-17.5) gm/dL Hct (39.0-53.0) % Plt Count (150-450) k/uL Lymphocytes # (1.0-4.8) k/uL PT 14.5 H (9.0-12.0) sec INR 1.6 H (<1.2) Carbon Dioxide (22-30) mmol/L BUN (9-20) mg/dL Creatinine (0.66-1.25) mg/dL Glucose (74-99) mg/dL POC Glucose (mg/dL) 168 H 162 H (75-99) mg/dL Calcium (8.4-10.2) mg/dL 01/16/18 01/16/18 01/16/18 Range/Units 02:00 06:57 08:35 RBC 3.47 L (4.30-5.90) m/uL Hgb 10.3 L (13.0-17.5) gm/dL Hct 30.7 L (39.0-53.0) % Plt Count 132 L (150-450) k/uL Lymphocytes # 0.8 L (1.0-4.8) k/uL PT (9.0-12.0) sec INR (<1.2) Carbon Dioxide (22-30) mmol/L BUN (9-20) mg/dL Creatinine (0.66-1.25) mg/dL Glucose (74-99) mg/dL POC Glucose (mg/dL) 162 H 161 H (75-99) mg/dL Calcium (8.4-10.2) mg/dL 01/16/18 01/16/18 01/16/18 Range/Units 08:35 08:35 11:12 RBC (4.30-5.90) m/uL Hgb (13.0-17.5) gm/dL Hct (39.0-53.0) % Plt Count (150-450) k/uL Lymphocytes # (1.0-4.8) k/uL PT 20.8 H (9.0-12.0) sec INR 2.3 H (<1.2) Carbon Dioxide 18 L (22-30) mmol/L BUN 58 H (9-20) mg/dL Creatinine 7.56 H* (0.66-1.25) mg/dL Glucose 147 H (74-99) mg/dL POC Glucose (mg/dL) 152 H (75-99) mg/dL Calcium 8.0 L (8.4-10.2) mg/dL Microbiology - Last 24 Hours (Table) 01/09/18 15:17 Blood Culture - Final Blood No Growth after 144 hours Assessment and Plan Plan: severe sepsis and septic shock with lactic acidosis, secondary to scrotal cellulitis and abscess and jitendra's gangrene, status post incision and drainage, patient shock improved n patient is on Zosyn for streptococci, E. coli and anaerobic gram-negative bacilli Acute kidney injury with acute tubular necrosis, patient's creatinine is 6.5 today and patient is on hemodialysis hopefully temporary Non-anion gap metabolic acidosis due to lactic acidosis which improved atrial fibrillation history: Presently rate controlled was resumed on oral anticoagulation, IV heparin was discussed new because of bleeding from the surgical site area Acute hypoxemic respiratory failure secondary to sepsis, which resolved Diabetes mellitus: Continue with present regimen. Sleep apnea Possible COPD Status post pacemaker implantation History of GERD Hyperlipidemia
[2018-01-16] MEDS: ERTAPENEM 1 GM in SODIUM CHLORIDE 0.9% 50 ML IVPB SCH (16:06)
[2018-01-16 17:33] LABS: Glucose,Whole Blood 153 mg/dL (75-99)
[2018-01-16] MEDS: WARFARIN 5 MG TAB PO SCH (18:00)
--- NOTE | 2018-01-16 18:48 | PN ---
PROGRESS NOTE Patient is seen for followup for acute kidney injury. He continues to have good urine output. Patient has had 2 treatments of hemodialysis. He is scheduled for his 3rd treatment today. Serum creatinine did not improve much. In fact it is up to 7.5 today. It looks like patient will need to be set up for outpatient dialysis. We will continue to monitor for recovery of renal function. PHYSICAL EXAMINATION: On examination today, blood pressure was 182/94, heart rate 66 per minute. Patient is afebrile. Examination of the heart S1, S2. Examination lungs bilateral breath sounds are heard. Abdomen is soft, nontender. Examination of lower extremities, shows edema 1+ bilaterally. CLIP AND HANGER ATTACHER exam is grossly intact. LABS: Sodium 139, potassium 4.2, chloride 103, CO2 is 18, BUN 58, serum creatinine 7.56, hemoglobin 10.3 g/dL. ASSESSMENT: 1. Acute kidney injury, acute tubular necrosis, currently nonoliguric with good urine output today. Patient will have his 3rd treatment of hemodialysis. We will continue to maintain him on dialysis. He will be scheduled for another treatment tomorrow. He will likely need to be set up for outpatient treatments and we will need to change the catheter to an IJ PermCath. 2. Mild volume overload. DC IV fluids and we will try for about 800 mL today of ultrafiltration with hemodialysis. 3. Scrotal abscess status post debridement of necrotic tissue. 4. Atrial fibrillation with a RVR, currently with controlled ventricular response. 5. Status post septic shock. 6. Hyperphosphatemia. Maintained on phosphate binders. PLAN: Proceed with outpatient set up for hemodialysis and we will need to change the catheter to an IJ PermCath. We will continue to monitor for recovery of renal function and continue to avoid nephrotoxic agents. MMODL / IJN: [id number] /
[2018-01-16 19:38] LABS: Hepatitis A Antibody IgM Non-Reactive (Non-Reactive); Hepatitis B Core IgM Non-Reactive (Non-Reactive)
[2018-01-16 21:27] LABS: Glucose,Whole Blood 164 mg/dL (75-99)
--- NOTE | 2018-01-16 23:09 | P.PN ---
Subjective Progress Note Date: 01/16/18 Principal diagnosis: 72-year-old male who has obesity and diabetes that is controlled with oral medication presents to the hospital with acute illness with fever pain and swelling to the scrotum. Upon admission the patient had interventions that included ultrasound and blood work patient evidence of sepsis and was brought in the hospital. He did have increasing illness and was seen by urology. 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 Fortunately it had not spread significantly beyond the scrotal tissue at the time of the surgical debridement. The patient this time remains in intensive care unit intubated sedated and mechanically ventilated requiring vasopressor therapy for his sepsis with shock. However there seems to be some improvement. The patient 's condition is discussed with his and sister. The patient's relates that he had been evaluated in the last few months for his diabetes it was on oral medications and thought he was doing relatively well. We discussed hemoglobin A1c is greater than 11 which would indicate that he likely has had uncontrolled blood sugar for quite some time. This is the etiology of his current infection and will need better glucose control to allow improvement of his infection. 01/14/2018 patient is improved but remains on hemodialysis for the acute renal failure with hope of renal recovery. the scrotal infection is improving, 01/15/2018 further improvement occuring,feels better, but have noted falling platelet count. 01/16/2018 patient is feeling better today. Less pain, more interactive. Dialysis today was only able to remove 800 mL of fluid. The patient denies intermittent difficulties. Dressing changes minimally uncomfortable. He is denying fevers or chills. Thrombocytopenia likely from Zosyn is improving with the changed to ertapenem. Objective - Vital Signs Vital signs: Vital Signs Temp 98.2 F 01/16/18 14:10 Pulse 68 01/16/18 20:23 Resp 18 01/16/18 20:23 BP 182/94 01/16/18 14:10 Pulse Ox 95 01/16/18 16:00 Intake & Output 01/16/18 01/16/18 01/17/18 06:59 18:59 06:59 Output Total 925 500 Balance -925 -500 Weight 149.5 kg Output: Urine 925 500 Other: Voiding Method Indwelling Catheter Indwelling Catheter # Voids 1 ABP, PAP, CO, CI - Last Documented Arterial Blood Pressure 145/46 - Exam 72-year-old male who has obesity is supine, improving extubated but receiving dialysis HEENT: Anicteric conjunctiva are pink and moist nasal mucosa grossly intact without significant lesions around the endotracheal tube, there is no thrush. Neck: The neck is without significant lymphadenopathy or thyromegaly. Lungs: Symmetrical air entry is noted a few expiratory wheezes are scattered no yanni bronchial sounds Heart: Irregular with audible S1 and S2 soft S4 no murmur click or rub Abdomen: Obese, Positive bowel sounds soft and nontender without palpable masses or organomegaly. There was no guarding or rebound. Extremities: The upper extremities have excellent pulses they are symmetric, no significant petechiae or telangiectasia. No splinter hemorrhages were noted. Lower extremities evidence of some chronic edema no open ulcerations Genitalia: With nurse present the scrotum was evaluated the surgical incision shows evidence of just scant serous drainaswollen and erythe Neuro:awake alert and interactive - Labs CBC & Chem 7: 01/16/18 08:35 01/16/18 08:35 Labs: Abnormal Lab Results - Last 24 Hours (Table) 01/16/18 01/16/18 01/16/18 Range/Units 02:00 06:57 08:35 RBC 3.47 L (4.30-5.90) m/uL Hgb 10.3 L (13.0-17.5) gm/dL Hct 30.7 L (39.0-53.0) % Plt Count 132 L (150-450) k/uL Lymphocytes # 0.8 L (1.0-4.8) k/uL PT (9.0-12.0) sec INR (<1.2) Carbon Dioxide (22-30) mmol/L BUN (9-20) mg/dL Creatinine (0.66-1.25) mg/dL Glucose (74-99) mg/dL POC Glucose (mg/dL) 162 H 161 H (75-99) mg/dL Calcium (8.4-10.2) mg/dL 01/16/18 01/16/18 01/16/18 Range/Units 08:35 08:35 11:12 RBC (4.30-5.90) m/uL Hgb (13.0-17.5) gm/dL Hct (39.0-53.0) % Plt Count (150-450) k/uL Lymphocytes # (1.0-4.8) k/uL PT 20.8 H (9.0-12.0) sec INR 2.3 H (<1.2) Carbon Dioxide 18 L (22-30) mmol/L BUN 58 H (9-20) mg/dL Creatinine 7.56 H* (0.66-1.25) mg/dL Glucose 147 H (74-99) mg/dL POC Glucose (mg/dL) 152 H (75-99) mg/dL Calcium 8.0 L (8.4-10.2) mg/dL 01/16/18 01/16/18 Range/Units 17:30 21:00 RBC (4.30-5.90) m/uL Hgb (13.0-17.5) gm/dL Hct (39.0-53.0) % Plt Count (150-450) k/uL Lymphocytes # (1.0-4.8) k/uL PT (9.0-12.0) sec INR (<1.2) Carbon Dioxide (22-30) mmol/L BUN (9-20) mg/dL Creatinine (0.66-1.25) mg/dL Glucose (74-99) mg/dL POC Glucose (mg/dL) 153 H 164 H (75-99) mg/dL Calcium (8.4-10.2) mg/dL Laboratory Results WBC 6.6 k/uL (3.8-10.6) 01/16/18 08:35 RBC 3.47 m/uL (4.30-5.90) L 01/16/18 08:35 Hgb 10.3 gm/dL (13.0-17.5) L 01/16/18 08:35 Hct 30.7 % (39.0-53.0) L 01/16/18 08:35 MCV 88.4 fL (80.0-100.0) 01/16/18 08:35 MCH 29.6 pg (25.0-35.0) 01/16/18 08:35 MCHC 33.5 g/dL (31.0-37.0) 01/16/18 08:35 RDW 13.2 % (11.5-15.5) 01/16/18 08:35 Plt Count 132 k/uL (150-450) L 01/16/18 08:35 Neutrophils % 76 % 01/16/18 08:35 Lymphocytes % 13 % 01/16/18 08:35 Monocytes % 7 % 01/16/18 08:35 Eosinophils % 2 % 01/16/18 08:35 Basophils % 0 % 01/16/18 08:35 Neutrophils # 5.1 k/uL (1.3-7.7) 01/16/18 08:35 Lymphocytes # 0.8 k/uL (1.0-4.8) L 01/16/18 08:35 Monocytes # 0.4 k/uL (0-1.0) 01/16/18 08:35 Eosinophils # 0.1 k/uL (0-0.7) 01/16/18 08:35 Basophils # 0.0 k/uL (0-0.2) 01/16/18 08:35 Manual Slide Review Performed 01/11/18 04:20 Large Platelets Present 01/11/18 04:20 PT 20.8 sec (9.0-12.0) H 01/16/18 08:35 INR 2.3 (<1.2) H 01/16/18 08:35 APTT 64.6 sec (22.0-30.0) H 01/15/18 03:33 Sample Site [place] 01/12/18 16:02 ABG pH 7.31 (7.35-7.45) L 01/12/18 16:02 ABG pCO2 34 mmHg (35-45) L 01/12/18 16:02 ABG pO2 96 mmHg (83-108) 01/12/18 16:02 ABG HCO3 17 mmol/L (21-25) L 01/12/18 16:02 ABG Total CO2 18 mmol/L (19-24) L 01/12/18 16:02 ABG O2 Saturation 97.6 % (94-97) H 01/12/18 16:02 ABG Base Excess -8.9 mmol/L 01/12/18 16:02 Kike Test Yes 01/12/18 16:02 FiO2 25 % 01/12/18 16:02 Sodium 139 mmol/L (137-145) 01/16/18 08:35 Potassium 4.2 mmol/L (3.5-5.1) 01/16/18 08:35 Chloride 103 mmol/L (98-107) 01/16/18 08:35 Carbon Dioxide 18 mmol/L (22-30) L 01/16/18 08:35 Anion Gap 18 mmol/L 01/16/18 08:35 BUN 58 mg/dL (9-20) H 01/16/18 08:35 Creatinine 7.56 mg/dL (0.66-1.25) H* 01/16/18 08:35 Est GFR (CKD-EPI)AfAm 8 (>60 ml/min/1.73 sqM) 01/16/18 08:35 Est GFR (CKD-EPI)NonAf 7 (>60 ml/min/1.73 sqM) 01/16/18 08:35 Glucose 147 mg/dL (74-99) H 01/16/18 08:35 POC Glucose (mg/dL) 164 mg/dL (75-99) H 01/16/18 21:00 POC Glu Tube Roller ID Christine Sam 01/16/18 21:[address] Glu mg/dL 272 01/10/18 03:46 Hemoglobin A1c 11.1 % (4.0-6.0) H 01/10/18 03:46 Lactic Ac Sepsis Rflx Y 01/10/18 00:16 Plasma Lactic Acid Shemar 1.7 mmol/L (0.7-2.0) 01/10/18 09:46 Calcium 8.0 mg/dL (8.4-10.2) L 01/16/18 08:35 Phosphorus 7.2 mg/dL (2.5-4.5) H 01/15/18 03:33 Magnesium 2.0 mg/dL (1.6-2.3) 01/15/18 03:33 Total Bilirubin 1.3 mg/dL (0.2-1.3) 01/09/18 15:17 AST 23 U/L (17-59) 01/09/18 15:17 ALT 23 U/L (21-72) 01/09/18 15:17 Alkaline Phosphatase 108 U/L (38-126) 01/09/18 15:17 Total Protein 6.9 g/dL (6.3-8.2) 01/09/18 15:17 Albumin 4.0 g/dL (3.5-5.0) 01/09/18 15:17 TSH 1.240 mIU/L (0.465-4.680) 01/10/18 13:37 Free T4 1.71 ng/dL (0.78-2.19) 01/10/18 13:37 Urine Color Yellow 01/10/18 02:25 Urine Appearance Cloudy (Clear) 01/10/18 02:25 Urine pH 5.0 (5.0-8.0) 01/10/18 02:25 Ur Specific [place] 1.028 (1.001-1.035) 01/10/18 02:25 Urine Protein Trace (Negative) H 01/10/18 02:25 Urine Glucose (UA) 4+ (Negative) H 01/10/18 02:25 Urine Ketones Trace (Negative) H 01/10/18 02:25 Urine Blood Negative (Negative) 01/10/18 02:25 Urine Nitrite Negative (Negative) 01/10/18 02:25 Urine Bilirubin Negative (Negative) 01/10/18 02:25 Urine Urobilinogen <2.0 mg/dL (<2.0) 01/10/18 02:25 Ur Leukocyte Esterase Negative (Negative) 01/10/18 02:25 Urine RBC <1 /hpf (0-5) 01/10/18 02:25 Urine WBC 2 /hpf (0-5) 01/10/18 02:25 Random Vancomycin 32.2 ug/mL 01/12/18 04:30 Acetone, Qual Negative (Negative) 01/09/18 23:42 Microbiology 01/09/18 15:17 Blood Blood Culture - Final No Growth after 144 hours 01/10/18 17:31 Groin Anaerobic Culture - Final Anaerobic Gm Negative Bacilli 01/10/18 17:31 Groin Anaerobic Culture - Final Anaerobic Gm Negative Bacilli 01/10/18 17:31 Groin Gram Stain - Final 01/10/18 17:31 Groin Wound Culture - Final Escherichia coli Beta Hemolytic Streptococcus F 01/10/18 17:31 Groin Gram Stain - Final 01/10/18 17:31 Groin Wound Culture - Final Beta Hemolytic Streptococcus F 01/10/18 02:25 Urine,Catheterized Urine Culture - Final Assessment and Plan (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 He was taken to the operating room and Vanesa's gangrene was noted that he had debridement of his scrotum. The necrotic material was debrided away and fortunately it is somewhat limited in its extent. There is some however residual erythema and induration of the scrotum and depending on how he responds determine if further intervention is needed, however at this time appears to be stable to improved. The patient is on broad-spectrum antibiotic therapy. Current data is being monitored and likely will discontinue vancomycin therapy especially since he is having increased creatinine. Will utilize silver dressings once the packing is removed by the surgeon. Elevation of the scrotum will be helpful for its edema. As patient progresses and is discharged have instructed his that his glucose control be very important for wound healing and for preventing further events like this in the future. His blood sugar was over 500 admission and his A1c was very elevated. The patient's relates that he was given recently some corticosteroid therapy, which may have contributed to this entire process. Patient remains critically ill but is showing some improvement. 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 01/16/2018 patient is an improvement. Continues with hemodialysis. As patient improves will have to determine best possible access for the intravenous antibiotic therapy and have his discharge which will likely be extended care. Thrombocytopenia likely from Zosyn and is improving since it has been discontinued. Current Visit: Yes Status: Acute Code(s): N49.3 - VANESA GANGRENE SNOMED Code(s): 990561377 (2) Sepsis due to Gram-negative organism with septic shock Current Visit: Yes Status: Acute Code(s): A41.50 - GRAM-NEGATIVE SEPSIS, UNSPECIFIED; R65.21 - SEVERE SEPSIS WITH SEPTIC SHOCK SNOMED Code(s): 285811790 (3) Diabetes mellitus type 2, uncontrolled, with complications Current Visit: Yes Status: Acute Code(s): E11.8 - TYPE 2 DIABETES MELLITUS WITH UNSPECIFIED COMPLICATIONS; E11.65 - TYPE 2 DIABETES MELLITUS WITH HYPERGLYCEMIA SNOMED Code(s): 821411769 (4) Leukocytosis Current Visit: Yes Status: Acute Code(s): D72.829 - ELEVATED WHITE BLOOD CELL COUNT, UNSPECIFIED SNOMED Code(s): 218386985 (5) Acute renal failure Current Visit: Yes Status: Acute Code(s): N17.9 - ACUTE KIDNEY FAILURE, UNSPECIFIED SNOMED Code(s): 58533803
[2018-01-17 01:55] LABS: Glucose,Whole Blood 166 mg/dL (75-99)
[2018-01-17] MEDS: INSULIN ASPART 100 UNIT/ML 1 ML 10 ML VIAL SQ SCH ×5 (02:26→20:55)
[2018-01-17] MEDS: SODIUM CHLORIDE 0.9% 1,000 ML IV SCH ×2 (06:30→06:34)
[2018-01-17] MEDS: HYDROcodone/APAP 7.5-325MG 1 EACH TAB PO PRN (06:32)
--- NOTE | 2018-01-17 06:37 | P.PN ---
Subjective Progress Note Date: 01/17/18 The patient continues to recuperate from his scrotal drainage and debridement from Vanesa's gangrene. His white count is normal. He is afebrile. The swelling is the same. There is no drainage other than old bloody drainage. Scrotum is still swollen. Patient has ambulated and tolerated diet. He should continue with dressing changes. If the swelling persists or may need to repeat a scrotal ultrasound. Objective - Vital Signs Vital signs: Vital Signs Temp 99.3 F 01/16/18 23:00 Pulse 58 L 01/16/18 23:00 Resp 16 01/16/18 23:00 BP 150/70 01/16/18 23:00 Pulse Ox 97 01/16/18 23:00 Intake & Output 01/16/18 01/16/18 01/17/18 06:59 18:59 06:59 Output Total 925 500 Balance -925 -500 Weight 149.5 kg 147.5 kg Output: Urine 925 500 Other: Voiding Method Indwelling Catheter Indwelling Catheter Indwelling Catheter # Voids 1 ABP, PAP, CO, CI - Last Documented Arterial Blood Pressure 145/46 - Labs CBC & Chem 7: 01/16/18 08:35 01/16/18 08:35 Labs: Abnormal Lab Results - Last 24 Hours (Table) 01/16/18 01/16/18 01/16/18 Range/Units 06:57 08:35 08:35 RBC 3.47 L (4.30-5.90) m/uL Hgb 10.3 L (13.0-17.5) gm/dL Hct 30.7 L (39.0-53.0) % Plt Count 132 L (150-450) k/uL Lymphocytes # 0.8 L (1.0-4.8) k/uL PT 20.8 H (9.0-12.0) sec INR 2.3 H (<1.2) Carbon Dioxide (22-30) mmol/L BUN (9-20) mg/dL Creatinine (0.66-1.25) mg/dL Glucose (74-99) mg/dL POC Glucose (mg/dL) 161 H (75-99) mg/dL Calcium (8.4-10.2) mg/dL 01/16/18 01/16/18 01/16/18 Range/Units 08:35 11:12 17:30 RBC (4.30-5.90) m/uL Hgb (13.0-17.5) gm/dL Hct (39.0-53.0) % Plt Count (150-450) k/uL Lymphocytes # (1.0-4.8) k/uL PT (9.0-12.0) sec INR (<1.2) Carbon Dioxide 18 L (22-30) mmol/L BUN 58 H (9-20) mg/dL Creatinine 7.56 H* (0.66-1.25) mg/dL Glucose 147 H (74-99) mg/dL POC Glucose (mg/dL) 152 H 153 H (75-99) mg/dL Calcium 8.0 L (8.4-10.2) mg/dL 01/16/18 01/17/18 Range/Units 21:00 01:53 RBC (4.30-5.90) m/uL Hgb (13.0-17.5) gm/dL Hct (39.0-53.0) % Plt Count (150-450) k/uL Lymphocytes # (1.0-4.8) k/uL PT (9.0-12.0) sec INR (<1.2) Carbon Dioxide (22-30) mmol/L BUN (9-20) mg/dL Creatinine (0.66-1.25) mg/dL Glucose (74-99) mg/dL POC Glucose (mg/dL) 164 H 166 H (75-99) mg/dL Calcium (8.4-10.2) mg/dL
[2018-01-17 07:13] LABS: Glucose,Whole Blood 154 mg/dL (75-99)
[2018-01-17] MEDS: IPRATROPIUM-ALBUTEROL 3 ML NEB INHALATION SCH ×3 (07:44→20:15)
--- NOTE | 2018-01-17 07:51 | CDI ---
Last Revision, August 2017 Documentation Clarification Form Date: January 17, 2018 From: Arina Dean RN Admit Date: 01/09/2018 2:53:00 PM Patient Name: Marciano Dykes Visit Number: [id number] ATTENTION: The Clinical Documentation Specialists (CDI) and [facility] Coding Staff appreciate your assistance in clarifying documentation. Please respond to the clarification below the line at the bottom and electronically sign. The CDI & [facility] Coding staff will review the response and follow-up if needed. Please note: Queries are made part of the Legal Health Record. If you have any questions, please contact the author of this message via ITS. Dr. Steve Torrez, History/Risk Factors: CHF, GERD, HTN, hyperlipidemia, sleep apnea, DM 2, psoriasis, pacemaker, hemorrhoids Presented with: Cellulitis of the Scrotum Clinical Indicators: On Admission: BUN 35, CR. 1.12, GFR 66 Current BUN 58, CR. 7.56, GFR: 7 Treatment: Patients medications include: IVF BOLUS X2 IV: .9 @ 40 mls/hr In order to capture the severity of condition, please clarify if the condition signifies: CKD Stage 1 (GFR > 90) CKD Stage 2 (GFR 60-89) CKD Stage 3 (GFR 30-59) CKD Stage 4 (GFR 15-29) CKD Stage 5 (GFR <15) Other, please specify Unable to determine Please continue to document in your progress notes, under the line below and discharge summary in order to capture severity of illness and risk of mortality. Include clinical findings that support your diagnosis. _ MTDD
--- NOTE | 2018-01-17 08:00 | CDI ---
Last Revision, August 2017 Documentation Clarification Form Date: January 17, 2018 From: Arina Dean RN Admit Date: 01/09/2018 2:53:00 PM Patient Name: Marciano Dykes Visit Number: [id number] ATTENTION: The Clinical Documentation Specialists (CDI) and [facility] Coding Staff appreciate your assistance in clarifying documentation. Please respond to the clarification below the line at the bottom and electronically sign. The CDI & [facility] Coding staff will review the response and follow-up if needed. Please note: Queries are made part of the Legal Health Record. If you have any questions, please contact the author of this message via ITS. Dr. Phil Kevin, Third request: Heart Failure is documented in the chart 01/09 and 01/10. History/Risk Factors:. chf, gerd, htn, hyperlipidemia, sleep apnea, cpap machine, dm2, psoriasis, pacemaker, hemmorhoids Presented with: scrotal mass Clinical Indicators: Echocardiogram Results: EF 60-65% Treatment: IV Lasix In your professional opinion, can you please clarify the acuity and type of CHF if known? Systolic Heart Failure: Acute Chronic Acute on Chronic Diastolic Heart Failure: X Acute Chronic Acute on Chronic Systolic & Diastolic Heart Failure: Acute Chronic Acute on Chronic Heart Failure Unable to Determine Other, please specify Harvey continue to document in your progress notes, under the line below and discharge summary in order to capture severity of illness and risk of mortality. Include clinical findings that support your diagnosis. MTDD
[2018-01-17] MEDS: AMIODARONE 200 MG TAB PO SCH ×2 (08:24→20:15)
[2018-01-17] MEDS: TOPIRAMATE 25 MG TAB PO SCH ×2 (08:24→20:14)
[2018-01-17] MEDS: ASPIRIN 81 MG PO SCH (08:24)
[2018-01-17] MEDS: METOPROLOL TARTRATE 25 MG TAB PO SCH ×2 (08:25→20:16)
[2018-01-17] MEDS: SODIUM BICARBONATE TAB 650 MG TAB PO SCH ×2 (08:25→20:14)
[2018-01-17] MEDS: CALCIUM ACETATE 667 MG CAP PO SCH ×3 (08:25→18:22)
[2018-01-17 09:46] LABS: Basophils % (A) 0 %; Eosinophils # (A) 0.1 k/uL (0-0.7); Eosinophils % (A) 1 %; HCT 27.7 % (39.0-53.0); HGB 9.4 gm/dL (13.0-17.5); Lymphocytes # (A) 0.7 k/uL (1.0-4.8); Lymphocytes % (A) 12 %; MCH 29.7 pg (25.0-35.0); MCHC 33.8 g/dL (31.0-37.0); MCV 87.9 fL (80.0-100.0); Mean Platelet Volume 9.3; Monocytes # (A) 0.4 k/uL (0-1.0); Monocytes % (A) 6 %; Neutrophils # (A) 4.7 k/uL (1.3-7.7); Neutrophils % (A) 78 %; Platelet Count 137 k/uL (150-450); RBC 3.15 m/uL (4.30-5.90); RDW 13.1 % (11.5-15.5); WBC 5.9 k/uL (3.8-10.6)
[2018-01-17 09:50] LABS: INR 3.2 (<1.2)
[2018-01-17 10:30] LABS: Calcium 7.9 mg/dL (8.4-10.2); Potassium 4.1 mmol/L (3.5-5.1)
[2018-01-17 12:24] LABS: Glucose,Whole Blood 139 mg/dL (75-99)
[2018-01-17] MEDS: ERTAPENEM 0.5 GM in SODIUM CHLORIDE 0.9% 50 ML IVPB SCH (12:52)
--- NOTE | 2018-01-17 13:39 | P.PN ---
Subjective Patient is seen in follow-up for acute kidney injury. Patient presented with scrotal cellulitis and underwent debridement of gangrene by urology on January 10. Patient developed worsening renal failure and was started on hemodialysis on January 12. He is non-oliguric. He is currently maintained on normal saline at 40 mL an hour. He is currently resting in bed. Family present at bedside. Vital signs are stable. General: The patient appeared well nourished and normally developed. HEENT: Head exam is unremarkable. Neck is without jugular venous distension. LUNGS: Lungs are clear to auscultation and percussion. Breath sounds decreased. HEART: Rate and Rhythm are regular. First and second heart sounds normal. No murmurs, rubs or gallops. ABDOMEN: Abdominal exam reveals normal bowel sounds. Non-tender and non- distended. No evidence of peritonitis. EXTREMITITES: Trace-1+ edema. Objective - Vital Signs Vital signs: Vital Signs Temp 99.8 F H 01/17/18 05:30 Pulse 66 01/17/18 07:56 Resp 16 01/17/18 05:30 BP 185/84 01/17/18 05:30 Pulse Ox 96 01/17/18 07:46 Intake & Output 01/16/18 01/17/18 01/17/18 18:59 06:59 18:59 Output Total 500 750 Balance -500 -750 Weight 147.5 kg Output: Urine 500 750 Other: Voiding Method Indwelling Catheter Indwelling Catheter Indwelling Catheter # Bowel Movements 1 ABP, PAP, CO, CI - Last Documented Arterial Blood Pressure 145/46 - Labs CBC & Chem 7: 01/17/18 08:38 01/17/18 08:38 Labs: Abnormal Lab Results - Last 24 Hours (Table) 01/16/18 01/16/18 01/17/18 Range/Units 17:30 21:00 01:53 RBC (4.30-5.90) m/uL Hgb (13.0-17.5) gm/dL Hct (39.0-53.0) % Plt Count (150-450) k/uL Lymphocytes # (1.0-4.8) k/uL PT (9.0-12.0) sec INR (<1.2) Carbon Dioxide (22-30) mmol/L BUN (9-20) mg/dL Creatinine (0.66-1.25) mg/dL Glucose (74-99) mg/dL POC Glucose (mg/dL) 153 H 164 H 166 H (75-99) mg/dL Calcium (8.4-10.2) mg/dL 01/17/18 01/17/18 01/17/18 Range/Units 07:08 08:38 08:38 RBC 3.15 L (4.30-5.90) m/uL Hgb 9.4 L (13.0-17.5) gm/dL Hct 27.7 L (39.0-53.0) % Plt Count 137 L (150-450) k/uL Lymphocytes # 0.7 L (1.0-4.8) k/uL PT 29.0 H (9.0-12.0) sec INR 3.2 H (<1.2) Carbon Dioxide (22-30) mmol/L BUN (9-20) mg/dL Creatinine (0.66-1.25) mg/dL Glucose (74-99) mg/dL POC Glucose (mg/dL) 154 H (75-99) mg/dL Calcium (8.4-10.2) mg/dL 01/17/18 01/17/18 Range/Units 08:38 12:17 RBC (4.30-5.90) m/uL Hgb (13.0-17.5) gm/dL Hct (39.0-53.0) % Plt Count (150-450) k/uL Lymphocytes # (1.0-4.8) k/uL PT (9.0-12.0) sec INR (<1.2) Carbon Dioxide 20 L (22-30) mmol/L BUN 47 H (9-20) mg/dL Creatinine 6.77 H* (0.66-1.25) mg/dL Glucose 162 H (74-99) mg/dL POC Glucose (mg/dL) 139 H (75-99) mg/dL Calcium 7.9 L (8.4-10.2) mg/dL Assessment and Plan Plan: Assessment: #1. Oliguric - now nonoliguric - acute kidney injury secondary to ischemic ATN secondary to septic shock and hemodynamic instability. Baseline creatinine is 1 and peaked at 7.5 this admission - currently HD dependent. Urinalysis is quite benign. Last HD 01/16/18. #2. Septic shock secondary to scrotal abscess, off vasopressors at this time. #3. Atrial fibrillation with RVR status post Cardizem drip. Now rate controlled. #4. Scrotal abscess status post debridement of necrotic tissue on January 10. Maintained on IV antibiotics. #5. Metabolic acidosis secondary to acute kidney injury and IV fluids. Improved with HD. maintained on oral sodium bicarbonate. #6. Hyperphosphatemia secondary to JUAN. Maintained on PhosLo. #7. Diabetes. Plan: Hemodialysis today with goal 1-1/2-2 L ultrafiltration. Another treatment tomorrow. Continue to monitor renal function and urine output. Will need IJ catheter and outpatient HD set up prior to discharge. Family was updated.
[2018-01-17] MEDS ORDERED: HEPARIN SODIUM,PORCINE 5,000 UNIT/ML 1 ML VIAL ONE (14:00)
[2018-01-17] MEDS ORDERED: WARFARIN 5 MG TAB PO SCH (14:30)
--- NOTE | 2018-01-17 14:37 | P.PN ---
Subjective 72-year-old admitted secondary to septic shock shock improved patient is presently on Zosyn for gram-negative scrotal abscess and 40 is gangrene patient is status post incision and drainage and patient is intubated mechanically ventilated due to hypoxic respiratory failure from sepsis. We did is being managed by shipping and receiving coordinator. Patient is on IV heparin because of his history of atrial fibrillation and patient is being bridged with IV heparin because of his high risk for cerebrovascular accident from A. fib. Patient was evaluated by infectious disease, shipping and receiving coordinator, urology. 01/13/2018 Patient was extubated yesterday clinically doing well, patient remains on IV heparin will switch will be switched to oral anticoagulation for his chronic atrial fibrillation. Patient is comparing of some discomfort in the scrotal area. 01/14/2018 Patient is clinically doing well is complaining of massive condition fullness was ordered and patient will be transferred out of ICU. Patient's own cultures are now showing E. coli as well as and aerobic gram-negative bacilli along with beta hemolytic streptococci patient is on appropriate antibiotic Zosyn to cover all this bacteria area patient was started back on anticoagulations with Coumadin 01/15/2018 Patient's scrotum is more swollen than yesterday. Patient is having bleeding from that area, IV heparin will be discontinued, patient is being continued on Coumadin. Patient had hemodialysis yesterday 01/16/2018 Patient's INR is therapeutic clinically doing well. Receiving hemodialysis today 01/17/2018 INR is 3.6, hold off Coumadin as patient may need dialysis catheter placement patient presently has inguinal catheter for dialysis. PT and OT will evaluate the patient. Patient is on ertapenem. Further goals and plans were discussed with the patient and family at bedside. Constitutional: Denied any fatigue denied any fever. Cardio vascular: denied any chest pain, palpitations Gastrointestinal denied any nausea vomiting Pulmonary: Denied any shortness of breath cough Neurologic denied any new focal deficits Objective - Vital Signs Vital signs: Vital Signs Temp 99.8 F H 01/17/18 05:30 Pulse 65 01/17/18 14:04 Resp 16 01/17/18 14:04 BP 185/84 01/17/18 05:30 Pulse Ox 96 01/17/18 07:46 Intake & Output 01/16/18 01/17/18 01/17/18 18:59 06:59 18:59 Output Total 500 750 Balance -500 -750 Weight 147.5 kg Output: Urine 500 750 Other: Voiding Method Indwelling Catheter Indwelling Catheter Indwelling Catheter # Bowel Movements 1 ABP, PAP, CO, CI - Last Documented Arterial Blood Pressure 145/46 - Exam PHYSICAL EXAMINATION: GENERAL: Drowsy oriented 3 morbidly obese HEENT: Pupils are round and equally reacting to light. EOMI. No scleral icterus. No conjunctival pallor. Normocephalic, atraumatic. No pharyngeal erythema. No thyromegaly. CARDIOVASCULAR: S1 and S2 present. No murmurs, rubs, or gallops. PULMONARY: Chest is clear to auscultation, no wheezing or crackles. ABDOMEN: Soft, nontender, nondistended, normoactive bowel sounds. No palpable organomegaly. MUSCULOSKELETAL: No joint swelling or deformity. EXTREMITIES: No cyanosis, clubbing, or pedal edema. Scrotal edema with cellulitis and the postsurgically packed NEUROLOGICAL: No new focal deficits were appreciated SKIN: No rashes. - Labs CBC & Chem 7: 01/17/18 08:38 01/17/18 08:38 Labs: Abnormal Lab Results - Last 24 Hours (Table) 01/16/18 01/16/18 01/17/18 Range/Units 17:30 21:00 01:53 RBC (4.30-5.90) m/uL Hgb (13.0-17.5) gm/dL Hct (39.0-53.0) % Plt Count (150-450) k/uL Lymphocytes # (1.0-4.8) k/uL PT (9.0-12.0) sec INR (<1.2) Carbon Dioxide (22-30) mmol/L BUN (9-20) mg/dL Creatinine (0.66-1.25) mg/dL Glucose (74-99) mg/dL POC Glucose (mg/dL) 153 H 164 H 166 H (75-99) mg/dL Calcium (8.4-10.2) mg/dL 01/17/18 01/17/18 01/17/18 Range/Units 07:08 08:38 08:38 RBC 3.15 L (4.30-5.90) m/uL Hgb 9.4 L (13.0-17.5) gm/dL Hct 27.7 L (39.0-53.0) % Plt Count 137 L (150-450) k/uL Lymphocytes # 0.7 L (1.0-4.8) k/uL PT 29.0 H (9.0-12.0) sec INR 3.2 H (<1.2) Carbon Dioxide (22-30) mmol/L BUN (9-20) mg/dL Creatinine (0.66-1.25) mg/dL Glucose (74-99) mg/dL POC Glucose (mg/dL) 154 H (75-99) mg/dL Calcium (8.4-10.2) mg/dL 01/17/18 01/17/18 Range/Units 08:38 12:17 RBC (4.30-5.90) m/uL Hgb (13.0-17.5) gm/dL Hct (39.0-53.0) % Plt Count (150-450) k/uL Lymphocytes # (1.0-4.8) k/uL PT (9.0-12.0) sec INR (<1.2) Carbon Dioxide 20 L (22-30) mmol/L BUN 47 H (9-20) mg/dL Creatinine 6.77 H* (0.66-1.25) mg/dL Glucose 162 H (74-99) mg/dL POC Glucose (mg/dL) 139 H (75-99) mg/dL Calcium 7.9 L (8.4-10.2) mg/dL Assessment and Plan Plan: severe sepsis and septic shock with lactic acidosis, secondary to scrotal cellulitis and abscess and jitendra's gangrene, status post incision and drainage, patient shock improved n patient is on Zosyn for streptococci, E. coli and anaerobic gram-negative bacilli Acute kidney injury with acute tubular necrosis, patient's creatinine is 6.5 today and patient is on hemodialysis hopefully temporary Non-anion gap metabolic acidosis due to lactic acidosis which improved atrial fibrillation history: Presently rate controlled was resumed on oral anticoagulation, IV heparin was discussed new because of bleeding from the surgical site area Acute hypoxemic respiratory failure secondary to sepsis, which resolved Diabetes mellitus: Continue with present regimen. Sleep apnea Possible COPD Status post pacemaker implantation History of GERD Hyperlipidemia
[2018-01-17 17:22] LABS: Glucose,Whole Blood 148 mg/dL (75-99)
[2018-01-17] MEDS: PANTOPRAZOLE 40 MG TABLET PO SCH (18:22)
[2018-01-17 20:51] LABS: Glucose,Whole Blood 181 mg/dL (75-99)
[2018-01-17] MEDS: ACETAMINOPHEN TAB 325 MG TAB PO PRN (23:31)
--- NOTE | 2018-01-17 23:53 | P.PN ---
Subjective Progress Note Date: 01/17/18 Principal diagnosis: 72-year-old male who has obesity and diabetes that is controlled with oral medication presents to the hospital with acute illness with fever pain and swelling to the scrotum. Upon admission the patient had interventions that included ultrasound and blood work patient evidence of sepsis and was brought in the hospital. He did have increasing illness and was seen by urology. 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 Fortunately it had not spread significantly beyond the scrotal tissue at the time of the surgical debridement. The patient this time remains in intensive care unit intubated sedated and mechanically ventilated requiring vasopressor therapy for his sepsis with shock. However there seems to be some improvement. The patient 's condition is discussed with his and sister. The patient's relates that he had been evaluated in the last few months for his diabetes it was on oral medications and thought he was doing relatively well. We discussed hemoglobin A1c is greater than 11 which would indicate that he likely has had uncontrolled blood sugar for quite some time. This is the etiology of his current infection and will need better glucose control to allow improvement of his infection. 01/14/2018 patient is improved but remains on hemodialysis for the acute renal failure with hope of renal recovery. the scrotal infection is improving, 01/15/2018 further improvement occuring,feels better, but have noted falling platelet count. 01/16/2018 patient is feeling better today. Less pain, more interactive. Dialysis today was only able to remove 800 mL of fluid. The patient denies intermittent difficulties. Dressing changes minimally uncomfortable. He is denying fevers or chills. Thrombocytopenia likely from Zosyn is improving with the changed to ertapenem. 01/17/2018 patient is feeling better today. Was able to up and ambulate with much less difficulty. Pain control is improved. Denies fevers. Objective - Vital Signs Vital signs: Vital Signs Temp 98.4 F 01/17/18 15:00 Pulse 62 01/17/18 20:27 Resp 18 01/17/18 15:00 BP 176/68 01/17/18 15:00 Pulse Ox 96 01/17/18 20:15 Intake & Output 01/17/18 01/17/18 01/18/18 06:59 18:59 06:59 Output Total 1450 Balance -1450 Weight 147.5 kg 147.5 kg Output: Urine 1450 Other: Voiding Method Indwelling Catheter Indwelling Catheter Indwelling Catheter # Bowel Movements 1 ABP, PAP, CO, CI - Last Documented Arterial Blood Pressure 145/46 - Exam 72-year-old male who has obesity is supine, improving extubated but receiving dialysis HEENT: Anicteric conjunctiva are pink and moist nasal mucosa grossly intact without significant lesions around the endotracheal tube, there is no thrush. Neck: The neck is without significant lymphadenopathy or thyromegaly. Lungs: Symmetrical air entry is noted a few expiratory wheezes are scattered no yanni bronchial sounds Heart: Irregular with audible S1 and S2 soft S4 no murmur click or rub Abdomen: Obese, Positive bowel sounds soft and nontender without palpable masses or organomegaly. There was no guarding or rebound. Extremities: The upper extremities have excellent pulses they are symmetric, no significant petechiae or telangiectasia. No splinter hemorrhages were noted. Lower extremities evidence of some chronic edema no open ulcerations Genitalia: With nurse present the scrotum was evaluated the surgical incision shows evidence of just scant serous drainage and swelling, some bloody drainage is noted after he ambulates. Neuro:awake alert and interactive - Labs CBC & Chem 7: 01/17/18 08:38 01/17/18 08:38 Labs: Abnormal Lab Results - Last 24 Hours (Table) 01/17/18 01/17/18 01/17/18 Range/Units 01:53 07:08 08:38 RBC 3.15 L (4.30-5.90) m/uL Hgb 9.4 L (13.0-17.5) gm/dL Hct 27.7 L (39.0-53.0) % Plt Count 137 L (150-450) k/uL Lymphocytes # 0.7 L (1.0-4.8) k/uL PT (9.0-12.0) sec INR (<1.2) Carbon Dioxide (22-30) mmol/L BUN (9-20) mg/dL Creatinine (0.66-1.25) mg/dL Glucose (74-99) mg/dL POC Glucose (mg/dL) 166 H 154 H (75-99) mg/dL Calcium (8.4-10.2) mg/dL 01/17/18 01/17/18 01/17/18 Range/Units 08:38 08:38 12:17 RBC (4.30-5.90) m/uL Hgb (13.0-17.5) gm/dL Hct (39.0-53.0) % Plt Count (150-450) k/uL Lymphocytes # (1.0-4.8) k/uL PT 29.0 H (9.0-12.0) sec INR 3.2 H (<1.2) Carbon Dioxide 20 L (22-30) mmol/L BUN 47 H (9-20) mg/dL Creatinine 6.77 H* (0.66-1.25) mg/dL Glucose 162 H (74-99) mg/dL POC Glucose (mg/dL) 139 H (75-99) mg/dL Calcium 7.9 L (8.4-10.2) mg/dL 01/17/18 01/17/18 Range/Units 17:17 20:50 RBC (4.30-5.90) m/uL Hgb (13.0-17.5) gm/dL Hct (39.0-53.0) % Plt Count (150-450) k/uL Lymphocytes # (1.0-4.8) k/uL PT (9.0-12.0) sec INR (<1.2) Carbon Dioxide (22-30) mmol/L BUN (9-20) mg/dL Creatinine (0.66-1.25) mg/dL Glucose (74-99) mg/dL POC Glucose (mg/dL) 148 H 181 H (75-99) mg/dL Calcium (8.4-10.2) mg/dL Laboratory Results WBC 5.9 k/uL (3.8-10.6) 01/17/18 08:38 RBC 3.15 m/uL (4.30-5.90) L 01/17/18 08:38 Hgb 9.4 gm/dL (13.0-17.5) L 01/17/18 08:38 Hct 27.7 % (39.0-53.0) L 01/17/18 08:38 MCV 87.9 fL (80.0-100.0) 01/17/18 08:38 MCH 29.7 pg (25.0-35.0) 01/17/18 08:38 MCHC 33.8 g/dL (31.0-37.0) 01/17/18 08:38 RDW 13.1 % (11.5-15.5) 01/17/18 08:38 Plt Count 137 k/uL (150-450) L 01/17/18 08:38 Neutrophils % 78 % 01/17/18 08:38 Lymphocytes % 12 % 01/17/18 08:38 Monocytes % 6 % 01/17/18 08:38 Eosinophils % 1 % 01/17/18 08:38 Basophils % 0 % 01/17/18 08:38 Neutrophils # 4.7 k/uL (1.3-7.7) 01/17/18 08:38 Lymphocytes # 0.7 k/uL (1.0-4.8) L 01/17/18 08:38 Monocytes # 0.4 k/uL (0-1.0) 01/17/18 08:38 Eosinophils # 0.1 k/uL (0-0.7) 01/17/18 08:38 Basophils # 0.0 k/uL (0-0.2) 01/17/18 08:38 Manual Slide Review Performed 01/11/18 04:20 Large Platelets Present 01/11/18 04:20 PT 29.0 sec (9.0-12.0) H 01/17/18 08:38 INR 3.2 (<1.2) H 01/17/18 08:38 APTT 64.6 sec (22.0-30.0) H 01/15/18 03:33 Sample Site [place] 01/12/18 16:02 ABG pH 7.31 (7.35-7.45) L 01/12/18 16:02 ABG pCO2 34 mmHg (35-45) L 01/12/18 16:02 ABG pO2 96 mmHg (83-108) 01/12/18 16:02 ABG HCO3 17 mmol/L (21-25) L 01/12/18 16:02 ABG Total CO2 18 mmol/L (19-24) L 01/12/18 16:02 ABG O2 Saturation 97.6 % (94-97) H 01/12/18 16:02 ABG Base Excess -8.9 mmol/L 01/12/18 16:02 Kike Test Yes 01/12/18 16:02 FiO2 25 % 01/12/18 16:02 Sodium 138 mmol/L (137-145) 01/17/18 08:38 Potassium 4.1 mmol/L (3.5-5.1) 01/17/18 08:38 Chloride 103 mmol/L (98-107) 01/17/18 08:38 Carbon Dioxide 20 mmol/L (22-30) L 01/17/18 08:38 Anion Gap 15 mmol/L 01/17/18 08:38 BUN 47 mg/dL (9-20) H 01/17/18 08:38 Creatinine 6.77 mg/dL (0.66-1.25) H* 01/17/18 08:38 Est GFR (CKD-EPI)AfAm 9 (>60 ml/min/1.73 sqM) 01/17/18 08:38 Est GFR (CKD-EPI)NonAf 8 (>60 ml/min/1.73 sqM) 01/17/18 08:38 Glucose 162 mg/dL (74-99) H 01/17/18 08:38 POC Glucose (mg/dL) 181 mg/dL (75-99) H 01/17/18 20:50 POC Glu Research Manager Christine Meehan 01/17/18 20:[address] Glu mg/dL 272 01/10/18 03:46 Hemoglobin A1c 11.1 % (4.0-6.0) H 01/10/18 03:46 Lactic Ac Sepsis Rflx Y 01/10/18 00:16 Plasma Lactic Acid Shemar 1.7 mmol/L (0.7-2.0) 01/10/18 09:46 Calcium 7.9 mg/dL (8.4-10.2) L 01/17/18 08:38 Phosphorus 7.2 mg/dL (2.5-4.5) H 01/15/18 03:33 Magnesium 2.0 mg/dL (1.6-2.3) 01/15/18 03:33 Total Bilirubin 1.3 mg/dL (0.2-1.3) 01/09/18 15:17 AST 23 U/L (17-59) 01/09/18 15:17 ALT 23 U/L (21-72) 01/09/18 15:17 Alkaline Phosphatase 108 U/L (38-126) 01/09/18 15:17 Total Protein 6.9 g/dL (6.3-8.2) 01/09/18 15:17 Albumin 4.0 g/dL (3.5-5.0) 01/09/18 15:17 TSH 1.240 mIU/L (0.465-4.680) 01/10/18 13:37 Free T4 1.71 ng/dL (0.78-2.19) 01/10/18 13:37 Urine Color Yellow 01/10/18 02:25 Urine Appearance Cloudy (Clear) 01/10/18 02:25 Urine pH 5.0 (5.0-8.0) 01/10/18 02:25 Ur Specific [place] 1.028 (1.001-1.035) 01/10/18 02:25 Urine Protein Trace (Negative) H 01/10/18 02:25 Urine Glucose (UA) 4+ (Negative) H 01/10/18 02:25 Urine Ketones Trace (Negative) H 01/10/18 02:25 Urine Blood Negative (Negative) 01/10/18 02:25 Urine Nitrite Negative (Negative) 01/10/18 02:25 Urine Bilirubin Negative (Negative) 01/10/18 02:25 Urine Urobilinogen <2.0 mg/dL (<2.0) 01/10/18 02:25 Ur Leukocyte Esterase Negative (Negative) 01/10/18 02:25 Urine RBC <1 /hpf (0-5) 01/10/18 02:25 Urine WBC 2 /hpf (0-5) 01/10/18 02:25 Random Vancomycin 32.2 ug/mL 01/12/18 04:30 Acetone, Qual Negative (Negative) 01/09/18 23:42 Hepatitis A IgM Ab Non-Reactive (Non-Reactive) 01/16/18 08:35 Hep Bs Antigen Non-Reactive (Non-Reactive) 01/16/18 08:35 Hep B Core IgM Ab Non-Reactive (Non-Reactive) 01/16/18 08:35 Hep C IgG Ab Non-Reactive (Non-Reactive) 01/16/18 08:35 Microbiology 01/09/18 15:17 Blood Blood Culture - Final No Growth after 144 hours 01/10/18 17:31 Groin Anaerobic Culture - Final Anaerobic Gm Negative Bacilli 01/10/18 17:31 Groin Anaerobic Culture - Final Anaerobic Gm Negative Bacilli 01/10/18 17:31 Groin Gram Stain - Final 01/10/18 17:31 Groin Wound Culture - Final Escherichia coli Beta Hemolytic Streptococcus F 01/10/18 17:31 Groin Gram Stain - Final 01/10/18 17:31 Groin Wound Culture - Final Beta Hemolytic Streptococcus F 01/10/18 02:25 Urine,Catheterized Urine Culture - Final Assessment and Plan (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 He was taken to the operating room and Vanesa's gangrene was noted that he had debridement of his scrotum. The necrotic material was debrided away and fortunately it is somewhat limited in its extent. There is some however residual erythema and induration of the scrotum and depending on how he responds determine if further intervention is needed, however at this time appears to be stable to improved. The patient is on broad-spectrum antibiotic therapy. Current data is being monitored and likely will discontinue vancomycin therapy especially since he is having increased creatinine. Will utilize silver dressings once the packing is removed by the surgeon. Elevation of the scrotum will be helpful for its edema. As patient progresses and is discharged have instructed his that his glucose control be very important for wound healing and for preventing further events like this in the future. His blood sugar was over 500 admission and his A1c was very elevated. The patient's relates that he was given recently some corticosteroid therapy, which may have contributed to this entire process. Patient remains critically ill but is showing some improvement. 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 01/16/2018 patient is an improvement. Continues with hemodialysis. As patient improves will have to determine best possible access for the intravenous antibiotic therapy and have his discharge which will likely be extended care. Thrombocytopenia likely from Zosyn and is improving since it has been discontinued. 01/17/2018 patient is feeling slightly better. Dialysis yesterday that occurred more dialysis is planned for further improvement of his volume overload. Continue his intravenous antibiotic therapy. Work with the external grinder as to IV access so he can complete his course of antibiotic therapy for his extensive infection of the scrotum. Zosyn was transitioned to ertapenem because of thrombocytopenia that's already improving. Current Visit: Yes Status: Acute Code(s): N49.3 - VANESA GANGRENE SNOMED Code(s): 014191828 (2) Sepsis due to Gram-negative organism with septic shock Current Visit: Yes Status: Acute Code(s): A41.50 - GRAM-NEGATIVE SEPSIS, UNSPECIFIED; R65.21 - SEVERE SEPSIS WITH SEPTIC SHOCK SNOMED Code(s): 109519166 (3) Diabetes mellitus type 2, uncontrolled, with complications Current Visit: Yes Status: Acute Code(s): E11.8 - TYPE 2 DIABETES MELLITUS WITH UNSPECIFIED COMPLICATIONS; E11.65 - TYPE 2 DIABETES MELLITUS WITH HYPERGLYCEMIA SNOMED Code(s): 959245113 (4) Leukocytosis Current Visit: Yes Status: Acute Code(s): D72.829 - ELEVATED WHITE BLOOD CELL COUNT, UNSPECIFIED SNOMED Code(s): 052095171 (5) Acute renal failure Current Visit: Yes Status: Acute Code(s): N17.9 - ACUTE KIDNEY FAILURE, UNSPECIFIED SNOMED Code(s): 73939101
[2018-01-18 02:16] LABS: Glucose,Whole Blood 120 mg/dL (75-99)
[2018-01-18] MEDS: INSULIN ASPART 100 UNIT/ML 1 ML 10 ML VIAL SQ SCH ×5 (02:42→21:37)
[2018-01-18] MEDS: SODIUM CHLORIDE 0.9% 1,000 ML IV SCH (02:42)
[2018-01-18 06:57] LABS: Glucose,Whole Blood 127 mg/dL (75-99)
[2018-01-18] MEDS: IPRATROPIUM-ALBUTEROL 3 ML NEB INHALATION SCH ×3 (07:22→20:47)
[2018-01-18 08:45] LABS: INR 3.1 (<1.2); Prothrombin Time 27.4 sec (9.0-12.0)
[2018-01-18 08:47] LABS: MCH 29.4 pg (25.0-35.0); MCHC 33.5 g/dL (31.0-37.0); MCV 87.6 fL (80.0-100.0); Platelet Count 139 k/uL (150-450); RBC 3.08 m/uL (4.30-5.90); RDW 13.2 % (11.5-15.5); WBC 6.1 k/uL (3.8-10.6)
[2018-01-18 09:02] LABS: Potassium 4.1 mmol/L (3.5-5.1)
[2018-01-18] MEDS: SODIUM BICARBONATE TAB 650 MG TAB PO SCH (09:03)
[2018-01-18] MEDS: TOPIRAMATE 25 MG TAB PO SCH ×2 (09:03→21:36)
[2018-01-18] MEDS: METOPROLOL TARTRATE 25 MG TAB PO SCH (09:03)
[2018-01-18] MEDS: ASPIRIN 81 MG PO SCH (09:03)
[2018-01-18] MEDS: PANTOPRAZOLE 40 MG TABLET PO SCH ×2 (09:03→17:35)
[2018-01-18] MEDS: AMIODARONE 200 MG TAB PO SCH ×2 (09:03→21:36)
[2018-01-18] MEDS: CALCIUM ACETATE 667 MG CAP PO SCH ×3 (09:03→17:35)
[2018-01-18 11:33] LABS: Glucose,Whole Blood 160 mg/dL (75-99)
[2018-01-18] MEDS: ERTAPENEM 0.5 GM in SODIUM CHLORIDE 0.9% 50 ML IVPB SCH (12:13)
--- NOTE | 2018-01-18 12:47 | P.PN ---
Subjective 72-year-old admitted secondary to septic shock shock improved patient is presently on Zosyn for gram-negative scrotal abscess and 40 is gangrene patient is status post incision and drainage and patient is intubated mechanically ventilated due to hypoxic respiratory failure from sepsis. We did is being managed by process server. Patient is on IV heparin because of his history of atrial fibrillation and patient is being bridged with IV heparin because of his high risk for cerebrovascular accident from A. fib. Patient was evaluated by infectious disease, process server, urology. 01/13/2018 Patient was extubated yesterday clinically doing well, patient remains on IV heparin will switch will be switched to oral anticoagulation for his chronic atrial fibrillation. Patient is comparing of some discomfort in the scrotal area. 01/14/2018 Patient is clinically doing well is complaining of massive condition fullness was ordered and patient will be transferred out of ICU. Patient's own cultures are now showing E. coli as well as and aerobic gram-negative bacilli along with beta hemolytic streptococci patient is on appropriate antibiotic Zosyn to cover all this bacteria area patient was started back on anticoagulations with Coumadin 01/15/2018 Patient's scrotum is more swollen than yesterday. Patient is having bleeding from that area, IV heparin will be discontinued, patient is being continued on Coumadin. Patient had hemodialysis yesterday 01/16/2018 Patient's INR is therapeutic clinically doing well. Receiving hemodialysis today 01/17/2018 INR is 3.6, hold off Coumadin as patient may need dialysis catheter placement patient presently has inguinal catheter for dialysis. PT and OT will evaluate the patient. Patient is on ertapenem. Further goals and plans were discussed with the patient and family at bedside. 01/18/2018 Patient's INR is still a elevated because of which patient received the vitamin K for possibility of subclavian Esa line placement tomorrow. Otherwise there are no overnight events. Constitutional: Denied any fatigue denied any fever. Cardio vascular: denied any chest pain, palpitations Gastrointestinal denied any nausea vomiting Pulmonary: Denied any shortness of breath cough Neurologic denied any new focal deficits Objective - Vital Signs Vital signs: Vital Signs Temp 99.7 F H 01/18/18 06:22 Pulse 67 01/18/18 07:33 Resp 16 01/18/18 07:22 BP 173/78 01/18/18 06:22 Pulse Ox 96 01/18/18 06:22 Intake & Output 01/17/18 01/18/18 01/18/18 18:59 06:59 18:59 Output Total 1450 Balance -1450 Weight 147.5 kg 146 kg Output: Urine 1450 Other: Voiding Method Indwelling Catheter Indwelling Catheter Indwelling Catheter # Bowel Movements 1 ABP, PAP, CO, CI - Last Documented Arterial Blood Pressure 145/46 - Exam PHYSICAL EXAMINATION: GENERAL: Drowsy oriented 3 morbidly obese HEENT: Pupils are round and equally reacting to light. EOMI. No scleral icterus. No conjunctival pallor. Normocephalic, atraumatic. No pharyngeal erythema. No thyromegaly. CARDIOVASCULAR: S1 and S2 present. No murmurs, rubs, or gallops. PULMONARY: Chest is clear to auscultation, no wheezing or crackles. ABDOMEN: Soft, nontender, nondistended, normoactive bowel sounds. No palpable organomegaly. MUSCULOSKELETAL: No joint swelling or deformity. EXTREMITIES: No cyanosis, clubbing, or pedal edema. Scrotal edema with cellulitis and the postsurgically packed NEUROLOGICAL: No new focal deficits were appreciated SKIN: No rashes. - Labs CBC & Chem 7: 01/18/18 08:21 01/18/18 08:21 Labs: Abnormal Lab Results - Last 24 Hours (Table) 01/17/18 01/17/18 01/18/18 Range/Units 17:17 20:50 02:12 RBC (4.30-5.90) m/uL Hgb (13.0-17.5) gm/dL Hct (39.0-53.0) % Plt Count (150-450) k/uL PT (9.0-12.0) sec INR (<1.2) Carbon Dioxide (22-30) mmol/L BUN (9-20) mg/dL Creatinine (0.66-1.25) mg/dL Glucose (74-99) mg/dL POC Glucose (mg/dL) 148 H 181 H 120 H (75-99) mg/dL Calcium (8.4-10.2) mg/dL 01/18/18 01/18/18 01/18/18 Range/Units 06:53 08:21 08:21 RBC 3.08 L (4.30-5.90) m/uL Hgb 9.0 L (13.0-17.5) gm/dL Hct 27.0 L (39.0-53.0) % Plt Count 139 L (150-450) k/uL PT (9.0-12.0) sec INR (<1.2) Carbon Dioxide 20 L (22-30) mmol/L BUN 42 H (9-20) mg/dL Creatinine 6.50 H* (0.66-1.25) mg/dL Glucose 118 H (74-99) mg/dL POC Glucose (mg/dL) 127 H (75-99) mg/dL Calcium 8.0 L (8.4-10.2) mg/dL 01/18/18 01/18/18 Range/Units 08:21 11:29 RBC (4.30-5.90) m/uL Hgb (13.0-17.5) gm/dL Hct (39.0-53.0) % Plt Count (150-450) k/uL PT 27.4 H (9.0-12.0) sec INR 3.1 H (<1.2) Carbon Dioxide (22-30) mmol/L BUN (9-20) mg/dL Creatinine (0.66-1.25) mg/dL Glucose (74-99) mg/dL POC Glucose (mg/dL) 160 H (75-99) mg/dL Calcium (8.4-10.2) mg/dL Assessment and Plan Plan: severe sepsis and septic shock with lactic acidosis, secondary to scrotal cellulitis and abscess and jitendra's gangrene, status post incision and drainage, patient shock improved n patient is on Zosyn for streptococci, E. coli and anaerobic gram-negative bacilli. Patient improved significantly now patient is an ertapenem now Acute kidney injury with acute tubular necrosis, patient's creatinine is 6.5 today and patient is on hemodialysis, placement of subclavian Esa line tomorrow atrial fibrillation history: Anticoagulation is being held for the dialysis line placement Acute hypoxemic respiratory failure secondary to sepsis, which resolved Diabetes mellitus: Continue with present regimen. Sleep apnea Possible COPD Status post pacemaker implantation History of GERD Hyperlipidemia
[2018-01-18] MEDS ORDERED: PHYTONADIONE ORAL 5 MG/5 ML ORAL.SYRG PO STA (13:10)
--- NOTE | 2018-01-18 16:29 | PN ---
PROGRESS NOTE Patient is seen for followup for acute kidney injury secondary to acute tubular necrosis, currently nonoliguric. The patient has had good urine output. However, his serum creatinine remains elevated at about 6 and 7 mg/dL. The patient was dialyzed yesterday. His creatinine decreased slightly. We will dialyze him again tomorrow. He is scheduled for PermCath placement. The patient's INR was elevated and he has received vitamin K. He feels fairly well. His swelling has improved slightly. PHYSICAL EXAMINATION: Blood pressure is 173/78. Patient is afebrile. Examination of the heart S1, S2. Examination lungs bilateral breath sounds are heard. Abdomen is soft, nontender, obese. Examination lower extremity shows edema 1+ bilaterally. LADLE PATCHER exam is grossly intact. LAB: Show sodium 140, potassium 4.1, chloride 103, CO2 is 20, BUN 42, serum creatinine 6.5, hemoglobin 9.0 g/dL. ASSESSMENT: 1. Acute kidney injury, acute tubular necrosis, currently nonoliguric with good urine output. However, patient remains hemodialysis dependent, we will arrange from out for outpatient placement and continue to monitor for recovery of renal function. Patient will be scheduled for hemodialysis in a.m. We will hold off on treatment today. 2. Hypertension, currently uncontrolled, partly volume sensitive. The patient is on Lopressor. We can increase the Lopressor to 50 mg b.i.d. and I expect the blood pressure to improve volume status. 3. Mild volume overload. Add Lasix and discontinue the IV fluids. 4. Metabolic acidosis, currently improved. PLAN: Add IV Lasix. Increase Lopressor. Hemodialysis in a.m. Hopefully, the INR will decrease and we can have the PermCath placed tomorrow. MMODL / IJN: [id number] /
[2018-01-18 17:32] LABS: Glucose,Whole Blood 107 mg/dL (75-99)
[2018-01-18 18:33] LABS: INR 2.1 (<1.2); Prothrombin Time 18.9 sec (9.0-12.0)
[2018-01-18 21:27] LABS: Glucose,Whole Blood 156 mg/dL (75-99)
[2018-01-18] MEDS: FLUTICASONE 50MCG/SPRAY NASAL 16GM EA NOSTRIL PRN (21:36)
[2018-01-18] MEDS: METOPROLOL TARTRATE 50 MG TAB PO SCH (21:38)
[2018-01-18] MEDS: FUROSEMIDE 10 MG/ML 10 ML VIAL IV SCH (21:38)
[2018-01-18] MEDS: ACETAMINOPHEN TAB 325 MG TAB PO PRN (23:03)
--- NOTE | 2018-01-19 00:27 | P.PN ---
Subjective Progress Note Date: 01/18/18 Principal diagnosis: 72-year-old male who has obesity and diabetes that is controlled with oral medication presents to the hospital with acute illness with fever pain and swelling to the scrotum. Upon admission the patient had interventions that included ultrasound and blood work patient evidence of sepsis and was brought in the hospital. He did have increasing illness and was seen by urology. 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 Fortunately it had not spread significantly beyond the scrotal tissue at the time of the surgical debridement. The patient this time remains in intensive care unit intubated sedated and mechanically ventilated requiring vasopressor therapy for his sepsis with shock. However there seems to be some improvement. The patient 's condition is discussed with his and sister. The patient's relates that he had been evaluated in the last few months for his diabetes it was on oral medications and thought he was doing relatively well. We discussed hemoglobin A1c is greater than 11 which would indicate that he likely has had uncontrolled blood sugar for quite some time. This is the etiology of his current infection and will need better glucose control to allow improvement of his infection. 01/14/2018 patient is improved but remains on hemodialysis for the acute renal failure with hope of renal recovery. the scrotal infection is improving, 01/15/2018 further improvement occuring,feels better, but have noted falling platelet count. 01/16/2018 patient is feeling better today. Less pain, more interactive. Dialysis today was only able to remove 800 mL of fluid. The patient denies intermittent difficulties. Dressing changes minimally uncomfortable. He is denying fevers or chills. Thrombocytopenia likely from Zosyn is improving with the changed to ertapenem. 01/17/2018 patient is feeling better today. Was able to up and ambulate with much less difficulty. Pain control is improved. Denies fevers. 01/18/2018 patient is feeling slightly Denies new acute symptoms.pain is better controlled. Objective - Vital Signs Vital signs: Vital Signs Temp 99.5 F 01/18/18 15:00 Pulse 61 01/18/18 15:00 Resp 16 01/18/18 15:00 BP 185/92 01/18/18 15:00 Pulse Ox 97 01/18/18 15:00 Intake & Output 01/18/18 01/18/18 01/19/18 06:59 18:59 06:59 Output Total 625 Balance -625 Weight 146 kg Output: Urine 625 Other: Voiding Method Indwelling Catheter Indwelling Catheter Indwelling Catheter ABP, PAP, CO, CI - Last Documented Arterial Blood Pressure 145/46 - Exam 72-year-old male who has obesity is supine, improving extubated but receiving dialysis HEENT: Anicteric conjunctiva are pink and moist nasal mucosa grossly intact without significant lesions around the endotracheal tube, there is no thrush. Neck: The neck is without significant lymphadenopathy or thyromegaly. Lungs: Symmetrical air entry is noted a few expiratory wheezes are scattered no yanni bronchial sounds Heart: Irregular with audible S1 and S2 soft S4 no murmur click or rub Abdomen: Obese, Positive bowel sounds soft and nontender without palpable masses or organomegaly. There was no guarding or rebound. Extremities: The upper extremities have excellent pulses they are symmetric, no significant petechiae or telangiectasia. No splinter hemorrhages were noted. Lower extremities evidence of some chronic edema no open ulcerations Genitalia: With nurse present the scrotum was evaluated the surgical incision shows evidence of just scant serous drainage and swelling, some bloody drainage is noted after he ambulates. Neuro:awake alert and interactive - Labs CBC & Chem 7: 01/18/18 08:21 01/18/18 08:21 Labs: Abnormal Lab Results - Last 24 Hours (Table) 01/18/18 01/18/18 01/18/18 Range/Units 02:12 06:53 08:21 RBC 3.08 L (4.30-5.90) m/uL Hgb 9.0 L (13.0-17.5) gm/dL Hct 27.0 L (39.0-53.0) % Plt Count 139 L (150-450) k/uL PT (9.0-12.0) sec INR (<1.2) Carbon Dioxide (22-30) mmol/L BUN (9-20) mg/dL Creatinine (0.66-1.25) mg/dL Glucose (74-99) mg/dL POC Glucose (mg/dL) 120 H 127 H (75-99) mg/dL Calcium (8.4-10.2) mg/dL 01/18/18 01/18/18 01/18/18 Range/Units 08:21 08:21 11:29 RBC (4.30-5.90) m/uL Hgb (13.0-17.5) gm/dL Hct (39.0-53.0) % Plt Count (150-450) k/uL PT 27.4 H (9.0-12.0) sec INR 3.1 H (<1.2) Carbon Dioxide 20 L (22-30) mmol/L BUN 42 H (9-20) mg/dL Creatinine 6.50 H* (0.66-1.25) mg/dL Glucose 118 H (74-99) mg/dL POC Glucose (mg/dL) 160 H (75-99) mg/dL Calcium 8.0 L (8.4-10.2) mg/dL 01/18/18 01/18/18 01/18/18 Range/Units 17:24 17:44 21:09 RBC (4.30-5.90) m/uL Hgb (13.0-17.5) gm/dL Hct (39.0-53.0) % Plt Count (150-450) k/uL PT 18.9 H (9.0-12.0) sec INR 2.1 H (<1.2) Carbon Dioxide (22-30) mmol/L BUN (9-20) mg/dL Creatinine (0.66-1.25) mg/dL Glucose (74-99) mg/dL POC Glucose (mg/dL) 107 H 156 H (75-99) mg/dL Calcium (8.4-10.2) mg/dL Laboratory Results WBC 6.1 k/uL (3.8-10.6) 01/18/18 08:21 RBC 3.08 m/uL (4.30-5.90) L 01/18/18 08:21 Hgb 9.0 gm/dL (13.0-17.5) L 01/18/18 08:21 Hct 27.0 % (39.0-53.0) L 01/18/18 08:21 MCV 87.6 fL (80.0-100.0) 01/18/18 08:21 MCH 29.4 pg (25.0-35.0) 01/18/18 08: MCHC 33.5 g/dL (31.0-37.0) 01/18/18 08:21 RDW 13.2 % (11.5-15.5) 01/18/18 08:21 Plt Count 139 k/uL (150-450) L 01/18/18 08:21 Neutrophils % 78 % 01/17/18 08:38 Lymphocytes % 12 % 01/17/18 08:38 Monocytes % 6 % 01/17/18 08:38 Eosinophils % 1 % 01/17/18 08:38 Basophils % 0 % 01/17/18 08:38 Neutrophils # 4.7 k/uL (1.3-7.7) 01/17/18 08:38 Lymphocytes # 0.7 k/uL (1.0-4.8) L 01/17/18 08:38 Monocytes # 0.4 k/uL (0-1.0) 01/17/18 08:38 Eosinophils # 0.1 k/uL (0-0.7) 01/17/18 08:38 Basophils # 0.0 k/uL (0-0.2) 01/17/18 08:38 Manual Slide Review Performed 01/11/18 04:20 Large Platelets Present 01/11/18 04:20 PT 18.9 sec (9.0-12.0) H 01/18/18 17:44 INR 2.1 (<1.2) H 01/18/18 17:44 APTT 64.6 sec (22.0-30.0) H 01/15/18 03:33 Sample Site [place] 01/12/18 16:02 ABG pH 7.31 (7.35-7.45) L 01/12/18 16:02 ABG pCO2 34 mmHg (35-45) L 01/12/18 16:02 ABG pO2 96 mmHg (83-108) 01/12/18 16:02 ABG HCO3 17 mmol/L (21-25) L 01/12/18 16:02 ABG Total CO2 18 mmol/L (19-24) L 01/12/18 16:02 ABG O2 Saturation 97.6 % (94-97) H 01/12/18 16:02 ABG Base Excess -8.9 mmol/L 01/12/18 16:02 Kike Test Yes 01/12/18 16:02 FiO2 25 % 01/12/18 16:02 Sodium 140 mmol/L (137-145) 01/18/18 08:21 Potassium 4.1 mmol/L (3.5-5.1) 01/18/18 08:21 Chloride 103 mmol/L (98-107) 01/18/18 08:21 Carbon Dioxide 20 mmol/L (22-30) L 01/18/18 08:21 Anion Gap 17 mmol/L 01/18/18 08:21 BUN 42 mg/dL (9-20) H 01/18/18 08:21 Creatinine 6.50 mg/dL (0.66-1.25) H* 01/18/18 08:21 Est GFR (CKD-EPI)AfAm 9 (>60 ml/min/1.73 sqM) 01/18/18 08:21 Est GFR (CKD-EPI)NonAf 8 (>60 ml/min/1.73 sqM) 01/18/18 08:21 Glucose 118 mg/dL (74-99) H 01/18/18 08:21 POC Glucose (mg/dL) 156 mg/dL (75-99) H 01/18/18 21:09 POC Glu Natural [employer] Engineer JACKELYN Edna Henry 01/18/18 21:[address] Glu mg/dL 272 01/10/18 03:46 Hemoglobin A1c 11.1 % (4.0-6.0) H 01/10/18 03:46 Lactic Ac Sepsis Rflx Y 01/10/18 00:16 Plasma Lactic Acid [place] 1.7 mmol/L (0.7-2.0) 01/10/18 09:46 Calcium 8.0 mg/dL (8.4-10.2) L 01/18/18 08:21 Phosphorus 7.2 mg/dL (2.5-4.5) H 01/15/18 03:33 Magnesium 2.0 mg/dL (1.6-2.3) 01/15/18 03:33 Total Bilirubin 1.3 mg/dL (0.2-1.3) 01/09/18 15:17 AST 23 U/L (17-59) 01/09/18 15:17 ALT 23 U/L (21-72) 01/09/18 15:17 Alkaline Phosphatase 108 U/L (38-126) 01/09/18 15:17 Total Protein 6.9 g/dL (6.3-8.2) 01/09/18 15:17 Albumin 4.0 g/dL (3.5-5.0) 01/09/18 15:17 TSH 1.240 mIU/L (0.465-4.680) 01/10/18 13:37 Free T4 1.71 ng/dL (0.78-2.19) 01/10/18 13:37 Urine Color Yellow 01/10/18 02:25 Urine Appearance Cloudy (Clear) 01/10/18 02:25 Urine pH 5.0 (5.0-8.0) 01/10/18 02:25 Ur Specific [place] 1.028 (1.001-1.035) 01/10/18 02:25 Urine Protein Trace (Negative) H 01/10/18 02:25 Urine Glucose (UA) 4+ (Negative) H 01/10/18 02:25 Urine Ketones Trace (Negative) H 01/10/18 02:25 Urine Blood Negative (Negative) 01/10/18 02:25 Urine Nitrite Negative (Negative) 01/10/18 02:25 Urine Bilirubin Negative (Negative) 01/10/18 02:25 Urine Urobilinogen <2.0 mg/dL (<2.0) 01/10/18 02:25 Ur Leukocyte Esterase Negative (Negative) 01/10/18 02:25 Urine RBC <1 /hpf (0-5) 01/10/18 02:25 Urine WBC 2 /hpf (0-5) 01/10/18 02:25 Random Vancomycin 32.2 ug/mL 01/12/18 04:30 Acetone, Qual Negative (Negative) 01/09/18 23:42 Hepatitis A IgM Ab Non-Reactive (Non-Reactive) 01/16/18 08:35 Hep Bs Antigen Non-Reactive (Non-Reactive) 01/16/18 08:35 Hep B Core IgM Ab Non-Reactive (Non-Reactive) 01/16/18 08:35 Hep C IgG Ab Non-Reactive (Non-Reactive) 01/16/18 08:35 Microbiology 01/09/18 15:17 Blood Blood Culture - Final No Growth after 144 hours 01/10/18 17:31 Groin Anaerobic Culture - Final Anaerobic Gm Negative Bacilli 01/10/18 17:31 Groin Anaerobic Culture - Final Anaerobic Gm Negative Bacilli 01/10/18 17:31 Groin Gram Stain - Final 01/10/18 17:31 Groin Wound Culture - Final Escherichia coli Beta Hemolytic Streptococcus F 01/10/18 17:31 Groin Gram Stain - Final 01/10/18 17:31 Groin Wound Culture - Final Beta Hemolytic Streptococcus F 01/10/18 02:25 Urine,Catheterized Urine Culture - Final Assessment and Plan (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 He was taken to the operating room and Vanesa's gangrene was noted that he had debridement of his scrotum. The necrotic material was debrided away and fortunately it is somewhat limited in its extent. There is some however residual erythema and induration of the scrotum and depending on how he responds determine if further intervention is needed, however at this time appears to be stable to improved. The patient is on broad-spectrum antibiotic therapy. Current data is being monitored and likely will discontinue vancomycin therapy especially since he is having increased creatinine. Will utilize silver dressings once the packing is removed by the surgeon. Elevation of the scrotum will be helpful for its edema. As patient progresses and is discharged have instructed his that his glucose control be very important for wound healing and for preventing further events like this in the future. His blood sugar was over 500 admission and his A1c was very elevated. The patient's relates that he was given recently some corticosteroid therapy, which may have contributed to this entire process. Patient remains critically ill but is showing some improvement. 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 01/16/2018 patient is an improvement. Continues with hemodialysis. As patient improves will have to determine best possible access for the intravenous antibiotic therapy and have his discharge which will likely be extended care. Thrombocytopenia likely from Zosyn and is improving since it has been discontinued. 01/17/2018 patient is feeling slightly better. Dialysis yesterday that occurred more dialysis is planned for further improvement of his volume overload. Continue his intravenous antibiotic therapy. Work with the reconnaissance crewmember as to IV access so he can complete his course of antibiotic therapy for his extensive infection of the scrotum. Zosyn was transitioned to ertapenem because of thrombocytopenia that's already improving. 01/18/2018 patient has further improvement, dialysis is helping with his volume but still has elevated creatinine. Further dialysis is planned. Antibiotic therapy with ertapenem as planned at the time of transfer to rehab IV access is being arranged as per nephrology and vascular surgery. Current Visit: Yes Status: Acute Code(s): N49.3 - VANESA GANGRENE SNOMED Code(s): 753847695 (2) Sepsis due to Gram-negative organism with septic shock Current Visit: Yes Status: Acute Code(s): A41.50 - GRAM-NEGATIVE SEPSIS, UNSPECIFIED; R65.21 - SEVERE SEPSIS WITH SEPTIC SHOCK SNOMED Code(s): 153301716 (3) Diabetes mellitus type 2, uncontrolled, with complications Current Visit: Yes Status: Acute Code(s): E11.8 - TYPE 2 DIABETES MELLITUS WITH UNSPECIFIED COMPLICATIONS; E11.65 - TYPE 2 DIABETES MELLITUS WITH HYPERGLYCEMIA SNOMED Code(s): 976663459 (4) Leukocytosis Current Visit: Yes Status: Acute Code(s): D72.829 - ELEVATED WHITE BLOOD CELL COUNT, UNSPECIFIED SNOMED Code(s): 040101224 (5) Acute renal failure Current Visit: Yes Status: Acute Code(s): N17.9 - ACUTE KIDNEY FAILURE, UNSPECIFIED SNOMED Code(s): 01864259
[2018-01-19 02:08] LABS: Glucose,Whole Blood 133 mg/dL (75-99)
[2018-01-19] MEDS: INSULIN ASPART 100 UNIT/ML 1 ML 10 ML VIAL SQ SCH ×5 (02:11→21:18)
[2018-01-19 05:46] LABS: HCT 26.4 % (39.0-53.0); HGB 8.9 gm/dL (13.0-17.5); MCH 29.9 pg (25.0-35.0); MCHC 33.6 g/dL (31.0-37.0); Mean Platelet Volume 8.8; Platelet Count 145 k/uL (150-450); RBC 2.96 m/uL (4.30-5.90); WBC 6.2 k/uL (3.8-10.6)
[2018-01-19 05:56] LABS: Potassium 3.5 mmol/L (3.5-5.1)
[2018-01-19 06:09] LABS: INR 1.3 (<1.2); Prothrombin Time 12.4 sec (9.0-12.0)
[2018-01-19] MEDS: IPRATROPIUM-ALBUTEROL 3 ML NEB INHALATION SCH ×3 (07:29→20:17)
[2018-01-19 07:39] LABS: Glucose,Whole Blood 119 mg/dL (75-99)
[2018-01-19] MEDS: CALCIUM ACETATE 667 MG CAP PO SCH ×3 (08:15→17:45)
[2018-01-19] MEDS: ASPIRIN 81 MG PO SCH (08:18)
[2018-01-19] MEDS: AMIODARONE 200 MG TAB PO SCH ×2 (08:18→21:15)
[2018-01-19] MEDS: FUROSEMIDE 10 MG/ML 10 ML VIAL IV SCH ×2 (08:18→21:14)
[2018-01-19] MEDS: PANTOPRAZOLE 40 MG TABLET PO SCH ×2 (08:18→17:45)
[2018-01-19] MEDS: METOPROLOL TARTRATE 50 MG TAB PO SCH ×2 (08:18→21:15)
[2018-01-19] MEDS: TOPIRAMATE 25 MG TAB PO SCH ×2 (08:19→21:15)
[2018-01-19] MEDS ORDERED: IV FLUID CONTINUATION 1,000 ML IV ONE (10:45)
[2018-01-19] MEDS ORDERED: fentaNYL (PF) 50 MCG/ML 2 ML AMP IV ONE (10:47)
[2018-01-19] MEDS ORDERED: MIDAZOLAM 2 MG/2 ML VIAL IV ONE (10:47)
[2018-01-19] MEDS ORDERED: LIDOCAINE 2% INJ 20 MG/ML SQ ONE (10:48)
--- NOTE | 2018-01-19 11:18 | CONS ---
DATE OF CONSULTATION: 01/19/2018 This is a 72-year-old gentleman, I was consulted for placement of the dialysis catheter. Patient has a history of acute renal injury. Patient also has a history of scrotal abscess, for that patient with debridement. Patient has a history of atrial fibrillation. INR was high, treated medically, today's INR is normal. MEDICAL HISTORY: Includes history of diabetes mellitus, congestive heart failure, hypertension, history of sleep apnea. Patient has history of pacemaker. Patient also has a history of heart catheterization. PHYSICAL EXAMINATION: Patient was seen in his room. His neck is supple. Chest is clear to auscultation. A few crackles at the lung bases. Abdomen is soft, nontender. Vascular examination, brachial radial pulses present. Femoral pulses are present. Patient has some swelling of both lower extremities. PLAN: Placement of the dialysis catheter, risks and complications of bleeding, infection, thrombosis has been discussed. MMODL / IJN: [id number] / MTDD
--- NOTE | 2018-01-19 11:30 | PCN ---
PROCEDURE NOTE PREOPERATIVE DIAGNOSIS: Acute chronic failure. PROCEDURE: Placement of the dialysis catheter, right jugular approach and removed old catheter from the right groin. Patient was brought to the Medical Educator. Right side of the neck and chest were prepped and draped in a sterile manner under local IV sedation. Ultrasound-guided micropuncture into the right jugular vein, micropuncture guide was passed and a 4-Azeri dilator advanced on the top of the guidewire. The incisions were made to the chest area and tunnel was created. Through the tunnel we brought 23 cm dialysis pre cuffed catheter. After that, we passed a regular guidewire under fluoroscopy, which was part of the inferior vena cava. Patient has a pacemaker from the left side. Dilator advanced off the guidewire, then the sheath was advanced on the top of the guidewire. Through the sheath we introduced the dialysis catheter. The catheter was in the superior vena cava and flushed with heparin saline and hep-locked and incision was closed with Vicryl and nylon. Dressing applied. Patient tolerated the procedure well. Patient had right femoral catheter which was removed. Pressure held. Patient tolerated the procedure well. MMODL / IJN: [id number] /
[2018-01-19] MEDS: ERTAPENEM 0.5 GM in SODIUM CHLORIDE 0.9% 50 ML IVPB SCH (12:39)
[2018-01-19 12:42] LABS: Glucose,Whole Blood 119 mg/dL (75-99)
--- NOTE | 2018-01-19 13:41 | XR ---
EXAMINATION TYPE: XR chest 1V portable DATE OF EXAM: 01/19/2018 HISTORY: post dialysis catheter placement. REFERENCE: Previous study dated 01/14/2018. FINDINGS: A right internal jugular catheter is been inserted. Its tip is in the superior vena cava. N o pneumothorax is seen. There is a multilead pacing device in place on the left. Heart is upper limits of normal in size. The lungs appear clear. Pleural spaces are clear. IMPRESSION: NO POST CATHETER INSERTION COMPLICATION.
--- NOTE | 2018-01-19 13:56 | P.PN ---
Subjective Progress Note Date: 01/19/18 Principal diagnosis: Vanesa's Gangrene of the Scrotum The patient underwent scrotal debridement and is receiving local wound care along with IV antibiotics. He states that he is feeling much better. Objective - Vital Signs Vital signs: Vital Signs Temp 98.1 F 01/19/18 07:00 Pulse 66 01/19/18 11:48 Resp 18 01/19/18 07:00 BP 152/87 01/19/18 07:00 Pulse Ox 97 01/19/18 07:00 Intake & Output 01/18/18 01/19/18 01/19/18 18:59 06:59 18:59 Intake Total 100 50 Output Total 625 1100 Balance -625 -1000 50 Weight 144 kg Intake: IV 50 Oral 100 Output: Urine 625 1100 Coude 1100 Other: Voiding Method Indwelling Catheter Indwelling Catheter Indwelling Catheter ABP, PAP, CO, CI - Last Documented Arterial Blood Pressure 145/46 - Constitutional General appearance: Present: cooperative, no acute distress - Genitourinary Genitourinary Comment(s): The Hernandez catheter was draining clear yellow urine. The scrotal wound is clean , without purulence or necrotic tissue. There is significant scrotal edema. On the right upper aspect of the scrotum is an area of fluctuance, though there is no surrounding erythema or skin changes to suggest an abscess. - Psychiatric Psychiatric: Present: A&O x's 3, appropriate affect - Labs CBC & Chem 7: 01/19/18 05:00 01/19/18 05:00 Labs: Abnormal Lab Results - Last 24 Hours (Table) 01/18/18 01/18/18 01/18/18 Range/Units 17:24 17:44 21:09 RBC (4.30-5.90) m/uL Hgb (13.0-17.5) gm/dL Hct (39.0-53.0) % Plt Count (150-450) k/uL PT 18.9 H (9.0-12.0) sec INR 2.1 H (<1.2) BUN (9-20) mg/dL Creatinine (0.66-1.25) mg/dL Glucose (74-99) mg/dL POC Glucose (mg/dL) 107 H 156 H (75-99) mg/dL Calcium (8.4-10.2) mg/dL 01/19/18 01/19/18 01/19/18 Range/Units 02:04 05:00 05:00 RBC 2.96 L (4.30-5.90) m/uL Hgb 8.9 L (13.0-17.5) gm/dL Hct 26.4 L (39.0-53.0) % Plt Count 145 L (150-450) k/uL PT (9.0-12.0) sec INR (<1.2) BUN 33 H (9-20) mg/dL Creatinine 5.30 H* (0.66-1.25) mg/dL Glucose 112 H (74-99) mg/dL POC Glucose (mg/dL) 133 H (75-99) mg/dL Calcium 8.0 L (8.4-10.2) mg/dL 01/19/18 01/19/18 01/19/18 Range/Units 05:20 07:36 12:39 RBC (4.30-5.90) m/uL Hgb (13.0-17.5) gm/dL Hct (39.0-53.0) % Plt Count (150-450) k/uL PT 12.4 H (9.0-12.0) sec INR 1.3 H (<1.2) BUN (9-20) mg/dL Creatinine (0.66-1.25) mg/dL Glucose (74-99) mg/dL POC Glucose (mg/dL) 119 H 119 H (75-99) mg/dL Calcium (8.4-10.2) mg/dL Assessment and Plan (1) 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 Will continue to monitor closely.
--- NOTE | 2018-01-19 14:48 | P.PN ---
Subjective 72-year-old admitted secondary to septic shock shock improved patient is presently on Zosyn for gram-negative scrotal abscess and 40 is gangrene patient is status post incision and drainage and patient is intubated mechanically ventilated due to hypoxic respiratory failure from sepsis. We did is being managed by jack winder. Patient is on IV heparin because of his history of atrial fibrillation and patient is being bridged with IV heparin because of his high risk for cerebrovascular accident from A. fib. Patient was evaluated by infectious disease, jack winder, urology. 01/13/2018 Patient was extubated yesterday clinically doing well, patient remains on IV heparin will switch will be switched to oral anticoagulation for his chronic atrial fibrillation. Patient is comparing of some discomfort in the scrotal area. 01/14/2018 Patient is clinically doing well is complaining of massive condition fullness was ordered and patient will be transferred out of ICU. Patient's own cultures are now showing E. coli as well as and aerobic gram-negative bacilli along with beta hemolytic streptococci patient is on appropriate antibiotic Zosyn to cover all this bacteria area patient was started back on anticoagulations with Coumadin 01/15/2018 Patient's scrotum is more swollen than yesterday. Patient is having bleeding from that area, IV heparin will be discontinued, patient is being continued on Coumadin. Patient had hemodialysis yesterday 01/16/2018 Patient's INR is therapeutic clinically doing well. Receiving hemodialysis today 01/17/2018 INR is 3.6, hold off Coumadin as patient may need dialysis catheter placement patient presently has inguinal catheter for dialysis. PT and OT will evaluate the patient. Patient is on ertapenem. Further goals and plans were discussed with the patient and family at bedside. 01/18/2018 Patient's INR is still a elevated because of which patient received the vitamin K for possibility of subclavian Esa line placement tomorrow. Otherwise there are no overnight events. 01/19/2018 Patient received a right subclavian dialysis catheter access, patient will be resumed on Coumadin no significant overnight events low-grade fever Constitutional: Denied any fatigue denied any fever. Cardio vascular: denied any chest pain, palpitations Gastrointestinal denied any nausea vomiting Pulmonary: Denied any shortness of breath cough Neurologic denied any new focal deficits Objective - Vital Signs Vital signs: Vital Signs Temp 98.1 F 01/19/18 07:00 Pulse 66 01/19/18 11:48 Resp 18 01/19/18 07:00 BP 152/87 01/19/18 07:00 Pulse Ox 97 01/19/18 07:00 Intake & Output 01/18/18 01/19/18 01/19/18 18:59 06:59 18:59 Intake Total 100 50 Output Total 625 1100 Balance -625 -1000 50 Weight 144 kg Intake: IV 50 Oral 100 Output: Urine 625 1100 Coude 1100 Other: Voiding Method Indwelling Catheter Indwelling Catheter Indwelling Catheter ABP, PAP, CO, CI - Last Documented Arterial Blood Pressure 145/46 - Exam PHYSICAL EXAMINATION: GENERAL: Drowsy oriented 3 morbidly obese HEENT: Pupils are round and equally reacting to light. EOMI. No scleral icterus. No conjunctival pallor. Normocephalic, atraumatic. No pharyngeal erythema. No thyromegaly. patient has a subclavian Esa line CARDIOVASCULAR: S1 and S2 present. No murmurs, rubs, or gallops. PULMONARY: Chest is clear to auscultation, no wheezing or crackles. ABDOMEN: Soft, nontender, nondistended, normoactive bowel sounds. No palpable organomegaly. MUSCULOSKELETAL: No joint swelling or deformity. EXTREMITIES: No cyanosis, clubbing, or pedal edema. Scrotal edema with cellulitis and the postsurgically packed NEUROLOGICAL: No new focal deficits were appreciated SKIN: No rashes. - Labs CBC & Chem 7: 01/19/18 05:00 01/19/18 05:00 Labs: Abnormal Lab Results - Last 24 Hours (Table) 01/18/18 01/18/18 01/18/18 Range/Units 17:24 17:44 21:09 RBC (4.30-5.90) m/uL Hgb (13.0-17.5) gm/dL Hct (39.0-53.0) % Plt Count (150-450) k/uL PT 18.9 H (9.0-12.0) sec INR 2.1 H (<1.2) BUN (9-20) mg/dL Creatinine (0.66-1.25) mg/dL Glucose (74-99) mg/dL POC Glucose (mg/dL) 107 H 156 H (75-99) mg/dL Calcium (8.4-10.2) mg/dL 01/19/18 01/19/18 01/19/18 Range/Units 02:04 05:00 05:00 RBC 2.96 L (4.30-5.90) m/uL Hgb 8.9 L (13.0-17.5) gm/dL Hct 26.4 L (39.0-53.0) % Plt Count 145 L (150-450) k/uL PT (9.0-12.0) sec INR (<1.2) BUN 33 H (9-20) mg/dL Creatinine 5.30 H* (0.66-1.25) mg/dL Glucose 112 H (74-99) mg/dL POC Glucose (mg/dL) 133 H (75-99) mg/dL Calcium 8.0 L (8.4-10.2) mg/dL 01/19/18 01/19/18 01/19/18 Range/Units 05:20 07:36 12:39 RBC (4.30-5.90) m/uL Hgb (13.0-17.5) gm/dL Hct (39.0-53.0) % Plt Count (150-450) k/uL PT 12.4 H (9.0-12.0) sec INR 1.3 H (<1.2) BUN (9-20) mg/dL Creatinine (0.66-1.25) mg/dL Glucose (74-99) mg/dL POC Glucose (mg/dL) 119 H 119 H (75-99) mg/dL Calcium (8.4-10.2) mg/dL Assessment and Plan Plan: severe sepsis and septic shock with lactic acidosis, secondary to scrotal cellulitis and abscess and jitendra's gangrene, status post incision and drainage, patient shock improved patient has streptococci, E. coli and anaerobic gram-negative bacilli. Patient improved significantly now patient is an ertapenem now. Had low-grade fevers from time to monitor Acute kidney injury with acute tubular necrosis, patient's creatinine is 6.5 today and patient is on hemodialysis, tardus post placement of subclavian line for hemodialysis atrial fibrillation history: anticoagulation will be resumed, heart rate is well controlled Acute hypoxemic respiratory failure secondary to sepsis, which resolved Diabetes mellitus: Continue with present regimen. Sleep apnea Possible COPD Status post pacemaker implantation History of GERD Hyperlipidemia
[2018-01-19] MEDS: HYDROcodone/APAP 7.5-325MG 1 EACH TAB PO PRN (15:31)
--- NOTE | 2018-01-19 16:51 | PN ---
PROGRESS NOTE Patient is seen for followup for acute kidney injury. He is currently seen on dialysis. He is tolerating his treatment well. Patient is scheduled for IJ PermCath placement. He currently has a right femoral catheter tube through which he is receiving his treatment now. PHYSICAL EXAMINATION: This morning, blood pressure was 152/87, heart rate 60 per minute. He is afebrile. Examination of the heart, S1, S2. Examination of the lungs, bilateral breath sounds are heard. Abdomen is soft, obese, nontender. Examination of the lower extremity shows edema trace bilaterally. TRACK EQUIPMENT OPERATOR exam is grossly intact. LABS: Show sodium 138, potassium 3.5, chloride 100, serum creatinine 5.3 mg/dL. ASSESSMENT: 1. Acute kidney injury, acute tubular necrosis, currently hemodialysis dependent. Patient remains nonoliguric. However, his creatinine remains significantly elevated. He will be set up for outpatient dialysis. We will continue to monitor for recovery of renal function. 2. Sepsis with scrotal abscess, currently improved. 3. Hypervolemia, now improved. Patient has been started on Lasix. 4. Atrial fibrillation with rapid ventricular rate, status post Cardizem drip. 5. Metabolic acidosis, currently improved. Sodium bicarb was discontinued. 6. Hyperphosphatemia, maintained on phosphate binders. PLAN: 1. Continue phosphorus binders. 2. Hemodialysis tentatively for Sunday unless serum creatinine is significantly improved. MMODL / IJN: [id number] /
[2018-01-19 16:59] LABS: Glucose,Whole Blood 116 mg/dL (75-99)
[2018-01-19] MEDS: WARFARIN 5 MG TAB PO SCH (17:45)
[2018-01-19 21:14] LABS: Basophils % (A) 0 %; Eosinophils # (A) 0.1 k/uL (0-0.7); Eosinophils % (A) 1 %; HCT 25.9 % (39.0-53.0); HGB 8.7 gm/dL (13.0-17.5); Lymphocytes # (A) 0.7 k/uL (1.0-4.8); Lymphocytes % (A) 13 %; MCH 29.5 pg (25.0-35.0); MCHC 33.7 g/dL (31.0-37.0); MCV 87.6 fL (80.0-100.0); Mean Platelet Volume 8.4; Monocytes # (A) 0.4 k/uL (0-1.0); Monocytes % (A) 8 %; Neutrophils # (A) 4.1 k/uL (1.3-7.7); Neutrophils % (A) 75 %; Platelet Count 163 k/uL (150-450); RBC 2.96 m/uL (4.30-5.90); RDW 13.1 % (11.5-15.5); WBC 5.5 k/uL (3.8-10.6)
[2018-01-19 21:23] LABS: Glucose,Whole Blood 126 mg/dL (75-99)
--- NOTE | 2018-01-20 00:46 | P.PN ---
Subjective Progress Note Date: 01/19/18 Principal diagnosis: 72-year-old male who has obesity and diabetes that is controlled with oral medication presents to the hospital with acute illness with fever pain and swelling to the scrotum. Upon admission the patient had interventions that included ultrasound and blood work patient evidence of sepsis and was brought in the hospital. He did have increasing illness and was seen by urology. 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 Fortunately it had not spread significantly beyond the scrotal tissue at the time of the surgical debridement. The patient this time remains in intensive care unit intubated sedated and mechanically ventilated requiring vasopressor therapy for his sepsis with shock. However there seems to be some improvement. The patient 's condition is discussed with his and sister. The patient's relates that he had been evaluated in the last few months for his diabetes it was on oral medications and thought he was doing relatively well. We discussed hemoglobin A1c is greater than 11 which would indicate that he likely has had uncontrolled blood sugar for quite some time. This is the etiology of his current infection and will need better glucose control to allow improvement of his infection. 01/14/2018 patient is improved but remains on hemodialysis for the acute renal failure with hope of renal recovery. the scrotal infection is improving, 01/15/2018 further improvement occuring,feels better, but have noted falling platelet count. 01/16/2018 patient is feeling better today. Less pain, more interactive. Dialysis today was only able to remove 800 mL of fluid. The patient denies intermittent difficulties. Dressing changes minimally uncomfortable. He is denying fevers or chills. Thrombocytopenia likely from Zosyn is improving with the changed to ertapenem. 01/17/2018 patient is feeling better today. Was able to up and ambulate with much less difficulty. Pain control is improved. Denies fevers. 01/18/2018 patient is feeling slightly Denies new acute symptoms.pain is better controlled. 01/19/2018 dialysis catheter placed and had some bleeding now resolved. Objective - Vital Signs Vital signs: Vital Signs Temp 100.3 F H 01/19/18 23:30 Pulse 60 01/19/18 23:30 Resp 20 01/19/18 23:30 BP 175/90 01/19/18 23:30 Pulse Ox 97 01/19/18 23:30 Intake & Output 01/19/18 01/19/18 01/20/18 06:59 18:59 06:59 Intake Total 100 290 200 Output Total 1100 1000 Balance -1000 -710 200 Weight 144 kg Intake: IV 50 Oral 100 240 200 Output: Urine 1100 1000 Coude 1100 Other: Voiding Method Indwelling Catheter Indwelling Catheter Indwelling Catheter # Bowel Movements 0 ABP, PAP, CO, CI - Last Documented Arterial Blood Pressure 145/46 - Exam 72-year-old male who has obesity is comfortable, improving extubated, and receiving dialysis HEENT: Anicteric conjunctiva are pink and moist nasal mucosa grossly intact without significant lesions around the endotracheal tube, there is no thrush. Neck: The neck is without significant lymphadenopathy or thyromegaly. Lungs: Symmetrical air entry is noted a few expiratory wheezes are scattered no yanni bronchial sounds Heart: Irregular with audible S1 and S2 soft S4 no murmur click or rub Abdomen: Obese, Positive bowel sounds soft and nontender without palpable masses or organomegaly. There was no guarding or rebound. Extremities: The upper extremities have excellent pulses they are symmetric, no significant petechiae or telangiectasia. No splinter hemorrhages were noted. Lower extremities evidence of some chronic edema no open ulcerations Genitalia: With nurse present the scrotum was evaluated the surgical incision shows evidence of just scant serous drainage and swelling, some bloody drainage is noted after he ambulates. Neuro:awake alert and interactive - Labs CBC & Chem 7: 01/19/18 20:41 01/19/18 05:00 Labs: Abnormal Lab Results - Last 24 Hours (Table) 01/19/18 01/19/18 01/19/18 Range/Units 02:04 05:00 05:00 RBC 2.96 L (4.30-5.90) m/uL Hgb 8.9 L (13.0-17.5) gm/dL Hct 26.4 L (39.0-53.0) % Plt Count 145 L (150-450) k/uL Lymphocytes # (1.0-4.8) k/uL PT (9.0-12.0) sec INR (<1.2) BUN 33 H (9-20) mg/dL Creatinine 5.30 H* (0.66-1.25) mg/dL Glucose 112 H (74-99) mg/dL POC Glucose (mg/dL) 133 H (75-99) mg/dL Calcium 8.0 L (8.4-10.2) mg/dL 01/19/18 01/19/18 01/19/18 Range/Units 05:20 07:36 12:39 RBC (4.30-5.90) m/uL Hgb (13.0-17.5) gm/dL Hct (39.0-53.0) % Plt Count (150-450) k/uL Lymphocytes # (1.0-4.8) k/uL PT 12.4 H (9.0-12.0) sec INR 1.3 H (<1.2) BUN (9-20) mg/dL Creatinine (0.66-1.25) mg/dL Glucose (74-99) mg/dL POC Glucose (mg/dL) 119 H 119 H (75-99) mg/dL Calcium (8.4-10.2) mg/dL 01/19/18 01/19/18 01/19/18 Range/Units 16:54 20:41 21:13 RBC 2.96 L (4.30-5.90) m/uL Hgb 8.7 L (13.0-17.5) gm/dL Hct 25.9 L (39.0-53.0) % Plt Count (150-450) k/uL Lymphocytes # 0.7 L (1.0-4.8) k/uL PT (9.0-12.0) sec INR (<1.2) BUN (9-20) mg/dL Creatinine (0.66-1.25) mg/dL Glucose (74-99) mg/dL POC Glucose (mg/dL) 116 H 126 H (75-99) mg/dL Calcium (8.4-10.2) mg/dL Laboratory Results WBC 5.5 k/uL (3.8-10.6) 01/19/18 20:41 RBC 2.96 m/uL (4.30-5.90) L 01/19/18 20:41 Hgb 8.7 gm/dL (13.0-17.5) L 01/19/18 20:41 Hct 25.9 % (39.0-53.0) L 01/19/18 20:41 MCV 87.6 fL (80.0-100.0) 01/19/18 20: MCH 29.5 pg (25.0-35.0) 01/19/18 20: MCHC 33.7 g/dL (31.0-37.0) 01/19/18 20:41 RDW 13.1 % (11.5-15.5) 01/19/18 20:41 Plt Count 163 k/uL (150-450) 01/19/18 20:41 Neutrophils % 75 % 01/19/18 20: Lymphocytes % 13 % 01/19/18 20: Monocytes % 8 % 01/19/18 20: Eosinophils % 1 % 01/19/18 20: Basophils % 0 % 01/19/18 20:41 Neutrophils # 4.1 k/uL (1.3-7.7) 01/19/18 20:41 Lymphocytes # 0.7 k/uL (1.0-4.8) L 01/19/18 20:41 Monocytes # 0.4 k/uL (0-1.0) 01/19/18 20:41 Eosinophils # 0.1 k/uL (0-0.7) 01/19/18 20:41 Basophils # 0.0 k/uL (0-0.2) 01/19/18 20:41 Manual Slide Review Performed 01/11/18 04:20 Large Platelets Present 01/11/18 04:20 PT 12.4 sec (9.0-12.0) H 01/19/18 05:20 INR 1.3 (<1.2) H 01/19/18 05:20 APTT 64.6 sec (22.0-30.0) H 01/15/18 03:33 Sample Site LLOYD 01/12/18 16:02 ABG pH 7.31 (7.35-7.45) L 01/12/18 16:02 ABG pCO2 34 mmHg (35-45) L 01/12/18 16:02 ABG pO2 96 mmHg (83-108) 01/12/18 16:02 ABG HCO3 17 mmol/L (21-25) L 01/12/18 16:02 ABG Total CO2 18 mmol/L (19-24) L 01/12/18 16:02 ABG O2 Saturation 97.6 % (94-97) H 01/12/18 16:02 ABG Base Excess -8.9 mmol/L 01/12/18 16:02 Kike Test Yes 01/12/18 16:02 FiO2 25 % 01/12/18 16:02 Sodium 138 mmol/L (137-145) 01/19/18 05:00 Potassium 3.5 mmol/L (3.5-5.1) 01/19/18 05:00 Chloride 100 mmol/L (98-107) 01/19/18 05:00 Carbon Dioxide 24 mmol/L (22-30) 01/19/18 05:00 Anion Gap 14 mmol/L 01/19/18 05:00 BUN 33 mg/dL (9-20) H 01/19/18 05:00 Creatinine 5.30 mg/dL (0.66-1.25) H* 01/19/18 05:00 Est GFR (CKD-EPI)AfAm 12 (>60 ml/min/1.73 sqM) 01/19/18 05:00 Est GFR (CKD-EPI)NonAf 10 (>60 ml/min/1.73 sqM) 01/19/18 05:00 Glucose 112 mg/dL (74-99) H 01/19/18 05:00 POC Glucose (mg/dL) 126 mg/dL (75-99) H 01/19/18 21:13 POC Glu Senior Instrumentation Engineer JACKELYN Edna Henry 01/19/18 21:[address] Glu mg/dL 272 01/10/18 03:46 Hemoglobin A1c 11.1 % (4.0-6.0) H 01/10/18 03:46 Lactic Ac Sepsis Rflx Y 01/10/18 00:16 Plasma Lactic Acid Shemar 1.7 mmol/L (0.7-2.0) 01/10/18 09:46 Calcium 8.0 mg/dL (8.4-10.2) L 01/19/18 05:00 Phosphorus 7.2 mg/dL (2.5-4.5) H 01/15/18 03:33 Magnesium 2.0 mg/dL (1.6-2.3) 01/15/18 03:33 Total Bilirubin 1.3 mg/dL (0.2-1.3) 01/09/18 15:17 AST 23 U/L (17-59) 01/09/18 15:17 ALT 23 U/L (21-72) 01/09/18 15:17 Alkaline Phosphatase 108 U/L (38-126) 01/09/18 15:17 Total Protein 6.9 g/dL (6.3-8.2) 01/09/18 15:17 Albumin 4.0 g/dL (3.5-5.0) 01/09/18 15:17 TSH 1.240 mIU/L (0.465-4.680) 01/10/18 13:37 Free T4 1.71 ng/dL (0.78-2.19) 01/10/18 13:37 Urine Color Yellow 01/10/18 02:25 Urine Appearance Cloudy (Clear) 01/10/18 02:25 Urine pH 5.0 (5.0-8.0) 01/10/18 02:25 Ur Specific [place] 1.028 (1.001-1.035) 01/10/18 02:25 Urine Protein Trace (Negative) H 01/10/18 02:25 Urine Glucose (UA) 4+ (Negative) H 01/10/18 02:25 Urine Ketones Trace (Negative) H 01/10/18 02:25 Urine Blood Negative (Negative) 01/10/18 02:25 Urine Nitrite Negative (Negative) 01/10/18 02:25 Urine Bilirubin Negative (Negative) 01/10/18 02:25 Urine Urobilinogen <2.0 mg/dL (<2.0) 01/10/18 02:25 Ur Leukocyte Esterase Negative (Negative) 01/10/18 02:25 Urine RBC <1 /hpf (0-5) 01/10/18 02:25 Urine WBC 2 /hpf (0-5) 01/10/18 02:25 Random Vancomycin 32.2 ug/mL 01/12/18 04:30 Acetone, Qual Negative (Negative) 01/09/18 23:42 Hepatitis A IgM Ab Non-Reactive (Non-Reactive) 01/16/18 08:35 Hep Bs Antigen Non-Reactive (Non-Reactive) 01/16/18 08:35 Hep B Core IgM Ab Non-Reactive (Non-Reactive) 01/16/18 08:35 Hep C IgG Ab Non-Reactive (Non-Reactive) 01/16/18 08:35 Microbiology 01/09/18 15:17 Blood Blood Culture - Final No Growth after 144 hours 01/10/18 17:31 Groin Anaerobic Culture - Final Anaerobic Gm Negative Bacilli 01/10/18 17:31 Groin Anaerobic Culture - Final Anaerobic Gm Negative Bacilli 01/10/18 17:31 Groin Gram Stain - Final 01/10/18 17:31 Groin Wound Culture - Final Escherichia coli Beta Hemolytic Streptococcus F 01/10/18 17:31 Groin Gram Stain - Final 01/10/18 17:31 Groin Wound Culture - Final Beta Hemolytic Streptococcus F 01/10/18 02:25 Urine,Catheterized Urine Culture - Final Assessment and Plan (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 He was taken to the operating room and Vanesa's gangrene was noted that he had debridement of his scrotum. The necrotic material was debrided away and fortunately it is somewhat limited in its extent. There is some however residual erythema and induration of the scrotum and depending on how he responds determine if further intervention is needed, however at this time appears to be stable to improved. The patient is on broad-spectrum antibiotic therapy. Current data is being monitored and likely will discontinue vancomycin therapy especially since he is having increased creatinine. Will utilize silver dressings once the packing is removed by the surgeon. Elevation of the scrotum will be helpful for its edema. As patient progresses and is discharged have instructed his that his glucose control be very important for wound healing and for preventing further events like this in the future. His blood sugar was over 500 admission and his A1c was very elevated. The patient's relates that he was given recently some corticosteroid therapy, which may have contributed to this entire process. Patient remains critically ill but is showing some improvement. 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 01/16/2018 patient is an improvement. Continues with hemodialysis. As patient improves will have to determine best possible access for the intravenous antibiotic therapy and have his discharge which will likely be extended care. Thrombocytopenia likely from Zosyn and is improving since it has been discontinued. 01/17/2018 patient is feeling slightly better. Dialysis yesterday that occurred more dialysis is planned for further improvement of his volume overload. Continue his intravenous antibiotic therapy. Work with the brine mixer operator as to IV access so he can complete his course of antibiotic therapy for his extensive infection of the scrotum. Zosyn was transitioned to ertapenem because of thrombocytopenia that's already improving. 01/18/2018 patient has further improvement, dialysis is helping with his volume but still has elevated creatinine. Further dialysis is planned. Antibiotic therapy with ertapenem as planned at the time of transfer to rehab IV access is being arranged as per nephrology and vascular surgery. 01/19/2018 improved except for bleeding at dialysis site. will attempt avelox 400mg po daily at discharge to complete the treatment of the scrotal infection. Current Visit: Yes Status: Acute Code(s): N49.3 - VANESA GANGRENE SNOMED Code(s): 838481832 (2) Sepsis due to Gram-negative organism with septic shock Current Visit: Yes Status: Acute Code(s): A41.50 - GRAM-NEGATIVE SEPSIS, UNSPECIFIED; R65.21 - SEVERE SEPSIS WITH SEPTIC SHOCK SNOMED Code(s): 280456050 (3) Diabetes mellitus type 2, uncontrolled, with complications Current Visit: Yes Status: Acute Code(s): E11.8 - TYPE 2 DIABETES MELLITUS WITH UNSPECIFIED COMPLICATIONS; E11.65 - TYPE 2 DIABETES MELLITUS WITH HYPERGLYCEMIA SNOMED Code(s): 350403748 (4) Leukocytosis Current Visit: Yes Status: Acute Code(s): D72.829 - ELEVATED WHITE BLOOD CELL COUNT, UNSPECIFIED SNOMED Code(s): 633230068 (5) Acute renal failure Current Visit: Yes Status: Acute Code(s): N17.9 - ACUTE KIDNEY FAILURE, UNSPECIFIED SNOMED Code(s): 61431948
[2018-01-20 02:10] LABS: Glucose,Whole Blood 141 mg/dL (75-99)
[2018-01-20] MEDS: INSULIN ASPART 100 UNIT/ML 1 ML 10 ML VIAL SQ SCH ×5 (03:59→21:56)
[2018-01-20] MEDS ORDERED: DESMOPRESSIN ACETATE 4 MCG/ML VIAL (MDV) IVPB STA (06:52)
[2018-01-20] MEDS ORDERED: SODIUM CHLORIDE 0.9% 50 ML BAG ONE (06:54)
[2018-01-20] MEDS ORDERED: DESMOPRESSIN ACETATE 4 MCG/ML VIAL (MDV) ONE (06:54)
[2018-01-20] MEDS: IPRATROPIUM-ALBUTEROL 3 ML NEB INHALATION SCH ×3 (07:24→19:45)
[2018-01-20] MEDS ORDERED: DESMOPRESSIN IVPB ONE (07:30)
[2018-01-20] MEDS ORDERED: DESMOPRESSIN INJ 40 MCG in SODIUM CHLORIDE 0.9% 50 ML IVPB ONE (07:30)
[2018-01-20] MEDS ORDERED: SODIUM CHLORIDE 0.9% IVPB ONE (07:30)
[2018-01-20 07:31] LABS: Glucose,Whole Blood 139 mg/dL (75-99)
[2018-01-20] MEDS: FUROSEMIDE 10 MG/ML 10 ML VIAL IV SCH ×2 (08:23→21:55)
[2018-01-20] MEDS: AMIODARONE 200 MG TAB PO SCH ×2 (08:25→21:55)
[2018-01-20] MEDS: METOPROLOL TARTRATE 50 MG TAB PO SCH ×2 (08:25→21:55)
[2018-01-20] MEDS: TOPIRAMATE 25 MG TAB PO SCH ×2 (08:25→21:55)
[2018-01-20] MEDS: PANTOPRAZOLE 40 MG TABLET PO SCH ×2 (08:25→17:24)
[2018-01-20] MEDS: CALCIUM ACETATE 667 MG CAP PO SCH ×3 (08:25→17:24)
[2018-01-20] MEDS: ASPIRIN 81 MG PO SCH (08:26)
[2018-01-20 08:50] LABS: Basophils % (A) 0 %; Eosinophils # (A) 0.1 k/uL (0-0.7); Eosinophils % (A) 2 %; HCT 24.9 % (39.0-53.0); HGB 8.4 gm/dL (13.0-17.5); Lymphocytes # (A) 0.9 k/uL (1.0-4.8); Lymphocytes % (A) 16 %; MCH 29.6 pg (25.0-35.0); MCHC 33.6 g/dL (31.0-37.0); MCV 88.1 fL (80.0-100.0); Mean Platelet Volume 8.3; Monocytes # (A) 0.4 k/uL (0-1.0); Monocytes % (A) 7 %; Neutrophils # (A) 3.9 k/uL (1.3-7.7); Neutrophils % (A) 72 %; Platelet Count 168 k/uL (150-450); RBC 2.83 m/uL (4.30-5.90); RDW 12.9 % (11.5-15.5); WBC 5.5 k/uL (3.8-10.6)
--- NOTE | 2018-01-20 11:03 | P.PN ---
Subjective 72-year-old admitted secondary to septic shock shock improved patient is presently on Zosyn for gram-negative scrotal abscess and 40 is gangrene patient is status post incision and drainage and patient is intubated mechanically ventilated due to hypoxic respiratory failure from sepsis. We did is being managed by adoption specialist. Patient is on IV heparin because of his history of atrial fibrillation and patient is being bridged with IV heparin because of his high risk for cerebrovascular accident from A. fib. Patient was evaluated by infectious disease, adoption specialist, urology. 01/13/2018 Patient was extubated yesterday clinically doing well, patient remains on IV heparin will switch will be switched to oral anticoagulation for his chronic atrial fibrillation. Patient is comparing of some discomfort in the scrotal area. 01/14/2018 Patient is clinically doing well is complaining of massive condition fullness was ordered and patient will be transferred out of ICU. Patient's own cultures are now showing E. coli as well as and aerobic gram-negative bacilli along with beta hemolytic streptococci patient is on appropriate antibiotic Zosyn to cover all this bacteria area patient was started back on anticoagulations with Coumadin 01/15/2018 Patient's scrotum is more swollen than yesterday. Patient is having bleeding from that area, IV heparin will be discontinued, patient is being continued on Coumadin. Patient had hemodialysis yesterday 01/16/2018 Patient's INR is therapeutic clinically doing well. Receiving hemodialysis today 01/17/2018 INR is 3.6, hold off Coumadin as patient may need dialysis catheter placement patient presently has inguinal catheter for dialysis. PT and OT will evaluate the patient. Patient is on ertapenem. Further goals and plans were discussed with the patient and family at bedside. 01/18/2018 Patient's INR is still a elevated because of which patient received the vitamin K for possibility of subclavian Esa line placement tomorrow. Otherwise there are no overnight events. 01/19/2018 Patient received a right subclavian dialysis catheter access, patient will be resumed on Coumadin no significant overnight events low-grade fever 01/20/2018 Patient started bleeding from the dialysis catheter site area today and patient received DDAVP. Otherwise no overnight events. Constitutional: Denied any fatigue denied any fever. Cardio vascular: denied any chest pain, palpitations Gastrointestinal denied any nausea vomiting Pulmonary: Denied any shortness of breath cough Neurologic denied any new focal deficits Objective - Vital Signs Vital signs: Vital Signs Temp 99.5 F 01/20/18 06:15 Pulse 66 01/20/18 07:39 Resp 20 01/20/18 06:15 BP 180/89 01/20/18 06:15 Pulse Ox 97 01/20/18 07:27 Intake & Output 01/19/18 01/20/18 01/20/18 18:59 06:59 18:59 Intake Total 290 200 240 Output Total 1000 1200 Balance -710 -1000 240 Weight 143 kg Intake: IV 50 Oral 240 200 240 Output: Urine 1000 1200 Coude 1200 Other: Voiding Method Indwelling Catheter Indwelling Catheter Indwelling Catheter # Bowel Movements 0 ABP, PAP, CO, CI - Last Documented Arterial Blood Pressure 145/46 - Exam PHYSICAL EXAMINATION: GENERAL: Drowsy oriented 3 morbidly obese HEENT: Pupils are round and equally reacting to light. EOMI. No scleral icterus. No conjunctival pallor. Normocephalic, atraumatic. No pharyngeal erythema. No thyromegaly. patient has a subclavian Esa line CARDIOVASCULAR: S1 and S2 present. No murmurs, rubs, or gallops. PULMONARY: Chest is clear to auscultation, no wheezing or crackles. ABDOMEN: Soft, nontender, nondistended, normoactive bowel sounds. No palpable organomegaly. MUSCULOSKELETAL: No joint swelling or deformity. EXTREMITIES: No cyanosis, clubbing, or pedal edema. Scrotal edema with cellulitis and the postsurgically packed NEUROLOGICAL: No new focal deficits were appreciated SKIN: No rashes. - Labs CBC & Chem 7: 01/20/18 07:57 01/19/18 05:00 Labs: Abnormal Lab Results - Last 24 Hours (Table) 01/19/18 01/19/18 01/19/18 Range/Units 12:39 16:54 20:41 RBC 2.96 L (4.30-5.90) m/uL Hgb 8.7 L (13.0-17.5) gm/dL Hct 25.9 L (39.0-53.0) % Lymphocytes # 0.7 L (1.0-4.8) k/uL POC Glucose (mg/dL) 119 H 116 H (75-99) mg/dL 01/19/18 01/20/18 01/20/18 Range/Units 21:13 02:05 07:17 RBC (4.30-5.90) m/uL Hgb (13.0-17.5) gm/dL Hct (39.0-53.0) % Lymphocytes # (1.0-4.8) k/uL POC Glucose (mg/dL) 126 H 141 H 139 H (75-99) mg/dL 01/20/18 Range/Units 07:57 RBC 2.83 L (4.30-5.90) m/uL Hgb 8.4 L (13.0-17.5) gm/dL Hct 24.9 L (39.0-53.0) % Lymphocytes # 0.9 L (1.0-4.8) k/uL POC Glucose (mg/dL) (75-99) mg/dL Assessment and Plan Plan: severe sepsis and septic shock with lactic acidosis, secondary to scrotal cellulitis and abscess and jitendra's gangrene, status post incision and drainage, patient shock improved patient has streptococci, E. coli and anaerobic gram-negative bacilli. Patient improved significantly now patient is an ertapenem now. Had low-grade fevers from time to monitor Acute kidney injury with acute tubular necrosis, patient's creatinine is 6.5 today and patient is on hemodialysis, tardus post placement of subclavian line for hemodialysis atrial fibrillation history: anticoagulation will be resumed, heart rate is well controlled Acute hypoxemic respiratory failure secondary to sepsis, which resolved Diabetes mellitus: Continue with present regimen. Sleep apnea Possible COPD Status post pacemaker implantation History of GERD Hyperlipidemia
[2018-01-20] MEDS: ERTAPENEM 0.5 GM in SODIUM CHLORIDE 0.9% 50 ML IVPB SCH (12:05)
[2018-01-20 12:08] LABS: Glucose,Whole Blood 167 mg/dL (75-99)
[2018-01-20] MEDS ORDERED: amLODIPine 5 MG TAB PO STA (12:25)
--- NOTE | 2018-01-20 13:58 | PN ---
PROGRESS NOTE Patient is seen for followup for acute kidney injury, currently hemodialysis dependent. The patient had his dialysis yesterday. We will plan to dialyze him again tomorrow. We do not have any labs from today. Overnight, patient had bleeding from his PermCath site. It seems to have stopped now. Hemoglobin did not change much. It is at 8.4 g/dL. EXAMINATION: Blood pressure is 180/89, heart rate of 64 per minute. Patient is afebrile. Examination of the heart S1, S2. Examination of the lungs bilateral breath sounds are heard. Abdomen is soft, nontender. Examination of lower extremity shows no significant edema. MILLED RICE BROKER exam is grossly intact. Lab show hemoglobin 8.4 g/dL. There is pressured dressing noted on his right IJ catheter site. ASSESSMENT: 1. Acute kidney injury, currently hemodialysis dependent, nonoliguric with good urine output. We will arrange for hemodialysis in a.m. Check labs in a.m. 2. Bleeding from PermCath site. Hold off on the Coumadin and I will also give him a dose of DDAVP. Hemoglobin is 8.4 g/dL. 3. Hypervolemia, maintained on IV Lasix. 4. Hyperphosphatemia, currently maintained on PhosLo. 5. Hypertension. Blood pressure remains elevated, elevated. The patient is maintained on Lopressor. I will add Norvasc. 6. Scrotal abscess status post surgery. PLAN: Add on Norvasc for uncontrolled hypertension and hemodialysis in a.m. MMODL / IJN: [id number] /
[2018-01-20 17:21] LABS: Glucose,Whole Blood 140 mg/dL (75-99)
[2018-01-20] MEDS: WARFARIN 5 MG TAB PO SCH (17:24)
--- NOTE | 2018-01-20 20:23 | P.PN ---
Progress Note - Text Progress Note Date: 01/20/18 Mr. Dykes states that he is feeling about the same as he did yesterday. He expresses no specific complaints. His temperature is 99.4F. His WBC count is normal. His left scrotal wound is clean, with serous drainage. There is persistent scrotal edema, and again an area of fluctuance is noted on the upper aspect of the right hemiscrotum, though there are otherwise no signs of infection. Scrotal ultrasound will be obtained.
[2018-01-20 21:22] LABS: Glucose,Whole Blood 149 mg/dL (75-99)
[2018-01-21 02:07] LABS: Glucose,Whole Blood 143 mg/dL (75-99)
[2018-01-21] MEDS: INSULIN ASPART 100 UNIT/ML 1 ML 10 ML VIAL SQ SCH ×5 (02:23→21:06)
[2018-01-21 07:24] LABS: Glucose,Whole Blood 143 mg/dL (75-99)
[2018-01-21] MEDS: IPRATROPIUM-ALBUTEROL 3 ML NEB INHALATION SCH ×3 (07:41→20:57)
--- NOTE | 2018-01-21 08:52 | IR ---
EXAMINATION TYPE: IR cvc insert central tunneled DATE OF EXAM: 01/19/2018 COMPARISON: NONE HISTORY: Peripheral vascular occlusive disease. Fluoroscopy was provided to the referring clinician. 2.1 minutes of fluoroscopy provided
[2018-01-21] MEDS: ASPIRIN 81 MG PO SCH (08:56)
[2018-01-21] MEDS: PANTOPRAZOLE 40 MG TABLET PO SCH ×2 (08:56→18:01)
[2018-01-21] MEDS: TOPIRAMATE 25 MG TAB PO SCH ×2 (08:56→20:35)
[2018-01-21] MEDS: CALCIUM ACETATE 667 MG CAP PO SCH ×3 (08:56→18:01)
[2018-01-21] MEDS: METOPROLOL TARTRATE 50 MG TAB PO SCH ×2 (08:56→20:35)
[2018-01-21] MEDS: FUROSEMIDE 10 MG/ML 10 ML VIAL IV SCH ×2 (08:57→20:34)
[2018-01-21] MEDS: AMIODARONE 200 MG TAB PO SCH ×2 (08:57→20:34)
--- NOTE | 2018-01-21 09:07 | US ---
EXAMINATION TYPE: US scrotum with doppler. Grayscale and color Doppler Duplex imaging performed of t kiera scrotum. DATE OF EXAM: 01/21/2018 COMPARISON: Prior scrotal ultrasound January 10, 2018 CLINICAL HISTORY: Scrotal Abscess. EXAM MEASUREMENTS: TESTICLES: Right Testicle: 3.7 X 2.0 X 2.9 cm Left Testicle: 4.6 X 2.1 X 1.7 cm EPIDIDYMIS HEAD: Right Epididymis: 0.7 cm Left Epididymis: 0.7 cm Doppler performed to assess for testicular vascularity; good bilateral color flow and waveforms are s een. There is no evidence of testicular torsion. Presence of hydroceles: right 1.9 x 0.8 x 2.6, left 2.2 x 2.6 x 0.9cm Presence of varicoceles: no There are persistent small bilateral scrotal fluid collection or hydroceles. There is persistent hete rogeneity of bilateral testicles without distinct masses. There is persistent elongated curvilinear f luid collection adjacent to right testicle diminished in thickness or size from prior favoring resolv ing hematoma or edema. Bilateral scrotal skin thickening is redemonstrated. IMPRESSION: Diminishing size right extratesticular elongated fluid collection likely reflects resolvi ng hematoma or edema.
--- NOTE | 2018-01-21 09:50 | P.PN ---
Subjective The patient had an us for persistent swelling there is no fluid to drain. THere is alot of edema yet This will probably subside in time There is nothing surgical at present Objective - Vital Signs Vital signs: Vital Signs Temp 99.6 F 01/21/18 05:50 Pulse 62 01/21/18 07:52 Resp 16 01/21/18 07:52 BP 187/86 01/21/18 05:50 Pulse Ox 94 L 01/21/18 07:42 Intake & Output 01/20/18 01/21/18 01/21/18 18:59 06:59 18:59 Intake Total 480 Output Total 1750 Balance 480 -1750 Weight 142.5 kg Intake: Oral 480 Output: Urine 1750 Other: Voiding Method Indwelling Catheter Indwelling Catheter ABP, PAP, CO, CI - Last Documented Arterial Blood Pressure 145/46 - Labs CBC & Chem 7: 01/20/18 07:57 01/19/18 05:00 Labs: Abnormal Lab Results - Last 24 Hours (Table) 01/20/18 01/20/18 01/20/18 Range/Units 11:38 17:11 21:21 POC Glucose (mg/dL) 167 H 140 H 149 H (75-99) mg/dL 01/21/18 01/21/18 Range/Units 02:05 07:08 POC Glucose (mg/dL) 143 H 143 H (75-99) mg/dL
[2018-01-21 10:11] LABS: HCT 22.4 % (39.0-53.0); HGB 7.4 gm/dL (13.0-17.5); MCH 29.2 pg (25.0-35.0); MCHC 32.9 g/dL (31.0-37.0); MCV 88.7 fL (80.0-100.0); Mean Platelet Volume 8.8; Platelet Count 137 k/uL (150-450); RBC 2.52 m/uL (4.30-5.90); RDW 13.1 % (11.5-15.5); WBC 4.4 k/uL (3.8-10.6)
[2018-01-21 10:36] LABS: Calcium 8.1 mg/dL (8.4-10.2); Potassium 4.2 mmol/L (3.5-5.1)
[2018-01-21 12:06] LABS: Glucose,Whole Blood 143 mg/dL (75-99)
[2018-01-21 12:25] LABS: INR 1.2 (<1.2); Prothrombin Time 11.4 sec (9.0-12.0)
[2018-01-21] MEDS: ERTAPENEM 0.5 GM in SODIUM CHLORIDE 0.9% 50 ML IVPB SCH (13:02)
[2018-01-21] MEDS ORDERED: HEPARIN SODIUM,PORCINE 5,000 UNIT/ML 1 ML VIAL ONE (16:00)
--- NOTE | 2018-01-21 17:37 | P.PN ---
Subjective 72-year-old admitted secondary to septic shock shock improved patient is presently on Zosyn for gram-negative scrotal abscess and 40 is gangrene patient is status post incision and drainage and patient is intubated mechanically ventilated due to hypoxic respiratory failure from sepsis. We did is being managed by lead front end developer. Patient is on IV heparin because of his history of atrial fibrillation and patient is being bridged with IV heparin because of his high risk for cerebrovascular accident from A. fib. Patient was evaluated by infectious disease, lead front end developer, urology. 01/13/2018 Patient was extubated yesterday clinically doing well, patient remains on IV heparin will switch will be switched to oral anticoagulation for his chronic atrial fibrillation. Patient is comparing of some discomfort in the scrotal area. 01/14/2018 Patient is clinically doing well is complaining of massive condition fullness was ordered and patient will be transferred out of ICU. Patient's own cultures are now showing E. coli as well as and aerobic gram-negative bacilli along with beta hemolytic streptococci patient is on appropriate antibiotic Zosyn to cover all this bacteria area patient was started back on anticoagulations with Coumadin 01/15/2018 Patient's scrotum is more swollen than yesterday. Patient is having bleeding from that area, IV heparin will be discontinued, patient is being continued on Coumadin. Patient had hemodialysis yesterday 01/16/2018 Patient's INR is therapeutic clinically doing well. Receiving hemodialysis today 01/17/2018 INR is 3.6, hold off Coumadin as patient may need dialysis catheter placement patient presently has inguinal catheter for dialysis. PT and OT will evaluate the patient. Patient is on ertapenem. Further goals and plans were discussed with the patient and family at bedside. 01/18/2018 Patient's INR is still a elevated because of which patient received the vitamin K for possibility of subclavian Esa line placement tomorrow. Otherwise there are no overnight events. 01/19/2018 Patient received a right subclavian dialysis catheter access, patient will be resumed on Coumadin no significant overnight events low-grade fever 01/20/2018 Patient started bleeding from the dialysis catheter site area today and patient received DDAVP. Otherwise no overnight events. 01/21/2018 No more bleeding from the hemodialysis site area. Patient was resumed back on Coumadin patient's hemoglobin is 7.4F it goes below 7 we'll transfuse 1 unit of blood transfusion. Patient is scheduled to be discharged tomorrow. Will undergo hemodialysis today and tomorrow patient will be Sunday hemodialysis Constitutional: Denied any fatigue denied any fever. Cardio vascular: denied any chest pain, palpitations Gastrointestinal denied any nausea vomiting Pulmonary: Denied any shortness of breath cough Neurologic denied any new focal deficits Objective - Vital Signs Vital signs: Vital Signs Temp 98.1 F 01/21/18 15:00 Pulse 60 01/21/18 15:00 Resp 18 01/21/18 16:00 BP 178/76 01/21/18 15:00 Pulse Ox 96 01/21/18 15:00 Intake & Output 01/20/18 01/21/18 01/21/18 18:59 06:59 18:59 Intake Total 480 Output Total 1750 1200 Balance 480 -1750 -1200 Weight 142.5 kg Intake: Oral 480 Output: Urine 1750 Stool 1200 Other: Voiding Method Indwelling Catheter Indwelling Catheter Indwelling Catheter ABP, PAP, CO, CI - Last Documented Arterial Blood Pressure 145/46 - Exam PHYSICAL EXAMINATION: GENERAL: Drowsy oriented 3 morbidly obese HEENT: Pupils are round and equally reacting to light. EOMI. No scleral icterus. No conjunctival pallor. Normocephalic, atraumatic. No pharyngeal erythema. No thyromegaly. patient has a subclavian Esa line CARDIOVASCULAR: S1 and S2 present. No murmurs, rubs, or gallops. PULMONARY: Chest is clear to auscultation, no wheezing or crackles. ABDOMEN: Soft, nontender, nondistended, normoactive bowel sounds. No palpable organomegaly. MUSCULOSKELETAL: No joint swelling or deformity. EXTREMITIES: No cyanosis, clubbing, or pedal edema. Scrotal edema with cellulitis and the postsurgically packed NEUROLOGICAL: No new focal deficits were appreciated SKIN: No rashes. - Labs CBC & Chem 7: 01/21/18 09:07 01/21/18 09:07 Labs: Abnormal Lab Results - Last 24 Hours (Table) 01/20/18 01/21/18 01/21/18 Range/Units 21:21 02:05 07:08 RBC (4.30-5.90) m/uL Hgb (13.0-17.5) gm/dL Hct (39.0-53.0) % Plt Count (150-450) k/uL INR (<1.2) Carbon Dioxide (22-30) mmol/L BUN (9-20) mg/dL Creatinine (0.66-1.25) mg/dL Glucose (74-99) mg/dL POC Glucose (mg/dL) 149 H 143 H 143 H (75-99) mg/dL Calcium (8.4-10.2) mg/dL 01/21/18 01/21/18 01/21/18 Range/Units 09:07 09:07 11:54 RBC 2.52 L (4.30-5.90) m/uL Hgb 7.4 L (13.0-17.5) gm/dL Hct 22.4 L (39.0-53.0) % Plt Count 137 L (150-450) k/uL INR (<1.2) Carbon Dioxide 21 L (22-30) mmol/L BUN 55 H (9-20) mg/dL Creatinine 8.28 H* (0.66-1.25) mg/dL Glucose 156 H (74-99) mg/dL POC Glucose (mg/dL) 143 H (75-99) mg/dL Calcium 8.1 L (8.4-10.2) mg/dL 01/21/18 Range/Units 12:30 RBC (4.30-5.90) m/uL Hgb (13.0-17.5) gm/dL Hct (39.0-53.0) % Plt Count (150-450) k/uL INR 1.2 H (<1.2) Carbon Dioxide (22-30) mmol/L BUN (9-20) mg/dL Creatinine (0.66-1.25) mg/dL Glucose (74-99) mg/dL POC Glucose (mg/dL) (75-99) mg/dL Calcium (8.4-10.2) mg/dL Assessment and Plan Plan: severe sepsis and septic shock with lactic acidosis, secondary to scrotal cellulitis and abscess and jitendra's gangrene, status post incision and drainage, patient shock improved, patient will be discharged on ertapenem. Patient had low-grade fevers patient has streptococci, E. coli and anaerobic gram-negative bacilli. Patient improved significantly now patient is an ertapenem now. Had low-grade fevers from time to monitor Acute kidney injury with acute tubular necrosis, patient's creatinine is 6.5 today and patient is on hemodialysis, post placement of subclavian line for hemodialysis atrial fibrillation history: anticoagulation will be resumed, heart rate is well controlled Acute hypoxemic respiratory failure secondary to sepsis, which resolved Diabetes mellitus: Continue with present regimen. Sleep apnea Possible COPD Status post pacemaker implantation History of GERD Hyperlipidemia
[2018-01-21 17:42] LABS: Glucose,Whole Blood 124 mg/dL (75-99)
[2018-01-21] MEDS: WARFARIN 5 MG TAB PO SCH (18:01)
--- NOTE | 2018-01-21 20:05 | PN ---
PROGRESS NOTE Patient is seen for followup for acute kidney injury, ischemic acute tubular necrosis, currently nonoliguric. The patient also had mild volume overload. He is scheduled for hemodialysis today. The patient does have a chair time for Sunday, , Sunday schedule starting . We will dialyze him again tomorrow so that we can get him on a Sunday, , Sunday schedule. EXAMINATION: Blood pressure is elevated 187/86, heart rate 57 per minute. Patient is afebrile. Examination of the heart: S1, S2. Examination lungs: Bilateral breath sounds are heard. No crackles or wheezing is heard. Abdomen is soft, nontender. Examination lower extremities shows trace edema. FABRICATION MANAGER exam is grossly intact. LABS SHOW: Sodium 138, potassium 4.2, BUN 55, serum creatinine 8.28, hemoglobin was 7.4 g/dL. ASSESSMENT: 1. Acute kidney injury, acute tubular necrosis, currently nonoliguric. However, hemodialysis dependent. The patient will be dialyzed today and we will repeat another treatment of hemodialysis tomorrow so that we can get him on a Sunday, , Sunday schedule for outpatient dialysis. We will continue to monitor the renal function as outpatient. His urine was quite benign and we will continue to monitor the renal function as outpatient. 2. Anemia with no active bleeding noted. Patient is maintained on Aranesp. 3. Scrotal abscess and sepsis, maintained on ertapenem. 4. Volume overload, currently improved. 5. Hypertension, uncontrolled. The patient is on Lopressor. I will add calcium channel blockers. 6. Bleeding from PermCath stat site status post DDAVP, currently much improved. PLAN: Add Norvasc. Hemodialysis today as well as in a.m. MMODL / IJN: [id number] /
[2018-01-21] MEDS: amLODIPine 5 MG TAB PO SCH (20:34)
[2018-01-21 20:53] LABS: Glucose,Whole Blood 129 mg/dL (75-99)
--- NOTE | 2018-01-21 21:45 | P.PN ---
Subjective Progress Note Date: 01/21/18 Principal diagnosis: 72-year-old male who has obesity and diabetes that is controlled with oral medication presents to the hospital with acute illness with fever pain and swelling to the scrotum. Upon admission the patient had interventions that included ultrasound and blood work patient evidence of sepsis and was brought in the hospital. He did have increasing illness and was seen by urology. 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 Fortunately it had not spread significantly beyond the scrotal tissue at the time of the surgical debridement. The patient this time remains in intensive care unit intubated sedated and mechanically ventilated requiring vasopressor therapy for his sepsis with shock. However there seems to be some improvement. The patient 's condition is discussed with his and sister. The patient's relates that he had been evaluated in the last few months for his diabetes it was on oral medications and thought he was doing relatively well. We discussed hemoglobin A1c is greater than 11 which would indicate that he likely has had uncontrolled blood sugar for quite some time. This is the etiology of his current infection and will need better glucose control to allow improvement of his infection. 01/14/2018 patient is improved but remains on hemodialysis for the acute renal failure with hope of renal recovery. the scrotal infection is improving, 01/15/2018 further improvement occuring,feels better, but have noted falling platelet count. 01/16/2018 patient is feeling better today. Less pain, more interactive. Dialysis today was only able to remove 800 mL of fluid. The patient denies intermittent difficulties. Dressing changes minimally uncomfortable. He is denying fevers or chills. Thrombocytopenia likely from Zosyn is improving with the changed to ertapenem. 01/17/2018 patient is feeling better today. Was able to up and ambulate with much less difficulty. Pain control is improved. Denies fevers. 01/18/2018 patient is feeling slightly Denies new acute symptoms.pain is better controlled. 01/19/2018 dialysis catheter placed and had some bleeding now resolved. 01/21/2018. Well with dialysis. No new complaints. Scrotum is less painful. Objective - Vital Signs Vital signs: Vital Signs Temp 98.1 F 01/21/18 15:00 Pulse 60 01/21/18 15:00 Resp 18 01/21/18 16:00 BP 196/98 01/21/18 20:26 Pulse Ox 96 01/21/18 15:00 Intake & Output 01/21/18 01/21/18 01/22/18 06:59 18:59 06:59 Output Total 1750 1200 Balance -1750 -1200 Weight 142.5 kg Output: Urine 1750 Stool 1200 Other: Voiding Method Indwelling Catheter Indwelling Catheter ABP, PAP, CO, CI - Last Documented Arterial Blood Pressure 145/46 - Exam 72-year-old male who has obesity is comfortable, improving extubated, and receiving dialysis HEENT: Anicteric conjunctiva are pink and moist nasal mucosa grossly intact without significant lesions around the endotracheal tube, there is no thrush. Neck: The neck is without significant lymphadenopathy or thyromegaly. Lungs: Symmetrical air entry is noted a few expiratory wheezes are scattered no yanni bronchial sounds Heart: Irregular with audible S1 and S2 soft S4 no murmur click or rub Abdomen: Obese, Positive bowel sounds soft and nontender without palpable masses or organomegaly. There was no guarding or rebound. Extremities: The upper extremities have excellent pulses they are symmetric, no significant petechiae or telangiectasia. No splinter hemorrhages were noted. Lower extremities evidence of some chronic edema no open ulcerations Genitalia: With nurse present the scrotum was evaluated the surgical incision shows evidence of just scant serous drainage and swelling, some bloody drainage is noted after he ambulates. The scrotum is less swollen and less tense and less tender Neuro:awake alert and interactive - Labs CBC & Chem 7: 01/21/18 09:07 01/21/18 09:07 Labs: Abnormal Lab Results - Last 24 Hours (Table) 01/21/18 01/21/18 01/21/18 Range/Units 02:05 07:08 09:07 RBC 2.52 L (4.30-5.90) m/uL Hgb 7.4 L (13.0-17.5) gm/dL Hct 22.4 L (39.0-53.0) % Plt Count 137 L (150-450) k/uL INR (<1.2) Carbon Dioxide (22-30) mmol/L BUN (9-20) mg/dL Creatinine (0.66-1.25) mg/dL Glucose (74-99) mg/dL POC Glucose (mg/dL) 143 H 143 H (75-99) mg/dL Calcium (8.4-10.2) mg/dL 01/21/18 01/21/18 01/21/18 Range/Units 09:07 11:54 12:30 RBC (4.30-5.90) m/uL Hgb (13.0-17.5) gm/dL Hct (39.0-53.0) % Plt Count (150-450) k/uL INR 1.2 H (<1.2) Carbon Dioxide 21 L (22-30) mmol/L BUN 55 H (9-20) mg/dL Creatinine 8.28 H* (0.66-1.25) mg/dL Glucose 156 H (74-99) mg/dL POC Glucose (mg/dL) 143 H (75-99) mg/dL Calcium 8.1 L (8.4-10.2) mg/dL 01/21/18 01/21/18 Range/Units 17:32 20:51 RBC (4.30-5.90) m/uL Hgb (13.0-17.5) gm/dL Hct (39.0-53.0) % Plt Count (150-450) k/uL INR (<1.2) Carbon Dioxide (22-30) mmol/L BUN (9-20) mg/dL Creatinine (0.66-1.25) mg/dL Glucose (74-99) mg/dL POC Glucose (mg/dL) 124 H 129 H (75-99) mg/dL Calcium (8.4-10.2) mg/dL Laboratory Results WBC 4.4 k/uL (3.8-10.6) 01/21/18 09:07 RBC 2.52 m/uL (4.30-5.90) L 01/21/18 09:07 Hgb 7.4 gm/dL (13.0-17.5) L 01/21/18 09:07 Hct 22.4 % (39.0-53.0) L 01/21/18 09:07 MCV 88.7 fL (80.0-100.0) 01/21/18 09:07 MCH 29.2 pg (25.0-35.0) 01/21/18 09:07 MCHC 32.9 g/dL (31.0-37.0) 01/21/18 09:07 RDW 13.1 % (11.5-15.5) 01/21/18 09:07 Plt Count 137 k/uL (150-450) L 01/21/18 09:07 Neutrophils % 72 % 01/20/18 07:57 Lymphocytes % 16 % 01/20/18 07:57 Monocytes % 7 % 01/20/18 07:57 Eosinophils % 2 % 01/20/18 07:57 Basophils % 0 % 01/20/18 07:57 Neutrophils # 3.9 k/uL (1.3-7.7) 01/20/18 07:57 Lymphocytes # 0.9 k/uL (1.0-4.8) L 01/20/18 07:57 Monocytes # 0.4 k/uL (0-1.0) 01/20/18 07:57 Eosinophils # 0.1 k/uL (0-0.7) 01/20/18 07:57 Basophils # 0.0 k/uL (0-0.2) 01/20/18 07:57 Manual Slide Review Performed 01/11/18 04:20 Large Platelets Present 01/11/18 04:20 PT 11.4 sec (9.0-12.0) 01/21/18 12:30 INR 1.2 (<1.2) H 01/21/18 12:30 APTT 64.6 sec (22.0-30.0) H 01/15/18 03:33 Sample Site [place] 01/12/18 16:02 ABG pH 7.31 (7.35-7.45) L 01/12/18 16:02 ABG pCO2 34 mmHg (35-45) L 01/12/18 16:02 ABG pO2 96 mmHg (83-108) 01/12/18 16:02 ABG HCO3 17 mmol/L (21-25) L 01/12/18 16:02 ABG Total CO2 18 mmol/L (19-24) L 01/12/18 16:02 ABG O2 Saturation 97.6 % (94-97) H 01/12/18 16:02 ABG Base Excess -8.9 mmol/L 01/12/18 16:02 Kike Test Yes 01/12/18 16:02 FiO2 25 % 01/12/18 16:02 Sodium 138 mmol/L (137-145) 01/21/18 09:07 Potassium 4.2 mmol/L (3.5-5.1) 01/21/18 09:07 Chloride 101 mmol/L (98-107) 01/21/18 09:07 Carbon Dioxide 21 mmol/L (22-30) L 01/21/18 09:07 Anion Gap 16 mmol/L 01/21/18 09:07 BUN 55 mg/dL (9-20) H 01/21/18 09:07 Creatinine 8.28 mg/dL (0.66-1.25) H* 01/21/18 09:07 Est GFR (CKD-EPI)AfAm 7 (>60 ml/min/1.73 sqM) 01/21/18 09:07 Est GFR (CKD-EPI)NonAf 6 (>60 ml/min/1.73 sqM) 01/21/18 09:07 Glucose 156 mg/dL (74-99) H 01/21/18 09:07 POC Glucose (mg/dL) 129 mg/dL (75-99) H 01/21/18 20:51 POC Glu Operations Lead ID Christine Sam 01/21/18 20:[address] Glu mg/dL 272 01/10/18 03:46 Hemoglobin A1c 11.1 % (4.0-6.0) H 01/10/18 03:46 Lactic Ac Sepsis Rflx Y 01/10/18 00:16 Plasma Lactic Acid Shemar 1.7 mmol/L (0.7-2.0) 01/10/18 09:46 Calcium 8.1 mg/dL (8.4-10.2) L 01/21/18 09:07 Phosphorus 7.2 mg/dL (2.5-4.5) H 01/15/18 03:33 Magnesium 2.0 mg/dL (1.6-2.3) 01/15/18 03:33 Total Bilirubin 1.3 mg/dL (0.2-1.3) 01/09/18 15:17 AST 23 U/L (17-59) 01/09/18 15:17 ALT 23 U/L (21-72) 01/09/18 15:17 Alkaline Phosphatase 108 U/L (38-126) 01/09/18 15:17 Total Protein 6.9 g/dL (6.3-8.2) 01/09/18 15:17 Albumin 4.0 g/dL (3.5-5.0) 01/09/18 15:17 TSH 1.240 mIU/L (0.465-4.680) 01/10/18 13:37 Free T4 1.71 ng/dL (0.78-2.19) 01/10/18 13:37 Urine Color Yellow 01/10/18 02:25 Urine Appearance Cloudy (Clear) 01/10/18 02:25 Urine pH 5.0 (5.0-8.0) 01/10/18 02:25 Ur Specific [place] 1.028 (1.001-1.035) 01/10/18 02:25 Urine Protein Trace (Negative) H 01/10/18 02:25 Urine Glucose (UA) 4+ (Negative) H 01/10/18 02:25 Urine Ketones Trace (Negative) H 01/10/18 02:25 Urine Blood Negative (Negative) 01/10/18 02:25 Urine Nitrite Negative (Negative) 01/10/18 02:25 Urine Bilirubin Negative (Negative) 01/10/18 02:25 Urine Urobilinogen <2.0 mg/dL (<2.0) 01/10/18 02:25 Ur Leukocyte Esterase Negative (Negative) 01/10/18 02:25 Urine RBC <1 /hpf (0-5) 01/10/18 02:25 Urine WBC 2 /hpf (0-5) 01/10/18 02:25 Random Vancomycin 32.2 ug/mL 01/12/18 04:30 Acetone, Qual Negative (Negative) 01/09/18 23:42 Hepatitis A IgM Ab Non-Reactive (Non-Reactive) 01/16/18 08:35 Hep Bs Antigen Non-Reactive (Non-Reactive) 01/16/18 08:35 Hep B Core IgM Ab Non-Reactive (Non-Reactive) 01/16/18 08:35 Hep C IgG Ab Non-Reactive (Non-Reactive) 01/16/18 08:35 Microbiology 01/09/18 15:17 Blood Blood Culture - Final No Growth after 144 hours 01/10/18 17:31 Groin Anaerobic Culture - Final Anaerobic Gm Negative Bacilli 01/10/18 17:31 Groin Anaerobic Culture - Final Anaerobic Gm Negative Bacilli 01/10/18 17:31 Groin Gram Stain - Final 01/10/18 17:31 Groin Wound Culture - Final Escherichia coli Beta Hemolytic Streptococcus F 01/10/18 17:31 Groin Gram Stain - Final 01/10/18 17:31 Groin Wound Culture - Final Beta Hemolytic Streptococcus F 01/10/18 02:25 Urine,Catheterized Urine Culture - Final Assessment and Plan (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 He was taken to the operating room and Vanesa's gangrene was noted that he had debridement of his scrotum. The necrotic material was debrided away and fortunately it is somewhat limited in its extent. There is some however residual erythema and induration of the scrotum and depending on how he responds determine if further intervention is needed, however at this time appears to be stable to improved. The patient is on broad-spectrum antibiotic therapy. Current data is being monitored and likely will discontinue vancomycin therapy especially since he is having increased creatinine. Will utilize silver dressings once the packing is removed by the surgeon. Elevation of the scrotum will be helpful for its edema. As patient progresses and is discharged have instructed his that his glucose control be very important for wound healing and for preventing further events like this in the future. His blood sugar was over 500 admission and his A1c was very elevated. The patient's relates that he was given recently some corticosteroid therapy, which may have contributed to this entire process. Patient remains critically ill but is showing some improvement. 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 01/16/2018 patient is an improvement. Continues with hemodialysis. As patient improves will have to determine best possible access for the intravenous antibiotic therapy and have his discharge which will likely be extended care. Thrombocytopenia likely from Zosyn and is improving since it has been discontinued. 01/17/2018 patient is feeling slightly better. Dialysis yesterday that occurred more dialysis is planned for further improvement of his volume overload. Continue his intravenous antibiotic therapy. Work with the statistician as to IV access so he can complete his course of antibiotic therapy for his extensive infection of the scrotum. Zosyn was transitioned to ertapenem because of thrombocytopenia that's already improving. 01/18/2018 patient has further improvement, dialysis is helping with his volume but still has elevated creatinine. Further dialysis is planned. Antibiotic therapy with ertapenem as planned at the time of transfer to rehab IV access is being arranged as per nephrology and vascular surgery. 01/19/2018 improved except for bleeding at dialysis site. will attempt avelox 400mg po daily at discharge to complete the treatment of the scrotal infection. 01/21/2018 there is further improvement. No further bleeding is occurred. There is ongoing plans for his transition to rehab. At that time of transfer moxifloxacin 400 mg once a day for 10 days is indicated for the significant scrotal infection. He may require a longer course of therapy. The lack of improvement to the scrotum is partly due to his volume overload from his renal failure. As this improves the scrotal swelling should also improve. Continue the Aquacel silver dressing to the scrotal incision and drainage site. Current Visit: Yes Status: Acute Code(s): N49.3 - VANESA GANGRENE SNOMED Code(s): 429185682 (2) Sepsis due to Gram-negative organism with septic shock Current Visit: Yes Status: Acute Code(s): A41.50 - GRAM-NEGATIVE SEPSIS, UNSPECIFIED; R65.21 - SEVERE SEPSIS WITH SEPTIC SHOCK SNOMED Code(s): 220076024 (3) Diabetes mellitus type 2, uncontrolled, with complications Current Visit: Yes Status: Acute Code(s): E11.8 - TYPE 2 DIABETES MELLITUS WITH UNSPECIFIED COMPLICATIONS; E11.65 - TYPE 2 DIABETES MELLITUS WITH HYPERGLYCEMIA SNOMED Code(s): 578065993 (4) Leukocytosis Current Visit: Yes Status: Acute Code(s): D72.829 - ELEVATED WHITE BLOOD CELL COUNT, UNSPECIFIED SNOMED Code(s): 786889797 (5) Acute renal failure Current Visit: Yes Status: Acute Code(s): N17.9 - ACUTE KIDNEY FAILURE, UNSPECIFIED SNOMED Code(s): 90485142
[2018-01-22 02:10] LABS: Glucose,Whole Blood 134 mg/dL (75-99)
[2018-01-22] MEDS: INSULIN ASPART 100 UNIT/ML 1 ML 10 ML VIAL SQ SCH ×4 (02:25→17:24)
--- NOTE | 2018-01-22 06:53 | P.PN ---
Subjective The patient in the hospital for Vanesa's 3 gangrene. He continues to recuperate. The scrotum swelling is less. He is ambulating. There is still penile swelling and so therefore I will leave the catheter in a while longer so that he is not incontinent scrotum. He is still on dialysis. He'll be going to rehab at [facility] in the near future. Objective - Vital Signs Vital signs: Vital Signs Temp 99.5 F 01/22/18 05:45 Pulse 57 L 01/22/18 05:45 Resp 16 01/22/18 05:45 BP 180/86 01/22/18 05:45 Pulse Ox 96 01/22/18 05:45 Intake & Output 01/21/18 01/21/18 01/22/18 06:59 18:59 06:59 Output Total 1750 1200 1125 Balance -1750 -1200 -1125 Weight 142.5 kg 138.5 kg Output: Urine 1750 1125 Stool 1200 Other: Voiding Method Indwelling Catheter Indwelling Catheter Indwelling Catheter ABP, PAP, CO, CI - Last Documented Arterial Blood Pressure 145/46 - Labs CBC & Chem 7: 01/21/18 09:07 01/21/18 09:07 Labs: Abnormal Lab Results - Last 24 Hours (Table) 01/21/18 01/21/18 01/21/18 Range/Units 07:08 09:07 09:07 RBC 2.52 L (4.30-5.90) m/uL Hgb 7.4 L (13.0-17.5) gm/dL Hct 22.4 L (39.0-53.0) % Plt Count 137 L (150-450) k/uL INR (<1.2) Carbon Dioxide 21 L (22-30) mmol/L BUN 55 H (9-20) mg/dL Creatinine 8.28 H* (0.66-1.25) mg/dL Glucose 156 H (74-99) mg/dL POC Glucose (mg/dL) 143 H (75-99) mg/dL Calcium 8.1 L (8.4-10.2) mg/dL 01/21/18 01/21/18 01/21/18 Range/Units 11:54 12:30 17:32 RBC (4.30-5.90) m/uL Hgb (13.0-17.5) gm/dL Hct (39.0-53.0) % Plt Count (150-450) k/uL INR 1.2 H (<1.2) Carbon Dioxide (22-30) mmol/L BUN (9-20) mg/dL Creatinine (0.66-1.25) mg/dL Glucose (74-99) mg/dL POC Glucose (mg/dL) 143 H 124 H (75-99) mg/dL Calcium (8.4-10.2) mg/dL 01/21/18 01/22/18 Range/Units 20:51 02:02 RBC (4.30-5.90) m/uL Hgb (13.0-17.5) gm/dL Hct (39.0-53.0) % Plt Count (150-450) k/uL INR (<1.2) Carbon Dioxide (22-30) mmol/L BUN (9-20) mg/dL Creatinine (0.66-1.25) mg/dL Glucose (74-99) mg/dL POC Glucose (mg/dL) 129 H 134 H (75-99) mg/dL Calcium (8.4-10.2) mg/dL
[2018-01-22 07:11] LABS: Glucose,Whole Blood 125 mg/dL (75-99)
[2018-01-22] MEDS: IPRATROPIUM-ALBUTEROL 3 ML NEB INHALATION SCH ×2 (07:42→13:35)
[2018-01-22 08:24] LABS: Basophils % (A) 0 %; Eosinophils # (A) 0.1 k/uL (0-0.7); Eosinophils % (A) 2 %; HGB 8.4 gm/dL (13.0-17.5); Lymphocytes # (A) 0.9 k/uL (1.0-4.8); Lymphocytes % (A) 17 %; MCH 29.4 pg (25.0-35.0); MCHC 33.4 g/dL (31.0-37.0); MCV 88.1 fL (80.0-100.0); Mean Platelet Volume 8.7; Monocytes # (A) 0.3 k/uL (0-1.0); Monocytes % (A) 6 %; Neutrophils # (A) 3.8 k/uL (1.3-7.7); Neutrophils % (A) 73 %; Platelet Count 219 k/uL (150-450); RBC 2.84 m/uL (4.30-5.90); RDW 13.2 % (11.5-15.5); WBC 5.3 k/uL (3.8-10.6)
[2018-01-22 08:26] LABS: Albumin 2.8 g/dL (3.5-5.0); Calcium 8.3 mg/dL (8.4-10.2); Potassium 4.1 mmol/L (3.5-5.1); Total Bilirubin 0.5 mg/dL (0.2-1.3); Total Protein 5.8 g/dL (6.3-8.2)
[2018-01-22] MEDS: CALCIUM ACETATE 667 MG CAP PO SCH ×3 (08:38→16:28)
[2018-01-22] MEDS: ASPIRIN 81 MG PO SCH (08:39)
[2018-01-22] MEDS: PANTOPRAZOLE 40 MG TABLET PO SCH ×2 (08:39→16:28)
[2018-01-22] MEDS: FUROSEMIDE 10 MG/ML 10 ML VIAL IV SCH (08:40)
[2018-01-22] MEDS: TOPIRAMATE 25 MG TAB PO SCH (08:41)
[2018-01-22] MEDS: METOPROLOL TARTRATE 50 MG TAB PO SCH (08:45)
[2018-01-22 09:09] LABS: INR 1.4 (<1.2)
[2018-01-22 09:10] LABS: Prothrombin Time 12.9 sec (9.0-12.0)
[2018-01-22] MEDS: amLODIPine 5 MG TAB PO SCH (09:25)
[2018-01-22] MEDS: AMIODARONE 200 MG TAB PO SCH (09:25)
[2018-01-22 12:14] LABS: Glucose,Whole Blood 181 mg/dL (75-99)
[2018-01-22] MEDS: ERTAPENEM 0.5 GM in SODIUM CHLORIDE 0.9% 50 ML IVPB SCH (12:42)
[2018-01-22 13:20] VITALS: BMI 41.4
[2018-01-22] MEDS ORDERED: hydrALAZINE HCL 25 MG TAB PO SCH (15:00)
[2018-01-22 15:25] VITALS: BP 138/72; PULSE 60; RESP 18; TEMP 98.8
--- NOTE | 2018-01-22 15:27 | DS ---
DISCHARGE SUMMARY DATE OF ADMISSION: 01/09/2018 DATE OF DISCHARGE: 01/22/2018 FINAL DIAGNOSES: 1. Acute scrotal abscess with cellulitis causing Vanesa's gangrene, status post I and D, present on admission. 2. Acute severe sepsis with septic shock and lactic acidosis from scrotal abscess. 3. Diabetes mellitus type 2, chronically on insulin. 4. Obesity; body mass index 39.9. 5. Chronic congestive heart failure from diastolic dysfunction , ejection fraction 60% to 65%. 6. Hypertensive heart disease with left ventricular hypertrophy. 7. Gastroesophageal reflux disease. 8. Hyperlipidemia. 9. Essential hypertension. 10.Obstructive sleep apnea, uses CPAP machine. 11.Acute hypoxic respiratory failure secondary to sepsis, requiring ventilator support. 12.Acute renal failure from acute tubular necrosis from sepsis, now requiring hemodialysis. 13.Hypoalbuminemia, acute phase reactant. CONSULTATION: 1. Dr. Juárez from Urology. 2. Dr. Mcnair from Infectious Disease. 3. Dr. Acosta from Nephrology. 4. Dr. Forbes from Vascular Surgery. 5. Dr. Freeman from Cardiology. 6. Dr. Ghotra from Pulmonary. PROCEDURE: 1. Hemodialysis catheter placement by Dr. Forbes. 2. Scrotal abscess I and D by Urology. 3. Wound cultures positive for E. coli and beta hemolytic Streptococcus. HOSPITAL COURSE: This is a patient who follows with Dr. Flanagan, initially had a bruise on the left scrotum that became worse, became septic and patient had to be intubated. I and D was carried out. Treated with antibiotics. The patient also went into renal failure on admission. The creatinine was 1.12. Patient is now currently hemodialysis dependent. Patient's Hernandez catheter has been left in by Urology. Once edema comes down further with hemodialysis, hopefully, the Hernandez catheter can come out. TODAY'S LABS: Hemoglobin is 8.4, potassium is 4.1, BUN 33, creatinine 5.47. INR is 1.4. CONDITION AT DISCHARGE: Patient is doing well, tolerating his diet, had a bowel movement. Had a long discussion with the patient. He is doing really well. It was conveyed the patient's wanted him to stay back that she could be here, but she had cataract surgery today at [facility]. I did speak to the patient and daughter that in the best interest of the patient, he should start rehab sooner than later and also that patient's should stay at home. She should see that cataract surgery and heal before she comes down, rather than running around. Patient and daughter are agreeable to the same. I also talked briefly to Dr. Mcnair. PHYSICAL EXAM: Lungs fair entry. Cardiovascular, first and second sounds are normal. Hernandez catheter in place. Discussion and discharge planning more than 35 minutes. DISCHARGE MEDICATIONS: 1. Topamax 50 mg b.i.d. 2. Norvasc 5 mg p.o. b.i.d. 3. Cordarone 200 mg p.o. daily. 4. Aspirin 81 mg p.o. daily. 5. Lipitor 20 mg p.o. daily. 6. PhosLo 667 mg p.o. t.i.d. 7. DuoNeb t.i.d. 8. Melatonin 3 mg q.h.s. p.r.n. 9. Lopressor 50 mg p.o. b.i.d. 10.Avelox 400 mg p.o. daily for 14 days. 11.Coumadin 5 mg 6 pm daily. 12.hydralazine 25 mg p.o. t.i.d. LABS: CBC, BMP with next hemodialysis. INR in 3 days, CPAP to continue. DISPOSITION: [facility]. Follow up with Dr. Krishnamurthy at [facility]. Follow up with Dr. Flanagan after discharge from [facility]. Follow up with Dr. Juárez in 1 week. MMODL / IJN: [id number] /
[2018-01-22] MEDS: WARFARIN 5 MG TAB PO SCH (16:28)
--- NOTE | 2018-01-22 17:30 | PN ---
PROGRESS NOTE The patient is seen for followup for acute kidney injury. He has had his hemodialysis today. Patient will be scheduled on Sunday, , Sunday schedule for outpatient dialysis. He will be going to [facility] with an indwelling Hernandez catheter. Serum creatinine remains elevated today it was at 5.47. PHYSICAL EXAMINATION: Patient is comfortable. Blood pressure was 138/72, heart rate 64 per minute. He is afebrile. Examination of the heart S1, S2. Examination of the lungs bilateral breath sounds are heard. Abdomen is soft, nontender. Exam of the lower extremities shows 1+ edema bilaterally. CLAY PUDDLER exam is grossly intact. Patient moving all 4 extremities. LAB: Show sodium 137, potassium 4.1, hemoglobin 8.4 g/dL, serum creatinine 5.47. ASSESSMENT: 1. Acute kidney injury, acute tubular necrosis, currently nonoliguric. The patient remains hemodialysis dependent. We will continue dialysis for now and continued monitoring of renal function for the possible recovery of renal function. He has good urine output he will be able to come off from dialysis. 2. Initial creatinine was 1.12 on 01/09/2018. 3. Volume overload, currently improved. 4. Hypertension, now improved. 5. Scrotal abscess status post surgery. 6. Sepsis and septic shock, now improved. PLAN: Hold off on hydralazine and if blood pressure is high in about an hour time. We will follow him as outpatient for outpatient dialysis. Continue with the Procrit/Aratyeshap for anemia. MMODL / IJN: [id number] /
[2018-01-22 17:35] LABS: Glucose,Whole Blood 126 mg/dL (75-99)
--- NOTE | 2018-01-22 21:30 | P.PN ---
Subjective Progress Note Date: 01/22/18 Principal diagnosis: 72-year-old male who has obesity and diabetes that is controlled with oral medication presents to the hospital with acute illness with fever pain and swelling to the scrotum. Upon admission the patient had interventions that included ultrasound and blood work patient evidence of sepsis and was brought in the hospital. He did have increasing illness and was seen by urology. 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 Fortunately it had not spread significantly beyond the scrotal tissue at the time of the surgical debridement. The patient this time remains in intensive care unit intubated sedated and mechanically ventilated requiring vasopressor therapy for his sepsis with shock. However there seems to be some improvement. The patient 's condition is discussed with his and sister. The patient's relates that he had been evaluated in the last few months for his diabetes it was on oral medications and thought he was doing relatively well. We discussed hemoglobin A1c is greater than 11 which would indicate that he likely has had uncontrolled blood sugar for quite some time. This is the etiology of his current infection and will need better glucose control to allow improvement of his infection. 01/14/2018 patient is improved but remains on hemodialysis for the acute renal failure with hope of renal recovery. the scrotal infection is improving, 01/15/2018 further improvement occuring,feels better, but have noted falling platelet count. 01/16/2018 patient is feeling better today. Less pain, more interactive. Dialysis today was only able to remove 800 mL of fluid. The patient denies intermittent difficulties. Dressing changes minimally uncomfortable. He is denying fevers or chills. Thrombocytopenia likely from Zosyn is improving with the changed to ertapenem. 01/17/2018 patient is feeling better today. Was able to up and ambulate with much less difficulty. Pain control is improved. Denies fevers. 01/18/2018 patient is feeling slightly Denies new acute symptoms.pain is better controlled. 01/19/2018 dialysis catheter placed and had some bleeding now resolved. 01/21/2018. Well with dialysis. No new complaints. Scrotum is less painful. 01/22/2018 patient is feeling somewhat better. We transfer to rehab today. Objective - Vital Signs Vital signs: Vital Signs Temp 98.8 F 01/22/18 15:00 Pulse 60 01/22/18 15:00 Resp 18 01/22/18 15:00 BP 138/72 01/22/18 15:00 Pulse Ox 95 01/22/18 15:00 Intake & Output 01/22/18 01/22/18 01/23/18 06:59 18:59 06:59 Output Total 1125 600 Balance -1125 -600 Weight 138.5 kg 138.5 kg Output: Urine 1125 600 Uretheral (Santiago) 600 Other: Voiding Method Indwelling Catheter Indwelling Catheter ABP, PAP, CO, CI - Last Documented Arterial Blood Pressure 145/46 - Exam 72-year-old male who has obesity is comfortable, improving extubated, and receiving dialysis HEENT: Anicteric conjunctiva are pink and moist nasal mucosa grossly intact without significant lesions around the endotracheal tube, there is no thrush. Neck: The neck is without significant lymphadenopathy or thyromegaly. Lungs: Symmetrical air entry is noted a few expiratory wheezes are scattered no yanni bronchial sounds Heart: Irregular with audible S1 and S2 soft S4 no murmur click or rub Abdomen: Obese, Positive bowel sounds soft and nontender without palpable masses or organomegaly. There was no guarding or rebound. Extremities: The upper extremities have excellent pulses they are symmetric, no significant petechiae or telangiectasia. No splinter hemorrhages were noted. Lower extremities evidence of some chronic edema no open ulcerations Genitalia: With nurse present the scrotum was evaluated the surgical incision shows evidence of just scant serous drainage and swelling, some bloody drainage is noted after he ambulates. The scrotum is less swollen and less tense and less tenderstill penile edema Neuro:awake alert and interactive - Labs CBC & Chem 7: 01/22/18 07:51 01/22/18 07:51 Labs: Abnormal Lab Results - Last 24 Hours (Table) 01/22/18 01/22/18 01/22/18 Range/Units 02:02 07:06 07:51 RBC 2.84 L (4.30-5.90) m/uL Hgb 8.4 L (13.0-17.5) gm/dL Hct 25.0 L (39.0-53.0) % Lymphocytes # 0.9 L (1.0-4.8) k/uL PT (9.0-12.0) sec INR (<1.2) BUN (9-20) mg/dL Creatinine (0.66-1.25) mg/dL Glucose (74-99) mg/dL POC Glucose (mg/dL) 134 H 125 H (75-99) mg/dL Calcium (8.4-10.2) mg/dL Total Protein (6.3-8.2) g/dL Albumin (3.5-5.0) g/dL 01/22/18 01/22/18 01/22/18 Range/Units 07:51 08:40 11:34 RBC (4.30-5.90) m/uL Hgb (13.0-17.5) gm/dL Hct (39.0-53.0) % Lymphocytes # (1.0-4.8) k/uL PT 12.9 H (9.0-12.0) sec INR 1.4 H (<1.2) BUN 33 H (9-20) mg/dL Creatinine 5.47 H* (0.66-1.25) mg/dL Glucose 113 H (74-99) mg/dL POC Glucose (mg/dL) 181 H (75-99) mg/dL Calcium 8.3 L (8.4-10.2) mg/dL Total Protein 5.8 L (6.3-8.2) g/dL Albumin 2.8 L (3.5-5.0) g/dL 01/22/18 Range/Units 17:20 RBC (4.30-5.90) m/uL Hgb (13.0-17.5) gm/dL Hct (39.0-53.0) % Lymphocytes # (1.0-4.8) k/uL PT (9.0-12.0) sec INR (<1.2) BUN (9-20) mg/dL Creatinine (0.66-1.25) mg/dL Glucose (74-99) mg/dL POC Glucose (mg/dL) 126 H (75-99) mg/dL Calcium (8.4-10.2) mg/dL Total Protein (6.3-8.2) g/dL Albumin (3.5-5.0) g/dL Laboratory Results WBC 5.3 k/uL (3.8-10.6) 05/08/18 07:51 RBC 2.84 m/uL (4.30-5.90) L 01/22/18 07:51 Hgb 8.4 gm/dL (13.0-17.5) L 01/22/18 07:51 Hct 25.0 % (39.0-53.0) L 01/22/18 07:51 MCV 88.1 fL (80.0-100.0) 01/22/18 07:51 MCH 29.4 pg (25.0-35.0) 01/22/18 07:51 MCHC 33.4 g/dL (31.0-37.0) 01/22/18 07:51 RDW 13.2 % (11.5-15.5) 01/22/18 07:51 Plt Count 219 k/uL (150-450) 01/22/18 07:51 Neutrophils % 73 % 01/22/18 07:51 Lymphocytes % 17 % 01/22/18 07:51 Monocytes % 6 % 01/22/18 07:51 Eosinophils % 2 % 01/22/18 07:51 Basophils % 0 % 01/22/18 07:51 Neutrophils # 3.8 k/uL (1.3-7.7) 01/22/18 07:51 Lymphocytes # 0.9 k/uL (1.0-4.8) L 01/22/18 07:51 Monocytes # 0.3 k/uL (0-1.0) 01/22/18 07:51 Eosinophils # 0.1 k/uL (0-0.7) 01/22/18 07:51 Basophils # 0.0 k/uL (0-0.2) 01/22/18 07:51 Manual Slide Review Performed 01/11/18 04:20 Large Platelets Present 01/11/18 04:20 PT 12.9 sec (9.0-12.0) H 01/22/18 08:40 INR 1.4 (<1.2) H 01/22/18 08:40 APTT 64.6 sec (22.0-30.0) H 01/15/18 03:33 Sample Site MORRILL 01/12/18 16:02 ABG pH 7.31 (7.35-7.45) L 01/12/18 16:02 ABG pCO2 34 mmHg (35-45) L 01/12/18 16:02 ABG pO2 96 mmHg (83-108) 01/12/18 16:02 ABG HCO3 17 mmol/L (21-25) L 01/12/18 16:02 ABG Total CO2 18 mmol/L (19-24) L 01/12/18 16:02 ABG O2 Saturation 97.6 % (94-97) H 01/12/18 16:02 ABG Base Excess -8.9 mmol/L 01/12/18 16:02 Kike Test Yes 01/12/18 16:02 FiO2 25 % 01/12/18 16:02 Sodium 137 mmol/L (137-145) 01/22/18 07:51 Potassium 4.1 mmol/L (3.5-5.1) 01/22/18 07:51 Chloride 100 mmol/L (98-107) 01/22/18 07:51 Carbon Dioxide 24 mmol/L (22-30) 01/22/18 07:51 Anion Gap 13 mmol/L 01/22/18 07:51 BUN 33 mg/dL (9-20) H 01/22/18 07:51 Creatinine 5.47 mg/dL (0.66-1.25) H* 01/22/18 07:51 Est GFR (CKD-EPI)AfAm 11 (>60 ml/min/1.73 sqM) 01/22/18 07:51 Est GFR (CKD-EPI)NonAf 10 (>60 ml/min/1.73 sqM) 01/22/18 07:51 Glucose 113 mg/dL (74-99) H 01/22/18 07:51 POC Glucose (mg/dL) 126 mg/dL (75-99) H 01/22/18 17:20 POC Glu Director Child Abuse Therapy ID Estefani Calhoun 01/22/18 17:[address] Glu mg/dL 272 01/10/18 03:46 Hemoglobin A1c 11.1 % (4.0-6.0) H 01/10/18 03:46 Lactic Ac Sepsis Rflx Y 01/10/18 00:16 Plasma Lactic Acid Shemar 1.7 mmol/L (0.7-2.0) 01/10/18 09:46 Calcium 8.3 mg/dL (8.4-10.2) L 01/22/18 07:51 Phosphorus 7.2 mg/dL (2.5-4.5) H 01/15/18 03:33 Magnesium 2.0 mg/dL (1.6-2.3) 01/15/18 03:33 Total Bilirubin 0.5 mg/dL (0.2-1.3) 01/22/18 07:51 AST 32 U/L (17-59) 01/22/18 07:51 ALT 23 U/L (21-72) 01/22/18 07:51 Alkaline Phosphatase 61 U/L (38-126) 01/22/18 07:51 Total Protein 5.8 g/dL (6.3-8.2) L 01/22/18 07:51 Albumin 2.8 g/dL (3.5-5.0) L 01/22/18 07:51 TSH 1.240 mIU/L (0.465-4.680) 01/10/18 13:37 Free T4 1.71 ng/dL (0.78-2.19) 01/10/18 13:37 Urine Color Yellow 01/10/18 02:25 Urine Appearance Cloudy (Clear) 01/10/18 02:25 Urine pH 5.0 (5.0-8.0) 01/10/18 02:25 Ur Specific [place] 1.028 (1.001-1.035) 01/10/18 02:25 Urine Protein Trace (Negative) H 01/10/18 02:25 Urine Glucose (UA) 4+ (Negative) H 01/10/18 02:25 Urine Ketones Trace (Negative) H 01/10/18 02:25 Urine Blood Negative (Negative) 01/10/18 02:25 Urine Nitrite Negative (Negative) 01/10/18 02:25 Urine Bilirubin Negative (Negative) 01/10/18 02:25 Urine Urobilinogen <2.0 mg/dL (<2.0) 01/10/18 02:25 Ur Leukocyte Esterase Negative (Negative) 01/10/18 02:25 Urine RBC <1 /hpf (0-5) 01/10/18 02:25 Urine WBC 2 /hpf (0-5) 01/10/18 02:25 Random Vancomycin 32.2 ug/mL 01/12/18 04:30 Acetone, Qual Negative (Negative) 01/09/18 23:42 Hepatitis A IgM Ab Non-Reactive (Non-Reactive) 01/16/18 08:35 Hep Bs Antigen Non-Reactive (Non-Reactive) 01/16/18 08:35 Hep B Core IgM Ab Non-Reactive (Non-Reactive) 01/16/18 08:35 Hep C IgG Ab Non-Reactive (Non-Reactive) 01/16/18 08:35 Microbiology 01/09/18 15:17 Blood Blood Culture - Final No Growth after 144 hours 01/10/18 17:31 Groin Anaerobic Culture - Final Anaerobic Gm Negative Bacilli 01/10/18 17:31 Groin Anaerobic Culture - Final Anaerobic Gm Negative Bacilli 01/10/18 17:31 Groin Gram Stain - Final 01/10/18 17:31 Groin Wound Culture - Final Escherichia coli Beta Hemolytic Streptococcus F 01/10/18 17:31 Groin Gram Stain - Final 01/10/18 17:31 Groin Wound Culture - Final Beta Hemolytic Streptococcus F 01/10/18 02:25 Urine,Catheterized Urine Culture - Final Assessment and Plan (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 He was taken to the operating room and Vanesa's gangrene was noted that he had debridement of his scrotum. The necrotic material was debrided away and fortunately it is somewhat limited in its extent. There is some however residual erythema and induration of the scrotum and depending on how he responds determine if further intervention is needed, however at this time appears to be stable to improved. The patient is on broad-spectrum antibiotic therapy. Current data is being monitored and likely will discontinue vancomycin therapy especially since he is having increased creatinine. Will utilize silver dressings once the packing is removed by the surgeon. Elevation of the scrotum will be helpful for its edema. As patient progresses and is discharged have instructed his that his glucose control be very important for wound healing and for preventing further events like this in the future. His blood sugar was over 500 admission and his A1c was very elevated. The patient's relates that he was given recently some corticosteroid therapy, which may have contributed to this entire process. Patient remains critically ill but is showing some improvement. 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 01/16/2018 patient is an improvement. Continues with hemodialysis. As patient improves will have to determine best possible access for the intravenous antibiotic therapy and have his discharge which will likely be extended care. Thrombocytopenia likely from Zosyn and is improving since it has been discontinued. 01/17/2018 patient is feeling slightly better. Dialysis yesterday that occurred more dialysis is planned for further improvement of his volume overload. Continue his intravenous antibiotic therapy. Work with the collar baster jumpbasting as to IV access so he can complete his course of antibiotic therapy for his extensive infection of the scrotum. Zosyn was transitioned to ertapenem because of thrombocytopenia that's already improving. 01/18/2018 patient has further improvement, dialysis is helping with his volume but still has elevated creatinine. Further dialysis is planned. Antibiotic therapy with ertapenem as planned at the time of transfer to rehab IV access is being arranged as per nephrology and vascular surgery. 01/19/2018 improved except for bleeding at dialysis site. will attempt avelox 400mg po daily at discharge to complete the treatment of the scrotal infection. 01/21/2018 there is further improvement. No further bleeding is occurred. There is ongoing plans for his transition to rehab. At that time of transfer moxifloxacin 400 mg once a day for 10 days is indicated for the significant scrotal infection. He may require a longer course of therapy. The lack of improvement to the scrotum is partly due to his volume overload from his renal failure. As this improves the scrotal swelling should also improve. Continue the Aquacel silver dressing to the scrotal incision and drainage site. 01/22/2018 patient improved transfer to rehab today, santiago in place until Urology followup. Antibiotics with Avelox 400mg po daily for 14 days and followup at that time, discussed with attending. Status: Acute Code(s): N49.3 - VANESA GANGRENE SNOMED Code(s): 502075762 (2) Sepsis due to Gram-negative organism with septic shock Status: Acute Code(s): A41.50 - GRAM-NEGATIVE SEPSIS, UNSPECIFIED; R65.21 - SEVERE SEPSIS WITH SEPTIC SHOCK SNOMED Code(s): 874743110 (3) Diabetes mellitus type 2, uncontrolled, with complications Status: Acute Code(s): E11.8 - TYPE 2 DIABETES MELLITUS WITH UNSPECIFIED COMPLICATIONS; E11.65 - TYPE 2 DIABETES MELLITUS WITH HYPERGLYCEMIA SNOMED Code(s): 995657230 (4) Leukocytosis Status: Acute Code(s): D72.829 - ELEVATED WHITE BLOOD CELL COUNT, UNSPECIFIED SNOMED Code(s): 411046070 (5) Acute renal failure Status: Acute Code(s): N17.9 - ACUTE KIDNEY FAILURE, UNSPECIFIED SNOMED Code (s): 09479812
--- NOTE | 2018-01-23 15:08 | CDI ---
orion Last Revision, August 2017 Documentation Clarification Form Date: 01/23/18 From: Justyna Arnav Erika Galo, Rug Dyer Helper Hours-8:30 am & 5 pm MDonny Admit Date: 01/09/2018 2:53:00 PM Patient Name: Marciano Dykes Visit Number: [id number] Discharge Date: 01/22/18 ATTENTION: The Clinical Documentation Specialists (CDI) and [facility] Coding Staff appreciate your assistance in clarifying documentation. Please respond to the clarification below the line at the bottom and electronically sign. The CDI & [facility] Coding staff will review the response and follow-up if needed. Please note: Queries are made part of the Legal Health Record. If you have any questions, please contact the author of this message via ITS. Dr. Don Juárez Per your operative note, a debridement of necrotic tissue was performed on right and left hemiscrotum. History/Risk Factors: Sepsis with septic shock, Vanesa's gangrene In order to capture the severity of condition and code the appropriate procedure ; could you please document the following: Technique used Excisional debridement (the removal of necrotic, devitalized tissue or slough by means of cutting away of tissue) Non-excisional debridement (the removal of necrotic, devitalized tissue or slough by means of flushing, brushing, or washing. (Irrigation) Other; please specify Unable to determine (no explanation for clinical findings) Depth of the debridement: Skin Subcutaneous tissue and fascia Muscles Tendon Other, please specify Please continue to document in your progress notes and discharge summary in order to capture severity of illness and risk of mortality. Include clinical findings that support your diagnosis. debridement , removal of necrotic subcutaneous tissue MTDD
== END 2018-01-22 17:49 | DRG 853 ==
LOC: EC 14:10 → 5MS5E 14:53 → 6ICU 01-10 01:02 → 4MS4W 01-14 21:20
PROVIDERS: ADMIT Hospitalist; ATTEND Hospitalist
DX: A41.50 Gram-negative sepsis, unspecified (principal); R65.21 Severe sepsis with septic shock; N17.0 Acute kidney failure with tubular necrosis; J96.01 Acute respiratory failure with hypoxia; Z68.41 Body mass index [BMI] 40.0-44.9, adult; E87.2 Acidosis; I50.32 Chronic diastolic (congestive) heart failure; E11.52 Type 2 diabetes mellitus with diabetic peripheral angiopathy with gangrene; J98.11 Atelectasis; N49.3 Fournier gangrene; N49.2 Inflammatory disorders of scrotum; J44.9 Chronic obstructive pulmonary disease, unspecified; E11.65 Type 2 diabetes mellitus with hyperglycemia; E66.01 Morbid (severe) obesity due to excess calories; E83.39 Other disorders of phosphorus metabolism; D69.59 Other secondary thrombocytopenia; E87.70 Fluid overload, unspecified; I48.0 Paroxysmal atrial fibrillation; T36.0X5A Adverse effect of penicillins, initial encounter; D64.9 Anemia, unspecified; E87.6 Hypokalemia; E78.5 Hyperlipidemia, unspecified; G47.33 Obstructive sleep apnea (adult) (pediatric); K21.9 Gastro-esophageal reflux disease without esophagitis; L40.9 Psoriasis, unspecified; R79.1 Abnormal coagulation profile; Z71.3 Dietary counseling and surveillance; Z79.84 Long term (current) use of oral hypoglycemic drugs; Z79.82 Long term (current) use of aspirin; Z79.899 Other long term (current) drug therapy; Z87.891 Personal history of nicotine dependence; Z95.0 Presence of cardiac pacemaker; Z87.81 Personal history of (healed) traumatic fracture; Z99.2 Dependence on renal dialysis; Z82.49 Family history of ischemic heart disease and other diseases of the circulatory system
CPT/HCPCS: 36415; 36558; 71045; 72170; 76870; 76937; 77001; 80048; 80053; 80074; 80202; 81001; 82009; 82805; 83036; 83605; 83735; 84100; 84132; 84439; 84443; 85025; 85027; 85610; 85730; 87040; 87070; 87075; 87077; 87086; 87186; 87205; 90935; 93306; 93975; 94002; 94003; 94640; 94760; 96365; 96375; 99285

== ENCOUNTER 2018-06-01 19:02 | Emergency (ER) | payer MEDICARE, OTHER ==
[2018-06-01 19:19] VITALS: RESP 18
--- NOTE | 2018-06-01 20:19 | ED ---
General Adult HPI - General Chief complaint: Chest Pain Stated complaint: Rash Time Seen by Provider: 06/01/18 19:37 Source: patient Mode of arrival: ambulatory Limitations: no limitations - History of Present Illness Initial comments: Marciano is a 73-year-old male who presents to the emergency department today for evaluation of right-sided scapular pain and rash. reports that he was in his usual health throughout the day today, he was visiting his son and they were working on a chicken coop. He did not do any heavy lifting or turning. He had no injuries. He reports that when he returned home he suddenly felt like there was a stabbing burning pain on his right scapula. He reports that sudden onset of feeling like he suddenly been hit by a hot hammer. He reports that the pain was located from his right scapula down the back of his right arm. Patient was showing his the area of pain and she noted that there was a rash which appeared to be like blisters. The has recently had shingles and was concerned that this may be shingles which she brought him to the ER for evaluation. denies any exertional chest pain, palpitations, they headedness, diaphoresis, chest pressure. He denies any difficulty breathing. He reports that there is simply pain in his skin worse with any movement of his arm. He's never experienced anything like this in the past. - Related Data Home Medications Medication Instructions Recorded Confirmed Topiramate 50 mg PO BID 09/17/17 01/09/18 amLODIPine BESYLATE [Norvasc] 5 mg PO BID 09/17/17 01/09/18 Previous Rx's Medication Instructions Recorded Amiodarone [Cordarone] 200 mg PO DAILY #1 tab 01/22/18 Aspirin 81 mg PO DAILY chew 01/22/18 Atorvastatin Calcium [Lipitor] 20 mg PO DAILY #1 tab 01/22/18 Calcium Acetate [PhosLo] 667 mg PO TID-W/MEALS cap 01/22/18 Ipratropium-Albuterol Nebulize 3 ml INHALATION RT-TID ampul.neb 01/22/18 [Duoneb 0.5 mg-3 mg/3 ml Soln] Melatonin 3 mg PO HS PRN tablet 01/22/18 Metoprolol Tartrate [Lopressor] 50 mg PO BID tab 01/22/18 Moxifloxacin HCl [Avelox] 400 mg PO DAILY #14 tablet 01/22/18 Warfarin [Coumadin] 5 mg PO DAILY@1800 tab 01/22/18 hydrALAZINE HCL 25 mg PO TID #1 tablet 01/22/18 Gabapentin [Neurontin] 400 mg PO TID #30 cap 06/01/18 valACYclovir HCL [Valtrex] 1,000 mg PO Q8HR 7 Days #21 tab 06/01/18 Allergies Allergy/AdvReac Type Severity Reaction Status Date / Time No Known Allergies Allergy Verified 06/01/18 19:19 Review of Systems ROS Statement: Those systems with pertinent positive or pertinent negative responses have been documented in the HPI. ROS Other: All systems not noted in ROS Statement are negative. Past Medical History Past Medical History: Chest Pain / Angina, Heart Failure, Diabetes Mellitus, GERD/Reflux, Hyperlipidemia, Hypertension, Skin Disorder, Sleep Apnea/CPAP/BIPAP Additional Past Medical History / Comment(s): PSORIASIS, uses CPAP, past cellulitis in [place] when in [place]. broken nose age 20(sx) History of Any Multi-Drug Resistant Organisms: None Reported Past Surgical History: Adenoidectomy, Heart Catheterization, Orthopedic Surgery , Pacemaker, Tonsillectomy Additional Past Surgical History / Comment(s): rt carpal tunnel release, pacemaker, colonoscopy/polypectomy,nasal sx, hemorrhoidectomy Past Anesthesia/Blood Transfusion Reactions: No Reported Reaction Type of Cardiac Device: Permanent Pacemaker Device Placement Date:: April 2015 Past Psychological History: No Psychological Hx Reported Smoking Status: Former smoker Past Alcohol Use History: None Reported Past Drug Use History: None Reported - Past Family History Mother Family Medical History: Myocardial Infarction (DC) Father Family Medical History: Cancer General Exam - General Exam Comments Initial Comments: GENERAL: Patient is well-developed and well-nourished. Patient is nontoxic and well-hydrated and is in no distress. HENT: Normocephalic, Atraumatic. Neck is soft and supple. No significant lymphadenopathy is noted. Oropharynx is clear. Moist mucous membranes. Neck has full range of motion without eliciting any pain. EYES: The sclera were anicteric and conjunctiva were pink and moist. Extraocular movements were intact and pupils were equal round and reactive to light. Eyelids were unremarkable. PULMONARY: Unlabored respirations. Good breath sounds bilaterally. No audible rales rhonchi or wheezing was noted. CARDIOVASCULAR: There is a regular rate and rhythm without any murmurs gallops or rubs. ABDOMEN: Soft and nontender with normal bowel sounds. SKIN: There is a rash on the right posterior shoulder and posterior side of the right arm, vesicular in nature consistent with shingles. NEUROLOGIC: Patient is alert and oriented x3. Cranial nerves II through XII are grossly intact. Motor and sensory are also intact. Normal speech, volume and content. Symmetrical smile. MUSCULOSKELETAL: Normal extremities with adequate strength and full range of motion. No lower extremity swelling or edema. No calf tenderness. LYMPHATICS: No significant lymphadenopathy is noted PSYCHIATRIC: Normal psychiatric evaluation. Limitations: no limitations Limitations: no limitations Course Vital Signs 06/01/18 06/01/18 19:14 21:06 Temperature 98.2 F 98.6 F Pulse Rate 60 64 Respiratory 18 18 Rate Blood Pressure 201/85 171/81 O2 Sat by Pulse 99 98 Oximetry EKG Findings - EKG Comments: EKG Findings:: EKG obtained at 1929, rate is 60, rhythm is atrial paced, there is a prolonged AV conduction with a TN interval of 236, QRS is 112, QTC is 458. There are no acute ST elevations or depressions. No evidence of acute ischemia or infarction. Medical Decision Making - Medical Decision Making Patient was seen and evaluated, history is obtained from patient and the history and physical exam are concerning for acute shingles with a vesicular eruption EKG was unremarkable, I do plan to start the patient on by mouth Valtrex. Baseline labs were ordered. Dose of Valtrex was given and a prescription was provided as well as a prescription for gabapentin for pain management. Turn parameters including any signs of secondary infection or new or evolving symptoms were discussed with patient the patient was discharged home in stable condition. - Lab Data Result diagrams: 06/01/18 19:38 06/01/18 19:38 Lab Results 06/01/18 06/01/18 Range/Units 19:38 19:38 WBC 5.8 (3.8-10.6) k/uL RBC 4.03 L (4.30-5.90) m/uL Hgb 12.1 L (13.0-17.5) gm/dL Hct 35.6 L (39.0-53.0) % MCV 88.5 (80.0-100.0) fL MCH 30.1 (25.0-35.0) pg MCHC 34.0 (31.0-37.0) g/dL RDW 13.7 (11.5-15.5) % Plt Count 170 (150-450) k/uL Neutrophils % 64 % Lymphocytes % 20 % Monocytes % 9 % Eosinophils % 4 % Basophils % 1 % Neutrophils # 3.7 (1.3-7.7) k/uL Lymphocytes # 1.2 (1.0-4.8) k/uL Monocytes # 0.5 (0-1.0) k/uL Eosinophils # 0.2 (0-0.7) k/uL Basophils # 0.0 (0-0.2) k/uL Sodium 143 (137-145) mmol/L Potassium 3.4 L (3.5-5.1) mmol/L Chloride 105 (98-107) mmol/L Carbon Dioxide 26 (22-30) mmol/L Anion Gap 12 mmol/L BUN 17 (9-20) mg/dL Creatinine 1.19 (0.66-1.25) mg/dL Est GFR (CKD-EPI)AfAm 71 (>60 ml/min/1.73 sqM) Est GFR (CKD-EPI)NonAf 61 (>60 ml/min/1.73 sqM) Glucose 152 H (74-99) mg/dL Calcium 9.3 (8.4-10.2) mg/dL Total Bilirubin 0.5 (0.2-1.3) mg/dL AST 33 (17-59) U/L ALT 29 (21-72) U/L Alkaline Phosphatase 97 (38-126) U/L Total Protein 7.2 (6.3-8.2) g/dL Albumin 4.1 (3.5-5.0) g/dL Disposition Clinical Impression: Shingles outbreak Disposition: HOME SELF-CARE Condition: Good Instructions: Shingles (ED) Prescriptions: Gabapentin [Neurontin] 400 mg PO TID #30 cap valACYclovir HCL [Valtrex] 1,000 mg PO Q8HR 7 Days #21 tab Is patient prescribed a controlled substance at d/c from ED?: No Referrals: Osiel Flanagan MD [Primary Care Provider] - 1-2 days Time of Disposition: 20:59
[2018-06-01] MEDS ORDERED: valACYclovir 500 MG TAB PO STA (20:42)
[2018-06-01 20:54] LABS: Basophils % (A) 1 %; Eosinophils # (A) 0.2 k/uL (0-0.7); Eosinophils % (A) 4 %; HCT 35.6 % (39.0-53.0); HGB 12.1 gm/dL (13.0-17.5); Lymphocytes # (A) 1.2 k/uL (1.0-4.8); Lymphocytes % (A) 20 %; MCH 30.1 pg (25.0-35.0); MCV 88.5 fL (80.0-100.0); Mean Platelet Volume 8.8; Monocytes # (A) 0.5 k/uL (0-1.0); Monocytes % (A) 9 %; Neutrophils # (A) 3.7 k/uL (1.3-7.7); Neutrophils % (A) 64 %; Platelet Count 170 k/uL (150-450); RBC 4.03 m/uL (4.30-5.90); RDW 13.7 % (11.5-15.5); WBC 5.8 k/uL (3.8-10.6)
[2018-06-01 21:07] VITALS: BP 171/81; PULSE 64; TEMP 98.6
[2018-06-01 21:09] LABS: Albumin 4.1 g/dL (3.5-5.0); Calcium 9.3 mg/dL (8.4-10.2); Potassium 3.4 mmol/L (3.5-5.1); Total Bilirubin 0.5 mg/dL (0.2-1.3); Total Protein 7.2 g/dL (6.3-8.2)
== END 2018-06-01 21:15 | disposition home or self-care (01) ==
LOC: EC 19:02
DX: B02.9 Zoster without complications (principal); I11.0 Hypertensive heart disease with heart failure; I50.9 Heart failure, unspecified; G47.30 Sleep apnea, unspecified; Z87.891 Personal history of nicotine dependence; Z79.899 Other long term (current) drug therapy; Z99.89 Dependence on other enabling machines and devices
CPT/HCPCS: 36415; 80053; 85025; 93005; 99283

== ENCOUNTER → 2018-06-14 | Outpatient (CLI) | payer MEDICARE, OTHER ==
[2018-06-14 15:31] LABS: HGB 12.8 gm/dL (13.0-17.5); MCHC 32.9 g/dL (31.0-37.0); Mean Platelet Volume 7.9; Platelet Count 200 k/uL (150-450); RBC 4.28 m/uL (4.30-5.90); RDW 15.1 % (11.5-15.5); WBC 6.3 k/uL (3.8-10.6)
[2018-06-14 15:33] LABS: Albumin 4.2 g/dL (3.5-5.0); Calcium 9.4 mg/dL (8.4-10.2); Magnesium 2.2 mg/dL (1.6-2.3); Phosphorus 3.2 mg/dL (2.5-4.5); Potassium 3.6 mmol/L (3.5-5.1); Total Bilirubin 0.6 mg/dL (0.2-1.3); Total Protein 7.4 g/dL (6.3-8.2); Uric Acid 3.6 mg/dL (3.5-8.5)
[2018-06-14 15:41] LABS: Creatinine,Urine Random 228.4 mg/dL
[2018-06-15 02:13] LABS: Iron Saturation 19.64 (15.00-50.00)
[2018-06-15 02:21] LABS: Vitamin D 25 Hydroxy 21.9 ng/mL (30.0-100.0)
[2018-06-15 11:16] LABS: Parathyroid Hormone Intact 66.5 pg/mL (14.0-72.0)
== END ==
LOC: LABWHC1 13:28
PROVIDERS: ATTEND Nurse Practitioner Family
DX: N17.9 Acute kidney failure, unspecified (principal); D64.9 Anemia, unspecified; R80.9 Proteinuria, unspecified; E21.3 Hyperparathyroidism, unspecified; M10.9 Gout, unspecified; E55.9 Vitamin D deficiency, unspecified
CPT/HCPCS: 36415; 80053; 82306; 82570; 82728; 83540; 83550; 83735; 83970; 84100; 84156; 84550; 85027

== ENCOUNTER 2019-02-27 10:24 | Observation (INO) | payer MEDICARE, OTHER ==
--- NOTE | 2019-02-27 11:38 | ED ---
Extremity Problem HPI - General Chief complaint: Extremity Problem,Nontraumatic Stated complaint: Left leg pain Time Seen by Provider: 02/27/19 10:51 Source: patient Mode of arrival: wheelchair Limitations: no limitations - History of Present Illness Initial comments: Patient is a 74-year-old male complaining of left lower leg pain x one week. Patient states he had a fall about 3 weeks ago and injured his right leg,developed a hematoma, which he was at Dr. Dolan's office today to have a that hematoma drained. Patient was sent to the ER due to concerns of compartment syndrome of the left leg. Patient did not recall anything hitting his left leg. Patient states he has noticed a pocket of swelling just below his left knee joint. It is painful to the touch, with bruising down his left lower leg and into his ankle, along with swelling. Patient does take Coumadin secondary to pacemaker. Patient states his left leg was never x-rayed as he does not recall injuring his left leg during the fall. Patient has no other complaints at this time. - Related Data Home Medications Medication Instructions Recorded Confirmed Topiramate 50 mg PO BID 09/17/17 02/27/19 amLODIPine BESYLATE [Norvasc] 10 mg PO DAILY 09/17/17 02/27/19 Warfarin Sodium [Coumadin] 5 mg PO DIRECTED 02/27/19 02/27/19 Warfarin Sodium [Coumadin] 7.5 mg PO DIRECTED 02/27/19 02/27/19 Previous Rx's Medication Instructions Recorded Amiodarone [Cordarone] 200 mg PO DAILY #1 tab 01/22/18 Aspirin 81 mg PO DAILY chew 01/22/18 Atorvastatin Calcium [Lipitor] 20 mg PO DAILY #1 tab 01/22/18 Calcium Acetate [PhosLo] 667 mg PO TID-W/MEALS cap 01/22/18 Ipratropium-Albuterol Nebulize 3 ml INHALATION RT-TID ampul.neb 01/22/18 [Duoneb 0.5 mg-3 mg/3 ml Soln] Melatonin 3 mg PO HS PRN tablet 01/22/18 Metoprolol Tartrate [Lopressor] 50 mg PO BID tab 01/22/18 Moxifloxacin HCl [Avelox] 400 mg PO DAILY #14 tablet 01/22/18 hydrALAZINE HCL 25 mg PO TID #1 tablet 01/22/18 Gabapentin [Neurontin] 400 mg PO TID #30 cap 06/01/18 Allergies Allergy/AdvReac Type Severity Reaction Status Date / Time No Known Allergies Allergy Verified 02/27/19 11:16 Review of Systems ROS Statement: Those systems with pertinent positive or pertinent negative responses have been documented in the HPI. ROS Other: All systems not noted in ROS Statement are negative. Past Medical History Past Medical History: Chest Pain / Angina, Heart Failure, Diabetes Mellitus, GERD/Reflux, Hyperlipidemia, Hypertension, Skin Disorder, Sleep Apnea/CPAP/BIPAP Additional Past Medical History / Comment(s): PSORIASIS, uses CPAP, past cellulitis in joe legs when in [place]. broken nose age 20(sx) History of Any Multi-Drug Resistant Organisms: None Reported Past Surgical History: Adenoidectomy, Heart Catheterization, Orthopedic Surgery, Pacemaker, Tonsillectomy Additional Past Surgical History / Comment(s): rt carpal tunnel release, pacemaker, colonoscopy/polypectomy,nasal sx, hemorrhoidectomy Past Anesthesia/Blood Transfusion Reactions: No Reported Reaction Type of Cardiac Device: Permanent Pacemaker Device Placement Date:: April 2015 Past Psychological History: No Psychological Hx Reported Smoking Status: Former smoker Past Alcohol Use History: None Reported Past Drug Use History: None Reported - Past Family History Mother Family Medical History: Myocardial Infarction ([place]) Father Family Medical History: Cancer General Exam - General Exam Comments Initial Comments: GENERAL: Well-appearing, well-nourished and in no acute distress. HEAD: Atraumatic, normocephalic. EYES: Pupils equal round and reactive to light, extraocular movements intact, sclera anicteric, conjunctiva are normal. ENT: TMs normal, nares patent, oropharynx clear without exudates. Moist mucous membranes. NECK: Normal range of motion, supple without lymphadenopathy or JVD. LUNGS: Breath sounds clear to auscultation bilaterally and equal. No wheezes rales or rhonchi. HEART: Regular rate and rhythm without murmurs, rubs or gallops. ABDOMEN: Soft, nontender, normoactive bowel sounds. No guarding, no rebound. No masses appreciated. : Deferred EXTREMITIES: There is a tender hematoma on the medial aspect of the left knee over the tibial plateau. Patient has bruising down the left lower leg and into the ankle along with moderate amount of swelling. Patient has 1+ pitting edema of the left ankle. No pain with left toe hyperextension. NEUROLOGICAL: Cranial nerves II through XII grossly intact. Normal speech, normal gait. PSYCH: Normal mood, normal affect. SKIN: Warm, Dry, normal turgor, no rashes or lesions noted. Limitations: no limitations Course Vital Signs 02/27/19 02/27/19 02/27/19 10:27 14:26 16:51 Temperature 97.7 F 97.2 F L Pulse Rate 60 63 65 Pulse Rate [ Right Radial] Respiratory 18 16 20 Rate Blood Pressure 162/73 150/92 169/93 Blood Pressure [Right Arm] O2 Sat by Pulse 98 98 97 Oximetry 02/27/19 17:10 Temperature 98.3 F Pulse Rate Pulse Rate [ 60 Right Radial] Respiratory 18 Rate Blood Pressure Blood Pressure 146/67 [Right Arm] O2 Sat by Pulse 97 Oximetry Medical Decision Making - Medical Decision Making Patient is a 74-year-old male complaining of left lower leg pain x 5 days. Patient had a fall 3 weeks ago and injured his right lower leg which had a hematoma that was drained by Dr. Dolan today. Dr. Dolan looked at the patient's left lower leg and was concerned for compartment syndrome so sent him to the . Patient states the swelling in his left leg has been increasing sanchez y and is having trouble walking secondary to the pain. On exam patient has a large tender hematoma above the medial tibial plateau area. Patient also has significant bruising of the entire left lower leg and edema. Case was discussed with Dr. Bishop. Spoke with ZENAIDA Bahena, with Dr. Lee, who agreed he should be kept for observation and will see the patient. Patient will be admitted under Dr. Mclean with ortho consult. Patient is okay with this plan. - Lab Data Result diagrams: 02/27/19 12:25 02/27/19 12:25 Lab Results 02/27/19 02/27/19 02/27/19 Range/Units 12:25 12:25 12:25 WBC 8.7 (3.8-10.6) k/uL RBC 4.01 L (4.30-5.90) m/uL Hgb 11.7 L (13.0-17.5) gm/dL Hct 35.6 L (39.0-53.0) % MCV 88.7 (80.0-100.0) fL MCH 29.3 (25.0-35.0) pg MCHC 33.0 (31.0-37.0) g/dL RDW 14.9 (11.5-15.5) % Plt Count 310 (150-450) k/uL Neutrophils % 74 % Lymphocytes % 16 % Monocytes % 5 % Eosinophils % 3 % Basophils % 1 % Neutrophils # 6.5 (1.3-7.7) k/uL Lymphocytes # 1.4 (1.0-4.8) k/uL Monocytes # 0.4 (0-1.0) k/uL Eosinophils # 0.3 (0-0.7) k/uL Basophils # 0.1 (0-0.2) k/uL ESR 50 H (0-15) mm/hr Sodium 139 (137-145) mmol/L Potassium 4.3 (3.5-5.1) mmol/L Chloride 106 (98-107) mmol/L Carbon Dioxide 26 (22-30) mmol/L Anion Gap 7 mmol/L BUN 21 H (9-20) mg/dL Creatinine 1.18 (0.66-1.25) mg/dL Est GFR (CKD-EPI)AfAm 71 (>60 ml/min/1.73 sqM) Est GFR (CKD-EPI)NonAf 61 (>60 ml/min/1.73 sqM) Glucose 141 H (74-99) mg/dL Plasma Lactic Acid Shemar 0.7 (0.7-2.0) mmol/L Calcium 9.3 (8.4-10.2) mg/dL Total Bilirubin 0.7 (0.2-1.3) mg/dL AST 36 (17-59) U/L ALT 29 (21-72) U/L Alkaline Phosphatase 92 (38-126) U/L C-Reactive Protein 23.6 H (<10.0) mg/L Total Protein 7.2 (6.3-8.2) g/dL Albumin 4.2 (3.5-5.0) g/dL Disposition Clinical Impression: Pain in left lower leg, Hematoma of left lower extremity Disposition: ADMITTED IP TO THIS HOSP Condition: Stable
--- NOTE | 2019-02-27 11:57 | XR ---
EXAMINATION TYPE: XR knee complete LT DATE OF EXAM: 02/27/2019 COMPARISON: NONE HISTORY: Pain and swelling TECHNIQUE: Four views are submitted. FINDINGS: Mild narrowing of the medial compartment of the knee joint and patellofemoral joint. Small suprapatel lar bursal fluid collection.. Osseous structures are intact. No acute fracture seen. IMPRESSION: 1. No acute fracture or dislocation. 2. Arthropathy with suprapatellar bursal fluid collection.
--- NOTE | 2019-02-27 11:57 | XR ---
EXAMINATION TYPE: XR tibia fibula LT DATE OF EXAM: 02/27/2019 COMPARISON: NONE HISTORY: Pain TECHNIQUE: Two views are submitted. FINDINGS: The osseous structures are intact. The joint spaces are preserved. Calcaneal spurs noted. Soft tiss ue calcifications noted. Arthropathy of the knee joint. IMPRESSION: 1. Soft tissue edema and arthropathy.
--- NOTE | 2019-02-27 12:52 | CT ---
EXAMINATION TYPE: CT lower extremity LT wo con DATE OF EXAM: 02/27/2019 COMPARISON: Left leg and knee x-ray earlier today. HISTORY: Lt leg pain, swelling and bruising CT DLP: 275.2 mGycm Automated exposure control for dose reduction was used. FINDINGS: Exam is nondiagnostic in segments as there is significant patient motion obscuring proximal metaphysi s and diaphysis. Mid to distal tibia and fibula show no acute fracture or dislocation. Knee joint als o degraded by motion. Ankle joint felt within normal limits. Moderate diffuse subcutaneous edema is p resent proximal to mid diaphysis level extending to the ankle with more focal soft tissue swelling ne ar ankle seen medially and laterally. IMPRESSION: ABOVE. IF THERE IS HISTORY OF TRAUMA ADVISED REPEAT IMAGING TO BETTER ASSESS KNEE AND PROXIMAL LEG .
[2019-02-27] MEDS ORDERED: ONDANSETRON 4 MG/2 ML VIAL IVP PRN (14:56)
[2019-02-27] MEDS ORDERED: ACETAMINOPHEN TAB 325 MG TAB PO PRN (14:56)
[2019-02-27] MEDS ORDERED: NALOXONE 0.4 MG/ML 1 ML VIAL IV PRN (14:56)
[2019-02-27] MEDS: SODIUM CHLORIDE 0.9% 1,000 ML IV SCH (15:27)
[2019-02-27 15:37] LABS: Basophils # (A) 0.1 k/uL (0-0.2); Basophils % (A) 1 %; Eosinophils # (A) 0.3 k/uL (0-0.7); Eosinophils % (A) 3 %; HCT 35.6 % (39.0-53.0); HGB 11.7 gm/dL (13.0-17.5); Lymphocytes # (A) 1.4 k/uL (1.0-4.8); Lymphocytes % (A) 16 %; MCH 29.3 pg (25.0-35.0); MCV 88.7 fL (80.0-100.0); Mean Platelet Volume 7.9; Monocytes # (A) 0.4 k/uL (0-1.0); Monocytes % (A) 5 %; Neutrophils # (A) 6.5 k/uL (1.3-7.7); Neutrophils % (A) 74 %; Platelet Count 310 k/uL (150-450); RBC 4.01 m/uL (4.30-5.90); RDW 14.9 % (11.5-15.5); WBC 8.7 k/uL (3.8-10.6)
[2019-02-27 15:48] LABS: Albumin 4.2 g/dL (3.5-5.0); C Reactive Protein 23.6 mg/L (<10.0); Calcium 9.3 mg/dL (8.4-10.2); Potassium 4.3 mmol/L (3.5-5.1); Total Bilirubin 0.7 mg/dL (0.2-1.3); Total Protein 7.2 g/dL (6.3-8.2)
[2019-02-27] MEDS: HYDROcodone/APAP 5-325MG 1 EACH TAB PO PRN (16:06)
[2019-02-27 16:22] LABS: Erythrocyte Sedimentation Rate 50 mm/hr (0-15)
--- NOTE | 2019-02-27 16:47 | P.CNOR ---
<Shruti Kilgore - Last Filed: 02/27/19 17:29> History of Present Illness - [facility] Consult date: 02/27/19 Consult reason: other (Left leg hematoma) History of present illness: The patient is a 74 year old male with a medical history of diabetes, heart failure, hypertension, and pacemaker. He presented to the emergency department with left lower leg pain and swelling. The patient was sent by his primary care physician for evaluation of his left leg. He underwent a bedside I&D of the right leg by Dr. Dolan today due to a development of a hematoma 2 weeks ago. The right leg is currently packed and a dressing is in place. He noticed a small area on the proximal anterior tibia that was swollen a few days ago and the swelling and pain has continued to worsen. There was no specific injury but may have bumped it. He is on Coumadin. The patient was recently treated in [place] for lower leg cellulitis. Last night, the left leg pain was severe and he was unable to sleep. There is pain on weightbearing of the left leg. He denies fever, chillis, rigors, or feeling ill lately. The emergency department physician and PA were concerned about compartment syndrome and orthopedics was consulted for further evaluation. Review of Systems Constitutional: Denies chills, Denies fatigue, Denies fever Cardiovascular: Denies chest pain, Denies shortness of breath Respiratory: Denies cough Gastrointestinal: Denies diarrhea, Denies nausea, Denies vomiting Musculoskeletal: left: foot stiffness, foot swelling, knee pain, knee stiffness, knee swelling Integumentary: Reports as per HPI Past Medical History Past Medical History: Chest Pain / Angina, Heart Failure, Diabetes Mellitus, GERD/Reflux, Hyperlipidemia, Hypertension, Skin Disorder, Sleep Apnea/CPAP/BIPAP Additional Past Medical History / Comment(s): PSORIASIS, uses CPAP, past cellulitis in joe legs when in [place]. broken nose age 20(sx) History of Any Multi-Drug Resistant Organisms: None Reported Past Surgical History: Adenoidectomy, Heart Catheterization, Orthopedic Surgery, Pacemaker, Tonsillectomy Additional Past Surgical History / Comment(s): rt carpal tunnel release, pacemaker, colonoscopy/polypectomy,nasal sx, hemorrhoidectomy Past Anesthesia/Blood Transfusion Reactions: No Reported Reaction Type of Cardiac Device: Permanent Pacemaker Device Placement Date:: April 2015 Past Psychological History: No Psychological Hx Reported Smoking Status: Former smoker Past Alcohol Use History: None Reported Past Drug Use History: None Reported - Past Family History Mother Family Medical History: Myocardial Infarction ([place]) Father Family Medical History: Cancer Medications and Allergies Home Medications Medication Instructions Recorded Confirmed Type Topiramate 50 mg PO BID 09/17/17 02/27/19 History amLODIPine BESYLATE [Norvasc] 10 mg PO DAILY 09/17/17 02/27/19 History Amiodarone [Cordarone] 200 mg PO DAILY #1 tab 01/22/18 02/27/19 Rx Aspirin 81 mg PO DAILY chew 01/22/18 02/27/19 Rx Atorvastatin Calcium [Lipitor] 20 mg PO DAILY #1 tab 01/22/18 02/27/19 Rx Calcium Acetate [PhosLo] 667 mg PO TID-W/MEALS cap 01/22/18 02/27/19 Rx Ipratropium-Albuterol Nebulize 3 ml INHALATION RT-TID ampul.neb 01/22/18 02/27/19 Rx [Duoneb 0.5 mg-3 mg/3 ml Soln] Melatonin 3 mg PO HS PRN tablet 01/22/18 02/27/19 Rx Metoprolol Tartrate [Lopressor] 50 mg PO BID tab 01/22/18 02/27/19 Rx Moxifloxacin HCl [Avelox] 400 mg PO DAILY #14 tablet 01/22/18 02/27/19 Rx hydrALAZINE HCL 25 mg PO TID #1 tablet 01/22/18 Rx Gabapentin [Neurontin] 400 mg PO TID #30 cap 06/01/18 02/27/19 Rx Warfarin Sodium [Coumadin] 5 mg PO DIRECTED 02/27/19 02/27/19 History Warfarin Sodium [Coumadin] 7.5 mg PO DIRECTED 02/27/19 02/27/19 History hydrALAZINE HCL 50 mg PO TID 02/27/19 02/27/19 History Allergies Allergy/AdvReac Type Severity Reaction Status Date / Time No Known Allergies Allergy Verified 02/27/19 11:16 Physical Examination The patient is a 74 y/o male in no acute distress. He is alert and oriented x3. Exam of the bilateral lower extremities reveal a dressing on the right lower leg that is clean, dry, and intact. Exam of the left lower leg reveals extensi ve bruising and swelling to the anteriomedial proximal tibia and bruising to the foot and ankle. +2-3 edema to the lower leg is present. The compartments are soft in the leg and there is mild pain to palpation of the calf. He is able to dorsiflex and plantarflex the foot without mild discomfort. No pain to passive ROM of the toe, foot, and ankle. Bilateral calves are soft and non-tender. Neurological and circulatory status is intact. Capillary refill is <2 seconds. Results X-rays of the left tib/fib and knee and CT of the left lower extremity reveal soft tissue swelling. No fractures or dislocations seen. No fluid collections seen. - Labs Labs: Abnormal Lab Results - Last 24 Hours (Table) 02/27/19 02/27/19 Range/Units 12:25 12:25 RBC 4.01 L (4.30-5.90) m/uL Hgb 11.7 L (13.0-17.5) gm/dL Hct 35.6 L (39.0-53.0) % ESR 50 H (0-15) mm/hr BUN 21 H (9-20) mg/dL Glucose 141 H (74-99) mg/dL C-Reactive Protein 23.6 H (<10.0) mg/L H & H 02/27/19 Range/Units 12:25 Hgb 11.7 L (13.0-17.5) gm/dL Hct 35.6 L (39.0-53.0) % Result Diagrams: 02/27/19 12:25 02/27/19 12:25 Assessment and Plan (1) Hematoma of left lower extremity Current Visit: Yes Status: Acute Code(s): S80.12XA - CONTUSION OF LEFT LOWER LEG, INITIAL ENCOUNTER SNOMED Code(s): 447921961 (2) Pain in left lower leg Current Visit: Yes Status: Acute Code(s): M79.662 - PAIN IN LEFT LOWER LEG SNOMED Code(s): 050505921559107 (3) Diabetes mellitus type 2, uncontrolled, with complications Current Visit: No Status: Acute Code(s): E11.8 - TYPE 2 DIABETES MELLITUS WITH UNSPECIFIED COMPLICATIONS; E11.65 - TYPE 2 DIABETES MELLITUS WITH HYPERGLYCEMIA SNOMED Code(s): 05525464 (4) Hypertension Current Visit: No Status: Acute Code(s): I10 - ESSENTIAL (PRIMARY) HYPERTENSION SNOMED Code(s): 75188177 Plan: The clinical and CT findings were discussed with the patient. The case was also discussed with Dr. Dillon. No signs of compartment syndrome are present at this time. No acute surgical intervention is warranted nor planned at this time. We recommending continued observation of the hematoma and elevation of the legs to aide in decreasing edema. Continue pain control. We will continue to follow the patient closely and make further recommendations as needed. <Get Dillon - Last Filed: 02/27/19 19:22> Results - Labs Labs: Abnormal Lab Results - Last 24 Hours (Table) 02/27/19 02/27/19 02/27/19 Range/Units 12:25 12:25 16:50 RBC 4.01 L (4.30-5.90) m/uL Hgb 11.7 L (13.0-17.5) gm/dL Hct 35.6 L (39.0-53.0) % ESR 50 H (0-15) mm/hr PT 31.1 H (9.0-12.0) sec INR 3.2 H (<1.2) BUN 21 H (9-20) mg/dL Glucose 141 H (74-99) mg/dL C-Reactive Protein 23.6 H (<10.0) mg/L H & H 02/27/19 Range/Units 12:25 Hgb 11.7 L (13.0-17.5) gm/dL Hct 35.6 L (39.0-53.0) % Coagulation 02/27/19 Range/Units 16:50 INR 3.2 H (<1.2) Result Diagrams: 02/27/19 12:25 02/27/19 12:25 Assessment and Plan Plan: Discussed with LUCIO Kilgore and agree with above. Patient was subsequently seen and examined by myself as well. S: States the pain in the left leg is much better than last night. It actually feels better when he's moving and walking on it. O: Focal soft tissue swelling on the anteromedial aspect of the proximal tibia. Moderately tender to palpation. Not grossly fluctuant. Able to actively dorsiflex and plantarflex with only mild discomfort. Compartments are soft and compressible. Light touch sensation is subjectively normal distally. A: 1. Left leg hematoma 2. Insulin-dependent diabetes mellitus 3. Chronic anticoagulation P: No signs of compartment syndrome. Recommend against any invasive intervention at this time. Any surgical procedure would more likely increase his risk of infection. Recommend applying warm compresses. May ambulate as tolerated. PRN pain management. We will continue to monitor. Get Dillon D.O. [facility]
[2019-02-27 17:00] LABS: INR 3.2 (<1.2); Prothrombin Time 31.1 sec (9.0-12.0)
[2019-02-27 18:00] VITALS: BMI 41.5
[2019-02-27] MEDS ORDERED: MELATONIN 3 MG TABLET PO PRN (18:01)
--- NOTE | 2019-02-27 18:01 | P.HPIM ---
History of Present Illness 74-year-old pleasant male left came in for his left leg hematoma patient had a fall 3 weeks ago but started having hematoma last Sunday patient had a small hematoma on the right leg which was drained by physician and the wound care [place]. Patient has significant is for left leg and there was a concern about compartment syndrome although patient calf Area is soft, arthritic surgery evaluated the patient and they will monitor for any compartment syndrome patient doesn't have any tingling and numbness in the left leg denied any weakness in the left leg patient has a hematoma with a swelling on the left anterior tibia. Patient on Coumadin with INR of 3.5 patient appears to have sick sinus syndrome has a pacemaker and is on Coumadin for that reason. Coumadin will help will be held temporarily Review of Systems REVIEW OF SYSTEMS: CONSTITUTIONAL: No fever, no malaise, no fatigue. HEENT: No recent visual problems or hearing problems. Denied any sore throat. CARDIOVASCULAR: No chest pain, orthopnea, PND, no palpitations, no syncope. PULMONARY: No shortness of breath, no cough, no hemoptysis. GASTROINTESTINAL: No diarrhea, no nausea, no vomiting, no abdominal pain. NEUROLOGICAL: No headaches, no weakness, no numbness. HEMATOLOGICAL: Denies any bleeding or petechiae. GENITOURINARY: Denies any burning micturition, frequency, or urgency. MUSCULOSKELETAL/RHEUMATOLOGICAL: As mentioned in HPI ENDOCRINE: Denies any polyuria or polydipsia. The rest of the 14-point review of systems is negative. Past Medical History Past Medical History: Chest Pain / Angina, Heart Failure, Diabetes Mellitus, GERD/Reflux, Hyperlipidemia, Hypertension, Skin Disorder, Sleep Apnea/CPAP/BIPAP Additional Past Medical History / Comment(s): PSORIASIS, uses CPAP, past cellulitis in joe legs when in [place]. broken nose age 20(sx) History of Any Multi-Drug Resistant Organisms: None Reported Past Surgical History: Adenoidectomy, Heart Catheterization, Orthopedic Surgery, Pacemaker, Tonsillectomy Additional Past Surgical History / Comment(s): rt carpal tunnel release, pacemaker, colonoscopy/polypectomy,nasal sx, hemorrhoidectomy Past Anesthesia/Blood Transfusion Reactions: No Reported Reaction Type of Cardiac Device: Permanent Pacemaker Device Placement Date:: April 2015 Past Psychological History: No Psychological Hx Reported Additional Psychological History / Comment(s): Patient relates that he is retired, no , no travel, no animals Smoking Status: Former smoker Past Alcohol Use History: None Reported Additional Past Alcohol Use History / Comment(s): started smoking at age 16(1960)quit smoking in 1979 smoked <ppd , now rare use of alcohol Past Drug Use History: None Reported - Past Family History Mother Family Medical History: Myocardial Infarction ([place]) Father Family Medical History: Cancer Medications and Allergies Home Medications Medication Instructions Recorded Confirmed Type Topiramate 50 mg PO BID 09/17/17 02/27/19 History amLODIPine BESYLATE [Norvasc] 5 mg PO BID 09/17/17 02/27/19 History Amiodarone [Cordarone] 200 mg PO DAILY #1 tab 01/22/18 02/27/19 Rx Aspirin 81 mg PO DAILY chew 01/22/18 02/27/19 Rx Atorvastatin Calcium [Lipitor] 20 mg PO DAILY #1 tab 01/22/18 02/27/19 Rx Calcium Acetate [PhosLo] 667 mg PO TID-W/MEALS cap 01/22/18 02/27/19 Rx Ipratropium-Albuterol Nebulize 3 ml INHALATION RT-TID ampul.neb 01/22/18 02/27/19 Rx [Duoneb 0.5 mg-3 mg/3 ml Soln] Melatonin 3 mg PO HS PRN tablet 01/22/18 02/27/19 Rx Metoprolol Tartrate [Lopressor] 50 mg PO BID tab 01/22/18 02/27/19 Rx Moxifloxacin HCl [Avelox] 400 mg PO DAILY #14 tablet 01/22/18 02/27/19 Rx Warfarin [Coumadin] 5 mg PO DAILY@1800 tab 01/22/18 02/27/19 Rx hydrALAZINE HCL 25 mg PO TID #1 tablet 01/22/18 02/27/19 Rx Gabapentin [Neurontin] 400 mg PO TID #30 cap 06/01/18 02/27/19 Rx valACYclovir HCL [Valtrex] 1,000 mg PO Q8HR 7 Days #21 tab 06/01/18 02/27/19 Rx Allergies Allergy/AdvReac Type Severity Reaction Status Date / Time No Known Allergies Allergy Verified 02/27/19 11:16 Physical Exam Vitals: Vital Signs Temp Pulse Pulse Resp BP BP Pulse Ox 02/27/19 17:55 98.3 F 60 17 146/67 97 02/27/19 16:51 97.2 F L 65 20 169/93 97 02/27/19 14:26 63 16 150/92 98 02/27/19 10:27 97.7 F 60 18 162/73 98 Intake and Output 02/27/19 02/27/19 02/27/19 06:59 14:59 22:59 Other: Weight 138.799 kg PHYSICAL EXAMINATION: GENERAL: The patient is alert and oriented x3, not in any acute distress. Well developed, well nourished. HEENT: Pupils are round and equally reacting to light. EOMI. No scleral icterus. No conjunctival pallor. Normocephalic, atraumatic. No pharyngeal erythema. No thyromegaly. CARDIOVASCULAR: S1 and S2 present. No murmurs, rubs, or gallops. PULMONARY: Chest is clear to auscultation, no wheezing or crackles. ABDOMEN: Soft, nontender, nondistended, normoactive bowel sounds. No palpable organomegaly. MUSCULOSKELETAL: As mentioned in HPI EXTREMITIES: No cyanosis, clubbing, or pedal edema. NEUROLOGICAL: Gross neurological examination did not reveal any focal deficits. SKIN: No rashes. Results CBC & Chem 7: 02/27/19 12:25 02/27/19 12:25 Labs: Abnormal Lab Results - Last 24 Hours (Table) 02/27/19 02/27/19 02/27/19 Range/Units 12:25 12:25 16:50 RBC 4.01 L (4.30-5.90) m/uL Hgb 11.7 L (13.0-17.5) gm/dL Hct 35.6 L (39.0-53.0) % ESR 50 H (0-15) mm/hr PT 31.1 H (9.0-12.0) sec INR 3.2 H (<1.2) BUN 21 H (9-20) mg/dL Glucose 141 H (74-99) mg/dL C-Reactive Protein 23.6 H (<10.0) mg/L Thrombosis Risk Factor Assmnt - Choose All That Apply Each Factor Represents 1 point: Obesity (BMI >25), Swollen legs (current) Other Risk Factors: Yes Each Risk Factor Represents 2 Points: Age 61-74 years Other congenital or acquired thrombophilia - If yes, enter type in comment: No Thrombosis Risk Factor Assessment Total Risk Factor Score: 4 Thrombosis Risk Factor Assessment Level: Moderate Risk Assessment and Plan Plan: -Left lower leg hematoma second appears to be secondary to trauma and being on Coumadin with INR of 3.5 Coumadin will be held temporarily patient the hematoma may need to be evacuated patient does not appear to have compartment syndrome at this time but will be monitored for that -sinus syndrome for which patient is a pacemaker patient is making history of heart failure although patient is presently euvolemic and does not have any echocardiogram available at this time. Patient will be can you done rate control medications. -Type 2 diabetes mellitus -Hyperlipidemia hypertension -obesity sleep apnea and uses CPAP machine which will be continued. For above-mentioned chronic medical problems patient will be resumed and continued on appropriate home medications.
[2019-02-27] MEDS: IPRATROPIUM-ALBUTEROL 3 ML NEB INHALATION SCH (19:39)
[2019-02-27] MEDS: FERROUS SULFATE 325 MG TAB PO SCH (20:11)
[2019-02-27] MEDS: METOPROLOL TARTRATE 50 MG TAB PO SCH (20:12)
[2019-02-27] MEDS: hydrALAZINE HCL 50 MG TAB PO SCH (20:12)
[2019-02-27] MEDS: DOCUSATE 100 MG CAP PO SCH (20:12)
[2019-02-27] MEDS: SERTRALINE 50 MG TAB PO SCH (20:13)
[2019-02-27] MEDS: oxyCODONE-APAP 5-325MG 1 EACH TAB PO PRN (20:21)
[2019-02-27 20:41] LABS: Glucose,Whole Blood 147 mg/dL (75-99)
[2019-02-27] MEDS ORDERED: TOPIRAMATE 25 MG TAB PO SCH (21:00)
[2019-02-27] MEDS ORDERED: amLODIPine 5 MG TAB PO SCH (21:00)
[2019-02-27] MEDS: INSULIN ASPART (NovoLOG) 100 UNIT/ML VIAL SQ SCH (21:34)
[2019-02-27 21:41] LABS: Glucose,Whole Blood 133 mg/dL (75-99)
[2019-02-27] MEDS ORDERED: hydrALAZINE HCL 25 MG TAB PO SCH (22:00)
[2019-02-27] MEDS ORDERED: GABAPENTIN 400 MG CAP PO SCH (22:00)
[2019-02-28] MEDS ORDERED: valACYclovir HCL 1,000 MG TABLET PO SCH
[2019-02-28] MEDS: SODIUM CHLORIDE 0.9% 1,000 ML IV SCH ×2 (01:57→12:19)
[2019-02-28] MEDS: oxyCODONE-APAP 5-325MG 1 EACH TAB PO PRN ×4 (03:24→16:58)
[2019-02-28] MEDS: LEVOTHYROXINE 25 MCG TAB PO SCH (06:10)
[2019-02-28] MEDS: IPRATROPIUM-ALBUTEROL 3 ML NEB INHALATION SCH ×3 (06:58→20:36)
[2019-02-28 07:09] LABS: Glucose,Whole Blood 171 mg/dL (75-99)
[2019-02-28] MEDS: INSULIN ASPART (NovoLOG) 100 UNIT/ML VIAL SQ SCH ×4 (07:54→20:09)
[2019-02-28] MEDS: hydrALAZINE HCL 50 MG TAB PO SCH ×3 (07:54→21:32)
[2019-02-28] MEDS: ATORVASTATIN 20 MG TAB PO SCH (07:54)
[2019-02-28] MEDS: CALCIUM ACETATE 667 MG CAP PO SCH ×3 (07:54→16:58)
[2019-02-28] MEDS: METOPROLOL TARTRATE 50 MG TAB PO SCH ×2 (07:54→20:09)
[2019-02-28] MEDS: PANTOPRAZOLE 40 MG TABLET PO SCH (07:54)
[2019-02-28] MEDS: amLODIPine 10 MG TAB PO SCH (07:55)
[2019-02-28] MEDS: DOCUSATE 100 MG CAP PO SCH ×2 (07:55→20:09)
[2019-02-28] MEDS: ASPIRIN 81 MG PO SCH (07:55)
[2019-02-28] MEDS: AMIODARONE 200 MG TAB PO SCH (07:55)
[2019-02-28 08:05] LABS: Prothrombin Time 29.3 sec (9.0-12.0)
[2019-02-28] MEDS: HYDROcodone/APAP 5-325MG 1 EACH TAB PO PRN ×2 (09:59→21:32)
[2019-02-28 11:49] LABS: Glucose,Whole Blood 149 mg/dL (75-99)
[2019-02-28 16:45] LABS: Glucose,Whole Blood 133 mg/dL (75-99)
--- NOTE | 2019-02-28 17:20 | P.PN ---
Subjective 72-year-old male was admitted for hematoma of the left leg. His INR is 13.0 I'm meeting recommendations from orthopedic surgery whether the patient will require incision and drainage patient is still having significant pain of there probably will benefit from incision and drainage and evacuation of hematoma so that it doesn't get infected . Constitutional: Denied any fatigue denied any fever. Cardio vascular: denied any chest pain, palpitations Gastrointestinal denied any nausea vomiting Pulmonary: Denied any shortness of breath cough Neurologic denied any new focal deficits All inpatient medications were reviewed and appropriate changes in these medications as dictated in the interval history and assessment and plan. Objective - Vital Signs Vital signs: Vital Signs Temp 97.9 F 02/28/19 14:36 Pulse 60 02/28/19 14:36 Resp 16 02/28/19 14:36 BP 159/96 02/28/19 14:36 Pulse Ox 96 02/28/19 14:36 Intake & Output 02/27/19 02/28/19 02/28/19 18:59 06:59 18:59 Intake Total 1600 420 Balance 1600 420 Weight 138.799 kg Intake: Intake, IV Titration 1600 Amount Sodium Chloride 0.9% 1, 1600 000 ml @ 100 mls/hr IV . Q10H BRITTANIE Rx#:[id number] Oral 420 Other: # Voids 2 1 - Exam PHYSICAL EXAMINATION: GENERAL: The patient is alert and oriented x3, not in any acute distress. Well developed, well nourished. HEENT: Pupils are round and equally reacting to light. EOMI. No scleral icterus. No conjunctival pallor. Normocephalic, atraumatic. No pharyngeal erythema. No thyromegaly. CARDIOVASCULAR: S1 and S2 present. No murmurs, rubs, or gallops. PULMONARY: Chest is clear to auscultation, no wheezing or crackles. ABDOMEN: Soft, nontender, nondistended, normoactive bowel sounds. No palpable organomegaly. MUSCULOSKELETAL: Abdomen the left and patient area with swelling in the left leg EXTREMITIES: No cyanosis, clubbing, or pedal edema. NEUROLOGICAL: Gross neurological examination did not reveal any focal deficits. SKIN: No rashes. - Labs CBC & Chem 7: 02/27/19 12:25 02/27/19 12:25 Labs: Abnormal Lab Results - Last 24 Hours (Table) 02/27/19 02/27/1919 Range/Units 20:31 21:29 06:58 PT (9.0-12.0) sec INR (<1.2) POC Glucose (mg/dL) 147 H 133 H 171 H (75-99) mg/dL 02/28/19 02/28/19 02/28/19 Range/Units 07:33 11:38 16:34 PT 29.3 H (9.0-12.0) sec INR 3.0 H (<1.2) POC Glucose (mg/dL) 149 H 133 H (75-99) mg/dL Assessment and Plan Plan: -Left lower leg hematoma second appears to be secondary to trauma and being on Coumadin with INR of 3.5 Coumadin will be held temporarily patient the hematoma may need to be evacuated patient does not appear to have compartment syndrome at this time but will be monitored for that. 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 Patient will be can you done rate control medications. -Type 2 diabetes mellitus -Hyperlipidemia hypertension -obesity sleep apnea and uses CPAP machine which will be continued. For above-mentioned chronic medical problems patient will be resumed and continued on appropriate home medications.
--- NOTE | 2019-02-28 17:49 | P.PN ---
Subjective Progress Note Date: 02/28/19 The patient was seen and examined at the bedside. He states the pain fluctuates but is fairly well controlled with medication, coming down to 4 out of 10. It hurts with the first few steps but does better more he ambulates. He does feel that the warm compresses have been beneficial. Objective - Vital Signs Vital signs: Vital Signs Temp 97.9 F 02/28/19 14:36 Pulse 60 02/28/19 14:36 Resp 16 02/28/19 14:36 BP 159/96 02/28/19 14:36 Pulse Ox 96 02/28/19 14:36 Intake & Output 02/27/19 02/28/19 02/28/19 18:59 06:59 18:59 Intake Total 1600 420 Balance 1600 420 Weight 138.799 kg Intake: Intake, IV Titration 1600 Amount Sodium Chloride 0.9% 1, 1600 000 ml @ 100 mls/hr IV . Q10H BRITTANIE Rx#:[id number] Oral 420 Other: # Voids 2 1 - Exam 8 x 10 cm tender, raised area on the anterolateral medial aspect of the proximal tibia. This is fairly tender to palpation and moderately firm. This is not fluctuant. There is no erythema. The surrounding compartments are soft and compressible. He is able to actively dorsiflex and plantarflex with no pain. No tenderness with palpation of the posterior or lateral compartments. Moderate ecchymosis on the posterior aspect of the lateral leg and ankle. - Labs CBC & Chem 7: 02/27/19 12:25 02/27/19 12:25 Labs: Abnormal Lab Results - Last 24 Hours (Table) 02/27/19 02/27/19 02/28/19 Range/Units 20:31 21:29 06:58 PT (9.0-12.0) sec INR (<1.2) POC Glucose (mg/dL) 147 H 133 H 171 H (75-99) mg/dL 02/28/19 02/28/19 02/28/19 Range/Units 07:33 11:38 16:34 PT 29.3 H (9.0-12.0) sec INR 3.0 H (<1.2) POC Glucose (mg/dL) 149 H 133 H (75-99) mg/dL Microbiology - Last 24 Hours (Table) 02/27/19 12:25 Blood Culture - Preliminary Blood No Growth after 24 hours Assessment and Plan Assessment: 1. Left leg hematoma 2. Supratherapeutic INR 3. Insulin-dependent diabetes mellitus 4. Morbid obesity Plan: I discussed the clinical findings with the patient. I explained that aspiration is unlikely to remove any fluid as it is frequently congealed by now. Recommend against any invasive procedures at this time. More likely to introduce infection or create a wound that may not heal. Especially given that this was the leg that was recently treated for cellulitis. Recommend continuing symptomatic treatment with range of motion, warm compresses and ambulation as tolerated. He expressed understanding was in agreement with this plan. Continue PRN pain management. We will continue to monitor.
[2019-02-28 19:26] LABS: Hemoglobin A1C 6.5 % (4.0-6.0)
[2019-02-28 20:05] LABS: Glucose,Whole Blood 167 mg/dL (75-99)
[2019-02-28] MEDS: FERROUS SULFATE 325 MG TAB PO SCH (20:09)
[2019-02-28] MEDS: SERTRALINE 50 MG TAB PO SCH (20:09)
[2019-03-01] MEDS: oxyCODONE-APAP 5-325MG 1 EACH TAB PO PRN (02:47)
[2019-03-01] MEDS: LEVOTHYROXINE 25 MCG TAB PO SCH (06:16)
[2019-03-01 07:25] LABS: Glucose,Whole Blood 146 mg/dL (75-99)
[2019-03-01 07:29] LABS: INR 2.1 (<1.2); Prothrombin Time 20.4 sec (9.0-12.0)
[2019-03-01] MEDS: IPRATROPIUM-ALBUTEROL 3 ML NEB INHALATION SCH ×2 (08:27→12:06)
[2019-03-01] MEDS: HYDROcodone/APAP 5-325MG 1 EACH TAB PO PRN (08:39)
[2019-03-01] MEDS: DOCUSATE 100 MG CAP PO SCH (08:40)
[2019-03-01] MEDS: amLODIPine 10 MG TAB PO SCH (08:40)
[2019-03-01] MEDS: METOPROLOL TARTRATE 50 MG TAB PO SCH (08:40)
[2019-03-01] MEDS: hydrALAZINE HCL 50 MG TAB PO SCH (08:40)
[2019-03-01] MEDS: ATORVASTATIN 20 MG TAB PO SCH (08:40)
[2019-03-01] MEDS: AMIODARONE 200 MG TAB PO SCH (08:40)
[2019-03-01] MEDS: ASPIRIN 81 MG PO SCH (08:41)
[2019-03-01] MEDS: CALCIUM ACETATE 667 MG CAP PO SCH ×2 (08:41→12:14)
[2019-03-01] MEDS: INSULIN ASPART (NovoLOG) 100 UNIT/ML VIAL SQ SCH ×2 (08:41→12:15)
[2019-03-01] MEDS: PANTOPRAZOLE 40 MG TABLET PO SCH (08:41)
--- NOTE | 2019-03-01 09:02 | P.PN ---
Subjective Progress Note Date: 03/01/19 Principal diagnosis: Left leg hematoma The patient is a 74-year-old male who we've been following for a left leg hematoma. The patient states that the leg is about the same and has not worsened since admission. His pain is controlled at this time. The patient does feel that the warm compresses have been somewhat beneficial so far. INR level is 2.1 today. Objective - Vital Signs Vital signs: Vital Signs Temp 97.9 F 03/01/19 01:47 Pulse 89 03/01/19 01:47 Resp 16 03/01/19 01:47 BP 176/84 03/01/19 01:47 Pulse Ox 91 L 03/01/19 01:47 Intake & Output 02/28/19 03/01/19 03/01/19 18:59 06:59 18:59 Intake Total 900 200 Balance 900 200 Intake: Oral 900 200 Other: # Voids 1 2 - Exam The patient is a 74-year-old male who is in no acute distress. He is alert and oriented 3. Exam of the left leg reveals a 8 x 10 cm tender raised area on the anteromedial aspect of the proximal tibia. The area that is tender to palpation and firm. There is no fluid collection or abscess present. There is no erythema. Calf is soft and nontender. He is able to actively dorsiflex and plantarflex his foot without difficulty or pain. There is evolving ecchymosis to the leg and foot. Neurological and circulatory status is intact. - Labs CBC & Chem 7: 02/27/19 12:25 02/27/19 12:25 Labs: Abnormal Lab Results - Last 24 Hours (Table) 02/28/19 02/28/19 02/28/19 Range/Units 07:33 11:38 16:34 PT (9.0-12.0) sec INR (<1.2) POC Glucose (mg/dL) 149 H 133 H (75-99) mg/dL Hemoglobin A1c 6.5 H (4.0-6.0) % 02/28/19 03/01/19 03/01/19 Range/Units 19:54 06:53 06:58 PT 20.4 H (9.0-12.0) sec INR 2.1 H (<1.2) POC Glucose (mg/dL) 167 H 146 H (75-99) mg/dL Hemoglobin A1c (4.0-6.0) % Microbiology - Last 24 Hours (Table) 02/27/19 12:25 Blood Culture - Preliminary Blood No Growth after 24 hours Assessment and Plan (1) Hematoma of left lower extremity Current Visit: Yes Status: Acute Code(s): S80.12XA - CONTUSION OF LEFT LOWER LEG, INITIAL ENCOUNTER SNOMED Code(s): 766427478 (2) Pain in left lower leg Current Visit: Yes Status: Acute Code(s): M79.662 - PAIN IN LEFT LOWER LEG SNOMED Code(s): 187256461145051 (3) Diabetes mellitus type 2, uncontrolled, with complications Current Visit: No Status: Acute Code(s): E11.8 - TYPE 2 DIABETES MELLITUS WITH UNSPECIFIED COMPLICATIONS; E11.65 - TYPE 2 DIABETES MELLITUS WITH HYPERGLYCEMIA SNOMED Code(s): 25469105 (4) Hypertension Current Visit: No Status: Acute Code(s): I10 - ESSENTIAL (PRIMARY) HYPERTENSION SNOMED Code(s): 49640807 Plan: The clinical findings were discussed with the patient. No signs of compartment syndrome are present at this time. Continue symptomatic treatment with range of motion, warm compresses, and ambulation as tolerated. Continue pain control. From an orthopedic standpoint, we are not recommending aspiration or surgical intervention to the leg due to an increased risk of infection or wound healing issues. He may discharge home today if cleared by internal medicine.
[2019-03-01 09:39] VITALS: PULSE 60
[2019-03-01 11:39] LABS: Glucose,Whole Blood 163 mg/dL (75-99)
--- NOTE | 2019-03-01 15:36 | P.DS ---
Providers Date of admission: 02/27/19 16:39 Attending physician: Savita Bacon Consults: 02/27/19 14:56 Consult Physician Stat Consulting Provider: Get Dillon Consult Reason/Comments: Concern for left lower leg compartment syndrome Do you want consulting provider notified?: Already Contacted Primary care physician: Osiel [facility] Course: 74-year-old male with on Coumadin came in with left leg hematoma after trauma. Patient was monitored for compartment syndrome evidence of compartment syndrome. Patient had left ly hematoma although Surgery evaluated the patient and that not recommending any drainage of the hematoma because of concerns of infection and wound healing problems history his other medical problems. Patient will be discharged on antiplatelet medication to follow with general alcoholic surgery PCP as an outpatient patient INR is mildly supratherapeutic because of that, I'll cut down the Coumadin to 5 mg daily. PHYSICAL EXAMINATION: GENERAL: The patient is alert and oriented x3, not in any acute distress. Well developed, well nourished. HEENT: Pupils are round and equally reacting to light. EOMI. No scleral icterus. No conjunctival pallor. Normocephalic, atraumatic. No pharyngeal erythema. No thyromegaly. CARDIOVASCULAR: S1 and S2 present. No murmurs, rubs, or gallops. PULMONARY: Chest is clear to auscultation, no wheezing or crackles. ABDOMEN: Soft, nontender, nondistended, normoactive bowel sounds. No palpable organomegaly. MUSCULOSKELETAL: Patient has a hematoma on the left anterior ly area with swelling in the left leg EXTREMITIES: No cyanosis, clubbing, or pedal edema. NEUROLOGICAL: Gross neurological examination did not reveal any focal deficits. SKIN: No rashes. 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 Patient will be can you done rate control medications. -Type 2 diabetes mellitus -Hyperlipidemia hypertension -obesity sleep apnea and uses CPAP machine which will be continued. Patient Condition at Discharge: Stable Plan - Discharge Summary Discharge Rx Participant: No New Discharge Prescriptions: New traMADol HCL [Ultram] 50 mg PO Q4HR PRN 3 Days #18 tab PRN Reason: Pain Continue amLODIPine BESYLATE [Norvasc] 10 mg PO DAILY Atorvastatin Calcium [Lipitor] 20 mg PO DAILY #1 tab Calcium Acetate [PhosLo] 667 mg PO TID-W/MEALS cap Ipratropium-Albuterol Nebulize [Duoneb 0.5 mg-3 mg/3 ml Soln] 3 ml INHALATION RT-TID ampul.neb Melatonin 3 mg PO HS PRN tablet PRN Reason: Insomnia Metoprolol Tartrate [Lopressor] 50 mg PO BID tab Amiodarone [Cordarone] 200 mg PO DAILY #1 tab hydrALAZINE HCL 25 mg PO TID #1 tablet hydrALAZINE HCL 50 mg PO TID Docusate [Colace] 100 mg PO BID Sertraline [Zoloft] 50 mg PO DAILY Levothyroxine Sodium [Synthroid] 25 mcg PO DAILY Ferrous Sulfate [Iron] 65 mg PO HS Changed Warfarin Sodium [Coumadin] 5 mg PO DAILY #0 Discontinued Aspirin 81 mg PO DAILY chew Warfarin Sodium [Coumadin] 7.5 mg PO DIRECTED Discharge Medication List amLODIPine BESYLATE [Norvasc] 10 mg PO DAILY 09/17/17 [History] Amiodarone [Cordarone] 200 mg PO DAILY #1 tab 01/22/18 [Rx] Atorvastatin Calcium [Lipitor] 20 mg PO DAILY #1 tab 01/22/18 [Rx] Calcium Acetate [PhosLo] 667 mg PO TID-W/MEALS cap 01/22/18 [Rx] Ipratropium-Albuterol Nebulize [Duoneb 0.5 mg-3 mg/3 ml Soln] 3 ml INHALATION RT-TID ampul.neb 01/22/18 [Rx] Melatonin 3 mg PO HS PRN tablet 01/22/18 [Rx] Metoprolol Tartrate [Lopressor] 50 mg PO BID tab 01/22/18 [Rx] hydrALAZINE HCL 25 mg PO TID #1 tablet 01/22/18 [Rx] Docusate [Colace] 100 mg PO BID 02/27/19 [History] Ferrous Sulfate [Iron] 65 mg PO HS 02/27/19 [History] Levothyroxine Sodium [Synthroid] 25 mcg PO DAILY 02/27/19 [History] Sertraline [Zoloft] 50 mg PO DAILY 02/27/19 [History] hydrALAZINE HCL 50 mg PO TID 02/27/19 [History] Warfarin Sodium [Coumadin] 5 mg PO DAILY #0 03/01/19 [Rx] traMADol HCL [Ultram] 50 mg PO Q4HR PRN 3 Days #18 tab 03/01/19 [Rx] Follow up Appointment(s)/Referral(s): Osiel Flanagan MD [Primary Care Provider] - 3 Days Patient Instructions/Handouts: Contusion in Adults (DC), Contusion in Adults (GEN), Hematoma (ED) Discharge Disposition: HOME SELF-CARE
[2019-03-01 15:43] VITALS: BP 169/80; RESP 14; TEMP 97.9
== END 2019-03-01 15:44 | disposition home or self-care (01) ==
LOC: EC 10:24 → 4SSUR 16:39
PROVIDERS: ADMIT Hospitalist; ATTEND Hospitalist
DX: S80.12XA Contusion of left lower leg, initial encounter (principal); Z95.0 Presence of cardiac pacemaker; E11.65 Type 2 diabetes mellitus with hyperglycemia; E66.9 Obesity, unspecified; Z68.41 Body mass index [BMI] 40.0-44.9, adult; G47.30 Sleep apnea, unspecified; Z99.89 Dependence on other enabling machines and devices; I10 Essential (primary) hypertension; Z87.891 Personal history of nicotine dependence; E66.01 Morbid (severe) obesity due to excess calories; E78.5 Hyperlipidemia, unspecified; I11.0 Hypertensive heart disease with heart failure; I49.5 Sick sinus syndrome; I50.9 Heart failure, unspecified; K21.9 Gastro-esophageal reflux disease without esophagitis; R79.1 Abnormal coagulation profile; Z79.4 Long term (current) use of insulin; Z79.899 Other long term (current) drug therapy; Z79.01 Long term (current) use of anticoagulants; Z79.82 Long term (current) use of aspirin; Z82.49 Family history of ischemic heart disease and other diseases of the circulatory system
CPT/HCPCS: 96360; 96361; 99285; 36415; 94640; 80053; 85652; 83605; 85025; 85610 ×3; 86140; 87040; 83036; 73590; 73562; 73700; G0378 ×3

== ENCOUNTER → 2019-03-05 | Outpatient (CLI) | payer MEDICARE, OTHER ==
--- NOTE | 2019-03-05 15:46 | US ---
EXAMINATION TYPE: US venous doppler duplex LE DATE OF EXAM: 03/05/2019 2:00 PM COMPARISON: LOWER EXTREMITY VENOUS INSUFFICIENCY CLINICAL HISTORY: E11.622 Type 2 diabetes mellitus w/other skin ulcer. Approximately one month ago jacob orellana dropped saw on right lateral lower leg suffering open wound to lower right leg. Additional inju ry 3 weeks ago after falling off workbench and had trauma to left lower leg resulting in swelling and bruising left leg. No varicose veins are visible. SIDE PERFORMED: bilateral 1) Color flow is present and patency is documented in the following vessels. No DVT or SVT is noted . Common Femoral Vein Deep Femoral Vein Femoral Vein Popliteal Vein Proximal Calf Veins Greater Saph Vein Upper Small Saph Vein 2) There is venous reflux noted at the following venous levels: Left CFV. 3) Incompetent perforators are noted at these levels: none At patient's c/o swelling left BK area hypoechoic complex mass is seen = 10.7 x 6.4 x 2.3cm. Report called to the referring clinician office. IMPRESSION: 1. There is a hypoechoic complex mass measuring 10.7 cm in the region of the patient soft tissue swel ling and complaint area. Hematoma or abscess in the differential diagnosis. Mass not excluded. 2. Venous reflux as discussed above.
[2019-03-05 19:22] LABS: Hemoglobin A1C 6.4 % (4.0-6.0)
== END | disposition home or self-care (01) ==
LOC: RADUSWWP 12:14
PROVIDERS: ATTEND Family Medicine
DX: M79.89 Other specified soft tissue disorders (principal); E11.622 Type 2 diabetes mellitus with other skin ulcer; L97.929 Non-pressure chronic ulcer of unspecified part of left lower leg with unspecified severity; L97.919 Non-pressure chronic ulcer of unspecified part of right lower leg with unspecified severity; R23.3 Spontaneous ecchymoses
CPT/HCPCS: 83036; 84134; 85652; 86140; 93922; 93970

== ENCOUNTER 2021-05-08 09:13 | Emergency (ER) | payer MEDICARE ==
[2021-05-08 09:22] VITALS: TEMP 97.5
[2021-05-08] MEDS ORDERED: DIPH,PERTUS(ACELL)TETVAC-LF 0.5 ML VIAL IM ONE (09:37)
[2021-05-08] MEDS ORDERED: MECLIZINE 25 MG TAB PO STA (09:38)
--- NOTE | 2021-05-08 09:50 | ED ---
General Adult HPI - General Chief complaint: Fall Stated complaint: Fall, Hit head Time Seen by Provider: 05/08/21 09:20 Source: patient, RN notes reviewed, old records reviewed Mode of arrival: wheelchair Limitations: no limitations - History of Present Illness Initial comments: This is a 76-year-old male presents emergency department with a past medical history of vertigo. Patient states he got up this morning and everything was unsteady and he went to stand up and he stated he just fell over and hit the back of his head on the handle of the end table. Patient states he did not lose consciousness. Patient states he has a mild headache. Patient denies any neck pain patient denies numbness weakness. Patient states he does have a history of vertigo and he thinks the vertigo made him feel like he was off balance and has when he fell. Patient states he noted after that when he was walking he had to hold onto the wall because he was so unsteady. Patient denies any chest pain or palpitations. Patient denies any difficulty breathing or shortness of breath. Patient denies any abdominal pain patient denies nausea vomiting diarrhea. - Related Data Home Medications Medication Instructions Recorded Confirmed amLODIPine BESYLATE [Norvasc] 10 mg PO DAILY 09/17/17 02/27/19 Docusate [Colace] 100 mg PO BID 02/27/19 02/27/19 Ferrous Sulfate [Iron] 65 mg PO HS 02/27/19 02/27/19 Levothyroxine Sodium [Synthroid] 25 mcg PO DAILY 02/27/19 02/27/19 Sertraline [Zoloft] 50 mg PO DAILY 02/27/19 02/27/19 hydrALAZINE HCL 50 mg PO TID 02/27/19 02/27/19 Previous Rx's Medication Instructions Recorded Amiodarone [Cordarone] 200 mg PO DAILY #1 tab 01/22/18 Atorvastatin Calcium [Lipitor] 20 mg PO DAILY #1 tab 01/22/18 Calcium Acetate [PhosLo] 667 mg PO TID-W/MEALS cap 01/22/18 Ipratropium-Albuterol Nebulize 3 ml INHALATION RT-TID ampul.neb 01/22/18 [Duoneb 0.5 mg-3 mg/3 ml Soln] Melatonin 3 mg PO HS PRN tablet 05/08/18 Metoprolol Tartrate [Lopressor] 50 mg PO BID tab 01/22/18 hydrALAZINE HCL 25 mg PO TID #1 tablet 01/22/18 Warfarin Sodium [Coumadin] 5 mg PO DAILY #0 03/01/19 traMADol HCL [Ultram] 50 mg PO Q4HR PRN 3 Days #18 tab 03/01/19 Allergies Allergy/AdvReac Type Severity Reaction Status Date / Time No Known Allergies Allergy Verified 05/08/21 09:21 Review of Systems ROS Statement: Those systems with pertinent positive or pertinent negative responses have been documented in the HPI. ROS Other: All systems not noted in ROS Statement are negative. Past Medical History Past Medical History: Chest Pain / Angina, Heart Failure, Diabetes Mellitus, GERD/Reflux, Hyperlipidemia, Hypertension, Skin Disorder, Sleep Apnea/CPAP/BIPAP Additional Past Medical History / Comment(s): PSORIASIS, uses CPAP, past cellulitis in joe legs when in [place]. broken nose age 20(sx) History of Any Multi-Drug Resistant Organisms: MRSA Date of last positivie culture/infection: 04/03/19 MDRO Source:: Right Leg Past Surgical History: Adenoidectomy, Heart Catheterization, Orthopedic Surgery, Pacemaker, Tonsillectomy Additional Past Surgical History / Comment(s): rt carpal tunnel release, pacemaker, colonoscopy/polypectomy,nasal sx, hemorrhoidectomy Past Anesthesia/Blood Transfusion Reactions: No Reported Reaction Type of Cardiac Device: Permanent Pacemaker Device Placement Date:: April 2015 Past Psychological History: No Psychological Hx Reported Past Alcohol Use History: None Reported Past Drug Use History: None Reported - Past Family History Mother Family Medical History: Myocardial Infarction ([place]) Father Family Medical History: Cancer General Exam - General Exam Comments Initial Comments: GENERAL: Patient is well-developed and well-nourished. Patient is nontoxic and well- hydrated and is in mild distress. ENT: Neck is soft and supple. No significant lymphadenopathy is noted. Oropharynx is clear. Moist mucous membranes. Neck has full range of motion without eliciting any pain. EYES: The sclera were anicteric and conjunctiva were pink and moist. Extraocular movements were intact and pupils were equal round and reactive to light. Eyelids were unremarkable. PULMONARY: Unlabored respirations. Good breath sounds bilaterally. No audible rales rhonchi or wheezing was noted. CARDIOVASCULAR: There is a regular rate and rhythm without any murmurs gallops or rubs. ABDOMEN: Soft and nontender with normal bowel sounds. SKIN: Patient has a superficial laceration on the occipital region of the scalp. NEUROLOGIC: Patient is alert and oriented x3. Cranial nerves II through XII are grossly intact. Motor and sensory are also intact. Normal speech, volume and content. Symmetrical smile. NIH is 0 MUSCULOSKELETAL: Normal extremities with adequate strength and full range of motion. LYMPHATICS: No significant lymphadenopathy is noted PSYCHIATRIC: Normal psychiatric evaluation. Limitations: no limitations Course Vital Signs 05/08/21 05/08/21 05/08/21 09:18 09:31 10:00 Temperature 97.5 F L Pulse Rate 77 66 60 Respiratory 20 14 Rate Blood Pressure 184/49 O2 Sat by Pulse 97 Oximetry 05/08/21 05/08/21 05/08/21 10:30 11:00 11:30 Temperature Pulse Rate 60 60 60 Respiratory Rate Blood Pressure 135/83 168/92 O2 Sat by Pulse 97 97 97 Oximetry 05/08/21 11:50 Temperature Pulse Rate Respiratory Rate Blood Pressure 155/101 O2 Sat by Pulse Oximetry Medical Decision Making - Medical Decision Making EKG shows a paced rhythm at 77 bpm [place] interval is 214 QRS is under 10 Q-T intervals 396 QTC is 448. Patient's EKG shows no ST segment elevation or depression. Patient's CAT scan of the brain shows a right intraparenchymal bleed in the thalamus. I believe the bleed was prior to the fall and the cause of the fall and not secondary to trauma Because the patient was on Coumadin I ordered vitamin K and the case center. I spoke with Dr. Lau and he wanted the patient transferred to [facility]. - Lab Data Result diagrams: 05/08/21 09:45 05/08/21 09:45 Lab Results 05/08/21 05/08/21 05/08/21 Range/Units 09:45 09:45 11:03 WBC 5.8 (3.8-10.6) k/uL RBC 4.64 (4.30-5.90) m/uL Hgb 14.2 (13.0-17.5) gm/dL Hct 42.5 (39.0-53.0) % MCV 91.4 (80.0-100.0) fL MCH 30.6 (25.0-35.0) pg MCHC 33.4 (31.0-37.0) g/dL RDW 14.1 (11.5-15.5) % Plt Count 160 (150-450) k/uL MPV 9.5 Neutrophils % 65 % Lymphocytes % 22 % Monocytes % 6 % Eosinophils % 5 % Basophils % 1 % Neutrophils # 3.8 (1.3-7.7) k/uL Lymphocytes # 1.3 (1.0-4.8) k/uL Monocytes # 0.4 (0-1.0) k/uL Eosinophils # 0.3 (0-0.7) k/uL Basophils # 0.1 (0-0.2) k/uL PT 22.1 H (9.0-12.0) sec INR 2.3 H (<1.2) APTT 32.6 H (22.0-30.0) sec Sodium 137 (137-145) mmol/L Potassium 5.2 H (3.5-5.1) mmol/L Chloride 105 (98-107) mmol/L Carbon Dioxide 22 (22-30) mmol/L Anion Gap 10 mmol/L BUN 20 (9-20) mg/dL Creatinine 1.00 (0.66-1.25) mg/dL Est GFR (CKD-EPI)AfAm 85 (>60 ml/min/1.73 sqM) Est GFR (CKD-EPI)NonAf 74 (>60 ml/min/1.73 sqM) Glucose 161 H (74-99) mg/dL Calcium 9.2 (8.4-10.2) mg/dL Total Bilirubin 0.9 (0.2-1.3) mg/dL AST 73 H (17-59) U/L ALT 44 (4-49) U/L Alkaline Phosphatase 89 (38-126) U/L Total Protein 7.0 (6.3-8.2) g/dL Albumin 4.1 (3.5-5.0) g/dL Critical Care Time Critical Care Time: Yes Total Critical Care Time: 35 Disposition Clinical Impression: Intracranial hemorrhage Disposition: OTHER INSTITUTION NOT DEFINED Referrals: Jamshid Mccain DO [Primary Care Provider] - 1-2 days Time of Disposition: 11:44 - Out of Hospital Transfer - Req. Specs Out of Hospital Transfer - Requested Specifics: Medical ICU ([facility])
[2021-05-08 09:53] LABS: Basophils # (A) 0.1 k/uL (0-0.2); Basophils % (A) 1 %; Eosinophils # (A) 0.3 k/uL (0-0.7); Eosinophils % (A) 5 %; HCT 42.5 % (39.0-53.0); HGB 14.2 gm/dL (13.0-17.5); Lymphocytes # (A) 1.3 k/uL (1.0-4.8); Lymphocytes % (A) 22 %; MCH 30.6 pg (25.0-35.0); MCHC 33.4 g/dL (31.0-37.0); MCV 91.4 fL (80.0-100.0); Mean Platelet Volume 9.5; Monocytes # (A) 0.4 k/uL (0-1.0); Monocytes % (A) 6 %; Neutrophils # (A) 3.8 k/uL (1.3-7.7); Neutrophils % (A) 65 %; Platelet Count 160 k/uL (150-450); RBC 4.64 m/uL (4.30-5.90); RDW 14.1 % (11.5-15.5); WBC 5.8 k/uL (3.8-10.6)
--- NOTE | 2021-05-08 10:33 | CT ---
EXAMINATION TYPE: CT brain wo con DATE OF EXAM: 05/08/2021 COMPARISON: 09/17/2017 HISTORY: Fall, loss of balance CT DLP: 1099.4 mGycm Automated exposure control for dose reduction was used. FINDINGS: There has been interval development of a 12 mm area of abnormal increased density in the right thalam us with mild surrounding edema consistent with an acute parenchymal hemorrhage. There is no mass effe ct or shift of the midline structures. There is remote lacunar infarct in the left thalamus. The ventricles, basal cisterns and sulci over convexities are within normal limits. Grossly the posterior fossa is normal The intraorbital contents appear normal and symmetric. Visualized paranasal sinuses and mastoid air cells are well aerated. IMPRESSION: 1. Small acute parenchymal hemorrhage in the right thalamus 2. Small remote lacunar infarct in the left thalamus.
[2021-05-08 10:34] LABS: Albumin 4.1 g/dL (3.5-5.0); Calcium 9.2 mg/dL (8.4-10.2); Total Bilirubin 0.9 mg/dL (0.2-1.3)
[2021-05-08 10:36] LABS: Potassium 5.2 mmol/L (3.5-5.1)
[2021-05-08] MEDS ORDERED: PHYTONADIONE 5 MG in SODIUM CHLORIDE 0.9% 50 ML IVPB STA (10:47)
[2021-05-08] MEDS ORDERED: Kcentra PER PHARMACY 1 EACH MISC MISCELLANE PRN (10:52)
[2021-05-08 11:08] VITALS: PULSE 60; RESP 14
[2021-05-08] MEDS ORDERED: HUMAN PROTHROMBIN COMPLX IV STA (11:11)
[2021-05-08 11:22] LABS: INR 2.3 (<1.2); Partial Thromboplastin Time 32.6 sec (22.0-30.0); Prothrombin Time 22.1 sec (9.0-12.0)
[2021-05-08] MEDS ORDERED: HUMAN PROTHROMBIN COMPLX 500 UNIT/16 ML VIAL IV ONE (12:00)
[2021-05-08 13:23] VITALS: BP 154/103
== END 2021-05-08 13:20 | disposition other institution (70) ==
LOC: EC 09:13
DX: I62.9 Nontraumatic intracranial hemorrhage, unspecified (principal); Z23 Encounter for immunization; I11.0 Hypertensive heart disease with heart failure; I50.9 Heart failure, unspecified; E11.9 Type 2 diabetes mellitus without complications; K21.9 Gastro-esophageal reflux disease without esophagitis; E78.5 Hyperlipidemia, unspecified; Z90.89 Acquired absence of other organs; Z79.01 Long term (current) use of anticoagulants; Z95.0 Presence of cardiac pacemaker
CPT/HCPCS: 99291; 96365; 96375; 90471; 36415; 93005; 80053; 85025; 85610; 85730; 70450; 90715; J3430; J7168

== ENCOUNTER 2021-08-02 09:41 | Day surgery (SDC) | payer MEDICARE ==
[~2021-08-02 09:41] MED LIST: ALPRAZolam 0.25 MG TAB PO PRN; ALPRAZolam 0.5 MG TAB PO PRN; ASPIRIN 325 MG TAB PO STA; ATORVASTATIN 80 MG TAB PO STA; NITROGLYCERIN SL TABS 0.4 MG TAB SUBLINGUAL PRN; SODIUM CHLORIDE 0.9% 1,000 ML in EMPTY BAG 1 BAG IV SCH
[2021-08-02] MEDS ORDERED: SODIUM CHLORIDE 0.9% 500 ML 500 ML IV ONE (10:05)
[2021-08-02 10:12] LABS: Glucose,Whole Blood 132 mg/dL (75-99)
[2021-08-02 10:18] LABS: Basophils # (A) 0.1 k/uL (0-0.2); Basophils % (A) 1 %; Eosinophils # (A) 0.3 k/uL (0-0.7); Eosinophils % (A) 4 %; HCT 44.3 % (39.0-53.0); HGB 14.5 gm/dL (13.0-17.5); Lymphocytes # (A) 1.3 k/uL (1.0-4.8); Lymphocytes % (A) 19 %; MCHC 32.6 g/dL (31.0-37.0); MCV 92.1 fL (80.0-100.0); Mean Platelet Volume 9.6; Monocytes # (A) 0.3 k/uL (0-1.0); Monocytes % (A) 5 %; Neutrophils # (A) 4.6 k/uL (1.3-7.7); Neutrophils % (A) 69 %; Platelet Count 199 k/uL (150-450); RBC 4.82 m/uL (4.30-5.90); RDW 13.2 % (11.5-15.5); WBC 6.7 k/uL (3.8-10.6)
[2021-08-02] MEDS ORDERED: IV FLUID CONTINUATION 1,000 ML IV ONE (11:13)
[2021-08-02] MEDS ORDERED: fentaNYL (PF) 50 MCG/ML 2 ML AMP ONE (11:14)
[2021-08-02] MEDS: BENZOCAINE SPRAY 1 CAN MUCOUS MEM ONE ×2 (11:15→11:39)
[2021-08-02 11:28] VITALS: RESP 18
[2021-08-02] MEDS ORDERED: fentaNYL (PF) 50 MCG/ML 2 ML AMP IVP ONE (11:40)
[2021-08-02] MEDS ORDERED: MIDAZOLAM 2 MG/2 ML VIAL IVP ONE (11:40)
[2021-08-02] MEDS ORDERED: SODIUM CHLORIDE 0.9% 1,000 ML IV SCH (12:00)
--- NOTE | 2021-08-02 12:02 | P.TEE ---
Date of Procedure: 08/02/21 Preoperative Diagnosis: History of watchman procedure, follow-up SHARLA Postoperative Diagnosis: Stable watchman device. No clot in the left atrial appendage Procedure(s) Performed: SHARLA Description of Procedure(s): INDICATION: Assessment of watchman device, history of atrial fibrillation and also thalamic bleed CONSENT: . Informed verbal consent is obtained from the patient and family PROCEDURE: . Patient was brought to the lab in a fasting state. He was prepped and draped in the usual fashion. The throat was sprayed with Cetacaine get a lubricated Omni probe was introduced into the oropharynx and was advanced into t he esophagus. Multiple views were obtained. Patient tolerated the procedure well. Color, pulsed and continuous wave Doppler studies were done. Saline contrast bubble injection is performed. The patient tolerated the procedure well FINDINGS: . The device appeared to be intact in the left atrial appendage. There doesn't seem to be any shunt across the device. No evidence of any clots in the left atrial appendage. The mitral valve showed 2+ mitral regurgitation. There 12 appear to be normal. I discussed with mild regurgitation. There is a pacemaker device in the right atrium. Left atrium appears to be enlarged. No evidence of PFO IMPRESSION: Stable watchman device PLAN: Continue current medical therapy
[2021-08-02 12:54] VITALS: BP 164/76; PULSE 76
== END 2021-08-02 13:15 | disposition home or self-care (01) ==
LOC: CATHCVL 09:41
PROVIDERS: ATTEND Internal Medicine Cardiovascular Disease
DX: I48.91 Unspecified atrial fibrillation (principal); Z20.822 Contact with and (suspected) exposure to COVID-19
CPT/HCPCS: 93312; 93320; 93325; 85025; 87635; J2250; J3010

== ENCOUNTER 2021-12-29 11:14 | Observation (INO) | payer MEDICARE ==
[2021-12-29] MEDS ORDERED: MORPHINE SULFATE 4 MG/ML SYRINGE IV STA (11:54)
[2021-12-29] MEDS ORDERED: SODIUM CHLORIDE 0.9% 500 ML 500 ML IV STA ×2 (11:54→15:41)
[2021-12-29] MEDS ORDERED: ONDANSETRON 4 MG/2 ML VIAL IVP STA (11:54)
[2021-12-29 12:23] LABS: Basophils # (A) 0.1 k/uL (0-0.2); Basophils % (A) 1 %; Eosinophils # (A) 0.2 k/uL (0-0.7); Eosinophils % (A) 3 %; HCT 42.5 % (39.0-53.0); Lymphocytes # (A) 1.8 k/uL (1.0-4.8); Lymphocytes % (A) 22 %; MCH 30.1 pg (25.0-35.0); MCHC 32.9 g/dL (31.0-37.0); MCV 91.4 fL (80.0-100.0); Mean Platelet Volume 9.5; Monocytes # (A) 0.5 k/uL (0-1.0); Monocytes % (A) 6 %; Neutrophils # (A) 5.4 k/uL (1.3-7.7); Neutrophils % (A) 66 %; Platelet Count 258 k/uL (150-450); RBC 4.65 m/uL (4.30-5.90); RDW 13.4 % (11.5-15.5); WBC 8.2 k/uL (3.8-10.6)
[2021-12-29 12:29] LABS: Albumin 4.5 g/dL (3.5-5.0); Potassium 3.5 mmol/L (3.5-5.1); Total Bilirubin 1.1 mg/dL (0.2-1.3); Total Protein 8.1 g/dL (6.3-8.2)
[2021-12-29 12:32] LABS: Partial Thromboplastin Time 23.4 sec (22.0-30.0); Prothrombin Time 10.9 sec (9.0-12.0)
--- NOTE | 2021-12-29 13:55 | ED ---
General Adult HPI - General Source: patient, family, RN notes reviewed Mode of arrival: ambulatory Limitations: no limitations <Jamshid Zamora - Last Filed: 12/29/21 13:54> <Jorge Powell - Last Filed: 12/29/21 18:15> - General Chief complaint: Urogenital Stated complaint: Staff infection Time Seen by Provider: 12/29/21 11:35 - History of Present Illness Initial comments: This a 76-year-old male presents emergency Department with chief complaint of abnormal labs. 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 They cleared him from any cardiac issue states it was not as pacemaker. Patient had lab work which showed some evidence of urinary tract infection possible kidney issues. Patient does admit that he's had kidney issues in the past. He states his been taken Motrin for his low back pain. Patient denies any urinary frequency but states he has had some dysuria. No blood noted. Patient offers no complaints. (Jamshid Zamora) - Related Data Home Medications Medication Instructions Recorded Confirmed Sertraline [Zoloft] 50 mg PO DAILY 02/27/19 12/29/21 Amiodarone [Cordarone] 200 mg PO DAILY 08/01/21 12/29/21 Atorvastatin Calcium [Lipitor] 20 mg PO HS 08/01/21 12/29/21 Force Prostate 2 tab PO DAILY 08/01/21 12/29/21 Furosemide [Lasix] 20 mg PO DAILY 08/01/21 12/29/21 Gabapentin [Neurontin] 300 mg PO HS 08/01/21 12/29/21 Levothyroxine Sodium [Synthroid] 75 mcg PO DAILY 08/01/21 12/29/21 NIFEdipine [Procardia XL] 30 mg PO DAILY 08/01/21 12/29/21 Pantoprazole [Protonix] 40 mg PO DAILY 08/01/21 12/29/21 Potassium Chloride 10 meq PO DAILY 08/01/21 12/29/21 metFORMIN HCL [Glucophage] 1,000 mg PO BID 08/01/21 12/29/21 Clopidogrel [Plavix] 75 mg PO DAILY 08/02/21 12/29/21 Docusate [Colace] 100 mg PO DAILY PRN 12/29/21 12/29/21 Valsartan 320 mg PO HS 12/29/21 12/29/21 Previous Rx's Medication Instructions Recorded Metoprolol Tartrate [Lopressor] 50 mg PO BID tab 01/22/18 Allergies Allergy/AdvReac Type Severity Reaction Status Date / Time No Known Allergies Allergy Verified 12/29/21 13:42 Review of Systems ROS Other: All systems not noted in ROS Statement are negative. <Jamshid Zamora - Last Filed: 12/29/21 13:54> ROS Other: All systems not noted in ROS Statement are negative. <Jorge Powell - Last Filed: 12/29/21 18:15> ROS Statement: Those systems with pertinent positive or pertinent negative responses have been documented in the HPI. Past Medical History Past Medical History: Chest Pain / Angina, Heart Failure, Diabetes Mellitus, GERD/Reflux, Hyperlipidemia, Hypertension, Skin Disorder, Sleep Apnea/CPAP/BIPAP Additional Past Medical History / Comment(s): APRIL 2021, WENT TO [facility], [facility] (HIT HEAD), [place]SFERRED [place] WITH A BRAIN BLEED. PSORIASIS, uses CPAP, past cellulitis in joe legs when in [place]. broken nose age 20(sx) History of Any Multi-Drug Resistant Organisms: MRSA Date of last positivie culture/infection: 04/03/19 MDRO Source:: Right Leg Past Surgical History: Adenoidectomy, Cardiac Ablation, Heart Catheterization, Orthopedic Surgery, Pacemaker, Tonsillectomy Additional Past Surgical History / Comment(s): APRIL 2021 WATCHMAN'S PROCEDURE. rt carpal tunnel release, pacemaker, colonoscopy/polypectomy,nasal sx, hemorrh oidectomy Past Anesthesia/Blood Transfusion Reactions: No Reported Reaction Type of Cardiac Device: Permanent Pacemaker Device Placement Date:: April 2015 Past Psychological History: No Psychological Hx Reported Smoking Status: Former smoker Past Alcohol Use History: None Reported, Rare Past Drug Use History: None Reported - Past Family History Mother Family Medical History: Myocardial Infarction ([place]) Father Family Medical History: Cancer <Jamshid Zamora - Last Filed: 12/29/21 13:54> General Exam Limitations: no limitations General appearance: alert, in no apparent distress Head exam: Present: atraumatic, normocephalic, normal inspection Eye exam: Present: normal appearance, PERRL, EOMI. Absent: scleral icterus, conjunctival injection, periorbital swelling ENT exam: Present: normal exam, normal oropharynx, mucous membranes moist Neck exam: Present: normal inspection, full ROM. Absent: tenderness, meningismus, lymphadenopathy Respiratory exam: Present: normal lung sounds bilaterally. Absent: respiratory distress, wheezes, rales, rhonchi, stridor Cardiovascular Exam: Present: regular rate, normal rhythm, normal heart sounds. Absent: systolic murmur, diastolic murmur, rubs, gallop, clicks GI/Abdominal exam: Present: soft, tenderness, normal bowel sounds. Absent: distended, guarding, rebound, rigid Back exam: Absent: CVA tenderness (R), CVA tenderness (L) <Jamshid Zamora - Last Filed: 12/29/21 13:54> Course Vital Signs 12/29/21 12/29/21 12/29/21 11:27 14:31 17:34 Temperature 97.0 F L 98.3 F Pulse Rate 75 60 68 Respiratory 20 18 18 Rate Blood Pressure 187/100 134/80 141/65 O2 Sat by Pulse 95 92 L 95 Oximetry Medical Decision Making - Lab Data Result diagrams: 12/29/21 12:05 12/29/21 12:05 <Jamshid Zamora - Last Filed: 12/29/21 13:54> - Lab Data Result diagrams: 12/29/21 12:05 12/29/21 12:05 <Jorge Powell - Last Filed: 12/29/21 18:15> - Medical Decision Making Patient was signed out to me pending results of CT imaging. Was sent here for PCP over concern for AK I am possible UTI. Also having some back pain that seems more musculoskeletal in nature, but cannot rule kidneys as the cause of the pain. It is reproducible on movement as well as palpation. No CVA tenderness to percussion. EKG showed no signs of ischemia and was evaluated by a previous physician. It does show atrial paced rhythm. Laboratory studies are remarkable for a lactic acid which is initially 3.3 and results after 500 mL of fluid to 2.0. Patient also has a AK I with baseline creatinine of 1, and creatinine is 1.54. Urinalysis shows no signs of UTI. CBC is unremarkable. Remainder of the labs are unremarkable. CT of the abdomen and pelvis shows a questionable tiny 2 mm right lower pole nonobstructing renal calculus. Oth erwise there is no other current findings. Bladder does show chronic cystitis as a possibility. I discussed the findings with the patient as well as his family members. They're concerned regarding the labs, see is no history of kidney issues. I did offer them an observation admission for IV fluid hydration and repeat testing in the morning and they were in agreement this plan. I spoke with the admitting physician, Dr. Carpio of [facility], as the patient will be observation admission. She accepted the patient. Patient was admitted in stable condition. (Jorge Powell) - Lab Data Lab Results 12/29/21 12/29/21 12/29/21 Range/Units 11:55 12:05 12:05 WBC 8.2 (3.8-10.6) k/uL RBC 4.65 (4.30-5.90) m/uL Hgb 14.0 (13.0-17.5) gm/dL Hct 42.5 (39.0-53.0) % MCV 91.4 (80.0-100.0) fL MCH 30.1 (25.0-35.0) pg MCHC 32.9 (31.0-37.0) g/dL RDW 13.4 (11.5-15.5) % Plt Count 258 (150-450) k/uL MPV 9.5 Neutrophils % 66 % Lymphocytes % 22 % Monocytes % 6 % Eosinophils % 3 % Basophils % 1 % Neutrophils # 5.4 (1.3-7.7) k/uL Lymphocytes # 1.8 (1.0-4.8) k/uL Monocytes # 0.5 (0-1.0) k/uL Eosinophils # 0.2 (0-0.7) k/uL Basophils # 0.1 (0-0.2) k/uL PT 10.9 (9.0-12.0) sec INR 1.0 (<1.2) APTT 23.4 (22.0-30.0) sec Sodium (137-145) mmol/L Potassium (3.5-5.1) mmol/L Chloride (98-107) mmol/L Carbon Dioxide (22-30) mmol/L Anion Gap mmol/L BUN (9-20) mg/dL Creatinine (0.66-1.25) mg/dL Est GFR (CKD-EPI)AfAm (>60 ml/min/1.73 sqM) Est GFR (CKD-EPI)NonAf (>60 ml/min/1.73 sqM) Glucose (74-99) mg/dL Lactic Ac Sepsis Rflx Plasma Lactic Acid Shemar (0.7-2.0) mmol/L Calcium (8.4-10.2) mg/dL Total Bilirubin (0.2-1.3) mg/dL AST (17-59) U/L ALT (4-49) U/L Alkaline Phosphatase (38-126) U/L Total Protein (6.3-8.2) g/dL Albumin (3.5-5.0) g/dL Amylase (30-110) U/L Lipase (23-300) U/L Urine Color Yellow Urine Appearance Clear (Clear) Urine pH 7.0 (5.0-8.0) Ur Specific [place] 1.014 (1.001-1.035) Urine Protein Trace H (Negative) Urine Glucose (UA) Negative (Negative) Urine Ketones Negative (Negative) Urine Blood Negative (Negative) Urine Nitrite Negative (Negative) Urine Bilirubin Negative (Negative) Urine Urobilinogen 2.0 (<2.0) mg/dL Ur Leukocyte Esterase Trace H (Negative) Urine RBC 2 (0-5) /hpf Urine WBC 3 (0-5) /hpf Ur Squamous Epith Cells <1 (0-4) /hpf Hyaline Casts 23 H (0-2) /lpf Urine Mucus Rare H (None) /hpf 12/29/21 12/29/21 12/29/21 Range/Units 12:05 12:05 13:13 WBC (3.8-10.6) k/uL RBC (4.30-5.90) m/uL Hgb (13.0-17.5) gm/dL Hct (39.0-53.0) % MCV (80.0-100.0) fL MCH (25.0-35.0) pg MCHC (31.0-37.0) g/dL RDW (11.5-15.5) % Plt Count (150-450) k/uL MPV Neutrophils % % Lymphocytes % % Monocytes % % Eosinophils % % Basophils % % Neutrophils # (1.3-7.7) k/uL Lymphocytes # (1.0-4.8) k/uL Monocytes # (0-1.0) k/uL Eosinophils # (0-0.7) k/uL Basophils # (0-0.2) k/uL PT (9.0-12.0) sec INR (<1.2) APTT (22.0-30.0) sec Sodium 145 (137-145) mmol/L Potassium 3.5 (3.5-5.1) mmol/L Chloride 99 (98-107) mmol/L Carbon Dioxide 30 (22-30) mmol/L Anion Gap 16 mmol/L BUN 26 H (9-20) mg/dL Creatinine 1.54 H (0.66-1.25) mg/dL Est GFR (CKD-EPI)AfAm 51 (>60 ml/min/1.73 sqM) Est GFR (CKD-EPI)NonAf 44 (>60 ml/min/1.73 sqM) Glucose 120 H (74-99) mg/dL Lactic Ac Sepsis Rflx Y Plasma Lactic Acid Shemar 3.3 H* (0.7-2.0) mmol/L Calcium 10.0 (8.4-10.2) mg/dL Total Bilirubin 1.1 (0.2-1.3) mg/dL AST 38 (17-59) U/L ALT 24 (4-49) U/L Alkaline Phosphatase 77 (38-126) U/L Total Protein 8.1 (6.3-8.2) g/dL Albumin 4.5 (3.5-5.0) g/dL Amylase 48 (30-110) U/L Lipase 84 (23-300) U/L Urine Color Urine Appearance (Clear) Urine pH (5.0-8.0) Ur Specific [place] (1.001-1.035) Urine Protein (Negative) Urine Glucose (UA) (Negative) Urine Ketones (Negative) Urine Blood (Negative) Urine Nitrite (Negative) Urine Bilirubin (Negative) Urine Urobilinogen (<2.0) mg/dL Ur Leukocyte Esterase (Negative) Urine RBC (0-5) /hpf Urine WBC (0-5) /hpf Ur Squamous Epith Cells (0-4) /hpf Hyaline Casts (0-2) /lpf Urine Mucus (None) /hpf 12/29/21 Range/Units 16:07 WBC (3.8-10.6) k/uL RBC (4.30-5.90) m/uL Hgb (13.0-17.5) gm/dL Hct (39.0-53.0) % MCV (80.0-100.0) fL MCH (25.0-35.0) pg MCHC (31.0-37.0) g/dL RDW (11.5-15.5) % Plt Count (150-450) k/uL MPV Neutrophils % % Lymphocytes % % Monocytes % % Eosinophils % % Basophils % % Neutrophils # (1.3-7.7) k/uL Lymphocytes # (1.0-4.8) k/uL Monocytes # (0-1.0) k/uL Eosinophils # (0-0.7) k/uL Basophils # (0-0.2) k/uL PT (9.0-12.0) sec INR (<1.2) APTT (22.0-30.0) sec Sodium (137-145) mmol/L Potassium (3.5-5.1) mmol/L Chloride (98-107) mmol/L Carbon Dioxide (22-30) mmol/L Anion Gap mmol/L BUN (9-20) mg/dL Creatinine (0.66-1.25) mg/dL Est GFR (CKD-EPI)AfAm (>60 ml/min/1.73 sqM) Est GFR (CKD-EPI)NonAf (>60 ml/min/1.73 sqM) Glucose (74-99) mg/dL Lactic Ac Sepsis Rflx Plasma Lactic Acid Shemar 2.0 (0.7-2.0) mmol/L Calcium (8.4-10.2) mg/dL Total Bilirubin (0.2-1.3) mg/dL AST (17-59) U/L ALT (4-49) U/L Alkaline Phosphatase (38-126) U/L Total Protein (6.3-8.2) g/dL Albumin (3.5-5.0) g/dL Amylase (30-110) U/L Lipase (23-300) U/L Urine Color Urine Appearance (Clear) Urine pH (5.0-8.0) Ur Specific [place] (1.001-1.035) Urine Protein (Negative) Urine Glucose (UA) (Negative) Urine Ketones (Negative) Urine Blood (Negative) Urine Nitrite (Negative) Urine Bilirubin (Negative) Urine Urobilinogen (<2.0) mg/dL Ur Leukocyte Esterase (Negative) Urine RBC (0-5) /hpf Urine WBC (0-5) /hpf Ur Squamous Epith Cells (0-4) /hpf Hyaline Casts (0-2) /lpf Urine Mucus (None) /hpf Disposition <Jamshid Zamora - Last Filed: 12/29/21 13:54> Time of Disposition: 17:00 <Jorge Powell - Last Filed: 12/29/21 18:15> Clinical Impression: JUAN (acute kidney injury), Back pain Disposition: ADMITTED IP TO THIS HOSP Condition: Stable
[2021-12-29] MEDS ORDERED: HYDROmorphone 0.5 MG/0.5 ML SYRINGE IVP STA (14:27)
[2021-12-29 14:38] LABS: Appearance,Urine Clear (Clear); Bilirubin,Urine Negative (Negative); Blood,Urine Negative (Negative); Color,Urine Yellow; Glucose,Urine (UA) Negative (Negative); Hyaline Casts,Urine 23 /lpf (0-2); Ketones,Urine Negative (Negative); Leukocyte Esterase,Urine Trace (Negative); Mucus,Urine Rare /hpf; Nitrite,Urine Negative (Negative); Protein,Urine Trace (Negative); RBC,Urine 2 /hpf (0-5); Specific Gravity,Urine 1.014 (1.001-1.035); Squamous Epithelial Cell,Urine <1 /hpf (0-4); WBC,Urine 3 /hpf (0-5)
--- NOTE | 2021-12-29 16:11 | CT ---
EXAMINATION TYPE: CT abdomen pelvis wo con DATE OF EXAM: 12/29/2021 COMPARISON: No previous CT scan is available for comparison HISTORY: Abnormal labs, flank pain, possible kidney infection CT DLP: 1372 mGycm Automated exposure control for dose reduction was used. TECHNIQUE: Helical acquisition of images was performed from the lung bases through the pelvis. FINDINGS: Suboptimal CT scan with motion artifacts. LUNG BASES: Suspected cardiomegaly LIVER/GB: No significant abnormality is appreciated. PANCREAS: No significant abnormality is seen. SPLEEN: No significant abnormality is seen. ADRENALS: Left adrenal hypodense lesions measuring 2.3 and 1.8 cm respectively, possibly representing adrenal adenomas. Grossly unremarkable right adrenal. KIDNEYS: 2 mm nonobstructing calculus at the lower pole of the right kidney. Unremarkable kidneys oth erwise. No hydroureter or hydronephrosis. FREE AIR: No free air is visualized RETROPERITONEAL ADENOPATHY: None visualized REPRODUCTIVE ORGANS: Enlarged prostate with prostatic concretion. Unremarkable seminal vesicles. URINARY BLADDER: The urinary bladder is not distended. Fatty infiltration and tiny calcifications of the urinary bladder wall which could be related to chronic cystitis, please correlate with urinalysi s results. PELVIC ADENOPATHY: No pathologically enlarged pelvic lymph nodes. OSSEOUS STRUCTURES: No aggressive bone lesion. BOWEL: No significant abnormality is seen. OTHER: Minimal arterial atherosclerotic calcifications. No sizable ascites. Small fat-containing umbi lical hernia. IMPRESSION: Questionable tiny 2 mm right lower pole nonobstructing renal calculus, otherwise no definite radioden se urinary calculi. No hydroureter or hydronephrosis. Thickened urinary bladder wall with fatty infil tration and tiny calcifications which could be related to chronic cystitis, please correlate clinical ly and with urinalysis results. Please note that urinary tract infection or pyonephritis cannot be excluded by this CT scan. Other fi ndings as described above.
[2021-12-29] MEDS ORDERED: MORPHINE SULFATE 4 MG/ML SYRINGE IV PRN (17:16)
[2021-12-29] MEDS ORDERED: NALOXONE 0.4 MG/ML 1 ML VIAL IV PRN ×2 (17:16→17:44)
--- NOTE | 2021-12-29 18:00 | P.HPIM ---
History of Present Illness H&P Date: 12/29/21 Chief Complaint: Central abnormal labs, back pain 76-year-old male with history of CHF, type 2 diabetes, hypertension, MARIALUISA on home CPAP was asked by his assessment director to come to the ED due to abnormal labs. He has a pacemaker and was following up with the assessment director regarding that. He has been having left-sided flank pain for a few days now. He denies any fever or chills. He reports that his lab work showed some evidence of urinary tract infection. He has been taking a few Motrin for his low back pain/flank pain. He reports he has been having increased urinary frequency and foul-smelling urine. He denies dysuria. Denies chest pain, shortness of breath, palpit ations, abdominal pain, headache, nausea, vomiting, weakness. Lab work in the ED remarkable for creatinine of 1.5, lactic acid of 3.3. UA is not available at the time of my evaluation. Patient has been started on gentle intravenous fluids. CT of the abdomen and pelvis was reported as questionable 2 mm right lower pole nonobstructing renal stone and urinary bladder wall thickening which could be related to cystitis. EKG does not show acute ischemic changes. He is afebrile. His vitals are stable and he is saturating 95% on room air. Review of Systems Constitutional: Patient reports no fever, no chills, no weight changes, no change in appetite Eyes: Patient reports no double vision, no visual changes ENT: Patient reports no rhinorrhea, no post nasal drip, no sore throat Cardiovascular: Patient reports no chest, no edema, no palpitations, no syncope, no orthopnea, no paroxysmal nocturnal dyspnea. Respiratory: Patient reports no dyspnea, no cough, no wheeze Gastrointestinal: Patient reports no nausea, no vomiting, no constipation, no diarrhea Genitourinary: Reports urinary frequency and foul-smelling urine, reports back pain Musculoskeletal: Patient reports no unusual joint pain, no joint swelling or weakness. Patient reports no muscular pain. Psychiatric: Patient reports no changes in mood, no sleeping problems. Patient reports no changes in memory. Endocrine: Patient reports no thirst, no polyuria, no cold intolerance, no heat intolerance. Neurological: Patient reports no unusual paresthesias, no seizures, no paresis, no paralysis, no facila droop, no headache. Heme/Lymphatic: Patient reports no easy bruising, no bleeding tendency, no lymphadenopathy. Allergic/ Immunologic: Patient reports no recent allergic reactions or immunologic history. Skin: Patient reports no rashes or unusual lesions. Past Medical History Past Medical History: Chest Pain / Angina, Heart Failure, Diabetes Mellitus, GERD/Reflux, Hyperlipidemia, Hypertension, Skin Disorder, Sleep Apnea/CPAP/BIPAP Additional Past Medical History / Comment(s): APRIL 2021, WENT TO [facility], EC (HIT HEAD), TRANSFERRED TO [place] WITH A BRAIN BLEED. PSORIASIS, uses CPAP, past cellulitis in joe legs when in [place]. broken nose age 20(sx) History of Any Multi-Drug Resistant Organisms: MRSA Date of last positivie culture/infection: 04/03/19 MDRO Source:: Right Leg Past Surgical History: Adenoidectomy, Cardiac Ablation, Heart Catheterization, Orthopedic Surgery, Pacemaker, Tonsillectomy Additional Past Surgical History / Comment(s): APRIL 2021 WATCHMAN'S PROCEDURE. rt carpal tunnel release, pacemaker, colonoscopy/polypectomy,nasal sx, hemorrhoidectomy Past Anesthesia/Blood Transfusion Reactions: No Reported Reaction Type of Cardiac Device: Permanent Pacemaker Device Placement Date:: April 2015 Past Psychological History: No Psychological Hx Reported Smoking Status: Former smoker Past Alcohol Use History: None Reported, Rare Past Drug Use History: None Reported - Past Family History Mother Family Medical History: Myocardial Infarction ([place]) Father Family Medical History: Cancer Medications and Allergies Home Medications Medication Instructions Recorded Confirmed Type Metoprolol Tartrate [Lopressor] 50 mg PO BID tab 01/22/18 12/29/21 Rx Sertraline [Zoloft] 50 mg PO DAILY 02/27/19 12/29/21 History Amiodarone [Cordarone] 200 mg PO DAILY 08/01/21 12/29/21 History Atorvastatin Calcium [Lipitor] 20 mg PO HS 08/01/21 12/29/21 History Force Prostate 2 tab PO DAILY 08/01/21 12/29/21 History Furosemide [Lasix] 20 mg PO DAILY 08/01/21 12/29/21 History Gabapentin [Neurontin] 300 mg PO HS 08/01/21 12/29/21 History Levothyroxine Sodium [Synthroid] 75 mcg PO DAILY 08/01/21 12/29/21 History NIFEdipine [Procardia XL] 30 mg PO DAILY 08/01/21 12/29/21 History Pantoprazole [Protonix] 40 mg PO DAILY 08/01/21 12/29/21 History Potassium Chloride 10 meq PO DAILY 08/01/21 12/29/21 History metFORMIN HCL [Glucophage] 1,000 mg PO BID 08/01/21 12/29/21 History Clopidogrel [Plavix] 75 mg PO DAILY 08/02/21 12/29/21 History Docusate [Colace] 100 mg PO DAILY PRN 12/29/21 12/29/21 History Valsartan 320 mg PO HS 12/29/21 12/29/21 History Allergies Allergy/AdvReac Type Severity Reaction Status Date / Time No Known Allergies Allergy Verified 12/29/21 13:42 Physical Exam Vitals: Vital Signs Temp Pulse Resp BP Pulse Ox 12/29/21 17:34 68 18 141/65 95 12/29/21 14:31 98.3 F 60 18 134/80 92 L 12/29/21 11:27 97.0 F L 75 20 187/100 95 Intake and Output 12/29/21 12/29/21 12/29/21 06:59 14:59 22:59 Other: Voiding Method Urinal Weight 114.305 kg Constitutional: No acute distress, conversant, pleasant Eyes: Anicteric sclerae, moist conjunctiva, no lid-lag PERRLA HENMT: Normocephalic / Atraumatic oropharynx clear, no erythema, exudates Neck: Supple, full range of motion, nontender, no masses, or JVD no carotid bruits no thyromegaly no lymphadenopathy Lungs: Bilateral equal air entry with no wheezing or crackles. No use of accessory muscles. Cardiovascular: Heart regular in rate and rhythm, no murmur, no peripheral edema Abdominal: Soft, obese, bilateral CVA tenderness present Skin: Normal temperature, tone, texture, turgor no induration no subcutaneous nodules no rash,lesions no ulcers Extremities: No digital cyanosis no clubbing pedal pulses intact and symmetrical radial pulses intact and symmetrical normal gait and station no calf tenderness Psychiatric: Alert and oriented to person, place and time appropriate affect intact judgement Neuro: Muscle Strength 5/5 in all 4 extremities sensation to light touch grossly present throughout cranial nerves II-XII grossly intact no focal sensory deficits Results CBC & Chem 7: 12/29/21 12:05 12/29/21 12:05 Labs: Abnormal Lab Results - Last 24 Hours (Table) 12/29/21 12/29/21 12/29/21 Range/Units 11:55 12:05 12:05 BUN 26 H (9-20) mg/dL Creatinine 1.54 H (0.66-1.25) mg/dL Glucose 120 H (74-99) mg/dL Plasma Lactic Acid Shemar 3.3 H* (0.7-2.0) mmol/L Urine Protein Trace H (Negative) Ur Leukocyte Esterase Trace H (Negative) Hyaline Casts 23 H (0-2) /lpf Urine Mucus Rare H (None) /hpf CT scan - abdomen: report reviewed CT scan - pelvis: report reviewed Thrombosis Risk Factor Assmnt - DVT/VTE Prophylaxis DVT/VTE Prophylaxis: Pharmacologic Prophylaxis ordered, Mechanical Prophylaxis ordered Assessment and Plan Assessment: 1. UTI/pyelonephritis - Start IV ceftriaxone for empiric coverage - Obtain UA with reflex culture - Patient could also have chronic prostatitis, in which case we could switch his antibiotic to ciprofloxacin. - Can consider urology consult if needed 2. Acute kidney injury - Baseline creatinine unknown - Likely prerenal secondary to dehydration - Gentle IV fluid hydration, monitor for signs of fluid overload as patient has history of CHF - Monitor BMP - I would hold his home medications of metformin, Lasix and valsartan 3. Lactic acidosis - Likely secondary to #1 and #2 - IV fluids as above - Repeat in a.m. 4. Chronic medical problems including hypertension, CHF and MARIALUISA - Resume home medications as written in medication orders DVT prophylaxis with Lovenox Patient is full code Time with Patient: Greater than 30
[2021-12-29] MEDS: SODIUM CHLORIDE 0.9% 1,000 ML IV SCH (18:15)
[2021-12-29] MEDS ORDERED: GABAPENTIN 300 MG CAP PO SCH (21:00)
[2021-12-29] MEDS ORDERED: metFORMIN 500 MG TAB PO SCH (21:00)
[2021-12-29] MEDS ORDERED: VALSARTAN 160 MG TAB PO SCH (21:00)
[2021-12-29] MEDS ORDERED: ATORVASTATIN 20 MG TAB PO SCH (21:00)
[2021-12-29 21:04] LABS: Glucose,Whole Blood 126 mg/dL (75-99)
[2021-12-29] MEDS: METOPROLOL TARTRATE 50 MG TAB PO SCH (21:28)
[2021-12-29] MEDS ORDERED: hydrALAZINE HCL 25 MG TAB PO STA (22:15)
[2021-12-30] MEDS ORDERED: hydrALAZINE HCL 25 MG TAB PO STA ×2 (02:19→05:33)
[2021-12-30] MEDS: SODIUM CHLORIDE 0.9% 1,000 ML IV SCH (05:39)
[2021-12-30] MEDS ORDERED: LEVOTHYROXINE 75 MCG TAB PO SCH (06:30)
[2021-12-30 07:07] LABS: Glucose,Whole Blood 127 mg/dL (75-99)
[2021-12-30 07:24] VITALS: RESP 18
[2021-12-30] MEDS ORDERED: PANTOPRAZOLE 40 MG TABLET PO SCH (07:30)
[2021-12-30] MEDS: METOPROLOL TARTRATE 50 MG TAB PO SCH (08:40)
[2021-12-30] MEDS ORDERED: NIFEdipine XL 30 MG TAB.ER.24 PO SCH (09:00)
[2021-12-30] MEDS ORDERED: SERTRALINE 50 MG TAB PO SCH (09:00)
[2021-12-30] MEDS ORDERED: POTASSIUM CHLORIDE ER 10 MEQ TAB.ER.PRT PO SCH (09:00)
[2021-12-30] MEDS ORDERED: ENOXAPARIN 40 MG/0.4 ML SYRINGE SQ SCH (09:00)
[2021-12-30] MEDS ORDERED: AMIODARONE 200 MG TAB PO SCH (09:00)
[2021-12-30] MEDS ORDERED: FUROSEMIDE 20 MG TAB PO SCH (09:00)
[2021-12-30] MEDS ORDERED: CLOPIDOGREL 75 MG TAB PO SCH (09:00)
[2021-12-30 09:23] LABS: Basophils # (A) 0.07 X 10*3/uL (0.00-0.10); Eosinophils # (A) 0.25 X 10*3/uL (0.04-0.35); Eosinophils % (A) 3.6 %; HCT 39.8 % (39.6-50.0); HGB 12.8 g/dL (13.0-17.0); Immature Grans, Automated 0.1 %; Lymphocytes # (A) 1.81 X 10*3/uL (0.90-5.00); Lymphocytes % (A) 26.1 %; MCH 29.8 pg (27.0-32.0); MCHC 32.2 g/dL (32.0-37.0); MCV 92.6 fL (80.0-97.0); Mean Platelet Volume 12.5 fL (9.5-12.2); Monocytes # (A) 0.61 X 10*3/uL (0.20-1.00); Monocytes % (A) 8.8 %; NRBC Per 100 WBC 0 /100 WBCS (0.0-0.0); Neutrophils # (A) 4.19 X 10*3/uL (1.80-7.70); Neutrophils % (A) 60.4 %; Platelet Count 190 X 10*3/uL (140-440); RDW 13.1 % (11.5-14.5); WBC 6.94 X 10*3/uL (4.50-10.00)
[2021-12-30 09:25] LABS: African American GFR (CKD) 76.2 (60.0-200.0); Anion Gap 12.5 mmol/L (10.00-18.00); BUN/Creat Ratio 17.27 Ratio (12.00-20.00); Calcium 9.1 mg/dL (8.7-10.3); Carbon Dioxide 30.5 mmol/L (20.0-27.5); Non-African American GFR(CKD) 65.8 (60.0-200.0); Potassium 2.8 mmol/L (3.5-5.5)
[2021-12-30] MEDS ORDERED: Potassium Replacement Protocol 1 EACH MISC MISCELLANE PRN (10:03)
[2021-12-30] MEDS: POTASSIUM CHLORIDE ER 20 MEQ TAB.ER PO SCH ×3 (10:25→13:33)
[2021-12-30 11:45] LABS: Glucose,Whole Blood 141 mg/dL (75-99)
[2021-12-30 13:47] VITALS: BP 159/83; PULSE 68; TEMP 98
--- NOTE | 2021-12-31 18:12 | P.DS ---
Providers Date of admission: 12/29/21 17:16 Expected date of discharge: 12/30/21 Attending physician: Ilsa Carpio DO Primary care physician: Jamshid Mccain - Discharge Diagnosis(es) (1) UTI (urinary tract infection) Status: Acute Priority: High Hospital Course: HPI from 12/29/2021: 76-year-old male with history of CHF, type 2 diabetes, hypertension, MARIALUISA on home CPAP was asked by his dining room attendant to come to the ED due to abnormal labs. He has a pacemaker and was following up with the dining room attendant regarding that. He has been having left-sided flank pain for a few days now. He denies any fever or chills. He reports that his lab work showed some evidence of urinary tract infection. He has been taking a few Motrin for his low back pain/flank pain. He reports he has been having increased urinary frequency and foul-smelling urine. He denies dysuria. Denies chest pain, shortness of breath, palpitations, abdominal pain, headache, nausea, vomiting, weakness. Lab work in the ED remarkable for creatinine of 1.5, lactic acid of 3.3. UA is not available at the time of my evaluation. Patient has been started on gentle intravenous fluids. CT of the abdomen and pelvis was reported as questionable 2 mm right lower pole nonobstructing renal stone and urinary bladder wall thickening which could be related to cystitis. EKG does not show acute ischemic changes. He is afebrile. His vitals are stable and he is saturating 95% on room air. Hospital course: Patient was admitted for treatment of presumed UTI and clinical signs of pyelonephritis. Although his UA from the ED this admission did not show any significant findings, outpatient UA done 2 days prior does evidence of leukocytosis, leukocyte esterase, nitrites, and bacteria. He was started on IV ceftriaxone, IV fluids. He had also presented with mild renal failure which resolved the following day. Within 24 hours, his flank pain has completely res olved, dysuria had resolved as well, urinary frequency and urgency have improved. He received an additional dose of IV ceftriaxone the following day, he remained afebrile with normal vital signs, renal function returned to normal. Patient felt significantly better and was insisting on going home. Given the concern for pyelonephritis and lack of culture results, patient was discharged home on oral levofloxacin for an additional 7 days. Patient Condition at Discharge: Good Plan - Discharge Summary Discharge Rx Participant: Yes New Discharge Prescriptions: New Levofloxacin [Levaquin] 750 mg PO DAILY 5 Days #5 tab No Action Metoprolol Tartrate [Lopressor] 50 mg PO BID tab Sertraline [Zoloft] 50 mg PO DAILY Amiodarone [Cordarone] 200 mg PO DAILY Furosemide [Lasix] 20 mg PO DAILY Pantoprazole [Protonix] 40 mg PO DAILY Levothyroxine Sodium [Synthroid] 75 mcg PO DAILY Gabapentin [Neurontin] 300 mg PO HS metFORMIN HCL [Glucophage] 1,000 mg PO BID NIFEdipine [Procardia XL] 30 mg PO DAILY Force Prostate 2 tab PO DAILY Docusate [Colace] 100 mg PO DAILY PRN PRN Reason: Constipation Atorvastatin Calcium [Lipitor] 20 mg PO HS Potassium Chloride 10 meq PO DAILY Clopidogrel [Plavix] 75 mg PO DAILY Valsartan 320 mg PO HS Discharge Medication List Metoprolol Tartrate [Lopressor] 50 mg PO BID tab 01/22/18 [Rx] Sertraline [Zoloft] 50 mg PO DAILY 02/27/19 [History] Amiodarone [Cordarone] 200 mg PO DAILY 08/01/21 [History] Atorvastatin Calcium [Lipitor] 20 mg PO HS 08/01/21 [History] Force Prostate 2 tab PO DAILY 08/01/21 [History] Furosemide [Lasix] 20 mg PO DAILY 08/01/21 [History] Gabapentin [Neurontin] 300 mg PO HS 08/01/21 [History] Levothyroxine Sodium [Synthroid] 75 mcg PO DAILY 08/01/21 [History] NIFEdipine [Procardia XL] 30 mg PO DAILY 08/01/21 [History] Pantoprazole [Protonix] 40 mg PO DAILY 08/01/21 [History] Potassium Chloride 10 meq PO DAILY 08/01/21 [History] metFORMIN HCL [Glucophage] 1,000 mg PO BID 08/01/21 [History] Clopidogrel [Plavix] 75 mg PO DAILY 08/02/21 [History] Docusate [Colace] 100 mg PO DAILY PRN 12/29/21 [History] Valsartan 320 mg PO HS 12/29/21 [History] Levofloxacin [Levaquin] 750 mg PO DAILY 5 Days #5 tab 12/30/21 [Rx] Follow up Appointment(s)/Referral(s): Jamshid Mccain DO [Primary Care Provider] - 1-2 days Patient Instructions/Handouts: Urinary Tract Infection in Men (DC) Discharge Disposition: HOME SELF-CARE
== END 2021-12-30 14:30 | disposition home or self-care (01) ==
LOC: EC 11:14 → 4SSUR 17:16
PROVIDERS: ADMIT Internal Medicine; ATTEND Internal Medicine
DX: N12 Tubulo-interstitial nephritis, not specified as acute or chronic (principal); I11.0 Hypertensive heart disease with heart failure; I50.9 Heart failure, unspecified; E11.9 Type 2 diabetes mellitus without complications; N17.9 Acute kidney failure, unspecified; E87.2 Acidosis; E86.0 Dehydration; E66.9 Obesity, unspecified; Z68.33 Body mass index [BMI] 33.0-33.9, adult; G47.33 Obstructive sleep apnea (adult) (pediatric); M54.50 Low back pain, unspecified; K21.9 Gastro-esophageal reflux disease without esophagitis; E78.5 Hyperlipidemia, unspecified; L40.9 Psoriasis, unspecified; Z86.14 Personal history of Methicillin resistant Staphylococcus aureus infection; Z95.0 Presence of cardiac pacemaker; Z87.891 Personal history of nicotine dependence; Z86.010 Personal history of colon polyps; Z79.899 Other long term (current) drug therapy; Z79.890 Hormone replacement therapy; Z79.84 Long term (current) use of oral hypoglycemic drugs; Z79.02 Long term (current) use of antithrombotics/antiplatelets; Z82.49 Family history of ischemic heart disease and other diseases of the circulatory system; Z80.9 Family history of malignant neoplasm, unspecified
CPT/HCPCS: 96365; 96366 ×2; 96372; 96361; 96375; 99285; 36415; 93005; 80053; 80048; 82150; 83605 ×2; 83690; 85025 ×2; 85610; 85730; 81001; 74176; G0378 ×2; J2270; J2405; J1650; J0696 ×2; J1170

== ENCOUNTER 2022-04-01 21:34 | Emergency (ER) | payer MEDICARE ==
[2022-04-01 21:45] VITALS: TEMP 98.2
--- NOTE | 2022-04-01 22:17 | XR ---
EXAMINATION TYPE: XR finger LT DATE OF EXAM: 04/01/2022 COMPARISON: NONE HISTORY: Thumb laceration TECHNIQUE: 3 views FINDINGS: I see no fracture nor dislocation. No cerebellar foreign body. There is laceration deformit y of the soft tissues at the tip of the distal phalanx. IMPRESSION: Laceration deformity. No fracture. No foreign body.
[2022-04-02] MEDS ORDERED: LIDOCAINE 1% INJ 10MG/ML (5 ML VIAL-PF) SQ ONE (00:09)
--- NOTE | 2022-04-02 00:23 | ED ---
Wound/Laceration HPI - General Chief Complaint: Wound/Laceration Stated Complaint: Lt hand Laceration Time Seen by Provider: 04/02/22 00:05 Source: patient, family, RN notes reviewed, old records reviewed Mode of arrival: ambulatory Limitations: no limitations - History of Present Illness Initial Comments: 77-year-old male, alert and oriented 4, presents to the emergency room after sustaining a laceration to his left thumb on the table saw around 12:30 this afternoon while cutting wood. He did put a dressing on it but continued to bleed. He states that he is on blood thinners. States his tetanus shot is up-to-date. -: hour(s) (12) Extremity Location: Left: Hand (thumb) Place: home Patient Tetanus UTD: Yes Context: accidental, power tool use (saw) Associated Symptoms: none Treatments Prior to Arrival: bandage - Related Data Home Medications Medication Instructions Recorded Confirmed Sertraline [Zoloft] 50 mg PO DAILY 02/27/19 12/29/21 Amiodarone [Cordarone] 200 mg PO DAILY 08/01/21 12/29/21 Atorvastatin Calcium [Lipitor] 20 mg PO HS 08/01/21 12/29/21 Force Prostate 2 tab PO DAILY 08/01/21 12/29/21 Furosemide [Lasix] 20 mg PO DAILY 08/01/21 12/29/21 Gabapentin [Neurontin] 300 mg PO HS 08/01/21 12/29/21 Levothyroxine Sodium [Synthroid] 75 mcg PO DAILY 08/01/21 12/29/21 NIFEdipine [Procardia XL] 30 mg PO DAILY 08/01/21 12/29/21 Pantoprazole [Protonix] 40 mg PO DAILY 08/01/21 12/29/21 Potassium Chloride 10 meq PO DAILY 08/01/21 12/29/21 metFORMIN HCL [Glucophage] 1,000 mg PO BID 08/01/21 12/29/21 Clopidogrel [Plavix] 75 mg PO DAILY 08/02/21 12/29/21 Docusate [Colace] 100 mg PO DAILY PRN 12/29/21 12/29/21 Valsartan 320 mg PO HS 12/29/21 12/29/21 Previous Rx's Medication Instructions Recorded Metoprolol Tartrate [Lopressor] 50 mg PO BID tab 05/08/18 Levofloxacin [Levaquin] 750 mg PO DAILY 5 Days #5 tab 12/30/21 Cephalexin [Keflex] 500 mg PO Q6HR 5 Days #20 cap 04/02/22 Allergies Allergy/AdvReac Type Severity Reaction Status Date / Time clonidine AdvReac Unknown Verified 04/01/22 21:45 Review of Systems ROS Statement: Those systems with pertinent positive or pertinent negative responses have been documented in the HPI. ROS Other: All systems not noted in ROS Statement are negative. Past Medical History Past Medical History: Chest Pain / Angina, Heart Failure, Diabetes Mellitus, GERD/Reflux, Hyperlipidemia, Hypertension, Skin Disorder, Sleep Apnea/CPAP/BIPAP Additional Past Medical History / Comment(s): APRIL 2021, WENT TO [facility], [facility] (HIT HEAD), TRANSFERRED TO [place] WITH A BRAIN BLEED. PSORIASIS, uses CPAP, past cellulitis in joe legs when in [place]. broken nose age 20(sx) History of Any Multi-Drug Resistant Organisms: MRSA Date of last positivie culture/infection: 04/03/19 MDRO Source:: Right Leg Past Surgical History: Adenoidectomy, Cardiac Ablation, Heart Catheterization, Orthopedic Surgery, Pacemaker, Tonsillectomy Additional Past Surgical History / Comment(s): APRIL 2021 WATCHMAN'S PROCEDURE. rt carpal tunnel release, pacemaker, colonoscopy/polypectomy,nasal sx, hemorrhoidectomy, watchman insertion Past Anesthesia/Blood Transfusion Reactions: No Reported Reaction Type of Cardiac Device: Permanent Pacemaker Device Placement Date:: April 2015 Past Psychological History: No Psychological Hx Reported Smoking Status: Former smoker Past Alcohol Use History: None Reported, Rare Past Drug Use History: None Reported - Past Family History Mother Family Medical History: Myocardial Infarction (MD) Father Family Medical History: Cancer General Exam Limitations: no limitations General appearance: alert, in no apparent distress Head exam: Present: atraumatic, normocephalic Eye exam: Absent: scleral icterus, conjunctival injection Respiratory exam: Absent: respiratory distress, accessory muscle use Cardiovascular Exam: Present: regular rate Left Hand Wrist exam: Present: tenderness, laceration (left thumb 2cm ) Neuro motor exam: Present: wrist extension intact, thumb opposition intact, thumb IP flexion intact, thumb adduction intact, fingers 2-5 abduction intact Vascular: Absent: vascular compromise Neurological exam: Present: alert, oriented X3 Psychiatric exam: Present: normal affect, normal mood Skin exam: Present: warm, dry, normal color. Absent: cyanosis, diaphoretic, petechiae, pallor Course Vital Signs 04/01/22 04/02/22 21:40 01:29 Temperature 98.2 F Pulse Rate 60 79 Respiratory 20 18 Rate Blood Pressure 165/100 186/104 O2 Sat by Pulse 99 99 Oximetry Medical Decision Making - Medical Decision Making Patient states his tetanus shot is up-to-date. Wound was irrigated and soaked in saline/Betadine solution. Attempt was made to approximate wound with suture and unsuccessful. Dr. Henry at bedside place Steri-Strips and gauze bandage. Patient was placed on antibiotics due to the risk of contamination. Instructed to return with any new or concerning signs of infection or pain. Aluminum splint was applied over bandage. Patient's blood pressure is elevated at this visit. He states that he always runs high when in the hospital in addition to the discomfort of his thumb. Patient states he also did not take his nighttime medication as he has been in the emergency room. Instructed to take his evening blood pressure medication when he gets home. Patient and are agreeable to this plan of care. Disposition Clinical Impression: Laceration, Visit for wound care Disposition: HOME SELF-CARE Condition: Good Instructions (If sedation given, give patient instructions): Finger Laceration (ED) Additional Instructions: Keep wound clean and bandaged. Take antibiotics as prescribed. Follow-up with your primary care doctor in 7-10 days. Return to the emergency room with any new or concerning symptoms including fevers, increased pain or drainage. Prescriptions: Cephalexin [Keflex] 500 mg PO Q6HR 5 Days #20 cap Is patient prescribed a controlled substance at d/c from ED?: No Referrals: Jamshid Mccain DO [Primary Care Provider] - 1-2 days Time of Disposition: 01:15
[2022-04-02] MEDS ORDERED: CEPHALEXIN 500 MG CAP PO STA (00:35)
[2022-04-02] MEDS ORDERED: LIDOCAINE/EPINEPHR/TETRACAINE 5 ML BOTTLE TOPICAL ONE (00:40)
[2022-04-02 01:30] VITALS: BP 186/104; PULSE 79; RESP 18
== END 2022-04-02 01:34 | disposition home or self-care (01) ==
LOC: EC 21:34
DX: S61.012A Laceration without foreign body of left thumb without damage to nail, initial encounter (principal); E11.9 Type 2 diabetes mellitus without complications; I11.0 Hypertensive heart disease with heart failure; K21.9 Gastro-esophageal reflux disease without esophagitis; Z79.83 Long term (current) use of bisphosphonates; Z87.891 Personal history of nicotine dependence; Z82.49 Family history of ischemic heart disease and other diseases of the circulatory system; Z88.8 Allergy status to other drugs, medicaments and biological substances; W26.8XXA Contact with other sharp object(s), not elsewhere classified, initial encounter
CPT/HCPCS: 99283

== ENCOUNTER → 2022-05-23 | Day surgery (SDC) | payer MEDICARE ==
[2022-05-19 12:37] VITALS: BMI 33.9
[~2022-05-23] MED LIST changes: +ACETAMINOPHEN TAB 500 MG TAB PO PRN; +ASPIRIN 81 MG PO SCH; +ATORVASTATIN 20 MG TAB PO SCH; +CLOPIDOGREL 75 MG TAB PO SCH; +DOCUSATE 100 MG CAP PO PRN; +FUROSEMIDE 20 MG TAB PO SCH; +GABAPENTIN 300 MG CAP PO SCH; +HEPARIN SODIUM 1,000 UN/ML (10ML VL) ONE; +HEPARIN SODIUM,PORCINE 10,000 UNIT in SODIUM CHLORIDE 0.9% 1,000 ML IRRIGATION PRN; +HEPARIN SODIUM,PORCINE 2,500 UNIT in SODIUM CHLORIDE 0.9% 250 ML IRRIGATION PRN; +IOPAMIDOL-370 125ML BTL INJ ONE; +LEVOTHYROXINE 75 MCG TAB PO SCH; +LIDOCAINE 1% INJ 10MG/ML (30 ML VIAL-PF) SQ ONE; +LOPERAMIDE 2 MG CAP PO PRN; +METOPROLOL TARTRATE 50 MG TAB PO SCH; +MIDAZOLAM 2 MG/2 ML VIAL IVP ONE; +NIFEdipine XL 30 MG TAB.ER.24 PO SCH; +NITROGLYCERIN 1000MCG/10ML SYRINGE INTRACORON ONE; +NON FORMULARY DRUG (Insulin Lispro (Humalog) 100 UNIT/1 ML Ml) SQ SCH; +NON FORMULARY DRUG (Valsartan [Valsartan] 320 MG Tablet) PO SCH; +PANTOPRAZOLE 40 MG TABLET PO SCH; +POTASSIUM CHLORIDE ER 10 MEQ TAB.ER.PRT PO SCH; +SERTRALINE 50 MG TAB PO SCH; +SODIUM CHLORIDE 0.9% 1,000 ML IV ONE; +VERAPAMIL 2.5 MG/ML 2 ML AMP ONE; +VERAPAMIL SYRINGE (5 MG/10 ML) INTRAARTER ONE; +[UNRECOGNIZED DRUG - OTHER] PO SCH; +fentaNYL (PF) 50 MCG/ML 2 ML AMP IVP ONE; +fentaNYL (PF) 50 MCG/ML 2 ML AMP ONE
[2022-05-23 06:37] LABS: Glucose,Whole Blood 124 mg/dL (70-110)
[2022-05-23 07:00] VITALS: TEMP 98
[2022-05-23] MEDS: HEPARIN SODIUM 1,000 UN/ML (10ML VL) IV ONE ×2 (07:54→08:09)
--- NOTE | 2022-05-23 08:30 | P.CARDCATH ---
Description of Procedure: PROCEDURES PERFORMED: Left heart catheterization, bilateral coronary angiography, iFR LAD, RCA INDICATION: Abnormal stress test CONSENT:I have discussed the risks, benefits and alternative therapies for the above-mentioned procedure and for both sedation/analgesia as well as necessary blood product administration, if indicated, as they pertain to this patient. The patient has indicated understanding and acceptance of the risks and procedures discussed. PROCEDURE: After the risks, benefits and alternatives of the above mentioned procedure explained in detail with the patient, informed consent was obtained. Patient was taken to the catheterization lab and prepped and draped in usual fashion. 1% lidocaine was used to anesthetize the right radial artery. A 6- [place]i sheath was placed in the right radial artery using modified Seldinger technique. Left coronary angiography was performed with a 5-[place] JL 3.5 catheter and right coronary angiography was performed with a 5-[place] JR5 catheter in various views. A 5-[place]i FR5 catheter was inserted into the left ventricle and pressure measurements were obtained. Given abnormality in the apex and inferior wall the decision was made to perform iFR of the LAD and RCA. Heparin was given. A 6-[place]i AL 0.75 guide was used to engage the RCA. A 0.014 pressure wire was advanced into the proximal RCA and normalize. The wire was then advanced into the mid RCA, 1 cm past the lesion and iFR was performed and was normal at 0.96. The wire was removed. Next a 6- [place] CLS 3.5 guide was used engage the left main. Again a 0.014 pressure wire was advanced into the left main and normalize. He was then advanced 1 cm distal to the LAD lesion. Initial measurement was 0.87 however there was approximately 0.05 drift noted with pullback and therefore the wire was re-normalized and advanced and iFR was again performed and was normal at 0.93. There was no drift. The wire was removed. The right radial sheath was removed and a TR band was placed with hemostasis achieved. The patient tolerated the procedure well. Patient was transported back to the post catheterization holding area in stable condition. Conscious Sedation: Patient was monitored under the direct supervision of vision of myself for conscious sedation using Versed and fentanyl for a total duration of 31 minutes HEMODYNAMICS: Aortic: 127/74 LV: 137/13, LVEDP 24 SELECTIVE CORONARY ARTERIOGRAPHY: LEFT MAIN: The left main is a large caliber vessel which bifurcates into the LAD and circumflex. There is distal left main 20% stenosis. LEFT ANTERIOR DESCENDING CORONARY ARTERY: LAD is a large caliber vessel which wraps around to the apex. There is diffuse long 50-60% proximal to mid LAD st enosis and then more diffuse 30-40% mid to distal LAD stenosis. LEFT CIRCUMFLEX CORONARY ARTERY: Left circumflex is a moderate caliber vessel with diffuse 30% stenosis. RIGHT CORONARY ARTERY: The right coronary artery is a large caliber vessel which gives off a PDA and PLV branch and is the dominant vessel. There is a long tubular 50% proximal to mid RCA stenosis. FINAL IMPRESSION: 1. Diffuse multivessel [id number] CAD as described above with 50-60% proximal to mid LAD stenosis, 50% proximal to mid RCA stenosis, 30% circumflex stenosis. 2. iFR LAD and RCA normal at 0.93 and 0.96 respectively 3. Elevated left sided filling pressures PLAN: 1. Aggressive risk factor modification per most recent ACC/AHA guidelines. 2. Follow-up in the office in 1-2 weeks.
[2022-05-23 11:20] VITALS: RESP 16
[2022-05-23 11:33] VITALS: BP 132/70; PULSE 68
== END | disposition home or self-care (01) ==
LOC: CATHCVL 05:53
PROVIDERS: ATTEND Internal Medicine
DX: I25.10 Atherosclerotic heart disease of native coronary artery without angina pectoris (principal); U07.1 COVID-19; I48.0 Paroxysmal atrial fibrillation; I12.9 Hypertensive chronic kidney disease with stage 1 through stage 4 chronic kidney disease, or unspecified chronic kidney disease; N18.9 Chronic kidney disease, unspecified; E11.22 Type 2 diabetes mellitus with diabetic chronic kidney disease; G47.30 Sleep apnea, unspecified; J44.9 Chronic obstructive pulmonary disease, unspecified; F17.210 Nicotine dependence, cigarettes, uncomplicated; M54.6 Pain in thoracic spine; Z95.0 Presence of cardiac pacemaker; Z86.73 Personal history of transient ischemic attack (TIA), and cerebral infarction without residual deficits; Z79.82 Long term (current) use of aspirin; Z79.01 Long term (current) use of anticoagulants; Z79.84 Long term (current) use of oral hypoglycemic drugs; Z79.899 Other long term (current) drug therapy
CPT/HCPCS: 93458; 93799; 87635; J2250; J2001; J3010; J1644; Q9967

== ENCOUNTER → 2022-06-09 | Outpatient (CLI) | payer MEDICARE ==
--- NOTE | 2022-06-09 10:09 | XR ---
EXAMINATION TYPE: XR thoracic spine complete DATE OF EXAM: 06/09/2022 9:54 AM INDICATION: Patient age:Male; 77 years old; Reason for study: M546 THOR PAIN; [facility]. COMPARISON: CT chest 08/10/2014 TECHNIQUE: 3 views of the thoracic spine in Frontal , swimmer's, and lateral projections. FINDINGS: No evidence of acute fracture. Mild multilevel degenerative disc disease with disc space narrowing, e ndplate sclerosis, and anterior osteophytosis. There is normal alignment of the thoracic vertebral merrick dies. Dual lead cardiac pacemaking device identified. IMPRESSION: 1. No acute osseous pathology. 2. Mild degenerative disc disease.
== END | disposition home or self-care (01) ==
LOC: RADXRYALE 09:41
PROVIDERS: ATTEND Family Medicine
DX: M51.34 Other intervertebral disc degeneration, thoracic region (principal)
CPT/HCPCS: 72072

== ENCOUNTER → 2023-02-28 | Outpatient (CLI) | payer MEDICARE ==
--- NOTE | 2023-02-28 16:24 | US ---
EXAMINATION TYPE: US abdomen limited DATE OF EXAM: 02/28/2023 COMPARISON: CLINICAL INDICATION: Male, 78 years old with history of R10.11 RIGHT UPPER QUADRANT PAIN; Patient sta osmin having back pain. TECHNIQUE: Multiple sonographic images of the right upper quadrant are obtained. FINDINGS: EXAM MEASUREMENTS: Liver Length: 17.0 cm Gallbladder Wall: 0.2 cm CBD: 0.4 cm Right Kidney: 11.1 x 5.4 x 5.5 cm Pancreas: Echogenic in appearance. Tail obscured by overlying bowel gas. Liver: Echogenic and coarse in appearance. Gallbladder: wnl Evidence for sonographic Madden's sign: neg CBD: wnl Right Kidney: No hydronephrosis or masses seen IMPRESSION: 1. Hepatomegaly with mild fatty infiltration of the liver.
== END | disposition home or self-care (01) ==
LOC: RADUSWWP 08:38
PROVIDERS: ATTEND Family Medicine
DX: K76.0 Fatty (change of) liver, not elsewhere classified (principal); R16.0 Hepatomegaly, not elsewhere classified
CPT/HCPCS: 76705

== ENCOUNTER → 2023-12-20 | Outpatient (CLI) | payer MEDICARE ==
--- NOTE | 2023-12-20 14:32 | XR ---
EXAMINATION TYPE: XR finger LT DATE OF EXAM: 12/20/2023 CLINICAL HISTORY: pain TECHNIQUE: 3 views of the left third digit are submitted. COMPARISON: None FINDINGS: Mildly comminuted and mildly displaced fracture involving the distal phalanx left third dig it. Associated soft tissue swelling and injury. No additional fracture seen. Joint spaces are well-pr eserved. IMPRESSION: As above
== END | disposition home or self-care (01) ==
LOC: RADXRYALE 14:12
PROVIDERS: ATTEND Physician Assistant
DX: M79.89 Other specified soft tissue disorders (principal); S62.633A Displaced fracture of distal phalanx of left middle finger, initial encounter for closed fracture; X58.XXXA Exposure to other specified factors, initial encounter

== ENCOUNTER 2024-07-10 08:45 | Day surgery (SDC) | payer MEDICARE ==
[2024-07-10] MEDS: SODIUM CHLORIDE 0.9% 1,000 ML IV ONE (09:25)
[2024-07-10] MEDS: SODIUM CHLORIDE 0.9% 1,000 ML IV SCH (09:34)
[2024-07-10 09:36] LABS: Glucose,Whole Blood 143 mg/dL (70-110)
[2024-07-10 09:48] VITALS: TEMP 97
[2024-07-10 09:54] VITALS: RESP 16
[2024-07-10] MEDS ORDERED: PROPOFOL 10 MG/ML 20 ML VIAL IV ONE (10:00)
[2024-07-10] MEDS ORDERED: LIDOCAINE 1% INJ 10MG/ML (20 ML MDV) ONE (10:00)
[2024-07-10] MEDS: BENZOCAINE SPRAY 1 EACH MM ONE (10:12)
[2024-07-10] MEDS: IV FLUID CONTINUATION 1,000 ML IV ONE (10:58)
--- NOTE | 2024-07-10 11:08 | P.TEE ---
Description of Procedure(s): Procedure performed: Transesophageal Echocardiogram with color flow doppler, pulsed wave doppler and continuous wave doppler, synchronized cardioversion Moderate conscious sedation: Moderate conscious sedation was supplied by anesthesia, see separate report. Complications: none Indications: persistent atrial fibrillation PROCEDURE: After the risks, benefits and alternatives of the above mentioned procedure was explained in detail with the patient, informed consent was obtained. Patient was brought to the lab in a fasting state. Patient was given sedation by anesthesia, see separate report. The throat was sprayed with Hurricane to anesthetize the throat. A lubricated Omni probe was then introduced into the esophagus and stomach and multiple views were obtained. 2D echo with color flow doppler, pulsed wave doppler and continuous wave doppler was utilized. Agitated saline bubbles were injected to assess for any intra- atrial shunt. The probe was then removed. There was no thrombus noted and therefore patient underwent synchronized cardioversion x 1 with 200J with resultant sinus/ paced atrial rhythm. Patient tolerated the procedure well. Patient was transferred to the post procedure area in stable and satisfactory condition. FINDINGS: 1. The aortic valve is tricuspid and function normally with trace aortic insufficiency. 2. The mitral valve appears be normal with mild regurgitation. 3. Tricuspid valve appears to be normal. There is a RV lead noted in the right ventricle 4. The interatrial septum is intact. No evidence of PFO. 5. Left atrial appendage has a watchman device which is in proper position with no leak, no left atrial appendage thrombus. 6. Left ventricular ejection fraction 45% with global hypokinesis.
[2024-07-10 11:48] VITALS: BP 138/77; PULSE 62
== END 2024-07-10 12:08 | disposition home or self-care (01) ==
LOC: OR 08:45
PROVIDERS: ATTEND Internal Medicine
DX: I48.19 Other persistent atrial fibrillation (principal); I10 Essential (primary) hypertension; E78.5 Hyperlipidemia, unspecified; I50.22 Chronic systolic (congestive) heart failure; G47.33 Obstructive sleep apnea (adult) (pediatric); J44.9 Chronic obstructive pulmonary disease, unspecified; F17.210 Nicotine dependence, cigarettes, uncomplicated; E11.9 Type 2 diabetes mellitus without complications; E03.9 Hypothyroidism, unspecified; K21.9 Gastro-esophageal reflux disease without esophagitis; Z95.0 Presence of cardiac pacemaker; I67.9 Cerebrovascular disease, unspecified; Z79.84 Long term (current) use of oral hypoglycemic drugs; Z79.890 Hormone replacement therapy; Z79.02 Long term (current) use of antithrombotics/antiplatelets; Z79.899 Other long term (current) drug therapy; Z88.5 Allergy status to narcotic agent
CPT/HCPCS: 93312; 93320; 93325; 92960; J2003; J2704

== ENCOUNTER → 2024-10-10 | Outpatient (CLI) | payer MEDICARE ==
--- NOTE | 2024-10-10 13:32 | CT ---
EXAMINATION TYPE: CT brain wo con CT DLP: 1230 mGycm, Automated exposure control for dose reduction was used. DATE OF EXAM: 10/10/2024 1:17 PM COMPARISON: Prior CT Brain from 05/08/2021, 09/17/2017. CLINICAL INDICATION:Male, 79 years old with history of R42 dizziness and giddiness, DIZZY TECHNIQUE: Brain: Multiple axial CT images of the brain were obtained without IV contrast. . Coronal and sagitta l reformats reviewed. FINDINGS: Brain: Extra-axial spaces: No abnormal extra-axial fluid collections. Ventricular system: Within normal limits Cerebral parenchyma: Age-appropriate cerebral volume loss. No acute intraparenchymal hemorrhage or ma ss effect. The chávez-white junction is well differentiated. Minimal scattered hypoattenuating areas a re seen within the periventricular white matter. Remote left thalamic lacunar infarct. Cerebellum: Unremarkable. Mass effect: No evidence of midline shift. Intracranial vasculature: Atherosclerotic calcifications of the intracranial vessels. Soft tissues: Normal. Calvarium/osseous structures: No depressed skull fracture. Paranasal sinuses and mastoid air cells: Mild mucosal thickening of the posterior left ethmoid sinus. The remaining paranasal sinuses are clear. The mastoid air cells are clear. Visualized orbits: Bilateral aphakia IMPRESSION: 1. No acute intracranial process. 2. Remote left thalamic lacunar injury along with nonspecific white matter changes likely secondary t o chronic microangiopathy. [facility], , 10/10/2024 1:30 PM
== END | disposition home or self-care (01) ==
LOC: RADCTMAIN 12:54
PROVIDERS: ATTEND Family Medicine
DX: H53.9 Unspecified visual disturbance (principal); G31.84 Mild cognitive impairment of uncertain or unknown etiology; R42 Dizziness and giddiness; E11.40 Type 2 diabetes mellitus with diabetic neuropathy, unspecified; E11.69 Type 2 diabetes mellitus with other specified complication; R90.82 White matter disease, unspecified
CPT/HCPCS: 70450

== ENCOUNTER 2025-03-11 13:40 | Observation (INO) | payer MEDICARE ==
--- NOTE | 2025-03-11 14:04 | ED ---
Dizziness HPI - General Source: patient, RN notes reviewed Mode of arrival: ambulatory Limitations: no limitations - History of Present Illness MD Complaint: dizziness <Loreto Fuentes - Last Filed: 03/11/25 18:53> <Tatiana Hernandez - Last Filed: 03/16/25 07:57> - General Chief Complaint: Dizziness Stated Complaint: Abn Labs/Fall Time Seen by Provider: 03/11/25 14:00 - History of Present Illness Initial Comments: Quick Note: This is a 80-year-old male who presents to the emergency department for dizziness and a syncopal episode. States that he was moving trash earlier today and suddenly started feeling very dizzy. He did have a syncopal episode at one point but denies hitting his head. Not taking any blood thinners. Family states that his pacemaker is not working correctly and cardiology advised he come to the emergency department given that his blood pressure was also low. (Loreto Fuentes) 80-year-old male who presents emergency department for dizziness and syncope. Patient states that he was outside when he had a syncopal episode. Family found him in the yard. He denies hitting his head. No blood thinners. Patient does not remember feeling ill when the event came on. He denies chest pain or shortness of breath. Family did take his blood pressure and found it to be low. They are concerned as they state his pacemaker is not working appropriately. Patient feels improved at this time. Denies any injuries from his fall. No other alleviating, precipitating or modifying factors (Tatiana Hernandez) - Related Data Home Medications Medication Instructions Recorded Confirmed Sertraline [Zoloft] 50 mg PO DAILY 02/27/19 03/11/25 Atorvastatin Calcium [Lipitor] 20 mg PO DAILY 08/01/21 03/11/25 Gabapentin [Neurontin] 300 mg PO BID 08/01/21 03/11/25 Levothyroxine Sodium [Synthroid] 75 mcg PO DAILY 08/01/21 03/11/25 Pantoprazole [Protonix] 40 mg PO DAILY 08/01/21 03/11/25 metFORMIN HCL [Glucophage] 500 mg PO DAILY 08/01/21 03/11/25 Aspirin 81 mg PO DAILY 05/19/22 03/11/25 Folic Acid 0.8 mg PO DAILY 03/11/25 03/11/25 Tamsulosin [Flomax] 0.4 mg PO DAILY 03/11/25 03/11/25 Previous Rx's Medication Instructions Recorded Amiodarone HCl [Pacerone] 200 mg PO DAILY #0 03/13/25 Furosemide [Lasix] 20 mg PO DAILY #0 03/13/25 Metoprolol Tartrate [Lopressor] 25 mg PO BID #0 03/13/25 NIFEdipine XL [Procardia XL] 60 mg PO DAILY #30 tab 03/13/25 Allergies Allergy/AdvReac Type Severity Reaction Status Date / Time clonidine AdvReac DRY MOUTH Verified 03/11/25 18:39 AND LOSS OF APPETITE Review of Systems ROS Other: All systems not noted in ROS Statement are negative. <Loreto Fuentes - Last Filed: 03/11/25 18:53> ROS Other: All systems not noted in ROS Statement are negative. <Tatiana Hernandez - Last Filed: 03/16/25 07:57> ROS Statement: Those systems with pertinent positive or pertinent negative responses have been documented in the HPI. Past Medical History Past Medical History: Atrial Fibrillation, Chest Pain / Angina, Heart Failure, Diabetes Mellitus, GERD/Reflux, Hyperlipidemia, Hypertension, Renal Disease, Skin Disorder, Sleep Apnea/CPAP/BIPAP Additional Past Medical History / Comment(s): APRIL 2021, WENT TO [facility], [facility] (HIT HEAD), TRANSFERRED TO [facility] WITH A BRAIN BLEED. PSORIASIS, uses CPAP, past cellulitis in joe legs, broken nose age 20(sx), hx. kidney failure w/ dialysis - gangrenous infection of scrotum History of Any Multi-Drug Resistant Organisms: MRSA Date of last positivie culture/infection: 04/03/19 MDRO Source:: Right Leg Past Surgical History: Adenoidectomy, Cardiac Ablation, Heart Catheterization, Orthopedic Surgery, Pacemaker, Tonsillectomy Additional Past Surgical History / Comment(s): APRIL 2021 WATCHMAN'S PROCEDURE. rt carpal tunnel release, pacemaker, colonoscopy/polypectomy,nasal sx, hemorrhoidectomy, watchman insertion, scrotal excision & 2017 Past Anesthesia/Blood Transfusion Reactions: No Reported Reaction Type of Cardiac Device: Permanent Pacemaker Device Placement Date:: April 2015 Past Psychological History: No Psychological Hx Reported Smoking Status: Former smoker Past Alcohol Use History: Rare Past Drug Use History: None Reported - Past Family History Mother Family Medical History: Myocardial Infarction ([place]) Father Family Medical History: Cancer <Loreto Fuentes - Last Filed: 03/11/25 18:53> General Exam Limitations: no limitations <Loreto Fuentes - Last Filed: 03/11/25 18:53> General appearance: alert, in no apparent distress Head exam: Present: atraumatic, normocephalic, normal inspection Eye exam: Present: normal appearance, PERRL, EOMI. Absent: scleral icterus, con junctival injection, periorbital swelling ENT exam: Present: normal exam, mucous membranes moist Neck exam: Present: normal inspection. Absent: tenderness, meningismus, lymphadenopathy Respiratory exam: Present: normal lung sounds bilaterally. Absent: respiratory distress, wheezes, rales, rhonchi, stridor Cardiovascular Exam: Present: regular rate, normal rhythm, normal heart sounds. Absent: systolic murmur, diastolic murmur, rubs, gallop, clicks GI/Abdominal exam: Present: soft, normal bowel sounds. Absent: distended, tenderness, guarding, rebound, rigid Extremities exam: Present: normal inspection, full ROM, normal capillary refill. Absent: tenderness, pedal edema, joint swelling, calf tenderness Back exam: Present: normal inspection Neurological exam: Present: alert, oriented X3, CN II-XII intact Psychiatric exam: Present: normal affect, normal mood Skin exam: Present: warm, dry, intact, normal color. Absent: rash <Tatiana Hernandez - Last Filed: 03/16/25 07:57> - General Exam Comments Initial Comments: Visual Physical Exam Vital signs reviewed General: Well-appearing, nontoxic, no acute distress. Head: Normocephalic, atraumatic Eyes: PERRLA, EOMI ENT: Airway patent Chest: Nonlabored breathing Skin: No visual rash, normal skin tone Neuro: Alert and oriented 3 Musculoskeletal: No gross abnormalities (Loreto Fuentes) Course Vital Signs 03/11/25 03/11/25 03/11/25 13:58 19:17 21:03 Temperature 97.4 F L Pulse Rate 65 60 Pulse Rate [ 60 Sitting Telephone Worker] Pulse Rate [ 60 Standing Telephone Worker ] Pulse Rate [ 60 Supine Telephone Worker] Respiratory 18 21 Rate Blood Pressure 99/62 96/75 Blood Pressure 92/57 [Left Arm Sitting] Blood Pressure 72/43 [Left Arm Standing] Blood Pressure 97/59 [Left Arm Supine] O2 Sat by Pulse 95 99 Oximetry 03/11/25 03/11/25 03/12/25 21:43 22:19 00:00 Temperature 98.1 F 98.3 F Pulse Rate 60 60 60 Pulse Rate [ Sitting Telephone Worker] Pulse Rate [ Standing Telephone Worker ] Pulse Rate [ Supine Telephone Worker] Respiratory 20 20 18 Rate Blood Pressure 104/61 106/67 100/63 Blood Pressure [Left Arm Sitting] Blood Pressure [Left Arm Standing] Blood Pressure [Left Arm Supine] O2 Sat by Pulse 100 100 100 Oximetry 03/12/25 03/12/25 03/12/25 02:00 04:00 06:00 Temperature 98.1 F 98.2 F 98.1 F Pulse Rate 60 60 60 Pulse Rate [ Sitting Telephone Worker] Pulse Rate [ Standing Telephone Worker ] Pulse Rate [ Supine Telephone Worker] Respiratory 18 18 18 Rate Blood Pressure 122/60 129/77 125/72 Blood Pressure [Left Arm Sitting] Blood Pressure [Left Arm Standing] Blood Pressure [Left Arm Supine] O2 Sat by Pulse 97 98 98 Oximetry 03/12/25 03/12/25 03/12/25 09:00 10:00 11:00 Temperature Pulse Rate Pulse Rate [ Sitting Telephone Worker] Pulse Rate [ Standing Telephone Worker ] Pulse Rate [ Supine Telephone Worker] Respiratory Rate Blood Pressure 116/80 129/89 Blood Pressure [Left Arm Sitting] Blood Pressure [Left Arm Standing] Blood Pressure [Left Arm Supine] O2 Sat by Pulse 98 Oximetry 03/12/25 03/12/25 03/12/25 11:30 14:31 15:11 Temperature 97.8 F Pulse Rate 60 78 Pulse Rate [ 67 Sitting Telephone Worker] Pulse Rate [ 74 Standing Telephone Worker ] Pulse Rate [ 60 Supine Telephone Worker] Respiratory 16 18 Rate Blood Pressure 133/83 140/87 Blood Pressure 134/89 [Left Arm Sitting] Blood Pressure 122/89 [Left Arm Standing] Blood Pressure 128/85 [Left Arm Supine] O2 Sat by Pulse 97 Oximetry Medical Decision Making - Lab Data Result diagrams: 03/11/25 14:40 03/11/25 14:40 <Loreto Fuentes - Last Filed: 03/11/25 18:53> - Lab Data Result diagrams: 03/13/25 07:43 03/13/25 07:42 <Tatiana Hernandez - Last Filed: 03/16/25 07:57> - Medical Decision Making I performed the QuickNote portion of this chart. Signed Loreto Fuentes PA-C. (Loreto Fuentes) Was pt. sent in by a medical professional or institution ([facility], [facility], urgent care, hospital, or [facility]...) When possible be specific @ -No Did you speak to anyone other than the patient for history (EMS, parent, family, police, friend...)? What history was obtained from this source @ -Spoke with family for history Did you review nursing and triage notes (agree or disagree)? Why? @ -I reviewed and agree with nursing and triage notes Were old charts reviewed (outside hosp., previous admission, EMS record, old EKG, old radiological studies, urgent care reports/EKG's, [facility] records)? Report findings @ -No old charts were reviewed Differential Diagnosis (chest pain, altered mental status, abdominal pain women, abdominal pain men, vaginal bleeding, weakness, fever, dyspnea, syncope, headache, dizziness, GI bleed, back pain, seizure, CVA, palpatations, mental health, musculoskeletal)? @ -Differential Syncope: Valvular disease, hypertrophic cardiomyopathy, pulmonary embolism, tamponade, tachycardia, bradycardia, [place], hypovolemia, hemorrhage, dissection, anemia, intracranial hemorrhage, seizure, hypoglycemia, carbon monoxide poisoning, this is not meant to be an all-inclusive list. EKG interpreted by me (3pts min.). @ -Yes and demonstrates atrial pacemaker. Rate of 61. NJ interval 280. QRS 104. QTc of 413. Pacemaker captures appropriately X-rays interpreted by me (1pt min.). @ -Yes which demonstrates no acute process CT interpreted by me (1pt min.). @ -None done U/S interpreted by me (1pt. min.). @ -None done What testing was considered but not performed or refused? (CT, X-rays, U/S, labs)? Why? @ -None What meds were considered but not given or refused? Why? @ -None Did you discuss the management of the patient with other professionals (professionals i.e. Dr., PA, [facility], lab, RT, psych nurse, public health social worker, garage door technician, teacher, employment officer, rehabilitation case coordinator)? Give summary @ -Spoke with Dr. Ellington for admission Was smoking cessation discussed for >3mins.? @ -No Was critical care preformed (if so, how long)? @ -No Were there social determinants of health that impacted care today? How? (Homelessness, low income, unemployed, alcoholism, drug addiction, transportation, low edu. Level, literacy, decrease access to med. care, [place] [facility], rehab)? @ -No Was there de-escalation of care discussed even if they declined (Discuss DNR or withdrawal of care, Hospice)? DNR status @ -No What co-morbidities impacted this encounter? (DM, HTN, Smoking, COPD, CAD, Cancer, CVA, ARF, Chemo, Hep., AIDS, mental health diagnosis, sleep apnea, morbid obesity)? @ -Hypertension, chronic kidney disease Was patient admitted / discharged? Hospital course, mention meds given and route, prescriptions, significant lab abnormalities, going to OR and other pertinent info. @ -Upon arrival patient seen and evaluated in [place] [id number]. Thorough history and physical exam was performed. IV access was established. Patient was administered IV saline. Laboratory studies are conducted and reviewed. Patient does have acute kidney injury. He does have improvement in his blood pressures. Recommended admission for which the patient was agreeable. Spoke with Dr. Ellington for the admission Undiagnosed new problem with uncertain prognosis? @ -No Drug Therapy requiring intensive monitoring for toxicity (Heparin, Nitro, Insulin, Cardizem)? @ -No Were any procedures done? @ -No Diagnosis/symptom? @ -Acute syncope, hypotension, JUAN Acute, or Chronic, or Acute on Chronic? @ -Acute Uncomplicated (without systemic symptoms) or Complicated (systemic symptoms)? @ -Complicated Side effects of treatment? @ -No Exacerbation, Progression, or Severe Exacerbation? @ -No Poses a threat to life or bodily function? How? (Chest pain, [place], [place], pneumonia, PE, COPD, DKA, ARF, appy, cholecystitis, CVA, Diverticulitis, Homicidal, Suicidal, threat to staff... and all critical care pts) @ -No (Tatiana Hernandez) - Lab Data Lab Results 06/25/25 06/25/25 06/25/25 Range/Units 14:40 14:40 14:40 WBC 5.98 (4.50-10.00) 10*3/uL RBC 3.92 L (4.40-5.60) 10*6/uL Hgb 12.7 L (13.0-17.0) g/dL Hct 37.4 L (39.6-50.0) % MCV 95.4 (80.0-97.0) fL MCH 32.4 H (27.0-32.0) pg MCHC 34.0 (32.0-37.0) g/dL Plt Count 168 (140-440) 10*3/uL MPV 11.8 (9.5-12.2) fL Immature Gran % (Auto) 0.3 % Neutrophils % 65.4 % Lymphocytes % 18.1 % Monocytes % 9.2 % Eosinophils % 6.0 % Basophils % 1.0 % Immature Gran # 0.02 (0.00-0.04) 10*3/uL Neutrophils # 3.91 (1.80-7.70) 10*3/uL Lymphocytes # 1.08 (0.90-5.00) 10*3/uL Monocytes # 0.55 (0.20-1.00) 10*3/uL Eosinophils # 0.36 H (0.04-0.35) 10*3/uL Basophils # 0.06 (0.00-0.10) 10*3/uL PT 10.8 (10.0-12.5) sec INR 1.0 (<1.2) APTT 22.6 (22.0-30.0) sec Sodium 137 (137-145) mmol/L Potassium 4.3 (3.5-5.1) mmol/L Chloride 101 (98-107) mmol/L Carbon Dioxide 29 (22-30) mmol/L Anion Gap 7 mmol/L BUN 27 H (9-20) mg/dL Creatinine 2.16 H (0.66-1.25) mg/dL Est GFR (CKD-EPI)AfAm 33 (>60 ml/min/1.73 sqM) Est GFR (CKD-EPI)NonAf 28 (>60 ml/min/1.73 sqM) Glucose 143 H (74-99) mg/dL Calcium 9.6 (8.4-10.2) mg/dL Magnesium 2.0 (1.6-2.3) mg/dL Total Bilirubin 0.7 (0.2-1.3) mg/dL AST 24 (17-59) U/L ALT 18 (4-49) U/L Alkaline Phosphatase 67 (38-126) U/L Troponin I (0.000-0.034) ng/mL Total Protein 7.0 (6.3-8.2) g/dL Albumin 4.5 (3.5-5.0) g/dL Urine Color Urine Appearance (Clear) Urine pH (5.0-8.0) Ur Specific [place] (1.001-1.035) Urine Protein (Negative) Urine Glucose (UA) (Negative) Urine Ketones (Negative) Urine Blood (Negative) Urine Nitrite (Negative) Urine Bilirubin (Negative) Urine Urobilinogen (<2.0) mg/dL Ur Leukocyte Esterase (Negative) Urine RBC (0-5) /hpf Urine WBC (0-5) /hpf Ur Squamous Epith Cells (0-4) /hpf Urine Bacteria (None) /hpf Hyaline Casts (0-2) /lpf Urine Mucus (None) /hpf 03/11/25 03/11/25 Range/Units 14:40 18:24 WBC (4.50-10.00) 10*3/uL RBC (4.40-5.60) 10*6/uL Hgb (13.0-17.0) g/dL Hct (39.6-50.0) % MCV (80.0-97.0) fL MCH (27.0-32.0) pg MCHC (32.0-37.0) g/dL Plt Count (140-440) 10*3/uL MPV (9.5-12.2) fL Immature Gran % (Auto) % Neutrophils % % Lymphocytes % % Monocytes % % Eosinophils % % Basophils % % Immature Gran # (0.00-0.04) 10*3/uL Neutrophils # (1.80-7.70) 10*3/uL Lymphocytes # (0.90-5.00) 10*3/uL Monocytes # (0.20-1.00) 10*3/uL Eosinophils # (0.04-0.35) 10*3/uL Basophils # (0.00-0.10) 10*3/uL PT (10.0-12.5) sec INR (<1.2) APTT (22.0-30.0) sec Sodium (137-145) mmol/L Potassium (3.5-5.1) mmol/L Chloride (98-107) mmol/L Carbon Dioxide (22-30) mmol/L Anion Gap mmol/L BUN (9-20) mg/dL Creatinine (0.66-1.25) mg/dL Est GFR (CKD-EPI)AfAm (>60 ml/min/1.73 sqM) Est GFR (CKD-EPI)NonAf (>60 ml/min/1.73 sqM) Glucose (74-99) mg/dL Calcium (8.4-10.2) mg/dL Magnesium (1.6-2.3) mg/dL Total Bilirubin (0.2-1.3) mg/dL AST (17-59) U/L ALT (4-49) U/L Alkaline Phosphatase (38-126) U/L Troponin I <0.012 (0.000-0.034) ng/mL Total Protein (6.3-8.2) g/dL Albumin (3.5-5.0) g/dL Urine Color Yellow Urine Appearance Clear (Clear) Urine pH 5.0 (5.0-8.0) Ur Specific [place] 1.019 (1.001-1.035) Urine Protein Negative (Negative) Urine Glucose (UA) Negative (Negative) Urine Ketones Negative (Negative) Urine Blood Negative (Negative) Urine Nitrite Negative (Negative) Urine Bilirubin Negative (Negative) Urine Urobilinogen <2.0 (<2.0) mg/dL Ur Leukocyte Esterase Trace H (Negative) Urine RBC 1 (0-5) /hpf Urine WBC 2 (0-5) /hpf Ur Squamous Epith Cells <1 (0-4) /hpf Urine Bacteria Rare H (None) /hpf Hyaline Casts 150 H (0-2) /lpf Urine Mucus Occasional H (None) /hpf Disposition <Loreto Fuentes - Last Filed: 03/11/25 18:53> Is patient prescribed a controlled substance at d/c from ED?: No Time of Disposition: 20:20 Decision to Admit Reason: Admit from [facility] Decision Date: 03/11/25 Decision Time: 20:20 <Tatiana Hernandez - Last Filed: 03/16/25 07:57> Clinical Impression: Orthostatic hypotension, JUAN (acute kidney injury), Syncope, Left knee pain Disposition: ADMITTED IP TO THIS HOSP Condition: Good
[2025-03-11 14:54] LABS: Basophils # (A) 0.06 10*3/uL (0.00-0.10); Eosinophils # (A) 0.36 10*3/uL (0.04-0.35); HCT 37.4 % (39.6-50.0); HGB 12.7 g/dL (13.0-17.0); Lymphocytes # (A) 1.08 10*3/uL (0.90-5.00); Lymphocytes % (A) 18.1 %; MCH 32.4 pg (27.0-32.0); MCV 95.4 fL (80.0-97.0); Mean Platelet Volume 11.8 fL (9.5-12.2); Monocytes # (A) 0.55 10*3/uL (0.20-1.00); Monocytes % (A) 9.2 %; Neutrophils # (A) 3.91 10*3/uL (1.80-7.70); Neutrophils % (A) 65.4 %; Platelet Count 168 10*3/uL (140-440); RBC 3.92 10*6/uL (4.40-5.60); RDW 12.4 % (11.5-14.5); WBC 5.98 10*3/uL (4.50-10.00)
[2025-03-11 15:03] LABS: Partial Thromboplastin Time 22.6 sec (22.0-30.0); Prothrombin Time 10.8 sec (10.0-12.5)
[2025-03-11 15:04] LABS: ALT 18 U/L (4-49); AST 24 U/L (17-59); African American GFR (CKD) 33 (>60 ml/min/1.73 sqM); Albumin 4.5 g/dL (3.5-5.0); Alkaline Phosphatase 67 U/L (38-126); Anion Gap 7 mmol/L; Blood Urea Nitrogen 27 mg/dL (9-20); Calcium 9.6 mg/dL (8.4-10.2); Carbon Dioxide 29 mmol/L (22-30); Chloride 101 mmol/L (98-107); Glucose 143 mg/dL (74-99); Non-African American GFR(CKD) 28 (>60 ml/min/1.73 sqM); Potassium 4.3 mmol/L (3.5-5.1); Sodium 137 mmol/L (137-145); Total Bilirubin 0.7 mg/dL (0.2-1.3)
--- NOTE | 2025-03-11 15:07 | XR ---
EXAMINATION TYPE: XR chest 2V DATE OF EXAM: 03/11/2025 2:59 PM COMPARISON: 01/19/2018 CLINICAL INDICATION: Male, 80 years old with history of syncope, TECHNIQUE: XR chest 2V view(s) obtained. FINDINGS: The heart size is normal. Pacemaker overlies left chest. The pulmonary vasculature is normal. The lungs are clear. IMPRESSION: 1. No acute pulmonary process. [facility], , 03/11/2025 3:04 PM
[2025-03-11 18:48] LABS: Appearance,Urine Clear (Clear); Bacteria,Urine Rare /hpf; Bilirubin,Urine Negative (Negative); Blood,Urine Negative (Negative); Color,Urine Yellow; Glucose,Urine (UA) Negative (Negative); Hyaline Casts,Urine 150 /lpf (0-2); Ketones,Urine Negative (Negative); Leukocyte Esterase,Urine Trace (Negative); Mucus,Urine Occasional /hpf; Nitrite,Urine Negative (Negative); Protein,Urine Negative (Negative); RBC,Urine 1 /hpf (0-5); Specific Gravity,Urine 1.019 (1.001-1.035); Squamous Epithelial Cell,Urine <1 /hpf (0-4); Urobilinogen,Urine <2.0 mg/dL (<2.0); WBC,Urine 2 /hpf (0-5)
[2025-03-11] MEDS: SODIUM CHLORIDE 0.9% 1,000 ML IV ONE (20:07)
[2025-03-11] MEDS ORDERED: NALOXONE 0.4 MG/ML 1 ML VIAL IV PRN (20:20)
[2025-03-11] MEDS: SODIUM CHLORIDE 0.9% 1,000 ML IV SCH (21:38)
--- NOTE | 2025-03-11 21:57 | XR ---
EXAMINATION TYPE: XR knee 4V LT DATE OF EXAM: 03/11/2025 8:19 PM COMPARISON: None. CLINICAL INDICATION: Male, 80 years old with history of syncope, pain TECHNIQUE: 4 view(s) obtained. FINDINGS: There is mild narrowing in the medial compartment joint space. Milder narrowing lateral compartment j oint space is present. No acute fracture or dislocation evident. No joint effusion is evident. Some p atellofemoral joint space narrowing is present. Follow up exams can be performed 7-10 days from acute trauma for continued pain. IMPRESSION: 1. No acute osseous abnormality left knee [facility], , 03/11/2025 9:55 PM
--- NOTE | 2025-03-12 05:00 | P.HPIM ---
History of Present Illness H&P Date: 03/11/25 Chief Complaint: Dizziness and near-fainting while doing chores, low blood p ressure, and fal 80-year-old male male patient with hypertension and pacemaker issues. Diabetes mellitus He experienced an episode of dizziness while sitting in a chair and standing up. His initial blood pressure reading was very low, but later increased to 111. Systolic blood pressure. while walking outside, he felt dizzy again and fell, injuring his knee. He denies hitting his head during the fall. The patient reports this has happened once before, but cannot recall when. He has not experienced any recent changes in medications within the past month. The patient's symptoms appear to be impacting his daily activities, as evidenced by his difficulty performing chores and walking outside. The patient reports being a 'salt freak', stating he salts almost everything he eats. No information provided on tobacco, alcohol, or illicit drug use. Living situation and occupation not mentioned. Past medical history Hypertension, managed with multiple blood pressure medications Pacemaker, with recent issues reported review of systems Pertinent positives as noted in HPI. All other systems were reviewed and are negative Cardiovascular: Positive for dizziness and near-fainting episodes. Denies chest pain. Musculoskeletal: Positive for knee pain following fall. Neurological: Denies head injury. Endocrine: Patient is on insulin, suggesting diabetes. on exam Constitutional: No acute distress, conversant, pleasant Eyes: Anicteric sclerae, moist conjunctiva, Pupils equal round reactive to light ENMT: NC/AT Oropharynx clear, no erythema, or exudates Neck: Supple, no masses, or JVD No carotid bruits No thyromegaly Lungs: Clear to auscultation Clear to percussion Normal respiratory effort, no accessory muscle use Cardiovascular: Heart regular in rate and rhythm, No murmurs, gallops, or rubs No peripheral edema Abdominal: Soft Nontender, no guarding, rebound or rigidity Abdomen moving with respiration Normoactive bowel sounds Extremities: No digital cyanosis No clubbing Pedal pulses intact and symmetrical Radial pulses intact and symmetrical No calf tenderness Psychiatric: Alert and oriented to person, place and time Appropriate affect Neuro Muscles Strength 5/5 in all 4 extremities Sensation to light touch grossly present throughout Cranial nerves II-XII grossly intact Past Medical History Past Medical History: Atrial Fibrillation, Chest Pain / Angina, Heart Failure, Diabetes Mellitus, GERD/Reflux, Hyperlipidemia, Hypertension, Renal Disease, Skin Disorder, Sleep Apnea/CPAP/BIPAP Additional Past Medical History / Comment(s): APRIL 2021, WENT TO [facility], [facility] (HIT HEAD), TRANSFERRED TO [place] WITH A BRAIN BLEED. PSORIASIS, uses CPAP, past cellulitis in joe legs, broken nose age 20(sx), hx. kidney failure w/ dialysis - gangrenous infection of scrotum History of Any Multi-Drug Resistant Organisms: MRSA Date of last positivie culture/infection: 04/03/19 MDRO Source:: Right Leg Past Surgical History: Adenoidectomy, Cardiac Ablation, Heart Catheterization, Orthopedic Surgery, Pacemaker, Tonsillectomy Additional Past Surgical History / Comment(s): APRIL 2021 WATCHMAN'S PROCEDURE. rt carpal tunnel release, pacemaker, colonoscopy/polypectomy,nasal sx, hemorrhoidectomy, watchman insertion, scrotal excision & 2017 Past Anesthesia/Blood Transfusion Reactions: No Reported Reaction Type of Cardiac Device: Permanent Pacemaker Device Placement Date:: April 2015 Past Psychological History: No Psychological Hx Reported Smoking Status: Former smoker Past Alcohol Use History: Rare Past Drug Use History: None Reported - Past Family History Mother Family Medical History: Myocardial Infarction ([place]) Father Family Medical History: Cancer Medications and Allergies Home Medications Medication Instructions Recorded Confirmed Type Metoprolol Tartrate [Lopressor] 50 mg PO BID tab 01/22/18 03/11/25 Rx Sertraline [Zoloft] 50 mg PO DAILY 02/27/19 03/11/25 History Atorvastatin Calcium [Lipitor] 20 mg PO DAILY 08/01/21 03/11/25 History Furosemide [Lasix] 20 mg PO BID 08/01/21 03/11/25 History Gabapentin [Neurontin] 300 mg PO BID 08/01/21 03/11/25 History Levothyroxine Sodium [Synthroid] 75 mcg PO DAILY 08/01/21 03/11/25 History Pantoprazole [Protonix] 40 mg PO DAILY 08/01/21 03/11/25 History metFORMIN HCL [Glucophage] 500 mg PO DAILY 08/01/21 03/11/25 History Valsartan 320 mg PO DAILY 12/29/21 03/11/25 History Aspirin 81 mg PO DAILY 05/19/22 03/11/25 History Amiodarone HCl [Pacerone] 200 mg PO BID 07/07/24 03/11/25 History Spironolactone [Aldactone] 100 mg PO DAILY 07/07/24 03/11/25 History Folic Acid 0.8 mg PO DAILY 03/11/25 03/11/25 History NIFEdipine XL [Procardia XL] 120 mg PO DAILY 03/11/25 03/11/25 History Tamsulosin [Flomax] 0.4 mg PO DAILY 03/11/25 03/11/25 History hydrALAZINE HCL [Apresoline] 50 mg PO BID 03/11/25 03/11/25 History Allergies Allergy/AdvReac Type Severity Reaction Status Date / Time clonidine AdvReac DRY MOUTH Verified 03/11/25 18:39 AND LOSS OF APPETITE Physical Exam Vitals: Vital Signs Temp Pulse Pulse Pulse Pulse Resp BP 03/12/25 04:00 98.2 F 60 18 129/77 03/12/25 02:00 98.1 F 60 18 122/60 03/12/25 00:00 98.3 F 60 18 100/63 03/11/25 22:19 60 20 106/67 03/11/25 21:43 98.1 F 60 20 104/61 03/11/25 21:03 60 21 96/75 03/11/25 19:17 60 60 60 03/11/25 13:58 97.4 F L 65 18 99/62 BP BP BP Pulse Ox 03/12/25 04:00 98 03/12/25 02:00 97 03/12/25 00:00 100 03/11/25 22:19 100 03/11/25 21:43 100 03/11/25 21:03 99 03/11/25 19:17 92/57 72/43 97/59 03/11/25 13:58 95 Intake and Output 03/11/25 03/11/25 03/12/25 14:59 22:59 06:59 Other: Weight 134.717 kg Results CBC & Chem 7: 03/11/25 14:40 03/11/25 14:40 Labs: Abnormal Lab Results - Last 24 Hours (Table) 03/11/25 03/11/25 03/11/25 Range/Units 14:40 14:40 18:24 RBC 3.92 L (4.40-5.60) 10*6/uL Hgb 12.7 L (13.0-17.0) g/dL Hct 37.4 L (39.6-50.0) % MCH 32.4 H (27.0-32.0) pg Eosinophils # 0.36 H (0.04-0.35) 10*3/uL BUN 27 H (9-20) mg/dL Creatinine 2.16 H (0.66-1.25) mg/dL Glucose 143 H (74-99) mg/dL Ur Leukocyte Esterase Trace H (Negative) Urine Bacteria Rare H (None) /hpf Hyaline Casts 150 H (0-2) /lpf Urine Mucus Occasional H (None) /hpf Assessment and Plan Assessment: 80-year-old male with hypertension and multiple medications coming in for presyncopal episode and fall discussed case with ED doctor accepted the admission for postural hypotension and dehydration with anticipated length of stay less than 2 midnights Assessment: 1. Orthostatic hypotension with near syncope, likely due to overmedication and possible dehydration 2. Knee sprain secondary to fall 3. Hypertension, currently over-treated 4. Diabetes, controlled with insulin 5. History of cardiac issues with pacemaker 5. Acute kidney injury nonoliguric Differential Diagnoses: - Medication-induced hypotension - Dehydration - Cardiac arrhythmia - Vasovagal syncope - Postural orthostatic tachycardia syndrome (POTS) Plan: 1. Adjust blood pressure medications: - Discontinue Nifedipine - Consider reducing or discontinuing Hydralazine - Hold other blood pressure medications until blood pressure stabilizes 2. Hydration: Encourage oral fluid intake and monitor for improvement 3. Knee injury: - Rest, ice, compression, and elevation (RICE) protocol - Continue Tylenol for pain as needed - Consider stronger pain medication (e.g., [place]) if needed for sleep -Knee x-ray shows no acute fractures 4. Pacemaker: - Arrange for device interrogation to ensure proper functioning 5. Acute kidney injury - Check kidney function tomorrow - Monitor blood pressure regularly - Gradual mobilization with supervision to assess for orthostatic hypotension -Renal function showing sodium 137 potassium 4.3 elevated BUN/creatinine at 27 and 2.16 6. Patient education: - Discuss signs and symptoms of low blood pressure - Advise on proper hydration and gradual position changes 7. Reassess medication regimen: - Consider simplifying antihypertensive regimen - Review all medications for potential interactions and side effects 8. Follow-up appointment: - Schedule within 1-2 weeks to reassess blood pressure control and knee injury Full code DVT prophylaxis heparin 5000 units subcu twice daily Fall precautions Rest of his blood work unremarkable EKG showed paced rhythm Troponins negative Liver enzymes unremarkable Urinalysis unremarkable White count 5 hemoglobin 12.7 unremarkable
[2025-03-12] MEDS: LEVOTHYROXINE 75 MCG TAB PO SCH (05:49)
[2025-03-12] MEDS: PANTOPRAZOLE 40 MG TABLET PO SCH (08:19)
[2025-03-12] MEDS: ATORVASTATIN 20 MG TAB PO SCH (08:20)
[2025-03-12] MEDS: GABAPENTIN 300 MG CAP PO SCH (08:20)
[2025-03-12] MEDS: HEPARIN SODIUM,PORCINE 5,000 UNIT/ML 1 ML VIAL SQ SCH (08:20)
[2025-03-12] MEDS: AMIODARONE 200 MG TAB PO SCH (08:20)
[2025-03-12] MEDS: METOPROLOL TARTRATE 50 MG TAB PO SCH (08:20)
[2025-03-12] MEDS: SERTRALINE 50 MG TAB PO SCH (08:21)
[2025-03-12] MEDS: TAMSULOSIN 0.4 MG CAP.ER.24H PO SCH (08:21)
[2025-03-12] MEDS: ASPIRIN 81 MG PO SCH (08:21)
[2025-03-12 10:16] LABS: Basophils # (A) 0.03 X 10*3/uL (0.00-0.10); Basophils % (A) 0.7 %; Eosinophils # (A) 0.32 X 10*3/uL (0.04-0.35); HGB 10.9 g/dL (13.0-17.0); Lymphocytes # (A) 0.96 X 10*3/uL (0.90-5.00); Lymphocytes % (A) 20.9 %; MCH 31.1 pg (27.0-32.0); MCHC 32.1 g/dL (32.0-37.0); MCV 97.1 FL (80.0-97.0); Mean Platelet Volume 12.2 FL (9.5-12.2); Monocytes # (A) 0.46 X 10*3/uL (0.20-1.00); NRBC Per 100 WBC 0 X 10*3/uL (0.00-0.01); Neutrophils # (A) 2.82 X 10*3/uL (1.80-7.70); Neutrophils % (A) 61.2 %; Platelet Count 140 X 10*3/uL (140-440); RDW 12.7 % (11.5-14.5)
--- NOTE | 2025-03-12 10:28 | P.CRDCN ---
History of Present Illness Consult date: 03/12/25 History of present illness: HISTORY OF PRESENTING ILLNESS: Known to Dr. Luna. Presents to the hospital because of a concern of passing out. Patient reports that he was walking out when he felt lightheaded and the next and he remembers was finding himself on the ground. He was able to get up by himself. He remember hitting the ground but not hitting his head. He was down only transiently. He has been feeling dizzy and lightheaded quite frequently lately on multiple occasions. He does report that he likes salt. He denies any smoking alcohol use marijuana use drug use He reports that he had an ultrasound done at Dr. Luna's office last month. Does not appear volume overloaded On admission his BP was 100/63, heart rate 60, his orthostatic vital signs were abnormal Chest x-ray does not show any signs of significant section of consolidation Labs shows hemoglobin 12, BUN 27, creatinine 2.6, GFR 33, tropes were negative EKG shows atrial paced ventricular sensed rhythm Last echo from 06/2024 shows an EF of 45 to 50%, mild MR, mild TR, RVSP 35 mmHg, mildly dilated RV, moderate LVH Home medications hydralazine 50 twice daily, Procardia XL 120, valsartan 320, Aldactone 100, metoprolol 50 twice daily, Lasix 20 twice daily, aspirin 81, Plavix 20, amiodarone 200 twice daily. REVIEW OF SYSTEMS: 14 point review of system is negative except what is mentioned above in HPI. PHYSICAL EXAMINATION: Neck: Brisk carotid upstroke, no jugular venous distention. Lungs: Clear to auscultation. Heart: Regular pulse, mild systolic murmur audible Abdomen: Soft nontender, positive bowel sounds. Extremities: No edema, intact distal pulses. Neuro: Alert, oritented, no focal deficits. Detailed neuro exam was not performed. ASSESSMENT: # Syncope, likely related to orthostatic intolerance # Essential hypertension on multiple antihypertensives # history of paroxysmal atrial fibrillation # History of NATALIE occlusion with Watchman # Status post PPM for sick sinus syndrome # Morbid obesity # CKD stage IIIb. Prior history of transient hemodialysis PLAN: Due to low blood pressure currently and similarly 3 months ago, I will reduce in his antihypertensives. Only continue Procardia XL 60 mg daily. Hold hydralazine losartan hydrochlorothiazide for now. Hold Aldactone 100 mg daily at present Continue Lasix 20 g daily, reduce metoprolol to 25 twice daily, amiodarone to 200 mg daily Perform orthostatic vital signs tomorrow If blood pressure normal/normal, consider discharging Obtain limited echo for LVEF Ramiro Orr MD, FACC, RPVI Thank you for allowing [facility] to participate in this patient's care. Feel free to reach out in case of any followup questions. Past Medical History Past Medical History: Atrial Fibrillation, Chest Pain / Angina, Heart Failure, Diabetes Mellitus, GERD/Reflux, Hyperlipidemia, Hypertension, Renal Disease, Skin Disorder, Sleep Apnea/CPAP/BIPAP Additional Past Medical History / Comment(s): APRIL 2021, WENT TO [facility], EC (HIT HEAD), TRANSFERRED TO [place] WITH A BRAIN BLEED. PSORIASIS, uses CPAP, past cellulitis in joe legs, broken nose age 20(sx), hx. kidney failure w/ dialysis - gangrenous infection of scrotum History of Any Multi-Drug Resistant Organisms: MRSA Date of last positivie culture/infection: 04/03/19 MDRO Source:: Right Leg Past Surgical History: Adenoidectomy, Cardiac Ablation, Heart Catheterization, O rthopedic Surgery, Pacemaker, Tonsillectomy Additional Past Surgical History / Comment(s): APRIL 2021 WATCHMAN'S PROCEDURE. rt carpal tunnel release, pacemaker, colonoscopy/polypectomy,nasal sx, hemorrhoidectomy, watchman insertion, scrotal excision & 2017 Past Anesthesia/Blood Transfusion Reactions: No Reported Reaction Type of Cardiac Device: Permanent Pacemaker Device Placement Date:: April 2015 Past Psychological History: No Psychological Hx Reported Smoking Status: Former smoker Past Alcohol Use History: Rare Past Drug Use History: None Reported - Past Family History Mother Family Medical History: Myocardial Infarction ([place]) Father Family Medical History: Cancer Medications and Allergies Home Medications Medication Instructions Recorded Confirmed Type Metoprolol Tartrate [Lopressor] 50 mg PO BID tab 01/22/18 03/11/25 Rx Sertraline [Zoloft] 50 mg PO DAILY 02/27/19 03/11/25 History Atorvastatin Calcium [Lipitor] 20 mg PO DAILY 08/01/21 03/11/25 History Furosemide [Lasix] 20 mg PO BID 08/01/21 03/11/25 History Gabapentin [Neurontin] 300 mg PO BID 08/01/21 03/11/25 History Levothyroxine Sodium [Synthroid] 75 mcg PO DAILY 08/01/21 03/11/25 History Pantoprazole [Protonix] 40 mg PO DAILY 08/01/21 03/11/25 History metFORMIN HCL [Glucophage] 500 mg PO DAILY 08/01/21 03/11/25 History Valsartan 320 mg PO DAILY 12/29/21 03/11/25 History Aspirin 81 mg PO DAILY 05/19/22 03/11/25 History Amiodarone HCl [Pacerone] 200 mg PO BID 07/07/24 03/11/25 History Spironolactone [Aldactone] 100 mg PO DAILY 07/07/24 03/11/25 History Folic Acid 0.8 mg PO DAILY 03/11/25 03/11/25 History NIFEdipine XL [Procardia XL] 120 mg PO DAILY 03/11/25 03/11/25 History Tamsulosin [Flomax] 0.4 mg PO DAILY 03/11/25 03/11/25 History hydrALAZINE HCL [Apresoline] 50 mg PO BID 03/11/25 03/11/25 History Allergies Allergy/AdvReac Type Severity Reaction Status Date / Time clonidine AdvReac DRY MOUTH Verified 03/11/25 18:39 AND LOSS OF APPETITE Physical Exam Vitals: Vital Signs Temp Pulse Pulse Pulse Pulse Resp BP 03/12/25 09:00 03/12/25 06:00 98.1 F 60 18 125/72 03/12/25 04:00 98.2 F 60 18 129/77 03/12/25 02:00 98.1 F 60 18 122/60 03/12/25 00:00 98.3 F 60 18 100/63 03/11/25 22:19 60 20 106/67 03/11/25 21:43 98.1 F 60 20 104/61 03/11/25 21:03 60 21 96/75 03/11/25 19:17 60 60 60 03/11/25 13:58 97.4 F L 65 18 99/62 BP BP BP Pulse Ox 03/12/25 09:00 98 03/12/25 06:00 98 03/12/25 04:00 98 03/12/25 02:00 97 06/26/25 00:00 100 03/11/25 22:19 100 03/11/25 21:43 100 03/11/25 21:03 99 03/11/25 19:17 92/57 72/43 97/59 03/11/25 13:58 95 Results 03/12/25 06:18 03/11/25 14:40 Cardiac Enzymes 03/11/25 03/11/25 Range/Units 14:40 14:40 AST 24 (17-59) U/L Troponin I <0.012 (0.000-0.034) ng/mL Coagulation 03/11/25 Range/Units 14:40 PT 10.8 (10.0-12.5) sec APTT 22.6 (22.0-30.0) sec CBC 03/11/25 Range/Units 14:40 WBC 5.98 (4.50-10.00) 10*3/uL RBC 3.92 L (4.40-5.60) 10*6/uL Hgb 12.7 L (13.0-17.0) g/dL Hct 37.4 L (39.6-50.0) % Plt Count 168 (140-440) 10*3/uL Comprehensive Metabolic Panel 03/11/25 Range/Units 14:40 Sodium 137 (137-145) mmol/L Potassium 4.3 (3.5-5.1) mmol/L Chloride 101 (98-107) mmol/L Carbon Dioxide 29 (22-30) mmol/L BUN 27 H (9-20) mg/dL Creatinine 2.16 H (0.66-1.25) mg/dL Glucose 143 H (74-99) mg/dL Calcium 9.6 (8.4-10.2) mg/dL AST 24 (17-59) U/L ALT 18 (4-49) U/L Alkaline Phosphatase 67 (38-126) U/L Total Protein 7.0 (6.3-8.2) g/dL Albumin 4.5 (3.5-5.0) g/dL Current Medications Generic Name Dose Route Start Last Admin Trade Name Freq PRN Reason Stop Dose Admin Amiodarone HCl 200 mg 03/12/25 09:00 03/12/25 08:20 Amiodarone 200 Mg Tab PO 200 mg BID BRITTANIE Administration Aspirin 81 mg 03/12/25 09:00 03/12/25 08:21 Aspirin 81 Mg PO 81 mg DAILY BRITTANIE Administration Atorvastatin Calcium 20 mg 03/12/25 09:00 03/12/25 08:20 Atorvastatin 20 Mg Tab PO 20 mg DAILY BRITTANIE Administration Gabapentin 300 mg 03/12/25 09:00 03/12/25 08:20 Gabapentin 300 Mg Cap PO 300 mg BID BRITTANIE Administration Heparin Sodium (Porcine) 5,000 unit 03/12/25 09:00 03/12/25 08:20 Heparin Sodium,Porcine 5,000 Unit/Ml 1 Ml Vial SQ 5,000 unit Q12HR BRITTANIE Administration Sodium Chloride 1,000 mls @ 130 mls/hr 03/11/25 20:30 03/12/25 03:28 Saline 0.9% IV 130 mls/hr .[id number] BRITTANIE Administration Levothyroxine Sodium 75 mcg 03/12/25 06:00 03/12/25 05:49 Levothyroxine 75 Mcg Tab PO 75 mcg DAILY@0600 BRITTANIE Administration Metoprolol Tartrate 50 mg 03/12/25 09:00 03/12/25 08:20 Metoprolol Tartrate 50 Mg Tab PO 50 mg BID BRITTANIE Administration Naloxone HCl 0.2 mg 03/11/25 20:20 Naloxone 0.4 Mg/Ml 1 Ml Vial IV Q2M PRN Opioid Reversal Pantoprazole Sodium 40 mg 03/12/25 07:30 03/12/25 08:19 Pantoprazole 40 Mg Tablet PO 40 mg [id number] BRITTANIE Administration Sertraline HCl 50 mg 03/12/25 09:00 03/12/25 08:21 Sertraline 50 Mg Tab PO 50 mg DAILY BRITTANIE Administration Tamsulosin HCl 0.4 mg 03/12/25 09:00 03/12/25 08:21 Tamsulosin 0.4 Mg Cap.Er.24h PO 0.4 mg DAILY BRITTANIE Administration 03/11/25 14:40 03/11/25 14:40
[2025-03-12 10:34] LABS: BUN/Creat Ratio 11.48 Ratio (12.00-20.00); Blood Urea Nitrogen 24.1 mg/dL (9.0-27.0); Calcium 8.7 mg/dL (8.7-10.3); Carbon Dioxide 28.2 mmol/L (21.6-31.8); Chloride 105 mmol/L (96-109); Glucose 141 mg/dL (70-110); Potassium 4.3 mmol/L (3.5-5.5); Sodium 141 mmol/L (135-145)
[2025-03-12] MEDS: FUROSEMIDE 20 MG TAB PO SCH (12:03)
[2025-03-12] MEDS: HYDROcodone/APAP 5-325MG 1 EACH TAB PO PRN (12:06)
[2025-03-12] MEDS ORDERED: DEXTROSE 50% SYRINGE 50 ML IVP PRN ×2 (14:47)
--- NOTE | 2025-03-12 14:49 | P.PN ---
Subjective Progress Note Date: 03/12/25 Subjective: Patient seen and examined at bedside. No acute events overnight. Pertinent positives and negatives as discussed above, a complete review of systems was performed and all other systems are negative. Vitals Signs Reviewed. General: Nontoxic, no distress, appears at stated age, morbidly obese Derm: Warm, dry Head: Atraumatic, normocephalic, symmetric Eyes: EOMI, no lid lag, anicteric sclera Mouth: No lip lesion, mucus membranes moist Cardiovascular: S1S2 reg, no murmur Lungs: CTA bilateral, no rhonchi, no rales, no accessory muscle use Abdominal: Soft, nontender to palpation, no guarding, no appreciable organomegaly Ext: No gross muscle atrophy, trace peripheral edema, no contractures Neuro: CN II-XI grossly intact, no focal neuro deficits Psych: Alert, oriented, appropriate affect Data Reviewed Today: Pertinent Labs: WBC 4.6, hemoglobin 10.9, creatinine 2.1 Imaging: No new imaging Assessment and Plan: Active: Orthostatic hypotension Near syncope Sick sinus syndrome status post permanent pacemaker Essential hypertension - Likely secondary to antihypertensives - Cardiology note reviewed - Metoprolol reduced to 25 twice daily, restarted on amiodarone 200, and Lasix 20 daily, holding hydralazine and Aldactone and losartan. Continued on nifedipine 60 daily - DC normal saline - Repeat orthostatic vitals have been negative - Per cardiology, repeated again tomorrow if negative, patient can be discharged - Echocardiogram also pending - Device interrogation pending Type 2 diabetes - Sliding scale insulin, monitor for hypoglycemia Chronic: History of Watchman device History of paroxysmal A-fib CKD stage III Hypothyroidism Depression Dyslipidemia Neuropathy BPH DVT ppx: Subcu heparin Code status: Full code Anticipated discharge place: Pending clinical course Anticipated discharge time: Pending clinical course Objective - Vital Signs Vital signs: Vital Signs Temp 98.1 F 03/12/25 06:00 Pulse 60 03/12/25 14:31 Resp 16 03/12/25 11:30 BP 128/85 03/12/25 14:31 Pulse Ox 98 03/12/25 09:00 FiO2 Intake & Output 03/11/25 03/12/25 03/12/25 18:59 06:59 18:59 Weight 134.717 kg - Labs CBC & Chem 7: 03/12/25 06:18 03/12/25 06:18 Labs: Abnormal Lab Results - Last 24 Hours (Table) 03/11/25 03/11/25 03/11/25 Range/Units 14:40 14:40 18:24 RBC 3.92 L (4.40-5.60) 10*6/uL Hgb 12.7 L (13.0-17.0) g/dL Hct 37.4 L (39.6-50.0) % MCV (80.0-97.0) FL MCH 32.4 H (27.0-32.0) pg Eosinophils # 0.36 H (0.04-0.35) 10*3/uL BUN 27 H (9-20) mg/dL Creatinine 2.16 H (0.66-1.25) mg/dL Est GFR (CKD-EPI) (>=60) BUN/Creatinine Ratio (12.00-20.00) Ratio Glucose 143 H (74-99) mg/dL Ur Leukocyte Esterase Trace H (Negative) Urine Bacteria Rare H (None) /hpf Hyaline Casts 150 H (0-2) /lpf Urine Mucus Occasional H (None) /hpf 03/12/25 03/12/25 Range/Units 06:18 06:18 RBC 3.50 L (4.40-5.60) 10*6/uL Hgb 10.9 L (13.0-17.0) g/dL Hct 34.0 L (39.6-50.0) % MCV 97.1 H (80.0-97.0) FL MCH (27.0-32.0) pg Eosinophils # (0.04-0.35) 10*3/uL BUN (9-20) mg/dL Creatinine 2.1 H (0.66-1.25) mg/dL Est GFR (CKD-EPI) 32 L (>=60) BUN/Creatinine Ratio 11.48 L (12.00-20.00) Ratio Glucose 141 H (74-99) mg/dL Ur Leukocyte Esterase (Negative) Urine Bacteria (None) /hpf Hyaline Casts (0-2) /lpf Urine Mucus (None) /hpf
[2025-03-12 17:15] LABS: Glucose,Whole Blood 116 mg/dL (70-110)
[2025-03-12] MEDS: INSULIN LISPRO (HumaLOG) 100 UNIT/ML 10 mL VL SQ SCH (17:40)
[2025-03-12 19:57] LABS: Glucose,Whole Blood 115 mg/dL (70-110)
[2025-03-12] MEDS: METOPROLOL TARTRATE 25 MG TAB PO SCH (20:52)
[2025-03-13 05:53] LABS: Glucose,Whole Blood 139 mg/dL (70-110)
[2025-03-13] MEDS: AMIODARONE 200 MG TAB PO SCH (08:28)
[2025-03-13 09:19] VITALS: BP 113/72; PULSE 68; RESP 16; TEMP 98
[2025-03-13 10:44] LABS: BUN/Creat Ratio 10.22 Ratio (12.00-20.00); Blood Urea Nitrogen 18.4 mg/dL (9.0-27.0); Calcium 8.8 mg/dL (8.7-10.3); Carbon Dioxide 26.9 mmol/L (21.6-31.8); Chloride 104 mmol/L (96-109); Glucose 131 mg/dL (70-110); Potassium 4.5 mmol/L (3.5-5.5); Sodium 139 mmol/L (135-145)
--- NOTE | 2025-03-13 11:11 | CA ---
Transthoracic Echo Report Name: Marciano Dykes Age: 80 Gender: M : 1945 Exam Date: 03/13/2025 07:56 Exam Location: [place] [facility] Ht (in): 72 Wt (lb): 297 Ordering Physician: Ramiro Orr MD ([id number]) Attending/Referring Phys: Foreign Languages Professor Radha Crooks RDCS Procedure CPT: Indications: cardiomyopathy, use contrast if needed pls Cardiac Hx: Limited per Dr. Orr Technical Quality: Technically difficult study Contrast 1: Definity Total Dose (mL): 3 Contrast 2: Total Dose (mL): MEASUREMENTS (Male / Female) Normal Values 2D ECHO LV Diastolic Diameter PLAX 5.9 cm 4.2 - 5.9 / 3.9 - 5.3 cm LV Systolic Diameter PLAX 4.3 cm IVS Diastolic Thickness 1.0 cm 0.6 - 1.0 / 0.6 - 0.9 cm LVPW Diastolic Thickness 1.1 cm 0.6 - 1.0 / 0.6 - 0.9 cm LV Relative Wall Thickness 0.4 LVOT Diameter 2.7 cm LV Diastolic Volume MOD BP 106.5 cm??? 67 - 155 / 56 - 104 cm??? LV Systolic Volume MOD BP 47.3 cm??? 22 - 58 / 19 - 49 cm??? LV Ejection Fraction MOD BP 55.6 % >= 55 % LV Cardiac Index MOD BP 1173.7 cm???/min???m??? LV Diastolic Volume MOD 4C 126.9 cm??? LV Systolic Volume MOD 4C 56.8 cm??? LV Ejection Fraction MOD 4C 55.3 % LV Cardiac Index MOD 4C 1391.8 cm???/min???m??? LV Diastolic Length 4C 8.3 cm LV Systolic Length 4C 7.2 cm LV Diastolic Volume MOD 2C 82.3 cm??? LV Systolic Volume MOD 2C 37.0 cm??? LV Ejection Fraction MOD 2C 55.0 % LV Cardiac Index MOD 2C 897.9 cm???/min???m??? LV Diastolic Length 2C 7.6 cm LV Systolic Length 2C 6.8 cm DOPPLER AV Peak Velocity 130.4 cm/s AV Peak Gradient 6.8 mmHg AV Mean Velocity 86.5 cm/s AV Mean Gradient 3.4 mmHg AV Velocity Time Integral 26.4 cm LVOT Peak Velocity 93.4 cm/s LVOT Peak Gradient 3.5 mmHg LVOT Velocity Time Integral 19.4 cm LVOT Stroke Volume 107.3 cm??? LVOT Stroke Volume Index 42.6 ml/m??? LVOT Cardiac Index 2128.4 cm???/min???m??? AV Area Cont Eq vti 4.1 cm??? AV Area Cont Eq pk 4.0 cm??? TR Peak Velocity 193.4 cm/s TR Peak Gradient 15.0 mmHg Right Atrial Pressure 5.0 mmHg Pulmonary Artery Systolic Pressu 20.0 mmHg Right Ventricular Systolic Press 20.0 mmHg FINDINGS Left Ventricle Left ventricular ejection fraction is estimated at 50-55 %. Left ventricular cavity size normal. Left ventricular wall thickness normal. No obvious regional wall motion abnormalities. No evidence of LV thrombus on contrast imaging Right Ventricle Normal right ventricular size and function. Right ventricular systolic pressure within normal limits. Right Atrium Left Atrium Mitral Valve Structurally normal mitral valve. No mitral stenosis, regurgitation or prolapse. Aortic Valve Aortic valve not well visualized. No aortic valve stenosis or regurgitation. Tricuspid Valve Structurally normal tricuspid valve. No tricuspid stenosis. Trace to mild tricuspid regurgitation. Pulmonic Valve Pulmonic valve not well visualized. Pericardium No pericardial effusion. Aorta Aortic annulus normal. CONCLUSIONS Technically difficult study. LVEF 50 to 55% No obvious regional wall motion abnormality Normal RV size and systolic function No obvious valvular dysfunction No pericardial effusion Previewed by: Dr Ramiro Orr (Electronically Signed) Final Date: 13 March 2025 11:11
[2025-03-13 12:38] LABS: Glucose,Whole Blood 138 mg/dL (70-110)
--- NOTE | 2025-03-13 16:14 | P.DS ---
Providers Date of admission: 03/11/25 20:22 Expected date of discharge: 03/13/25 Attending physician: Chanelle Womack MD Consults: 03/11/25 20:20 Consult Physician Urgent Consulting Provider: [facility] Consult Reason/Comments: orthostatic hypotension Do you want consulting provider notified?: Yes Primary care physician: [facility] Course: Orthostatic hypotension Presyncope Sick sinus syndrome status post pacemaker Hypertension Type 2 diabetes Paroxysmal atrial fibrillation status post Watchman CKD stage III Hypothyroidism Hyperlipidemia BPH Hospital course: 80-year-old man with medical history of hypertension, heart failure, BPH, diabetes, CAD, hyperlipidemia presented after fall related to dizziness while standing. In the emergency room, patient was noted to have postural hypotension felt secondary to overmedication and possible dehydration. Patient was admitted to observation with cardiology consultation. Multiple medication adjustments were made including down titration of patient's home Lasix, nifedipine, amiodarone, metoprolol, discontinuation of spironolactone, Procardia, valsartan, hydralazine. Patient was also resuscitated with IV fluids. With these interventions, patient's dizziness improved and postural hypotension resolved. Patient was instructed to follow-up with primary care physician as well as PCP. I spent 34 minutes on this discharge Gen: In NAD, non-toxic HEENT: normocephalic, atraumatic, hearing acuity is intant, mucous membranes moist CVS: perfusing all extremities well, no pitting edema, Respiratory: symmetric chest expansion, no accessory muscle use, GI: soft, NTTP, ND, : no suprapubic tenderness, no CVA tenderness MSK/Derm: no rashes, cyanosis Neuro: CN II-XII intact, no motor weakness, Psych: cooperative, euthymic mood, judgment and insight is intact Patient Condition at Discharge: Good Plan - Discharge Summary New Discharge Prescriptions: New NIFEdipine XL [Procardia XL] 60 mg PO DAILY #30 tab Continue Sertraline [Zoloft] 50 mg PO DAILY Pantoprazole [Protonix] 40 mg PO DAILY Levothyroxine Sodium [Synthroid] 75 mcg PO DAILY Gabapentin [Neurontin] 300 mg PO BID metFORMIN HCL [Glucophage] 500 mg PO DAILY Atorvastatin Calcium [Lipitor] 20 mg PO DAILY Aspirin 81 mg PO DAILY Folic Acid 0.8 mg PO DAILY Tamsulosin [Flomax] 0.4 mg PO DAILY Changed Furosemide [Lasix] 20 mg PO DAILY #0 Metoprolol Tartrate [Lopressor] 25 mg PO BID #0 Amiodarone HCl [Pacerone] 200 mg PO DAILY #0 Discontinued Spironolactone [Aldactone] 100 mg PO DAILY NIFEdipine XL [Procardia XL] 120 mg PO DAILY Valsartan 320 mg PO DAILY hydrALAZINE HCL [Apresoline] 50 mg PO BID Discharge Medication List Sertraline [Zoloft] 50 mg PO DAILY 02/27/19 [History] Atorvastatin Calcium [Lipitor] 20 mg PO DAILY 08/01/21 [History] Gabapentin [Neurontin] 300 mg PO BID 08/01/21 [History] Levothyroxine Sodium [Synthroid] 75 mcg PO DAILY 08/01/21 [History] Pantoprazole [Protonix] 40 mg PO DAILY 08/01/21 [History] metFORMIN HCL [Glucophage] 500 mg PO DAILY 08/01/21 [History] Aspirin 81 mg PO DAILY 05/19/22 [History] Folic Acid 0.8 mg PO DAILY 03/11/25 [History] Tamsulosin [Flomax] 0.4 mg PO DAILY 03/11/25 [History] Amiodarone HCl [Pacerone] 200 mg PO DAILY #0 03/13/25 [Rx] Furosemide [Lasix] 20 mg PO DAILY #0 03/13/25 [Rx] Metoprolol Tartrate [Lopressor] 25 mg PO BID #0 03/13/25 [Rx] NIFEdipine XL [Procardia XL] 60 mg PO DAILY #30 tab 03/13/25 [Rx] Follow up Appointment(s)/Referral(s): Corey Luna DO [STAFF PHYSICIAN] - 03/23/25 2:30 pm Jamshid Mccain DO [Primary Care Provider] - 1-2 days Patient Instructions/Handouts: Acute Kidney Injury (DC), Syncope in Older Adults (DC) Discharge Disposition: HOME SELF-CARE
[2025-03-15 15:26] LABS: HCT 34.5 % (39.6-50.0); HGB 11.2 g/dL (13.0-17.0); MCH 31.1 pg (27.0-32.0); MCHC 32.5 g/dL (32.0-37.0); MCV 95.8 FL (80.0-97.0); Mean Platelet Volume 13.2 FL (9.5-12.2); NRBC Per 100 WBC 0 X 10*3/uL (0.00-0.01); Platelet Count 143 X 10*3/uL (140-440); RDW 12.4 % (11.5-14.5); WBC 4.48 X 10*3/uL (4.50-10.00)
[2025-03-15 15:27] LABS: Basophils # (A) 0.05 X 10*3/uL (0.00-0.10); Basophils % (A) 1.1 %; Eosinophils # (A) 0.31 X 10*3/uL (0.04-0.35); Eosinophils % (A) 6.9 %; Lymphocytes % (A) 22.3 %; Monocytes # (A) 0.43 X 10*3/uL (0.20-1.00); Monocytes % (A) 9.6 %; Neutrophils # (A) 2.67 X 10*3/uL (1.80-7.70); Neutrophils % (A) 59.7 %
== END 2025-03-13 14:00 | disposition home or self-care (01) ==
LOC: EC 13:40 → 6NMEDSUR 20:22
PROVIDERS: ADMIT Internal Medicine; ATTEND Internal Medicine
DX: I95.1 Orthostatic hypotension (principal); S83.92XA Sprain of unspecified site of left knee, initial encounter; W19.XXXA Unspecified fall, initial encounter; N17.8 Other acute kidney failure; E03.9 Hypothyroidism, unspecified; E11.40 Type 2 diabetes mellitus with diabetic neuropathy, unspecified; E78.5 Hyperlipidemia, unspecified; F32.A Depression, unspecified; I13.0 Hypertensive heart and chronic kidney disease with heart failure and stage 1 through stage 4 chronic kidney disease, or unspecified chronic kidney disease; E11.22 Type 2 diabetes mellitus with diabetic chronic kidney disease; N18.32 Chronic kidney disease, stage 3b; I50.9 Heart failure, unspecified; I25.10 Atherosclerotic heart disease of native coronary artery without angina pectoris; I48.0 Paroxysmal atrial fibrillation; I49.5 Sick sinus syndrome; N40.0 Benign prostatic hyperplasia without lower urinary tract symptoms; K21.9 Gastro-esophageal reflux disease without esophagitis; G47.30 Sleep apnea, unspecified; E66.01 Morbid (severe) obesity due to excess calories; Z87.891 Personal history of nicotine dependence; Z95.0 Presence of cardiac pacemaker; Z88.8 Allergy status to other drugs, medicaments and biological substances; Z79.899 Other long term (current) drug therapy; Z79.890 Hormone replacement therapy; Z79.84 Long term (current) use of oral hypoglycemic drugs; Z79.82 Long term (current) use of aspirin
CPT/HCPCS: 96372 ×3; 96360; 96361 ×2; 99285; 36415; 93005; 93308; 80053; 80048 ×2; 83735; 84484; 85025 ×3; 85610; 85730; 81001; 83036; 73564; 71046; G0378 ×3; J1644 ×2; Q9957